=== PATIENT | male | born 1955 | race Caucasian/White ===

== ENCOUNTER → 2019-07-12 13:35 | Outpatient (CLI) | payer MEDICARE, SELFPAY ==
--- NOTE | 2019-07-12 13:42 | CDU_ITS ---
Reason For Study: Amaurosis fugax Rt. Velocities/BP Lt. Velocities/BP Prox CCA 73.4/12.1 cm/sec. Prox CCA 75.9/15.4 cm/sec. Mid CCA 70.8/13.4 cm/sec. Mid CCA 67.4/17.3 cm/sec. Dist CCA 57.8/12.1 cm/sec. Dist CCA 63.6/16.3 cm/sec. Prox ICA 59.7/11.3 cm/sec. Prox ICA 48.5/15.4 cm/sec. Mid ICA 70.6/19 cm/sec. Mid ICA 78.7/23.9 cm/sec. Dist ICA 78.4/23.4 cm/sec. Dist ICA 70.2/28.6 cm/sec. Rt. ICA/CCA = 1.1. Lt. ICA/CCA = 1.2. Prox ECA 106/16 cm/sec. Prox ECA 103.6/17.9 cm/sec. Rt. Vert. 49.1/12.5 cm/sec. Lt. Vert. 37.4/11.2 cm/sec. Right Extracranial There is intimal thickening but no significant atherosclerotic plaque noted in the right common carotid artery. There is intimal thickening but no significant atherosclerotic plaque noted in the right internal carotid artery. There is intimal thickening but no significant atherosclerotic plaque noted in the right external carotid artery. Antegrade flow is noted in the right vertebral artery. Left Extracranial There is intimal thickening but no significant atherosclerotic plaque noted in the left common carotid artery. There is intimal thickening but no significant atherosclerotic plaque noted in the left internal carotid artery. There is intimal thickening but no significant atherosclerotic plaque noted in the left external carotid artery. Antegrade flow is noted in the left vertebral artery. Procedure Carotid Duplex 38515. Exam performed in department. Interpretation Summary No significant atherosclerotic plaque or stenosis noted in the internal carotid arteries bilaterally. Flow within the vertebral arteries is antegrade bilaterally. Ordering Physician: Marv Mccarthy Referring Physician: Marlon Sarmiento Performed By: Blessing Sarmiento RVT
== END ==
PROVIDERS: PCP Family Medicine; Referring Provider Ophthalmology; Visit Provider Ophthalmology
DX: G45.3 Amaurosis fugax (principal)
CPT/HCPCS: 93880

== ENCOUNTER 2019-07-20 10:29 | Inpatient (IN) | payer MEDICARE, SELFPAY ==
[2019-07-20] VITALS (35 sets, daily range): BP systolic 131–193; BP diastolic 66–112; PULSE 68–88; RESP 1–24; TEMP 36.4–37.2; O2SAT 94–100; BMI 35.7; BMI 35.8; BMI 34.3
--- NOTE | 2019-07-20 10:32 | CT_ITS ---
STUDY: CT BRAIN WITHOUT CONTRAST REASON FOR EXAM: Male, 63 years old. ALTERED MENTAL STATUS. Difficulty with speech. RADIATION DOSAGE (If Supplied By Facility): CTDIvol = ( 44.99 ) mGy, DLP = ( 829.85 ) mGycm TECHNIQUE: Transaxial CT imaging of the brain was performed without administration of intravenous contrast material. Individualized dose optimization techniques were used for this CT. COMPARISON: Comparison is made with prior study dated February 21, 2016. FINDINGS: Normal soft tissue structures. Normal calvarium. There is mild cerebral atrophy with widening of the extra-axial spaces and ventricular dilatation. Normal white matter tracts of the cerebral hemispheres. Normal basal ganglia and thalami. Normal brainstem. Normal cerebellum. There is no intracranial hemorrhage. There are no findings of an acute ischemic infarction. Atherosclerotic calcification of the cavernous portions of the internal carotid arteries bilaterally. Minimal mucosal thickening of the ethmoid sinuses bilaterally. CT/Brain/Head without Contrast IMPRESSION: Chronic involutional changes of the brain. Electronically Signed: Ferdinand Henderson, at 11:00 EDT , Service support ,
--- NOTE | 2019-07-20 10:32 | EKG12_ITS ---
Test Reason : Blood Pressure : / mmHG Vent. Rate : 072 BPM Atrial Rate : 072 BPM P-R Int : 156 ms QRS Dur : 090 ms QT Int : 386 ms P-R-T Axes : 029 039 086 degrees QTc Int : 422 ms Normal sinus rhythm Nonspecific T wave abnormality Abnormal ECG Confirmed by VITA HARTMAN, PATTI ([id number]), advertising editor KRISTAN MICHAELS ([id number]) on 07/23/2019 1:44:58 PM Referred By: JUDY Confirmed By:SANJANA GORMAN MD
--- NOTE | 2019-07-20 10:35 | RAD_ITS ---
STUDY: X-RAY CHEST REASON FOR EXAM: Male, 63 years old. Chest pain. TECHNIQUE: Single AP portable view of the chest. COMPARISON: Comparison is made with prior examination dated February 21, 2016. FINDINGS: EKG electrodes are seen. Limited inspiration as compared to prior study with evidence of impaired aeration at the lung bases. No definite infiltrate is seen. There is no demonstrated pleural abnormality. Normal size heart. Normal mediastinum and brent. Normal visualized pulmonary arteries. There is atherosclerotic tortuosity of the aortic arch and descending thoracic aorta. There are diffuse degenerative changes of the visualized thoracic spine. Normal visualized ribs, clavicles, and shoulders. There is no demonstrated abnormality of the visualized soft tissue structures of the upper abdomen. RAD/Chest 1 View IMPRESSION: Impaired aeration at the lung bases due to limited inspiratory effort. No acute abnormality is seen. Electronically Signed: Ferdinand Henderson, at 10:51 EDT , Service support ,
[2019-07-20] MEDS: 0.9% Normal Saline 1,000 ML 100 ML IV ×2 (10:41→22:08)
[2019-07-20 10:43] LABS: Absolute Lymphocyte Count 2.74 X10^3/uL (0.83-4.51); Absolute Neutrophil Count 3.1 X10^3/uL (2.0-7.7); Basophil# 0.03 X10^3/uL; Basophil% 0.4 % (0-1); Eosinophil# 0.29 X10^3/uL; Eosinophils% 4.2 % (0-5); Hematocrit 47.1 % (40-54); Hemoglobin 15.6 g/dL (13.0-16.5); Lymphocyte # 2.74 X10^3/ul (4.0); Lymphocyte % 39.4 % (19-41); Mean Corp Hgb Conc 33.1 g/dL (32-36); Mean Corpuscular Hgb 28.3 pg (27.0-32.0); Mean Corpuscular Volume 85.3 fL (80-94); Mean Platelet Vol. 10.1 fl (6.2-12.0); Monocyte# 0.74 X10^3/uL; Monocyte% 10.6 % (0-10); NRBC Flagged by Analyzer 0 % (0-5); Neutrophil # 3.13 X10^3/uL (2.7-7.7); Neutrophil % 45.1 % (47-70); Platelet Count 220 K/mm3 (150-450); RBC Distribution Width CV 13.7 % (11.6-14.6); RBC Distribution Width SD 42.5 fl (35.1-43.9); Red Blood Count 5.52 M/mm3 (4.6-6.2)
[2019-07-20 10:45] LABS: Bedside Glucose 131 mg/dL (70-110)
--- NOTE | 2019-07-20 10:45 | ED.RN ---
Left voice message with Gely to come to ED or call.
[2019-07-20 10:57] LABS: Carboxyhemoglobin Frac (CO) 3.3 % (0.0-1.5)
[2019-07-20 11:23] LABS: Partial Thromboplast Time 25.9 Seconds (24.1-36.2); Prothrombin Time (Protime)PT. 12.9 SECONDS (11.7-14.9)
[2019-07-20 11:24] LABS: Alcohol, Blood (Medical)-Serum < 3.0 mg/dL
--- NOTE | 2019-07-20 11:26 | ED.DCSUM_ITS ---
History of Present Illness Chief Complaint: Mental Status Change Onset: Today Narrative: Patient presents for evaluation of confusion. Patient brought to the emergency department by EMS. 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 EMS was told that this was around 9:00. When EMS arrived he was outside of the building and still very confused. He could not tell them his name his 's name really anything that was going on. [facility] stroke for them was negative. They noted him to be hypertensive. He did have an ID on them so they could not get his name. He has not been here at the hospital very much. But I do see that approximately 8 days ago he had a ultrasound of his carotids that was normal and the diagnosis code for that was amaurosis fugax and was ordered by 1 of the local director of customer service. I see in the computer he has a history of hypertension and takes lisinopril. Patient notes a headache. EMS was not aware of any carbon monoxide producing machines on the job site. Computer reports that he is a non-smoker Past Medical History - Allergies and Home Meds Allergies/Adverse Reactions: Allergies No Known Allergies Allergy (Verified 07/20/19 14:06) Surgical History: - - inguinal hernia right. Smoking Status: Never smoker - Family History Maternal Family History: Reports: Heart Disease, Stroke Paternal Family History: Reports: - - father has been failry healthy Review of Systems ROS: Unable to Obtain Neurological: Reports: Headache, - - Confusion Physical Exam Vital Signs/Narrative: Vital Signs Temp Pulse Resp BP Pulse Ox 07/20/19 11:02 88 16 183/112 H 99 07/20/19 10:32 80 18 185/97 H 99 07/20/19 10:30 97.8 F 73 22 H 185/97 H 99 Inital Vital Signs reviewed: Yes General: Well nourished, Well developed, No Acute Distress Head: Normocephalic, Atraumatic Eyes: Perrl, EOMI ENT: Moist mucous membranes, No rhinorrhea Neck: Supple, Nontender Cardiovascular: Regular rate, Regular rhythm, No murmurs Respiratory: No distress, CTA bilaterally, Chest nontender Abdomen: Soft, Nontender, Nondistended, Normal bowel sounds Back: Nontender, Normal Inspection Extremities: Nontender, No edema Skin: Normal color, No rash Neurological: Alert, Cranial nerves II-XII grossly intact, Normal Strength, Normal Sensation, - - Patient can follow commands and speak. However he is grossly confused. Psychological: Normal affect - For his NIH score him 2 points level of consciousness questions 1 point for level of consciousness commands and 2 points for best language for a total of 5 Diagnostic/Tx/Re-eval - Medical Decision Making Patient presents unable to really tell us any medical information even his name or his 's name. He cannot unlock his cell phone. 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 Differential is quite broad. The decision was made not to call a stroke team on him because of the broad differential that this could be. I would not want to give TPA to carbon monoxide poisoning.. Instead we did obtain emergent CT which was negative carbon monoxide slightly elevated 3.3 and again he had been outside for period of time after acting confused but while getting the results back he did not have any improvement and continued to complain of headache. Therefore I doubt that this would be carbon monoxide. His alcohol level was negative. After numerous tries we still cannot get a hold of his and nobody has come to tell us what his baseline is and he certainly cannot tell us. He remained hypertensive with headache. I had neurology beem into the room and their recommendation was to give TPA and obtain a CTA. This was done so door to needle time of approximately 88 minutes. But again multiple repeat examinations by this physician does not show any improvement. After coming back from CTA, which was negative for acute dissection or cutoffs, his headache was continuing and he was more hypertensive we gave additional labetalol and morphine. If he remains hypertensive we will place him on Cardene drip. Our plan is admission to the hospital. - Critical Care Time Critical care time (excluding procedures): 30-74 minutes - 35 min ED Disposition - Plan for ED Patient: Disposition: Acute Care Hospital [facility] Diagnosis: Aphasia, Headache
[2019-07-20 11:27] LABS: AST(SGOT) 25 U/L (15-37); Alanine Aminotransfer ALT/SGPT 49 U/L (16-61); Albumin, Serum 3.9 g/dL (3.2-5.0); Alkaline Phosphatase 78 U/L (45-117); Anion Gap 7 (5-15); BUN 17 mg/dL (7-18); BUN/Creat Ratio 15.3 RATIO (10-20); Bilirubin, Direct 0.18 mg/dL (0.00-0.30); Calcium,Total 9.2 mg/dL (8.5-10.1); Chloride 109 mmol/L (98-107); Creatinine, Serum 1.11 mg/dL (0.70-1.30); EST Glomerular Filtration Rate 71 mL/min (>60); Est Glom Filt Rate - Afr Amer 85 mL/min (>60); Estimated Creatinine Clearance 68.51 ml/min; Globulin 3.3 g/dL (2.2-4.2); Glucose 146 mg/dL (74-106); Potassium 4.4 mmol/L (3.5-5.1); Protein, Total 7.2 g/dL (6.4-8.2); Sodium Level 140 mmol/L (136-145)
[2019-07-20 11:50] LABS: Amphetamine Urine VISTA NEGATIVE (<1000 ng/mL); Barbiturate Urine VISTA NEGATIVE (< 200 ng/mL); Benzodiazepine Urine VISTA NEGATIVE (< 200 ng/mL); Cocaine Urine VISTA NEGATIVE (< 300 ng/mL); Ecstacy Urine VISTA NEGATIVE (< 500 ng/mL); Methadone Urine VISTA NEGATIVE (< 300 ng/mL); PCP Urine VISTA NEGATIVE (< 25 ng/mL); THC Urine VISTA NEGATIVE (< 50 ng/mL); Vista UDS pH Range 7
--- NOTE | 2019-07-20 12:17 | CT_ITS ---
STUDY: CTA HEAD AND NECK WITH CONTRAST REASON FOR EXAM: Male, 63 years old. APHASIA, SUDDEN ONSET AT WORK WITH CONFUSION. Tpa GIVEN RADIATION DOSAGE (If Supplied By Facility): CTDIvol = ( 24.23 ) mGy, DLP = ( 786.20 ) mGycm TECHNIQUE: CT angiography was performed with a multi-detector CT scanner. Data acquisition was obtained from the skull base through the vertex following intravenous administration of 100ML ISOVUE 370. MIP images were reconstructed from the axial data set. Post-processing of the angiographic images was performed, with multiplanar reformation and 3D reconstruction. Individualized dose optimization techniques were used for this CT. COMPARISON: No relevant priors. FINDINGS: Normal bilateral petrous carotid arteries. There is calcified plaque formation of the right cavernous carotid artery, without a cross-sectional luminal stenosis. There is calcified plaque formation of the left cavernous carotid artery, without a cross-sectional luminal stenosis. Normal right A1 segments of the anterior cerebral artery. Normal left A1 segments of the anterior cerebral artery. Normal intact anterior communicating artery (ACOM). Normal bilateral A2 segments of the anterior cerebral arteries. Normal right M1 and M2 segments of the middle cerebral arteries, with a normal M1 bifurcation. Normal left M1 and M2 segments of the middle cerebral arteries, with a normal M1 bifurcation. Normal right posterior communicating artery (PCOM). Normal left posterior communicating artery (PCOM). Normal bilateral vertebral arteries. Normal basilar artery with a normal basilar bifurcation. The visualized bilateral superior cerebellar (SCA) arteries are normal. Normal bilateral P1, P2 and visualized P3 segments of the posterior cerebral arteries. There is no demonstrated aneurysm of the [place]. There is no demonstrated abnormality of the visualized brain. AORTIC ARCH: There is atherosclerotic calcific plaque formation of the aortic arch and great vessels arising from the aortic arch, without a hemodynamically significant stenosis. There is a normal origin of the brachiocephalic, left common carotid, and left subclavian arteries. RIGHT CAROTID ARTERIES: Normal right common carotid artery (CCA). Normal right common carotid bulb. Normal origin of the right internal carotid (ICA) artery without a hemodynamically significant stenosis. Normal visualized cervical portion of the right internal carotid artery. Normal origin of the right external carotid artery (ECA). LEFT CAROTID ARTERIES: Normal left common carotid artery (CCA). Normal left common carotid bulb. Normal origin of the left internal carotid (ICA) artery without a hemodynamically significant stenosis. Normal visualized cervical portion of the left internal carotid artery. Normal origin of the left external carotid artery (ECA). VERTEBRAL ARTERIES: Normal bilateral vertebral arteries. CT/CTA Head AND Neck W/ Contrast IMPRESSION: Normal CTA Head and neck with contrast. Electronically Signed: Ferdinand Henderson, at 13:02 EDT , Service support ,
--- NOTE | 2019-07-20 12:59 | ED.RN ---
AFTER RETURNING TO WITH PT TO ED AFTER CTA PT CONTINUOUSLY C/O HEADACHE. BP INCREASED WHILE IT CT TO SBP 188. DR KIM NOTIFIED. DOES NOT WANT CARDENE STARTED. STATES HE WILL ORDER MORPHINE FOR PAIN MEDICATIONS.
[2019-07-20] MEDS: Ondansetron 4 MG/2 ML Vial IV (13:15)
[2019-07-20] MEDS: Morphine 4 MG/ML Syringe IV ×2 (13:15→14:24)
--- NOTE | 2019-07-20 13:58 | ED.RN ---
CALLED AND SPOKE WITH RENATA, I UPDATED HER ON PATIENTS STATUS. DR ROUSE AT BEDSIDE THEN SPOKE WITH PATIENT ON THE PHONE. STATES SHE IS IN [place] FOR . SHE STATES SHE WILL CALL PATIENTS SONS TO COME TO THE HOSPITAL.
[2019-07-20 14:23] LABS: Erythrocyte Sedimentation Rate 4 mm/hr (0-20)
--- NOTE | 2019-07-20 14:45 | NURSING ---
Pt received from ER to ICU 6 w/MAURILIO Flor. Bedside NIHSS performed by both RN's. Pt performing same tasks as previous but was able to say the names of the pictures on the picture card which was an improvement. Pt continues to complain of a headache, per ER report this is not changed from previous.
--- NOTE | 2019-07-20 14:49 | HP.PCM_ITS ---
Problem List (1) CVA (cerebral vascular accident) Status: Acute (2) HTN (hypertension) Status: Acute Comment: susp[ect chronic and untreated (3) Hyperglycemia Status: Acute (4) Received intravenous tissue plasminogen activator (tPA) in emergency department Status: Acute (5) Aphasia Status: Acute (6) Headache Status: Acute History of Present Illness Date of Admission: 07/20/19 Chief Complaint: sent ot the ED from work for confusion and unusual behavior The patient is a 63 year old M with no significant past medical history, on no prescribed medications, who was brought to the emergency room at [facility] when he was found behaving oddly at work. He was very confused and this was at approximately 0900. He had no weakness but he was unable to tell the EMT's his name, his 's name or any information about himself. He was noted to be hypertensive. Stat CBC was unremarkable. PT and PTT were within normal limits. CMP showed an elevated blood sugar at 146 and no other significant findings. Troponin was less than 0.015. Toxicology screen was negative. Ethyl alcohol was less than 3. A noncontrasted CT brain was negative. for acute findings. CTA of the head and neck was negative for any significant areas of stenosis. Consult was obtained with [facility] tele[facility]neurology. TPA was recommended and started at 11:50. Stroke was not immediately recognized due to no weakness or numbness - only confusion and aphasia. I spoke with his on the phone when they were able to reach her from the ED. She is currently in [place] for a . She gave me hx. Ramin is a LL non-smoker and non-drinker. No drugs. He has not seen a doctor in quite a while and his BP has been increased recently. He takes no prescription medications, only vitamins. NKDA. His mother has hx of CVA's and CAD. He is active and has been healthy other than having an increased BP recently. Past Medical History Past Medical History (Chronic Problems): Chronic Problems Migraine (Chronic) Allergies No Known Allergies Allergy (Verified 07/20/19 14:06) Home Medications: Ambulatory Orders Medication Instructions Recorded Only Vitamins 07/20/19 Surgical History: - - inguinal hernia right. Psychiatric History: No pertinent psych hx Lives: Spouse/ Significant Other Smoking Status: Never smoker Tobacco Use: Non-smoker Alcohol: None Drugs: None - *Family History Maternal History Items: Heart Disease, Stroke Paternal History Items: - - father has been failry healthy Review of Systems HEENT: Reports: Head Aches Unable to obtain accurate/complete ROS d/t: pt is aphasic and not able to get ROS VTE Information - Inpt Only VTE Present on Admission: No VTE Mechan Device Prophylaxis: SCD's, Knee High JAMI Hose VTE Pharm Prophylaxis ordered?: No Reason prophylaxis not ordered:: Treatment Not Indicated - he got TPA for CVA and will not start anticoagulation until at least 24 hours Patient Problems: Active and Suspected Problems Aphasia (Acute) Headache (Acute) - Physical Exam Vitals/I&O's: Vital Signs Temp Pulse Resp BP Pulse Ox 97.7 F L 76 19 H 168/87 H 100 07/20/19 14:14 07/20/19 14:35 07/20/19 14:35 07/20/19 14:35 07/20/19 14:35 Oxygen Flow Rate (L/min) 2 Oxygen Delivery Method Nasal Cannula Weight: 249 lb 5.485 oz Body Mass Index (BMI) 35.7 Finger Stick Blood Glucose 131 Intake and Output for Last 24 Hours 07/18/19 07/19/19 07/20/19 23:59 23:59 23:59 Intake Total 181 / 181 Balance 181 / 181 General: Alert, Well developed, Well nourished, Confused, Disoriented, - - he knows his name now and otherwise is disoriented. HEENT: Atraumatic, PERRLA, EOMI, Normocephalic Oral: Moist Mucosa Neck: Supple, No JVD, Negative Carotid Bruits, No Nodes, Trachea Midline Lungs: Clear to auscultation, Normal air movement Cardiovascular: Regular rate, Regular Rhythm, Normal S1, Normal S2, No murmurs, No rub noted, No Gallop Abdomen: Bowel Sounds Present, Soft, Non Tender, Non-Distended Extremities: No clubbing, No cyanosis, No edema, Peripheral Pulses Normal Skin: No rashes, No breakdown Musculoskeletal: No Muscle Wasting Neurological: Cranial nerves II-XII grossly intact, Motor Exam 5/5 strength throughout, Muscle tone normal, Coordination normal, - - he is able to follow a few simple commands. Psych/Mental Status: Anxious, - - aphasic, holding his head Laboratory Results 07/20/19 10:25: Ethyl Alcohol < 3.0 07/20/19 10:35: WBC 7.0, RBC 5.52, Hgb 15.6, Hct 47.1, MCV 85.3, MCH 28.3, MCHC 33.1, RDW Std Deviation 42.5, RDW Coeff of Blake 13.7, Plt Count 220, MPV 10.1, Immature Gran % (Auto) 0.300, Neut % (Auto) 45.1 L, Lymph % (Auto) 39.4, [place] % (Auto) 10.6 H, Eos % (Auto) 4.2, Baso % (Auto) 0.4, Absolute Neuts (auto) 3.1, Absolute Lymphs (auto) 2.74, Nucleated RBC % 0 07/20/19 10:35: PT Cancelled, INR Cancelled, APTT Cancelled 07/20/19 10:35: Sodium Cancelled, Potassium Cancelled, Chloride Cancelled, Carbon Dioxide Cancelled, Anion Gap Cancelled, BUN Cancelled, Creatinine Cancelled, Estim Creat Clear Calc Cancelled, Est GFR (MDRD) Af Amer Cancelled, Est GFR (MDRD) Non-Af Cancelled, BUN/Creatinine Ratio Cancelled, Glucose Cancelled, Calcium Cancelled, Total Bilirubin Cancelled, Direct Bilirubin Cancelled, AST Cancelled, ALT Cancelled, Alkaline Phosphatase Cancelled, Troponin I Cancelled, Total Protein Cancelled, Albumin Cancelled, Globulin Cancelled 07/20/19 10:35: VBG Carboxyhemoglobin 3.3 H 07/20/19 10:35: ESR 4 07/20/19 10:40: POC Glucose 131 H 07/20/19 10:50: PT 12.9, INR 1.0, APTT 25.9 07/20/19 10:50: Sodium 140, Potassium 4.4, Chloride 109 H, Carbon Dioxide 24.0, Anion Gap 7, BUN 17, Creatinine 1.11, Estim Creat Clear Calc 68.51, Est GFR (MDRD) Af Amer 85, Est GFR (MDRD) Non-Af 71, BUN/Creatinine Ratio 15.3, Glucose 146 H, Calcium 9.2, Total Bilirubin 0.70, Direct Bilirubin 0.18, AST 25, ALT 49, Alkaline Phosphatase 78, Troponin I < 0.015, Total Protein 7.2, Albumin 3.9, Globulin 3.3 07/20/19 11:20: Urine Opiates Screen NEGATIVE, Urine Methadone Screen NEGATIVE, Ur Barbiturates Screen NEGATIVE, Ur Phencyclidine Scrn NEGATIVE, Ur Amphetamines Screen NEGATIVE, U Methamphetamin-MDMA NEGATIVE, U Benzodiazepines Scrn NEGATIVE, Urine Cocaine Screen NEGATIVE, U Cannabinoids Screen NEGATIVE, Ur Drug Screen Comment Current Medications Acetaminophen (Tylenol) 650 mg PO .X1 PRN PRN Reason: Temp > 99.6 F Diphenhydramine HCl (Benadryl) 50 mg IV .X1 PRN PRN Reason: Allergic Reaction Stop: 07/22/19 11:44 Epinephrine HCl () 0.3 mg IM .X1 PRN PRN Reason: Allergic Reaction Stop: 07/22/19 11:44 Sodium Chloride () 1,000 mls @ 100 mls/hr IV .Q10H ONE Stop: 07/20/19 20:31 Last Admin: 07/20/19 10:41 Dose: 100 mls/hr Documented by: Sodium Chloride () 1,000 mls @ 100 mls/hr IV .Q10H DEXTER Last Admin: 07/20/19 13:25 Dose: Not Given Documented by: Famotidine 20 mg/ Sodium (Chloride) 10 mls @ 300 mls/hr IV .X1 PRN PRN Reason: Allergic Reaction Stop: 07/22/19 11:44 Nicardipine/Dextrose (Cardene-Dex 20 Mg/200 Ml Soln) 20 mg in 200 mls @ 50 mls/hr IV .Q4H PRN; Protocol PRN Reason: See Instructions Labetalol HCl (Trandate) 20 mg IV X1 PRN PRN Reason: BLOOD PRESSURE Last Admin: 07/20/19 11:45 Dose: 20 mg Documented by: Methylprednisolone (Solu-Medrol) 125 mg IV .X1 PRN PRN Reason: Allergic Reaction Stop: 07/22/19 11:44 Assessment/Plan All Active Problems Aphasia (Acute) Headache (Acute) CVA (cerebral vascular accident) (Acute) HTN (hypertension) (Acute) Hyperglycemia (Acute) Received intravenous tissue plasminogen activator (tPA) in emergency department (Acute) Impressions 1. CVA with aphasia, elevated BP and cephalgia. Received TPA in the ED. Starting to improve at the time of my exam. Able to follow simple commands at t imes now. Still having trouble word finding but But, was able to ask me in a sentence if he was going to get better. 2. cephalgia - due to acute CVA 3. HTN - never treated for this but has not seen a doctor in several years. 4. + FH of strokes and heart disease 5. obesity 6. elevated carboxyHGB - Significance? Admit to ICU follow the TPA protocol MRI of the brain repeat the CT brain in 24H recheck lab in the AM If he passes the swallowing eval start a cardiac diet Lipid panel in the AM ECHO with bubble study ST/PT/OT consults Consult Dr. Quintero, director of flight operations Inpatient E&M: 82482 Init Hosp L3
--- NOTE | 2019-07-20 15:21 | ECHOCS_ITS ---
Version 2 Reason For Study: TIA/CVA Procedure This was a 2D Doppler, Color Flow transthoracic echocardiogram. The study was technically difficult. Exam performed supine. Pt had severe headache at time of exam. Contrast injection was performed. Exam performed portable in ICU/CCU. Left Ventricle Normal LV size. Concentric left ventricular hypertrophy. The estimated ejection fraction is 65 %. No evidence for diastolic dysfunction. No regional wall motion abnormalities noted. Right Ventricle Normal RV size. Normal systolic function. Atria Normal left atrium. Normal right atrium. No doppler evidence for ASD. Mitral Valve There is no mitral valve stenosis. No mitral valve insufficiency. Tricuspid Valve There is no tricuspid stenosis. No tricuspid valve insufficiency. Unable to estimate RV systolic pressure due to inadequate jet, pulmonary artery pressure probably normal. Aortic Valve Trisinus/trileaflet aortic valve. There is no aortic stenosis. No aortic valve insufficiency. Pulmonic Valve There is no pulmonic valvular stenosis. No pulmonic valve insufficiency. Great Vessels Normal aortic root. Pericardium/Pleural No pericardial effusion. Medication Diluted definity 5.0ml given slow IV push to enhance endocardial definition. Performed a rapid injection of agitated mix of 9 cc saline and 1cc air to assess for atrial septal defect. MMode/2D Measurements & Calculations LVIDd: 4.5 cm IVSd: 1.2 cm Ao root diam: 3.9 cm LVIDs: 2.6 cm LVPWd: 1.5 cm FS: 42.6 % LAV(MOD-bp): 81.0 ml LA A4 area: 23.5 cm2 LA dimension(2D): 3.9 cm LAV(MOD-bp) Indexed: 35.3 ml/m2 LAV(MOD-sp2): 82.1 ml LAV(MOD-sp4): 76.1 ml Time Measurements MV dec time: 0.25 sec Doppler Measurements & Calculations MV E max chun: 58.8 cm/sec Lat Peak E' Chun: 8.3 cm/sec Med Peak E' Chun: 5.8 cm/sec MV A max chun: 92.0 cm/sec E/E' lat: 7.0 E/E' med: 10.2 MV E/A: 0.64 Ao V2 max: 147.1 cm/sec LV V1 max: 91.1 cm/sec PA V2 max: 103.3 cm/sec Ao max P.7 mmHg LV V1 max P.3 mmHg Interpretation Summary The estimated ejection fraction is 65 %. No evidence for diastolic dysfunction. The study was technically difficult. Contrast injection was performed. Ordering Physician: Alla Arnett Referring Physician: Marlon Sarmiento Performed By: Yaritza Obando, DA, RVT
[2019-07-20 16:18] LABS: Magnesium 1.9 mg/dL (1.6-2.6); Thyroid Stim Hormone (TSH) 1.42 uIU/mL (0.358-3.74)
[2019-07-20 20:03] LABS: Hemoglobin A1c 6.7 % (4.2-6.3)
[2019-07-20 21:13] LABS: M R Staph aureus DNA By PCR Negative (Negative); Probe Check PASS; Specimen Processing Control PASS
[2019-07-20 21:33] LABS: Bacteria 0 SEEN /hpf (None Seen); Mucous, Urine 0 SEEN /hpf (<or=2+); Squamous Epithelial Cells - UA 0 SEEN /hpf (0-5)
[2019-07-20 21:39] LABS: Color, Urine Yellow (Yellow); Glucose, Dipstick Normal (Normal); Ketone-Dipstick 5 mg/dl (Negative); Leukocyte Esterase-Dipstick Negative /ul (Negative); Nitrite-Dipstick Negative (Negative); Occult Blood-Urine 25 /ul (Negative); Protein-Dipstick Negative (Negative); Urine Bilirubin Dipstick Negative (Negative); Urine Clarity Clear (Clear); Urine Urobilinogen Normal (Normal)
[2019-07-20 21:45] LABS: Red Blood Cells-Urine 0-5 SEEN /hpf (0-5); White Blood Cells 0-5 SEEN /hpf (0-5)
[2019-07-20] MEDS: Famotidine 200 MG/20 ML MDV 20 MG in 0.9% Normal Saline (Pres. free 8 ML 300 MG IV (22:07)
[2019-07-21] VITALS (22 sets, daily range): BP systolic 105–177; BP diastolic 60–98; PULSE 60–82; RESP 13–78; TEMP 36.6–36.7; O2SAT 92–99
[2019-07-21 04:27] LABS: Absolute Lymphocyte Count 2.88 X10^3/uL (0.83-4.51); Absolute Neutrophil Count 4.9 X10^3/uL (2.0-7.7); Basophil# 0.03 X10^3/uL; Basophil% 0.3 % (0-1); Eosinophil# 0.23 X10^3/uL; Eosinophils% 2.6 % (0-5); Hematocrit 41.3 % (40-54); Hemoglobin 13.3 g/dL (13.0-16.5); Lymphocyte # 2.88 X10^3/ul (4.0); Mean Corp Hgb Conc 32.2 g/dL (32-36); Mean Corpuscular Hgb 28.3 pg (27.0-32.0); Mean Corpuscular Volume 87.9 fL (80-94); NRBC Flagged by Analyzer 0 % (0-5); Neutrophil # 4.92 X10^3/uL (2.7-7.7); Neutrophil % 54.8 % (47-70); Platelet Count 191 K/mm3 (150-450); RBC Distribution Width SD 45.1 fl (35.1-43.9)
[2019-07-21 04:58] LABS: Anion Gap 2 (5-15); BUN 11 mg/dL (7-18); BUN/Creat Ratio 11.7 RATIO (10-20); Chloride 111 mmol/L (98-107); Cholesterol 150 mg/dL (200); Creatinine, Serum 0.94 mg/dL (0.70-1.30); EST Glomerular Filtration Rate 85 mL/min (>60); Est Glom Filt Rate - Afr Amer 103 mL/min (>60); Glucose 103 mg/dL (74-106); High Density Lipoprotein 43 mg/dL; Magnesium 2.3 mg/dL (1.6-2.6); Potassium 3.7 mmol/L (3.5-5.1); Sodium Level 141 mmol/L (136-145); Triglycerides 124 mg/dL; Very Low Density Lipoprotein 25 mg/dL (5-40)
--- NOTE | 2019-07-21 05:55 | EKG12_ITS ---
Test Reason : AM EKG Blood Pressure : / mmHG Vent. Rate : 061 BPM Atrial Rate : 061 BPM P-R Int : 174 ms QRS Dur : 098 ms QT Int : 416 ms P-R-T Axes : 027 038 123 degrees QTc Int : 418 ms Normal sinus rhythm T wave abnormality, consider lateral ischemia Abnormal ECG When compared with ECG of 20-JUL-2019 10:59, No significant change was found Confirmed by FADIA LUTZ ([id number]), makeup editor KRISTAN MICHAELS ([id number]) on 07/30/2019 11:43:05 AM Referred By: PADMA Confirmed By:FADIA LUTZ
--- NOTE | 2019-07-21 06:41 | CON.PCM_ITS ---
Reason for Consult Date of Consultation: 07/21/19 Reason for Consultation: CVA status post TPA History of Present Illness: The patient is a 63-year-old male, with a history as outlined below, who presented to the emergency department on July 19 with altered mentation. The patient reports to me this morning that he began to feel strange while at work yesterday. He reports that he had problems thinking and was noted to be confused. The patient denies having had a prior history of stroke. His only complaint this morning is for that of a headache. He is a lifelong non-smoker. On presentation to the emergency department, the patient was noted to be afebrile, but was hypertensive and tachypneic. Laboratory evaluation revealed a normal CBC. Coagulation profile was within normal limits. Chemistry profile was largely unrevealing. Glucose was elevated and hemoglobin A1c was noted to be 6.7. Troponin was negative. Urinalysis and toxicology screen were unremarkable. CT head only revealed chronic involutional changes of the brain. Teleneurology consultation was obtained. The patient had an initial NIH score of 6. TPA was indicated and subsequently administered. The patient was then admitted to the medical intensive care unit for further management. Past Medical History Past Medical History (Chronic Problems): Chronic Problems Migraine (Chronic) Allergies No Known Allergies Allergy (Verified 07/20/19 14:06) Home Medications: Ambulatory Orders Medication Instructions Recorded Only Vitamins 07/20/19 Surgical History: - - inguinal hernia right. Psychiatric History: No pertinent psych hx Lives: Spouse/ Significant Other Smoking Status: Never smoker Tobacco Use: Non-smoker Alcohol: None Drugs: None - *Family History Maternal History Items: Heart Disease, Stroke Paternal History Items: - - father has been failry healthy Review of Systems Constitutional: Denies: Chills, Fever Eyes: Denies: Blurred vision, Double vision HEENT: Reports: Head Aches. Denies: Sinus Congestion, Sinus Drainage Cardiovascular: Denies: Chest Pain, Palpitations Respiratory: Denies: Cough, Shortness of breath at rest, Sputum production Gastrointestinal: Denies: Abdominal Pain, Nausea, Vomiting Genitourinary: Denies: Dysuria Musculoskeletal: Denies: Joint Pain, Joint Tenderness Skin: Denies: Rash, Wounds Neurological: Reports: Confusion Psychiatric: Denies: Anxiety, Depression, Homicidal Ideations, Suicidal Ideations Hematologic/ Lymphatic: Denies: Easy Bruising, Easy Bleeding Patient Problems: Active and Suspected Problems Aphasia (Acute) Headache (Acute) Objective: The patient's most recent lab work, culture data and imaging studies have all been personally reviewed. - Physical Exam Vitals/I&O's: Vital Signs Temp Pulse Resp BP Pulse Ox 97.9 F 66 15 162/78 H 94 07/21/19 00:00 07/21/19 06:00 07/21/19 06:00 07/21/19 06:00 07/21/19 06:00 Oxygen Flow Rate (L/min) 2 Oxygen Delivery Method Room Air Weight: 239 lb 3.225 oz Body Mass Index (BMI) 34.3 Finger Stick Blood Glucose 131 Intake and Output for Last 24 Hours 07/19/19 07/20/19 07/21/19 23:59 23:59 23:59 Intake Total 1191 / 1191 753.33 / 753.33 Output Total 500 / 1150 1425 / 1425 Balance 691 / 41 -671.67 / -671.67 General: Alert, Cooperative, No apparent distress HEENT: Atraumatic, PERRLA, Normocephalic Oral: Moist Mucosa, No Gingival or Mucosal Lesions/ Ulcerations Neck: Supple, No Nodes, Trachea Midline Lungs: Normal air movement, No rhonchi, No wheeze, No rales Cardiovascular: Regular rate, Regular Rhythm, Normal S1, Normal S2, No murmurs Abdomen: Bowel Sounds Present, Soft, Non Tender Extremities: No clubbing, No cyanosis, No edema Skin: No breakdown Musculoskeletal: No Tenderness to Palpation of Joints or Extremities Lymphatic: No Cervical, Supraclavicular, or Inguinal Adenopathy Neurological: - - No focal neurological deficits. Psych/Mental Status: Normal Affect, Appropriate Labs (Last 48 Hours) 07/20/19 07/20/19 07/20/19 10:25 10:35 10:35 WBC 7.0 RBC 5.52 Hgb 15.6 Hct 47.1 MCV 85.3 MCH 28.3 MCHC 33.1 RDW Std Deviation 42.5 RDW Coeff of Blake 13.7 Plt Count 220 MPV 10.1 Immature Gran % (Auto) 0.300 Neut % (Auto) 45.1 L Lymph % (Auto) 39.4 [place] % (Auto) 10.6 H Eos % (Auto) 4.2 Baso % (Auto) 0.4 Absolute Neuts (auto) 3.1 Absolute Lymphs (auto) 2.74 Nucleated RBC % 0 ESR PT Cancelled INR Cancelled APTT Cancelled VBG Carboxyhemoglobin Sodium Potassium Chloride Carbon Dioxide Anion Gap BUN Creatinine Estim Creat Clear Calc Est GFR (MDRD) Af Amer Est GFR (MDRD) Non-Af BUN/Creatinine Ratio Glucose Hemoglobin A1c Calcium Magnesium Total Bilirubin Direct Bilirubin AST ALT Alkaline Phosphatase Troponin I Total Protein Albumin Globulin Triglycerides Cholesterol LDL Cholesterol VLDL Cholesterol HDL Cholesterol TSH Urine Color Urine Clarity Urine pH Ur Specific [place] Urine Protein Urine Glucose (UA) Urine Ketones Urine Occult Blood Urine Nitrite Urine Bilirubin Urine Urobilinogen Ur Leukocyte Esterase Urine RBC Urine WBC Ur Squamous Epith Cells Urine Bacteria Urine Mucus Urine Opiates Screen Urine Methadone Screen Ur Barbiturates Screen Ur Phencyclidine Scrn Ur Amphetamines Screen U Methamphetamin-MDMA U Benzodiazepines Scrn Urine Cocaine Screen U Cannabinoids Screen Ur Drug Screen Comment Ethyl Alcohol < 3.0 MRSA (PCR) POC Glucose 07/20/19 07/20/19 07/20/19 10:35 10:35 10:35 WBC RBC Hgb Hct MCV MCH MCHC RDW Std Deviation RDW Coeff of [place] Plt Count MPV Immature Gran % (Auto) Neut % (Auto) Lymph % (Auto) [place] % (Auto) Eos % (Auto) Baso % (Auto) Absolute Neuts (auto) Absolute Lymphs (auto) Nucleated RBC % ESR 4 PT INR APTT VBG Carboxyhemoglobin 3.3 H Sodium Cancelled Potassium Cancelled Chloride Cancelled Carbon Dioxide Cancelled Anion Gap Cancelled BUN Cancelled Creatinine Cancelled Estim Creat Clear Calc Cancelled Est GFR (MDRD) Af Amer Cancelled Est GFR (MDRD) Non-Af Cancelled BUN/Creatinine Ratio Cancelled Glucose Cancelled Hemoglobin A1c Calcium Cancelled Magnesium Total Bilirubin Cancelled Direct Bilirubin Cancelled AST Cancelled ALT Cancelled Alkaline Phosphatase Cancelled Troponin I Cancelled Total Protein Cancelled Albumin Cancelled Globulin Cancelled Triglycerides Cholesterol LDL Cholesterol VLDL Cholesterol HDL Cholesterol TSH Urine Color Urine Clarity Urine pH Ur Specific [place] Urine Protein Urine Glucose (UA) Urine Ketones Urine Occult Blood Urine Nitrite Urine Bilirubin Urine Urobilinogen Ur Leukocyte Esterase Urine RBC Urine WBC Ur Squamous Epith Cells Urine Bacteria Urine Mucus Urine Opiates Screen Urine Methadone Screen Ur Barbiturates Screen Ur Phencyclidine Scrn Ur Amphetamines Screen U Methamphetamin-MDMA U Benzodiazepines Scrn Urine Cocaine Screen U Cannabinoids Screen Ur Drug Screen Comment Ethyl Alcohol MRSA (PCR) POC Glucose 07/20/19 07/20/19 07/20/19 10:35 10:40 10:50 WBC RBC Hgb Hct MCV MCH MCHC RDW Std Deviation RDW Coeff of [place] Plt Count MPV Immature Gran % (Auto) Neut % (Auto) Lymph % (Auto) [place] % (Auto) Eos % (Auto) Baso % (Auto) Absolute Neuts (auto) Absolute Lymphs (auto) Nucleated RBC % ESR PT 12.9 INR 1.0 APTT 25.9 VBG Carboxyhemoglobin Sodium Potassium Chloride Carbon Dioxide Anion Gap BUN Creatinine Estim Creat Clear Calc Est GFR (MDRD) Af Amer Est GFR (MDRD) Non-Af BUN/Creatinine Ratio Glucose Hemoglobin A1c 6.7 H Calcium Magnesium Total Bilirubin Direct Bilirubin AST ALT Alkaline Phosphatase Troponin I Total Protein Albumin Globulin Triglycerides Cholesterol LDL Cholesterol VLDL Cholesterol HDL Cholesterol TSH Urine Color Urine Clarity Urine pH Ur Specific [place] Urine Protein Urine Glucose (UA) Urine Ketones Urine Occult Blood Urine Nitrite Urine Bilirubin Urine Urobilinogen Ur Leukocyte Esterase Urine RBC Urine WBC Ur Squamous Epith Cells Urine Bacteria Urine Mucus Urine Opiates Screen Urine Methadone Screen Ur Barbiturates Screen Ur Phencyclidine Scrn Ur Amphetamines Screen U Methamphetamin-MDMA U Benzodiazepines Scrn Urine Cocaine Screen U Cannabinoids Screen Ur Drug Screen Comment Ethyl Alcohol MRSA (PCR) POC Glucose 131 H 07/20/19 07/20/19 07/20/19 10:50 11:20 15:40 WBC RBC Hgb Hct MCV MCH MCHC RDW Std Deviation RDW Coeff of [place] Plt Count MPV Immature Gran % (Auto) Neut % (Auto) Lymph % (Auto) [place] % (Auto) Eos % (Auto) Baso % (Auto) Absolute Neuts (auto) Absolute Lymphs (auto) Nucleated RBC % ESR PT INR APTT VBG Carboxyhemoglobin Sodium 140 Potassium 4.4 Chloride 109 H Carbon Dioxide 24.0 Anion Gap 7 BUN 17 Creatinine 1.11 Estim Creat Clear Calc 68.51 Est GFR (MDRD) Af Amer 85 Est GFR (MDRD) Non-Af 71 BUN/Creatinine Ratio 15.3 Glucose 146 H Hemoglobin A1c Calcium 9.2 Magnesium 1.9 Total Bilirubin 0.70 Direct Bilirubin 0.18 AST 25 ALT 49 Alkaline Phosphatase 78 Troponin I < 0.015 < 0.015 Total Protein 7.2 Albumin 3.9 Globulin 3.3 Triglycerides Cholesterol LDL Cholesterol VLDL Cholesterol HDL Cholesterol TSH 1.42 Urine Color Urine Clarity Urine pH Ur Specific [place] Urine Protein Urine Glucose (UA) Urine Ketones Urine Occult Blood Urine Nitrite Urine Bilirubin Urine Urobilinogen Ur Leukocyte Esterase Urine RBC Urine WBC Ur Squamous Epith Cells Urine Bacteria Urine Mucus Urine Opiates Screen NEGATIVE Urine Methadone Screen NEGATIVE Ur Barbiturates Screen NEGATIVE Ur Phencyclidine Scrn NEGATIVE Ur Amphetamines Screen NEGATIVE U Methamphetamin-MDMA NEGATIVE U Benzodiazepines Scrn NEGATIVE Urine Cocaine Screen NEGATIVE U Cannabinoids Screen NEGATIVE Ur Drug Screen Comment Ethyl Alcohol MRSA (PCR) POC Glucose 07/20/19 07/20/19 07/20/19 18:50 18:50 20:45 WBC RBC Hgb Hct MCV MCH MCHC RDW Std Deviation RDW Coeff of [place] Plt Count MPV Immature Gran % (Auto) Neut % (Auto) Lymph % (Auto) [place] % (Auto) Eos % (Auto) Baso % (Auto) Absolute Neuts (auto) Absolute Lymphs (auto) Nucleated RBC % ESR PT INR APTT VBG Carboxyhemoglobin Sodium Potassium Chloride Carbon Dioxide Anion Gap BUN Creatinine Estim Creat Clear Calc Est GFR (MDRD) Af Amer Est GFR (MDRD) Non-Af BUN/Creatinine Ratio Glucose Hemoglobin A1c Calcium Magnesium Total Bilirubin Direct Bilirubin AST ALT Alkaline Phosphatase Troponin I < 0.015 Total Protein Albumin Globulin Triglycerides Cholesterol LDL Cholesterol VLDL Cholesterol HDL Cholesterol TSH Urine Color Yellow Urine Clarity Clear Urine pH 7.0 Ur Specific [place] 1.010 Urine Protein Negative Urine Glucose (UA) Normal Urine Ketones 5 H Urine Occult Blood 25 H Urine Nitrite Negative Urine Bilirubin Negative Urine Urobilinogen Normal Ur Leukocyte Esterase Negative Urine RBC 0-5 SEEN Urine WBC 0-5 SEEN Ur Squamous Epith Cells 0 SEEN Urine Bacteria 0 SEEN Urine Mucus 0 SEEN Urine Opiates Screen Urine Methadone Screen Ur Barbiturates Screen Ur Phencyclidine Scrn Ur Amphetamines Screen U Methamphetamin-MDMA U Benzodiazepines Scrn Urine Cocaine Screen U Cannabinoids Screen Ur Drug Screen Comment Ethyl Alcohol MRSA (PCR) Negative POC Glucose 07/20/19 07/21/19 07/21/19 22:10 04:17 04:17 WBC 9.0 RBC 4.70 Hgb 13.3 Hct 41.3 MCV 87.9 MCH 28.3 MCHC 32.2 RDW Std Deviation 45.1 H RDW Coeff of Blake 14.0 Plt Count 191 MPV 10.0 Immature Gran % (Auto) 0.300 Neut % (Auto) 54.8 Lymph % (Auto) 32.0 [place] % (Auto) 10.0 Eos % (Auto) 2.6 Baso % (Auto) 0.3 Absolute Neuts (auto) 4.9 Absolute Lymphs (auto) 2.88 Nucleated RBC % 0 ESR PT INR APTT VBG Carboxyhemoglobin Sodium 141 Potassium 3.7 Chloride 111 H Carbon Dioxide 28.0 Anion Gap 2 L BUN 11 Creatinine 0.94 Estim Creat Clear Calc 80.90 Est GFR (MDRD) Af Amer 103 Est GFR (MDRD) Non-Af 85 BUN/Creatinine Ratio 11.7 Glucose 103 Hemoglobin A1c Calcium 8.0 L Magnesium 2.3 Total Bilirubin Direct Bilirubin AST ALT Alkaline Phosphatase Troponin I 0.020 Total Protein Albumin Globulin Triglycerides 124 Cholesterol 150 LDL Cholesterol 82 VLDL Cholesterol 25 HDL Cholesterol 43 TSH Urine Color Urine Clarity Urine pH Ur Specific [place] Urine Protein Urine Glucose (UA) Urine Ketones Urine Occult Blood Urine Nitrite Urine Bilirubin Urine Urobilinogen Ur Leukocyte Esterase Urine RBC Urine WBC Ur Squamous Epith Cells Urine Bacteria Urine Mucus Urine Opiates Screen Urine Methadone Screen Ur Barbiturates Screen Ur Phencyclidine Scrn Ur Amphetamines Screen U Methamphetamin-MDMA U Benzodiazepines Scrn Urine Cocaine Screen U Cannabinoids Screen Ur Drug Screen Comment Ethyl Alcohol MRSA (PCR) POC Glucose Clinical Impression(s) from Imaging Studies Brain CT 07/20/19 10:32 IMPRESSION: Chronic involutional changes of the brain. Electronically Signed: Ferdinand Henderson, at 11:00 EDT , Service support , Chest X-Ray 07/20/19 10:35 IMPRESSION: Impaired aeration at the lung bases due to limited inspiratory effort. No acute abnormality is seen. Electronically Signed: Ferdinand Henderson, at 10:51 EDT , Service support , Head/Neck CTA 07/20/19 12:17 IMPRESSION: Normal CTA Head and neck with contrast. Electronically Signed: Ferdinand Henderson, at 13:02 EDT , Service support , Current Medications Acetaminophen (Tylenol) 650 mg RECTAL Q4H PRN PRN PRN Reason: Pain Score 1-10/Temp > 100.7 F Albuterol Sulfate (Ventolin Aerosols) 2.5 mg INHALATION Q2H PRN PRN PRN Reason: SOB/Wheezing Atorvastatin Calcium (Lipitor) 80 mg PO QHS [facility] Last Admin: 07/20/19 23:37 Dose: Not Given Documented by: Bisacodyl (Dulcolax) 5 mg PO DAILY PRN PRN PRN Reason: Constipation Diphenhydramine HCl (Benadryl) 50 mg IV X1 PRN PRN Reason: Allergic Reaction Stop: 07/22/19 17:25 Epinephrine HCl () 0.3 mg IM X1 PRN PRN Reason: Allergic Reaction Stop: 07/22/19 17:25 Hydralazine HCl (Apresoline Iv) 5 mg IV Q30M PRN PRN Reason: to maintain BP goals Sodium Chloride () 1,000 mls @ 100 mls/hr IV .Q10H [facility] Last Infusion: 07/21/19 05:40 Dose: 100 mls/hr Documented by: Nicardipine/Dextrose (Cardene-Dex 20 Mg/200 Ml Soln) 20 mg in 200 mls @ 50 mls/hr IV .Q4H PRN; Protocol PRN Reason: See Instructions Famotidine 20 mg/ Sodium (Chloride) 10 mls @ 300 mls/hr IV Q12 [facility] Last Infusion: 07/20/19 22:09 Dose: Infused Documented by: Labetalol HCl (Trandate) 10 - 20 mg IV Q10M PRN PRN PRN Reason: to maintain BP goals Methylprednisolone (Solu-Medrol) 125 mg IV X1 PRN PRN Reason: Allergic Reaction Stop: 07/22/19 17:25 Morphine Sulfate () 4 mg IV Q3H PRN PRN PRN Reason: Pain Score 6-10/10 Ondansetron HCl (Zofran) 4 mg IV Q6H PRN PRN PRN Reason: NAUSEA/VOMITING Prochlorperazine Edisylate (Compazine Iv) 5 mg IV Q4H PRN PRN PRN Reason: Breakthrough Nausea/Vomiting Sodium Chloride () 10 - 40 ml IV UD PRN PRN Reason: SALINE FLUSH Assessment/Plan Active and Suspected Problems Aphasia (Acute) Headache (Acute) RECOMMENDATIONS: 1. Continue routine post TPA stroke protocol. 2. Allow for permissive hypertension. Treat systolic blood pressures greater than 180 and diastolic pressures greater than 105. 3. Echocardiogram is pending. 4. Maintain n.p.o. status until swallow evaluation complete. 5. MRI brain pending later this morning. 6. Bed rest until follow-up head imaging is completed. IMPRESSIONS: 1. Acute ischemic CVA status post TPA Continue routine post TPA protocol. Continue to monitor in ICU setting. MRI is currently scheduled for 11 AM. Allow for permissive hypertension for now. Treat systolic blood pressures greater than 180 mmHg. Patient to remain on bed rest until follow-up head imaging is complete. PT/OT/speech therapy evaluations later today. 2. Hypertension/obesity Complicates care, management, recovery and prognosis. The patient will need to be discharged home on an antihypertensive regimen. This note was generated with [employer] dictation software. It may contain incorrect words, spelling, and punctuation that were not noted in checking the note before signing. Inpatient E&M: 12715 Init Hosp L3
[2019-07-21] MEDS: 0.9% Normal Saline 1,000 ML 100 ML IV (07:08)
--- NOTE | 2019-07-21 11:00 | MRI_ITS ---
STUDY: MRI BRAIN WITHOUT CONTRAST REASON FOR EXAM: Male, 63 years old. Posterior TPA. Patient has dental implants. TECHNIQUE: Standardized multiplanar fat and water weighted pulse sequences were obtained. COMPARISON: MRI brain without contrast 02/22/2016. CT head without contrast 07/21/2019. FINDINGS: No restricted diffusion to suspect acute or subacute ischemic infarct. Extensive dental amalgam artifacts obscuring the frontal lobes and right temporal pole in the DWI sequence limiting evaluation. Normal size of the ventricles and extra-axial spaces for the patient''s age. Small subcortical white matter and periventricular white matter T2 FLAIR hyperintensity foci in both cerebral hemispheres are chronic white matter ischemic changes. No midline shift and no mass effects. Normal bilateral basal ganglia. Normal thalami. There is no extra-axial fluid accumulation. Normal flow voids within the major intracranial circulation suggesting patency by spin echo criteria. Normal sella turcica, pituitary gland, infundibular stalk, optic chiasm and hypothalamus. Normal tectal plate and pineal gland. Normal midbrain, alfie and medulla. Normal cerebellum. Normal basal cisterns. Normal bilateral temporal bones. Normal bilateral internal auditory canals. No demonstrated orbital abnormality, within the constraints of a routine brain study. Normal visualized paranasal sinuses. Normal calvarium and skull base. Normal visualized soft tissue structures. Normal visualized upper cervical spine. MRI/Brain without Contrast IMPRESSION: 1. Limited DWI sequence due to extensive dental amalgam artifacts obscuring the frontal lobes and the right temporal pole. 2. The visualized brain parenchyma show no suspicious acute or subacute ischemic infarct. 3. Chronic white matter ischemic changes in both cerebral hemispheres. Electronically Signed: Rocky Chan MD at 13:29 EDT , Service support ,
--- NOTE | 2019-07-21 12:00 | CT_ITS ---
STUDY: CT BRAIN WITHOUT CONTRAST REASON FOR EXAM: Male, 63 years old. F/U STROKE YESTERDAY, WAS GIVEN TPA IN ER, HTN RADIATION DOSAGE (If Supplied By Facility): CTDIvol = ( 44.99 ) mGy, DLP = ( 812.98 ) mGycm TECHNIQUE: Transaxial CT imaging of the brain was performed without administration of intravenous contrast material. Individualized dose optimization techniques were used for this CT. COMPARISON: 07/20/2019 FINDINGS: Normal soft tissue structures. Normal calvarium. Normal size ventricles and extra-axial spaces for the patient''s age. There are areas of decreased attenuation within the white matter tracts of the supratentorial brain, consistent with microvascular disease changes. Normal basal ganglia and thalami. Normal brainstem. Normal cerebellum. There is no intracranial hemorrhage. There are no findings of an acute ischemic infarction. Normal visualized paranasal sinuses. CT/Brain/Head without Contrast IMPRESSION: 1. No acute/evolving infarction or intracranial hemorrhage. Stable exam. Electronically Signed: Tim Forman MD ([place]) at 12:26 EDT , Service support ,
--- NOTE | 2019-07-21 14:04 | PN_ITS ---
Patient Problems: Active and Suspected Problems Aphasia (Acute) Headache (Acute) Subjective: Doing well, no issues overnight. States that he is back to his baseline. His headache has improved with coffee. Vitals/I&O's: Vital Signs Temp Pulse Resp BP Pulse Ox 97.9 F 74 19 H 171/86 H 98 07/21/19 12:00 07/21/19 12:00 07/21/19 12:00 07/21/19 12:00 07/21/19 12:00 Oxygen Flow Rate (L/min) 7 Oxygen Delivery Method Room Air Weight: 239 lb 3.225 oz Body Mass Index (BMI) 34.3 Finger Stick Blood Glucose 131 Intake and Output for Last 24 Hours 07/19/19 07/20/19 07/21/19 23:59 23:59 23:59 Intake Total 1191 / 1191 1536.67 / 1536.67 Output Total 500 / 1150 2175 / 2175 Balance 691 / 41 -638.33 / -638.33 General: Alert, Oriented x3, Cooperative, No apparent distress HEENT: Atraumatic, PERRLA, EOMI, Normocephalic Oral: Moist Mucosa Neck: Supple, No JVD Lungs: Clear to auscultation, Normal air movement, No rhonchi, No wheeze, No rales Cardiovascular: Regular rate, Regular Rhythm, Normal S1, Normal S2, No murmurs Abdomen: Soft, Non Tender, Non-Distended, No Hepato-splenomegaly Extremities: No edema, Capillary Refill Less than 3 Seconds Skin: No rashes, No breakdown Neurological: Neuro grossly intact, Sensory exam intact to light touch and pain Laboratory Results 07/20/19 10:35: ESR 4 07/20/19 10:35: Hemoglobin A1c 6.7 H 07/20/19 15:40: Magnesium 1.9, Troponin I < 0.015, TSH 1.42 07/20/19 18:50: Troponin I < 0.015 07/20/19 18:50: MRSA (PCR) Negative 07/20/19 20:45: Urine Color Yellow, Urine Clarity Clear, Urine pH 7.0, Ur Specific [place] 1.010, Urine Protein Negative, Urine Glucose (UA) Normal, Urine Ketones 5 H, Urine Occult Blood 25 H, Urine Nitrite Negative, Urine Bilirubin Negative, Urine Urobilinogen Normal, Ur Leukocyte Esterase Negative, Urine RBC 0-5 SEEN, Urine WBC 0-5 SEEN, Ur Squamous Epith Cells 0 SEEN, Urine Bacteria 0 SEEN, Urine Mucus 0 SEEN 07/20/19 22:10: Troponin I 0.020 07/21/19 04:17: Sodium 141, Potassium 3.7, Chloride 111 H, Carbon Dioxide 28.0, Anion Gap 2 L, BUN 11, Creatinine 0.94, Estim Creat Clear Calc 80.90, Est GFR (MDRD) Af Amer 103, Est GFR (MDRD) Non-Af 85, BUN/Creatinine Ratio 11.7, Glucose 103, Calcium 8.0 L, Magnesium 2.3, Triglycerides 124, Cholesterol 150, LDL Cholesterol 82, VLDL Cholesterol 25, HDL Cholesterol 43 07/21/19 04:17: WBC 9.0, RBC 4.70, Hgb 13.3, Hct 41.3, MCV 87.9, MCH 28.3, MCHC 32.2, RDW Std Deviation 45.1 H, RDW Coeff of Blake 14.0, Plt Count 191, MPV 10.0, Immature Gran % (Auto) 0.300, Neut % (Auto) 54.8, Lymph % (Auto) 32.0, [place] % (Auto) 10.0, Eos % (Auto) 2.6, Baso % (Auto) 0.3, Absolute Neuts (auto) 4.9, Absolute Lymphs (auto) 2.88, Nucleated RBC % 0 Current Medications Acetaminophen (Tylenol) 650 mg RECTAL Q4H PRN PRN PRN Reason: Pain Score 1-10/Temp > 100.7 F Albuterol Sulfate (Ventolin Aerosols) 2.5 mg INHALATION Q2H PRN PRN PRN Reason: SOB/Wheezing Atorvastatin Calcium (Lipitor) 80 mg PO QHS [facility] Last Admin: 07/20/19 23:37 Dose: Not Given Documented by: Bisacodyl (Dulcolax) 5 mg PO DAILY PRN PRN PRN Reason: Constipation Diphenhydramine HCl (Benadryl) 50 mg IV X1 PRN PRN Reason: Allergic Reaction Stop: 07/22/19 17:25 Epinephrine HCl () 0.3 mg IM X1 PRN PRN Reason: Allergic Reaction Stop: 07/22/19 17:25 Hydralazine HCl (Apresoline Iv) 5 mg IV Q30M PRN PRN Reason: to maintain BP goals Nicardipine/Dextrose (Cardene-Dex 20 Mg/200 Ml Soln) 20 mg in 200 mls @ 50 mls/hr IV .Q4H PRN; Protocol PRN Reason: See Instructions Famotidine 20 mg/ Sodium (Chloride) 10 mls @ 300 mls/hr IV Q12 [facility] Last Admin: 07/21/19 12:27 Dose: Not Given Documented by: Labetalol HCl (Trandate) 10 - 20 mg IV Q10M PRN PRN PRN Reason: to maintain BP goals Methylprednisolone (Solu-Medrol) 125 mg IV X1 PRN PRN Reason: Allergic Reaction Stop: 07/22/19 17:25 Morphine Sulfate () 4 mg IV Q3H PRN PRN PRN Reason: Pain Score 6-10/10 Ondansetron HCl (Zofran) 4 mg IV Q6H PRN PRN PRN Reason: NAUSEA/VOMITING Prochlorperazine Edisylate (Compazine Iv) 5 mg IV Q4H PRN PRN PRN Reason: Breakthrough Nausea/Vomiting Sodium Chloride () 10 - 40 ml IV UD PRN PRN Reason: SALINE FLUSH STROKE Vital Signs/Narrative: Vital Signs Temp Pulse Resp BP Pulse Ox 07/21/19 12:00 97.9 F 74 19 H 171/86 H 98 07/21/19 11:00 70 19 H 164/81 H 98 Medical Necessity - Tobacco Use Smoking Status: Never smoker Tobacco Use: Non-smoker Assessment/Plan All Active Problems Aphasia (Acute) Headache (Acute) CVA (cerebral vascular accident) (Acute) HTN (hypertension) (Acute) Hyperglycemia (Acute) Received intravenous tissue plasminogen activator (tPA) in emergency department (Acute) 1. Acute ischemic CVA status post TPA/HTN/obesity -NIH is now 0 -CT of his head is negative and MRI was also negative however there was a lot of artifact from amalgam in his jaw -CTA of his head and neck was negative for any large vessel occlusion -His echo was also unremarkable -We will start him on aspirin tomorrow, continue with statins -We will start him on p.o. blood pressure medications tomorrow as well, he does have PRN's available for blood pressures greater than 170 -BMI is 34.3, did discuss with him lifestyle modifications to help control risk factors for strokes DVT: SCDs Inpatient E&M: 94930 Subs Hosp L2
--- NOTE | 2019-07-21 14:32 | CM.UR ---
RN CM Assessment Introduced role of RN CM to patient. Patient is alert and able to participate in RN CM Assessment. Care providers, pharmacy, and demographics verified. No family at bedside. Presentation: Confusion, aphasia, headache Admit Dx: aphasia headache Re-Admit: no Barriers/Issues: none PCP: Dr. Subramanian Insurance: [facility] LNOK: , [place] LW/HPOA: None. Would like to complete Living Arrangements: Lives with . ADL?s: independent Transportation: independent DME: None DME co: no preference HHC: None SNF: None Goal: home DC PLAN: Home, no needs anticipated. Alerting SW to interest in LW and HPOA completion. Kishore Ventura RN, CCM.
[2019-07-21] MEDS: 0.9% Saline Lock 10 ML Syringe IV (15:35)
[2019-07-21] MEDS: hydrALAZINE 20 MG/ML Vial 5 MG IV (15:35)
--- NOTE | 2019-07-21 16:12 | CASEMGMT ---
Social Work Consult: Advanced Directives Informant: RN KAYDEN Met with patient and patient spouse in room. Introduced self as well as social work program coordinator role. Patient confirming to want to complete Health Care Power of criminal attorney and Living Will, both documents explained and completed with patient. Patient A&Ox3. Patient provided with original documents and copies placed on patient medical chart. Santino WAN, DIONICIO
--- NOTE | 2019-07-21 18:38 | NURSING ---
Patient given watch.
[2019-07-21] MEDS: Atorvastatin Calcium 80 MG Tablet PO (21:12)
[2019-07-22] VITALS (8 sets, daily range): BP systolic 163–187; BP diastolic 77–97; PULSE 55–132; RESP 16; TEMP 36.7–36.9; O2SAT 95–100
--- NOTE | 2019-07-22 08:28 | DCINST_ITS ---
- Discharge Diagnoses Current Active Problems: Current Active and Chronic Problems Aphasia (Acute) Headache (Acute) You will use the following diet at home:: Regular Your food should be the consistency of: Regular Your liquids should be the consistency of: Regular/Thin Discharge Activity: Return to Normal Activity Call your doctor if you observe: Fever of 101 or Higher, Shortness of breath, Dizziness, Fainting spells, Swelling in the ankles, Chest pain, Increased palpitations (irregular heartbeat) Allergies/Adverse Reactions: Allergies No Known Allergies Allergy (Verified 07/20/19 14:06) Medications to take at Discharge Only Vitamins 07/20/19 Aspirin [Aspirin, Baby] 81 mg PO DAILY@0800 #30 tab.chew 07/22/19 Atorvastatin Calcium [Lipitor] 80 mg PO QHS #30 tab 07/22/19 Lisinopril [Zestril] 5 mg PO DAILY #30 tab 07/22/19 The following prescriptions were given: Aspirin [Aspirin, Baby] 81 mg PO DAILY@0800 #30 tab.chew Transmission Status: Pending to [facility]/pharmacy #[id number] Atorvastatin Calcium [Lipitor] 80 mg PO QHS #30 tab Transmission Status: Pending to [facility]acy #[id number] Lisinopril [Zestril] 5 mg PO DAILY #30 tab Transmission Status: Pending to [facility]/pharmacy #[id number] Primary Care Physician: Marlon Sarmiento MD [Primary Care Provider] - Please follow up with your Primary Care Physician in: 3-5 days Test Results: Test results from this visit will be discussed in further detail at your follow- up appointment, if applicable. Please Follow Up With: Darian Ramos MD When: 2-4 weeks
--- NOTE | 2019-07-22 08:31 | PCM.DC.SUM ---
Discharge Date and Diagnosis - Problem List Patient Problems: Active and Suspected Problems Aphasia (Acute) Headache (Acute) Date of Admission: 07/20/19 Date of Discharge: 07/22/19 - Primary Discharge Diagnosis Active and Suspected Problems Aphasia (Acute) Headache (Acute) - Secondary Discharge Diagnosis Chronic Problems Migraine (Chronic) Hospital Course and Treatment Imaging Results: CT Brain: IMPRESSION: Chronic involutional changes of the brain. CXR: IMPRESSION: Impaired aeration at the lung bases due to limited inspiratory effort. No acute abnormality is seen. CTA Head/Neck: IMPRESSION: Normal CTA Head and neck with contrast. MRI Brain: MPRESSION: 1. Limited DWI sequence due to extensive dental amalgam artifacts obscuring the frontal lobes and the right temporal pole. 2. The visualized brain parenchyma show no suspicious acute or subacute ischemic infarct. 3. Chronic white matter ischemic changes in both cerebral hemispheres. Echo: Interpretation Summary The estimated ejection fraction is 65 %. No evidence for diastolic dysfunction. The study was technically difficult. Contrast injection was performed. Consults: [facility] ICU Operations: None Procedures: 2-D Echocardiogram Summary of Care Provided: Per HPI: The patient is a 63 year old M with no significant past medical history, on no prescribed medications, who was brought to the emergency room at [facility] when he was found behaving oddly at work. He was very confused and this was at approximately 0900. He had no weakness but he was unable to tell the EMT's his name, his 's name or any information about himself. He was noted to be hypertensive. Stat CBC was unremarkable. PT and PTT were within normal limits. CMP showed an elevated blood sugar at 146 and no other significant findings. Troponin was less than 0.015. Toxicology screen was negative. Ethyl alcohol was less than 3. A noncontrasted CT brain was negative. for acute findings. CTA of the head and neck was negative for any significant areas of stenosis. Consult was obtained with [facility] tele-neurology. TPA was recommended and started at 11:50. Stroke was not immediately recognized due to no weakness or numbness - only confusion and aphasia. I spoke with his on the phone when they were able to reach her from the ED. She is currently in [place] for a . She gave me hx. Ramin is a LL non-smoker and non-drinker. No drugs. He has not seen a doctor in quite a while and his BP has been increased recently. He takes no prescription medications, only vitamins. NKDA. His mother has hx of CVA's and CAD. He is active and has been healthy other than having an increased BP recently. Hospital Course: 1. Acute CVA/EMR-23-cgkg-old male with no significant past medical history presented with confusion and aphasia. He was evaluated for stroke and in consultation with [facility] neurology he was given TPA. He had complete resolution of his stroke symptoms within 24 hours. He also was having a headache which was found to be secondary to caffeine withdrawal as his headache improved with coffee. 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 His echo was also unremarkable. Lipid panel was essentially normal however he will be started on aspirin, statin and because of his blood pressure sitting in the 160s he was started on lisinopril 5 mg daily. I did explain to him the need to follow-up with his PCP to have a BMP performed to monitor his renal function in about a week or 2. Also he will follow-up with neurology in 2 to 4 weeks as an outpatient. I discussed the discharge plan with him and the need for these medications and he expressed understanding. I also discussed with him that his A1c was elevated to 6.7, however because he did not have any home medications prior to coming in I felt that 40 medications might be a little bit overwhelming and therefore I discussed with him the need to lose weight secondary to his obesity and he states that he did buy an elliptical and has weights in his basement that he has been trying to start using again before the stroke occurred. Patient Problems: Active and Suspected Problems Aphasia (Acute) Headache (Acute) - Physical Exam Vitals/I&O's: Vital Signs Temp Pulse Resp BP Pulse Ox 98.4 F 64 16 187/78 H 100 07/22/19 08:25 07/22/19 08:25 07/22/19 08:25 07/22/19 08:25 07/22/19 08:25 Oxygen Flow Rate (L/min) 7 Oxygen Delivery Method Room Air Weight: 234 lb 12.677 oz Body Mass Index (BMI) 34.3 Finger Stick Blood Glucose 131 Intake and Output for Last 24 Hours 07/20/19 07/21/19 07/22/19 23:59 23:59 23:59 Intake Total 1191 / 1191 2376.67 / 2376.67 240 / 240 Output Total 500 / 1150 2175 / 2175 Balance 691 / 41 201.67 / 201.67 240 / 240 General: Alert, Oriented x3, Cooperative, No apparent distress HEENT: Atraumatic, PERRLA, EOMI, Normocephalic Oral: Moist Mucosa Neck: Supple, No JVD Lungs: Clear to auscultation, Normal air movement, No rhonchi, No wheeze, No rales Cardiovascular: Regular rate, Regular Rhythm, Normal S1, Normal S2, No murmurs Abdomen: Soft, Non Tender, Non-Distended, No Hepato-splenomegaly Extremities: No edema, Capillary Refill Less than 3 Seconds Skin: No rashes, No breakdown Neurological: Neuro grossly intact, Sensory exam intact to light touch and pain Current Medications Acetaminophen (Tylenol) 650 mg RECTAL Q4H PRN PRN PRN Reason: Pain Score 1-10/Temp > 100.7 F Albuterol Sulfate (Ventolin Aerosols) 2.5 mg INHALATION Q2H PRN PRN PRN Reason: SOB/Wheezing Aspirin (Aspirin, Baby) 81 mg PO DAILY@0800 DEXTER Atorvastatin Calcium (Lipitor) 80 mg PO QHS DEXTER Last Admin: 07/21/19 21:12 Dose: 80 mg Documented by: Bisacodyl (Dulcolax) 5 mg PO DAILY PRN PRN PRN Reason: Constipation Hydralazine HCl (Apresoline Iv) 5 mg IV Q30M PRN PRN Reason: to maintain BP goals Last Admin: 07/21/19 15:35 Dose: 5 mg Documented by: Labetalol HCl (Trandate) 10 - 20 mg IV Q10M PRN PRN PRN Reason: to maintain BP goals Lisinopril (Zestril) 5 mg PO DAILY [facility] Ondansetron HCl (Zofran) 4 mg IV Q6H PRN PRN PRN Reason: NAUSEA/VOMITING Prochlorperazine Edisylate (Compazine Iv) 5 mg IV Q4H PRN PRN PRN Reason: Breakthrough Nausea/Vomiting Sodium Chloride () 10 - 40 ml IV UD PRN PRN Reason: SALINE FLUSH Last Admin: 07/21/19 15:35 Dose: 10 ml Documented by: Discharge Activity: Return to Normal Activity Call your doctor if you observe: Fever of 101 or Higher, Shortness of breath, Dizziness, Fainting spells, Swelling in the ankles, Chest pain, Increased palpitations (irregular heartbeat) Home Medications: Medications to take at Discharge Only Vitamins 07/20/19 Aspirin [Aspirin, Baby] 81 mg PO DAILY@0800 #30 tab.chew 07/22/19 Atorvastatin Calcium [Lipitor] 80 mg PO QHS #30 tab 07/22/19 Lisinopril [Zestril] 5 mg PO DAILY #30 tab 07/22/19 Following Prescrptions Were Given to Patient: Aspirin [Aspirin, Baby] 81 mg PO DAILY@0800 #30 tab.chew Transmission Status: [id number] Atorvastatin Calcium [Lipitor] 80 mg PO QHS #30 tab Transmission Status: [id number] Lisinopril [Zestril] 5 mg PO DAILY #30 tab Transmission Status: [id number] Primary Care Physician: Marlon Sarmiento MD [Primary Care Provider] - Please follow up with your Primary Care Physician in: 3-5 days Please Follow Up With: Darian Ramos MD When: 2-4 weeks Disposition: Home Minutes spent on discharge:: 35 Patient Condition:: Stable Medical Necessity - Tobacco Use Smoking Status: Never smoker Tobacco Use: Non-smoker Meaningful Use Info Meaningful Use Diagnoses (Choose all that apply): Ischemic CVA - CVA Therapy Assessed for PT,OT and/or ST?: Yes - Ischemic Stroke Antithrombotic order at d/c?: Yes Dx of Atrial fib/flutter?: No Statins at discharge?: Yes Primary Dx Acute Ischemic CVA?: Yes IV tPA ordered during stay?: Yes Inpatient E&M: [id number] Disch Hosp
[2019-07-22] MEDS: Lisinopril 5 MG Tablet PO (08:39)
[2019-07-22] MEDS: Aspirin 81 MG TAB.CHEW PO (08:39)
== END 2019-07-22 11:58 | disposition home or self-care (01) | DRG 63 ==
LOC: ED 13:43 → ICU 15:20 → PCU 07-21 14:58
PROVIDERS: Internal Medicine Critical Care Medicine; Admitting Provider Internal Medicine; Emergency Provider Emergency Medicine; PCP Family Medicine; Visit Provider Family Medicine
DX: I63.9 Cerebral infarction, unspecified (principal); R47.01 Aphasia; E66.9 Obesity, unspecified; Z68.34 Body mass index [BMI] 34.0-34.9, adult; R51 Headache; I10 Essential (primary) hypertension
CPT/HCPCS: 70450; 70496; 70498; 70551; 71045; 80048; 80061; 80076; 80307; 80320; 81001; 82375; 82962; 83036; 83735; 84443; 84484; 85025; 85610; 85652; 85730; 87641; 92523; 92610; 93005; 93306; 97162; 97165; 97802; 99251; 99285; J2997; J7030; Q9957; Q9967; A4216; C8929; G0463; G0480; J2405; J3490

== ENCOUNTER 2019-07-29 02:57 | Observation (INO) | payer MEDICARE, OTHER, SELFPAY ==
[2019-07-20 18:16] VITALS: BMI 34.3
[2019-07-29] VITALS (10 sets, daily range): BP systolic 136–189; BP diastolic 72–106; PULSE 56–77; RESP 12–22; TEMP 36.6–37.4; O2SAT 96–100; BMI 34.2; BMI 33.6
--- NOTE | 2019-07-29 03:05 | RAD_ITS ---
STUDY: X-RAY CHEST REASON FOR EXAM: Male, 63 years old. ELEVATED BP, CHEST PRESSURE SINCE 11PM TECHNIQUE: Single AP portable view of the chest. COMPARISON: 07/20/2019. FINDINGS: The lungs are clear and expanded. There is no demonstrated pleural abnormality. Normal size heart. Normal mediastinum and brent. Normal visualized pulmonary arteries. Normal visualized aortic arch and descending thoracic aorta. There are diffuse degenerative changes of the visualized thoracic spine. There is degenerative osteoarthritis of the bilateral shoulders. There is no demonstrated abnormality of the visualized soft tissue structures of the upper abdomen. RAD/Chest 1 View (Portable) IMPRESSION: No acute cardiopulmonary disease. Electronically Signed: Fay Fam MD at 3:22 EDT , Service support ,
--- NOTE | 2019-07-29 03:05 | EKG12_ITS ---
Test Reason : CP Blood Pressure : / mmHG Vent. Rate : 070 BPM Atrial Rate : 070 BPM P-R Int : 168 ms QRS Dur : 098 ms QT Int : 386 ms P-R-T Axes : 022 062 089 degrees QTc Int : 416 ms Normal sinus rhythm Incomplete right bundle branch block Nonspecific T wave abnormality Abnormal ECG Confirmed by NERI HARTMAN, CLYDE ([id number]), index editor KIARA MARROQUIN ([id number]) on 07/31/2019 8:35:21 AM Referred By: MARIANNA Confirmed By:CLYDE HE MD
[2019-07-29] MEDS: Aspirin 81 MG TAB.CHEW 324 MG PO (03:16)
[2019-07-29 03:28] LABS: Absolute Lymphocyte Count 2.04 X10^3/uL (0.83-4.51); Absolute Neutrophil Count 3.6 X10^3/uL (2.0-7.7); Basophil# 0.03 X10^3/uL; Basophil% 0.5 % (0-1); Eosinophil# 0.16 X10^3/uL; Eosinophils% 2.5 % (0-5); Hematocrit 44.2 % (40-54); Hemoglobin 14.7 g/dL (13.0-16.5); Lymphocyte # 2.04 X10^3/ul (4.0); Lymphocyte % 31.8 % (19-41); Mean Corp Hgb Conc 33.3 g/dL (32-36); Mean Corpuscular Hgb 28.2 pg (27.0-32.0); Mean Corpuscular Volume 84.8 fL (80-94); Mean Platelet Vol. 10.4 fl (6.2-12.0); Monocyte# 0.57 X10^3/uL; Monocyte% 8.9 % (0-10); NRBC Flagged by Analyzer 0 % (0-5); Neutrophil % 56.1 % (47-70); Platelet Count 230 K/mm3 (150-450); RBC Distribution Width CV 13.5 % (11.6-14.6); RBC Distribution Width SD 41.8 fl (35.1-43.9); Red Blood Count 5.21 M/mm3 (4.6-6.2); White Blood Count 6.4 K/mm3 (4.4-11.0)
[2019-07-29] MEDS: 0.9% Normal Saline 1,000 ML 150 ML IV (03:35)
[2019-07-29 03:47] LABS: Anion Gap 7 (5-15); BUN 10 mg/dL (7-18); BUN/Creat Ratio 9.6 RATIO (10-20); Calcium,Total 9.1 mg/dL (8.5-10.1); Chloride 106 mmol/L (98-107); Creatinine, Serum 1.04 mg/dL (0.70-1.30); EST Glomerular Filtration Rate 76 mL/min (>60); Est Glom Filt Rate - Afr Amer 92 mL/min (>60); Estimated Creatinine Clearance 73.12 ml/min; Glucose 117 mg/dL (74-106); Potassium 3.9 mmol/L (3.5-5.1); Sodium Level 140 mmol/L (136-145)
--- NOTE | 2019-07-29 04:13 | HP.PCM_ITS ---
Problem List (1) Chest pain Status: Acute (2) Migraine Status: Chronic Qualifiers: Migraine type: with aura Status migrainosus presence: without status migrainosus Intractability: not intractable Qualified Code(s): G43.109 - Migraine with aura, not intractable, without status migrainosus (3) Aphasia Status: Inactive (4) Headache Status: Inactive (5) CVA (cerebral vascular accident) Status: Inactive (6) HTN (hypertension) Status: Chronic Comment: susp[ect chronic and untreated (7) Hyperglycemia Status: Inactive (8) Received intravenous tissue plasminogen activator (tPA) in emergency department Status: Inactive History of Present Illness Date of Admission: 07/29/19 Chief Complaint: chest pain The patient is a 63 year old M with a significant history of hypertension; hyperlipidemia; and diabetes mellitus with chest pain. Patient reports left- sided chest pain. He describe his chest pain as a pressure/heaviness and also it feels someone has placed his hand on his left chest. The severity of his chest pain is 1 out of 10. His chest pain is nonradiating. He denies any nausea; vomiting or diaphoresis. His chest pain is intermittent. He denies any aggravating or ameliorating factors of her pain. Also his blood pressure at home was elevated at 209/109. Repeat blood pressure did not go down much (196/99?). Also his heart rate was about 99. Patient reported that his symptoms actually started with feeling strange; palpitations and also coldness of feet. Because of these symptoms he checked his blood pressure and his blood pressure was elevated. With blood pressure being elevated he took a second dose of his lisinopril. Typically he takes lisinopril only once daily. In the past 6 months he has had chest pain and typically his chest pain improves with rest. Past Medical History Past Medical History (Chronic Problems): Chronic Problems (Last Reviewed 07/29/19 @ 07:[address] Marco A Jesus MD) Migraine (Chronic) HTN (hypertension) (Chronic) susp[ect chronic and untreated Medical History: Medical History (Last Reviewed 07/29/19 @ 07:[address] Marco A Jesus MD) Hypertension I10 Allergies No Known Allergies Allergy (Verified 07/29/19 03:06) Home Medications: Ambulatory Orders Medication Instructions Recorded Only Vitamins 07/20/19 Aspirin [Aspirin, Baby] 81 mg PO DAILY@0800 #30 tab.chew 07/22/19 Atorvastatin Calcium [Lipitor] 80 mg PO QHS #30 tab 07/22/19 Lisinopril [Zestril] 5 mg PO DAILY #30 tab 07/22/19 Surgical History: herniorrhaphy, - - inguinal hernia right. Psychiatric History: No pertinent psych hx Lives: Spouse/ Significant Other Smoking Status: Never smoker Alcohol: None - *Family History Maternal History Items: Heart Disease - His mother had heart attack when she was age 79., Stroke Paternal History Items: Heart Disease - His father had heart disease (heart failure ) when he was about age 85., - Review of Systems Constitutional: Denies: Chills, Fever, Weight Change HEENT: Denies: Head Aches, Sinus Congestion, Sinus Drainage Cardiovascular: Reports: Chest Pain, Chest Pressure, Heaviness. Denies: Palpitations Respiratory: Denies: Cough, Shortness of breath at rest, Sputum production Gastrointestinal: Denies: Abdominal Pain, Nausea, Vomiting Genitourinary: Denies: Dysuria Musculoskeletal: Denies: Joint Pain, Joint Tenderness Skin: Denies: Rash, Wounds Neurological: Denies: Numbness, Tingling, Focal weakness Psychiatric: Denies: Anxiety, Depression, Homicidal Ideations, Suicidal Ideations Hematologic/ Lymphatic: Denies: Easy Bruising, Easy Bleeding VTE Information - Inpt Only VTE Present on Admission: No VTE Mechan Device Prophylaxis: None VTE Pharm Prophylaxis ordered?: Yes Patient Problems: Active and Suspected Problems (Last Reviewed 07/29/19 @ 07:[address] Marco A Jesus MD) Chest pain (Acute) - Physical Exam Vitals/I&O's: Vital Signs Temp Pulse Resp BP Pulse Ox 99.1 F 77 22 H 189/106 H 100 07/29/19 02:58 07/29/19 02:58 07/29/19 02:58 07/29/19 02:58 07/29/19 02:58 Oxygen Delivery Method Room Air Weight: 108.3 kg Body Mass Index (BMI) 34.2 Finger Stick Blood Glucose 131 General: Alert, Oriented x3, Cooperative HEENT: Atraumatic, PERRLA, EOMI, Normocephalic Neck: Supple, No JVD, Negative Carotid Bruits Lungs: Clear to auscultation, Normal air movement Cardiovascular: Regular rate, Normal S1, Normal S2, No murmurs Abdomen: Bowel Sounds Present, Soft, Non Tender Extremities: No edema, Capillary Refill Less than 3 Seconds Skin: No rashes, No breakdown Musculoskeletal: No Tenderness to Palpation of Joints or Extremities Neurological: Cranial nerves II-XII grossly intact Psych/Mental Status: Normal Affect, Appropriate Laboratory Results 07/29/19 03:20: WBC 6.4, RBC 5.21, Hgb 14.7, Hct 44.2, MCV 84.8, MCH 28.2, MCHC 33.3, RDW Std Deviation 41.8, RDW Coeff of Blake 13.5, Plt Count 230, MPV 10.4, Immature Gran % (Auto) 0.200, Neut % (Auto) 56.1, Lymph % (Auto) 31.8, [place] % (Auto) 8.9, Eos % (Auto) 2.5, Baso % (Auto) 0.5, Absolute Neuts (auto) 3.6, Absolute Lymphs (auto) 2.04, Nucleated RBC % 0 07/29/19 03:20: Sodium 140, Potassium 3.9, Chloride 106, Carbon Dioxide 27.0, Anion Gap 7, BUN 10, Creatinine 1.04, Estim Creat Clear Calc 73.12, Est GFR (MDRD) Af Amer 92, Est GFR (MDRD) Non-Af 76, BUN/Creatinine Ratio 9.6 L, Glucose 117 H, Calcium 9.1, Troponin I < 0.015 Current Medications Sodium Chloride () 1,000 mls @ 150 mls/hr IV .Q6H40M [facility] Last Admin: 07/29/19 03:35 Dose: 150 mls/hr Documented by: Nitroglycerin (Nitrostat) 0.4 mg SUBLINGUAL Q5M PRN PRN Reason: Chest pain Assessment/Plan All Active Problems (Last Reviewed 07/29/19 @ 07:[address] Marco A Jesus MD) Chest pain (Acute) The patient is a 63 year old M with a significant history of hypertension; hyperlipidemia; and diabetes mellitus with chest pain; and severely elevated blood pressure consistent with probable hypertensive emergency. Hypertensive emergency And EKG showed T wave abnormalities in leads I, aVL and V6 which is actually improved from EKG on 21 July 2019. At home patient is on lisinopril 5mg daily and he took a second dose of lisinopril as in HPI. Will start patient on lisinopril 20 mg daily. Will trend patient troponin at this time. If work-up is negative consider additional blood pressure medications. Recommend beta-jaida or Imdur in addition to his lisinopril. Because patient has diabetes lisinopril is necessary. Patient is supposed to see a new PCP on August 30 2019. If chest pain abates; and troponin is negative consider inpatient stress test versus outpatient stress test with probably cardiology follow-up outpatient as patient is yet to see new PCP . Daily aspirin continued. High intensity statin continued. PRN nitroglycerin sublingual ordered. Stat chest x-ray EKG for chest pain. History of TIAs/CVA Aspirin and high intensity statin continue. Blood pressure control. Diabetes mellitus On presentation blood glucose was elevated. A1c on 07/20/2019 was 6.7. Calorie controlled diet ordered. Accu-Chek before meals at bedtime. DVT prophylaxis Subcutaneous Lovenox. OBSV E&M: [id number] Initial observation care L2
--- NOTE | 2019-07-29 05:00 | EKG12_ITS ---
Test Reason : CP ADMISSION Blood Pressure : / mmHG Vent. Rate : 061 BPM Atrial Rate : 061 BPM P-R Int : 170 ms QRS Dur : 096 ms QT Int : 408 ms P-R-T Axes : 033 053 074 degrees QTc Int : 410 ms Normal sinus rhythm Nonspecific T wave abnormality Abnormal ECG When compared with ECG of 21-JUL-2019 04:38, MANUAL COMPARISON REQUIRED, DATA IS UNCONFIRMED Confirmed by NERI HARTMAN, CLYDE ([id number]), managing editor KIARA MARROQUIN ([id number]) on 07/31/2019 8:38:10 AM Referred By: CORDELIA Confirmed By:CLYDE HE MD
[2019-07-29] MEDS: Lisinopril 20 MG Tablet PO (05:29)
[2019-07-29 06:55] LABS: Bedside Glucose 107 mg/dL (70-110)
--- NOTE | 2019-07-29 07:07 | ED.DCSUM_ITS ---
- ER Visit Summary Date of Service: 07/29/19 Chief Complaint: [Chest pain and high blood pressure] History of Present Illness: The patient is a 63 M [presents to the emergency department complaint of chest discomfort that started last evening prior to going to bed. Patient states that he just had an odd sensation and heaviness or tightness across his chest. Patient had a hard time sleeping so he decided check his blood pressure and it was elevated to 209/109. Patient also had some palpitations and felt like his heart was racing when he checked that it was 99 bpm. Patient tells me that he had a stroke about 9 days ago at which time he received TPA. Patient has history of hypertension as well as diabetes and prior stroke. He has no cardiac history otherwise. Patient denied any radiation of the pain. He denied any diaphoresis or shortness of breath. Patient has had prior hernia repair. He denies recent travel or surgery.] Physical Examination: [HEENT-PERRLA, EOMI. Cranial nerves II through XII grossly intact. TMs clear. Mucous membranes moist. No adenopathy. Cardiovascular-regular rate and rhythm without murmur or ectopy Lungs-clear to auscultation, chest wall stable without crepitus or subcu emphysema Abdomen-normoactive bowel sounds, soft, nontender, no rebound or rigidity, no peritoneal signs. Extremities-intact ?4, normal range of motion, normal pulses, atraumatic] Test Results: [CBC with differential count 6.4, hemoglobin 14.7, hematocrit 44, placed 230. Chemistries unremarkable. Troponin was less than 0.015. EKG showed sinus rhythm with a ventricular rate 70 bpm. Chest x-ray showed nothing acute.] Emergency Department Course and Treatment: [On arrival patient received aspirin. He was pain-free on arrival.] Treatment Plan: [Admit for further work-up and evaluation of his chest pain] Disposition: [Admit] Impression: [Chest pain-rule out acute coronary syndrome] This note was generated with [employer]oh[employer] dictation software. It may contain incorrect words, spelling, and punctuation that were not noted in review of the chart prior to signing ED Disposition - Plan for ED Patient: Disposition: Acute Care [facility]
[2019-07-29] MEDS: Enoxaparin 40 MG/0.4 ML Syringe SC (08:02)
[2019-07-29 11:21] LABS: Bedside Glucose 104 mg/dL (70-110)
--- NOTE | 2019-07-29 11:31 | PN_ITS ---
Patient Problems: Active and Suspected Problems (Last Reviewed 07/29/19 @ 07:[address] Marco A Jesus MD) Chest pain (Acute) Subjective: Patient seen and examined. He was admitted with a complaint of chest pressure which was aggravated by exertion and relieved by rest. Patient states he was not feeling well and his blood pressure when he checked it was 209/109. Repeat blood pressure still remained elevated. He denied any radiation of the chest pain he denied any lightheadedness, dizziness, nausea or vomiting. He recently had a stroke and was worried about his elevated BP, so he decided to come to the ED. has been managed for chest pain rule out ACS. Patient seen this morning. He is not complaining of any chest pain and denied any headache, blurred vision, palpitation, nausea vomiting or diarrhea. Review of systems otherwise negative. Vitals/I&O's: Vital Signs Temp Pulse Resp BP Pulse Ox 97.9 F 65 12 157/74 H 100 07/29/19 07:59 07/29/19 07:59 07/29/19 07:59 07/29/19 07:59 07/29/19 07:59 Oxygen Delivery Method Room Air Weight: 234 lb 8 oz Body Mass Index (BMI) 33.6 Finger Stick Blood Glucose 131 Intake and Output for Last 24 Hours 07/27/19 07/28/19 07/29/19 23:59 23:59 23:59 Intake Total 522.5 / 522.5 Balance 522.5 / 522.5 General: Alert, Oriented x3, Cooperative, No apparent distress HEENT: Atraumatic, PERRLA, EOMI, Normocephalic Oral: Moist Mucosa Neck: Supple, No JVD, Negative Carotid Bruits Lungs: Clear to auscultation, Normal air movement, No rhonchi, No wheeze, No rales Cardiovascular: Regular rate, Regular Rhythm, Normal S1, Normal S2, No murmurs Abdomen: Bowel Sounds Present, Soft, Non Tender, Non-Distended, No Hepato-splenomegaly Extremities: No clubbing, No cyanosis, No edema, Capillary Refill Less than 3 Seconds Skin: No rashes, No breakdown Musculoskeletal: No Tenderness to Palpation of Joints or Extremities Lymphatic: No Cervical, Supraclavicular, or Inguinal Adenopathy Neurological: Cranial nerves II-XII grossly intact, Neuro grossly intact, Motor Exam 5/5 strength throughout Psych/Mental Status: Normal Affect, Appropriate, Alert and oriented to time, place, person, mood and affect Laboratory Results 07/29/19 03:20: WBC 6.4, RBC 5.21, Hgb 14.7, Hct 44.2, MCV 84.8, MCH 28.2, MCHC 33.3, RDW Std Deviation 41.8, RDW Coeff of Blake 13.5, Plt Count 230, MPV 10.4, Immature Gran % (Auto) 0.200, Neut % (Auto) 56.1, Lymph % (Auto) 31.8, [place] % (Auto) 8.9, Eos % (Auto) 2.5, Baso % (Auto) 0.5, Absolute Neuts (auto) 3.6, Absolute Lymphs (auto) 2.04, Nucleated RBC % 0 07/29/19 03:20: Sodium 140, Potassium 3.9, Chloride 106, Carbon Dioxide 27.0, Anion Gap 7, BUN 10, Creatinine 1.04, Estim Creat Clear Calc 73.12, Est GFR (MDRD) Af Amer 92, Est GFR (MDRD) Non-Af 76, BUN/Creatinine Ratio 9.6 L, Glucose 117 H, Calcium 9.1, Troponin I < 0.015 07/29/19 06:47: POC Glucose 107 07/29/19 07:06: Troponin I < 0.015 07/29/19 09:16: Troponin I < 0.015 07/29/19 11:12: POC Glucose 104 Diagnostic Data Chest X-Ray 07/29/19 03:05 IMPRESSION: No acute cardiopulmonary disease. Electronically Signed: Fay Fam MD at 3:22 EDT , Service support , Current Medications Acetaminophen (Tylenol) 650 mg PO Q6H PRN PRN PRN Reason: Pain Score 1-10/Temp > 100.7 F Aspirin (Aspirin, Baby) 81 mg PO DAILY@0800 [facility] Last Admin: 07/29/19 08:03 Dose: Not Given Documented by: Atorvastatin Calcium (Lipitor) 80 mg PO QHS [facility] Enoxaparin Sodium (Lovenox) 40 mg SC DAILY [facility] Last Admin: 07/29/19 08:02 Dose: 40 mg Documented by: Glucagon () 1 mg IM .X1 PRN PRN Reason: Hypoglycemia Dextrose (Dextrose 10%-Water) 250 mls @ 999 mls/hr IV .Q16M PRN; Protocol PRN Reason: HYPOGLYCEMIA Lisinopril (Zestril) 20 mg PO DAILY [facility] Last Admin: 07/29/19 05:29 Dose: 20 mg Documented by: Nitroglycerin (Nitrostat) 0.4 mg SUBLINGUAL Q5M PRN PRN Reason: CHEST PAIN Ondansetron HCl (Zofran) 4 mg IV Q8H PRN PRN PRN Reason: NAUSEA/VOMITING Sodium Chloride () 10 - 40 ml IV UD PRN PRN Reason: SALINE FLUSH STROKE Vital Signs/Narrative: Vital Signs Temp Pulse Resp BP Pulse Ox 07/29/19 07:59 97.9 F 65 12 157/74 H 100 07/29/19 07:49 62 Medical Necessity - Tobacco Use Smoking Status: Never smoker Assessment/Plan All Active Problems (Last Reviewed 07/29/19 @ 07:[address] Marco A Jesus MD) Chest pain (Acute) 1. Hypertensive emergency * BP now down to 157/74 this morning. * was on lisinopril 5mg at home. Now on lisinopril 20mg daily. * will add on metoprolol 25mg daily after he has stress test tomorrow. * IV hydralazine prn. Goal BP is <140/90 * 2. Chest pain to r/o ACS * troponins x 3 are negative. * on aspirin and SL nitroglycerin. * ISS. Accuchecks ACHS. * 2D echo(07/20/2019): normal LV size, concentric LV hypertrophy with EF of 65%, and no regional wall motion abnormalities noted; no evidence of diastolic dysfunction * 3. history of recent TIA: on aspirin and statin. 4. type 2 diabetes mellitus * diet controlled. A1C on 07/20/2019 was 6.7 * accuchecks ACHS. ISS * will start patient on metformin after he has stress test tomorrow. * DVT prophylaxis; lovenox Inpatient E&M: [id number] [facility] L[facility]
[2019-07-29 16:41] LABS: Bedside Glucose 88 mg/dL (70-110)
[2019-07-29] MEDS: Atorvastatin Calcium 80 MG Tablet PO (21:10)
[2019-07-29 21:15] LABS: Bedside Glucose 83 mg/dL (70-110)
[2019-07-30 02:20] VITALS: BP 150/67; PULSE 59; RESP 16; TEMP 36.8; O2SAT 98
[2019-07-30 03:19] VITALS: PULSE 56
[2019-07-30 06:28] VITALS: BP 146/70; PULSE 64; RESP 17; TEMP 36.7; O2SAT 98
[2019-07-30] MEDS: Lisinopril 20 MG Tablet PO (06:30)
[2019-07-30] MEDS: Aspirin 81 MG TAB.CHEW PO (06:30)
[2019-07-30 06:50] LABS: Bedside Glucose 115 mg/dL (70-110)
[2019-07-30 07:00] VITALS: PULSE 62
--- NOTE | 2019-07-30 10:19 | CASEMGMT ---
This RN CM to room with [place] form at this time and pt is out of the dept for testing at this time. Will attempt again later. SStmervat THORPE CM
[2019-07-30 11:00] VITALS: BP 139/80; PULSE 67; RESP 16; TEMP 36.8; O2SAT 98
--- NOTE | 2019-07-30 11:42 | CASEMGMT ---
Patient has a Healthcare Power of Charge Poster and a Healthcare Living Will on file at [facility]. Deb GREENBERG MSW
[2019-07-30 11:50] LABS: Bedside Glucose 135 mg/dL (70-110)
--- NOTE | 2019-07-30 11:54 | CASEMGMT ---
This RN CM to room with [place] form at this time, explanation done-pt voices understanding, and pt signed [place] form at this time. Pt states did not recieve IP vs OBS booklet at admission so this RN CM provided pt with one at this time. Original [place] to chart and copy to pt at this time. Pt voices no further questions/concerns/needs at this time. SStaten RN CM
--- NOTE | 2019-07-30 11:56 | STRESSREP_ITS ---
Stress Test Report Pharmacologic myocardial perfusion stress test. 63-year-old male with a history of chest pain. Stress protocol: Resting KG demonstrates normal sinus rhythm with a rate of 65 bpm incomplete right bundle branch block. 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 The maximum heart rate attained was 106 bpm which was 68% of maximum predicted heart rate the maximum workload was 1 metabolic equivalent. At rest there were no ST or T wave changes noted to suggest abnormal flow reserve at peak infusion nonspecific ST-T wave changes were noted but did not denote any evidence of ischemia. No clinical angina was noted. The resting blood pressur es 148/80 with a peak blood pressure 164/72. Myocardial perfusion protocol. 15.0 mCi of technetium 99m sestamibi was injected at rest. 0.4 mg of regadenoson was infused per usual protocol. At peak infusion 44.6 mCi of technetium 99m sestamibi was injected stress images were obtained stress and rest images were reconstructed and compared in the short axis vertical long horizontal long axis. Gated images were also obtained. Perfusion SPECT analysis: Review of the stress images demonstrate normal uptake of tracer noted in all areas of the myocardium the resting images similarly demonstrate normal uptake of tracer noted in all areas of the myocardium. No areas of reversibility are noted suggest ischemia no previous infarct is noted. Gated SPECT analysis: The gated ejection fraction is noted to be 57%. Conclusion: Normal pharmacologic myocardial perfusion stress test. Preserved ejection fraction.
--- NOTE | 2019-07-30 11:56 | PCM.DC ---
- Discharge Diagnoses Current Active Problems: Current Active and Chronic Problems (Last Reviewed 07/29/19 @ 07:[address] Marco A Jesus MD) Chest pain (Acute) You will use the following diet at home:: Cardiac Your food should be the consistency of: Regular Discharge Activity: Return to Normal Activity Weight Bearing Status: Weight bearing as tolerated Call your doctor if you observe: Fever of 101 or Higher, Shortness of breath, Dizziness, Fainting spells, Chest pain Instructions: Angina Allergies/Adverse Reactions: Allergies No Known Allergies Allergy (Verified 07/29/19 03:06) Medications to take at Discharge Only Vitamins 07/20/19 Aspirin [Aspirin, Baby] 81 mg PO DAILY@0800 #30 tab.chew 07/22/19 Atorvastatin Calcium [Lipitor] 80 mg PO QHS #30 tab 07/22/19 Lisinopril [Zestril] 5 mg PO DAILY #30 tab 07/22/19 Primary Care Physician: Marlon Sarmiento MD [Primary Care Provider] - Please follow up with your Primary Care Physician in: one week Test Results: Test results from this visit will be discussed in further detail at your follow-up appointment, if applicable. Proposed Discharge Date: 07/30/19
--- NOTE | 2019-07-30 12:02 | DS.PCM_ITS ---
Discharge Date and Diagnosis - Problem List Patient Problems: Active and Suspected Problems (Last Reviewed 07/29/19 @ 07:[address] Marco A Jesus MD) Chest pain (Acute) Date of Admission: 07/29/19 Date of Discharge: 07/30/19 - Primary Discharge Diagnosis Active and Suspected Problems (Last Reviewed 07/29/19 @ 07:[address] Marco A Jesus MD) Chest pain (Acute) - Secondary Discharge Diagnosis Chronic Problems (Last Reviewed 07/29/19 @ 07:[address] Marco A Jesus MD) Migraine (Chronic) HTN (hypertension) (Chronic) susp[ect chronic and untreated Hospital Course and Treatment Imaging Results: 07/30/19 05:55 Nuclear Stress Test - Chemical [NM] Routine Operations: None Procedures: Stress test Summary of Care Provided: The patient is a 63 year old M admitted with a complaint of chest pain. He described pain as pressure like, with someone placing a hand on his left chest. Pain was nonradiating. BP on admission was 209/109, and HR was 99. He usually took 5mg of lisinopril, and says he took 2 tablets that day because of his elevated blood pressure. He was admitted at about age for hypertensive emergency and chest pain to rule out ACS. Lisinopril was increased to 20 mg daily. Troponins x3 were negative. EKG showed no acute ST changes. Blood pressure control improved on lisinopril 20 mg. Patient had stress test on 07/30/2019 which was negative for any ischemia. He was discharged on 07/30/2019. Blood pressure was 139/80 prior to discharge. He is to keep a blood pressure log and presented to his PCP for review. I had initially thought to add on metoprolol but patient had mild asymptomatic bradycardia with heart rate been in the low 50s. Blood pressure control has also improved, I think it is more appropriate for blood pressures be monitored on outpatient basis. Additionally, patient was also noted to have A1C of 6.7 at last visit. He will be started on PO metformin 500mg bid. Patient seen and examined prior to discharge. He had no complaints. Review of systems is otherwise negative. Labs and vitals reviewed. Home medications reviewed and reconciled. o/e: Vital Signs Height 5 ft 10 in Weight: 234 lb 8 oz Weight in Pounds 234.5 lbs Pulse Ox 98 Temperature 98.2 F Pulse Rate 67 Respiratory Rate 16 Blood Pressure 139/80 Blood Pressure Position Sitting [] General: Alert, Oriented x3, Cooperative, No apparent distress HEENT: Atraumatic, PERRLA, EOMI, Normocephalic Oral: Moist Mucosa Neck: Supple, No JVD, Negative Carotid Bruits Lungs: Clear to auscultation, Normal air movement, No rhonchi, No wheeze, No rales Cardiovascular: Regular rate, Regular Rhythm, Normal S1, Normal S2, No murmurs Abdomen: Bowel Sounds Present, Soft, Non Tender, Non-Distended, No Hepato- splenomegaly Extremities: No clubbing, No cyanosis, No edema, Capillary Refill Less than 3 Seconds Skin: No rashes, No breakdown Musculoskeletal: No Tenderness to Palpation of Joints or Extremities Lymphatic: No Cervical, Supraclavicular, or Inguinal Adenopathy Neurological: Cranial nerves II-XII grossly intact, Neuro grossly intact, Motor Exam 5/5 strength throughout Psych/Mental Status: Normal Affect, Appropriate, Alert and oriented to time, place, person, mood and affect Plan is for dc home today. Patient Problems: Active and Suspected Problems (Last Reviewed 07/29/19 @ 07:[address] Marco A Jesus MD) Chest pain (Acute) - Physical Exam Vitals/I&O's: Vital Signs Temp Pulse Resp BP Pulse Ox 98.2 F 67 16 139/80 H 98 07/30/19 11:00 07/30/19 11:00 07/30/19 11:00 07/30/19 11:00 07/30/19 11:00 Oxygen Delivery Method Room Air Weight: 234 lb 8 oz Body Mass Index (BMI) 33.6 Finger Stick Blood Glucose 131 Intake and Output for Last 24 Hours 07/28/19 07/29/19 07/30/19 23:59 23:59 23:59 Intake Total 2051.5 / 2051.5 Balance 2051. / Laboratory Results 07/29/19 16:32: POC Glucose 88 07/29/19 21:04: POC Glucose 83 07/30/19 06:35: POC Glucose 115 H 07/30/19 11:46: POC Glucose 135 H Current Medications Acetaminophen (Tylenol) 650 mg PO Q6H PRN PRN PRN Reason: Pain Score 1-10/Temp > 100.7 F Aspirin (Aspirin, Baby) 81 mg PO DAILY@0800 [facility] Last Admin: 07/30/19 06:30 Dose: 81 mg Documented by: Atorvastatin Calcium (Lipitor) [address] [facility] Last Admin: 07/29/19 21:10 Dose: 80 mg Documented by: Enoxaparin Sodium (Lovenox) [address] [facility] Last Admin: 07/29/19 08:02 Dose: 40 mg Documented by: Glucagon () 1 mg IM .X1 PRN PRN Reason: Hypoglycemia Dextrose (Dextrose 10%-Water) 250 mls @ 999 mls/hr IV .Q16M PRN; Protocol PRN Reason: HYPOGLYCEMIA Lisinopril (Zestril) [address] [facility] Last Admin: 07/30/19 06:30 Dose: 20 mg Documented by: Nitroglycerin (Nitrostat) 0.4 mg SUBLINGUAL Q5M PRN PRN Reason: CHEST PAIN Ondansetron HCl (Zofran) 4 mg IV Q8H PRN PRN PRN Reason: NAUSEA/VOMITING Sodium Chloride () 10 - 40 ml IV UD PRN PRN Reason: SALINE FLUSH Discharge Diet: Low fat/ Low Cholesterol Discharge Activity: Return to Normal Activity Weight Bearing Status: Weight bearing as tolerated Call your doctor if you observe: Fever of 101 or Higher, Shortness of breath, Dizziness, Fainting spells, Chest pain Home Medications: Medications to take at Discharge Only Vitamins 07/20/19 Aspirin [Aspirin, Baby] 81 mg PO DAILY@0800 #30 tab.chew 07/22/19 Atorvastatin Calcium [Lipitor] 80 mg PO QHS #30 tab 07/22/19 Lisinopril [Zestril] 20 mg PO DAILY #30 tab 07/30/19 Following Prescrptions Were Given to Patient: Lisinopril [Zestril] 20 mg PO DAILY #30 tab Transmission Status: Sent to [facility]/pharmacy #[id number] Primary Care Physician: Marlon Sarmiento MD [Primary Care Provider] - Please follow up with your Primary Care Physician in: one week Patient Instructions: Angina Disposition: Home Minutes spent on discharge:: 35 Patient Condition:: Stable Medical Necessity - Tobacco Use Smoking Status: Never smoker Meaningful Use Info Meaningful Use Diagnoses (Choose all that apply): None applicable OBSV E&M: 87407 Observation care discharge
--- NOTE | 2019-07-30 12:04 | PHA.DC.MR ---
Pharmacy Service has performed discharge medication reconciliation for this patient. The patient's discharge medication list was reviewed for discrepancies and discrepancies were resolved. Home Medications Only Vitamins 07/20/19 Aspirin [Aspirin, Baby] 81 mg PO DAILY@0800 #30 tab.chew 07/22/19 Atorvastatin Calcium [Lipitor] 80 mg PO QHS #30 tab 07/22/19 Lisinopril [Zestril] 5 mg PO DAILY #30 tab 07/22/19
[2019-07-30 15:00] VITALS: PULSE 68
== END 2019-07-30 11:57 | disposition home or self-care (01) ==
LOC: ED 03:28 → PCU 04:40
PROVIDERS: Admitting Provider Hospitalist; Emergency Provider Emergency Medicine; PCP Family Medicine; Visit Provider Student in an Organized Health Care Education/Training Program
DX: R07.89 Other chest pain (principal); G43.109 Migraine with aura, not intractable, without status migrainosus; I10 Essential (primary) hypertension; E11.65 Type 2 diabetes mellitus with hyperglycemia; E78.5 Hyperlipidemia, unspecified; I16.1 Hypertensive emergency; Z86.73 Personal history of transient ischemic attack (TIA), and cerebral infarction without residual deficits; Z79.82 Long term (current) use of aspirin; Z79.899 Other long term (current) drug therapy; R94.31 Abnormal electrocardiogram [ECG] [EKG]
CPT/HCPCS: 36415; 71045; 78452; 80048; 82962; 84484; 85025; 93005; 93017; 96360; 96361; 96372; 99218; 99285; A9500; J7030; A4216; G0378; J2785

== ENCOUNTER 2020-04-22 09:43 | Observation (INO) | payer MEDICARE, SELFPAY ==
[2020-04-22] VITALS (31 sets, daily range): BP systolic 78–151; BP diastolic 38–116; PULSE 58–161; RESP 9–22; TEMP 36.4–36.9; O2SAT 95–100; BMI 31.5; BMI 32.1
--- NOTE | 2020-04-22 09:57 | EKG12_ITS ---
Test Reason : AFIB Blood Pressure : / mmHG Vent. Rate : 134 BPM Atrial Rate : 268 BPM P-R Int : 000 ms QRS Dur : 094 ms QT Int : 274 ms P-R-T Axes : 184 072 -31 degrees QTc Int : 409 ms Atrial flutter Nonspecific ST abnormality Abnormal ECG Confirmed by VITA HARTMAN, PATTI ([id number]), purchase request editor KRISTAN MICHAELS ([id number]) on 04/28/2020 8:50:26 AM Referred By: LUCIO Confirmed By:SANJANA GORMAN MD
--- NOTE | 2020-04-22 09:57 | CT_ITS ---
STUDY: CTA CHEST REASON FOR EXAM: Male, 64 years old. CHEST PAIN AND A-FIB RADIATION DOSAGE (If Supplied By Facility): CTDIvol = ( 13.47 ) mGy, DLP = ( 550.77 ) mGycm TECHNIQUE: The examination was performed with the intravenous administration of IV 75mL Isovue-370. Post-processing of the angiographic images was performed, with multiplanar reformation and 3D reconstruction. Individualized dose optimization techniques were used for this CT. COMPARISON: Comparison is made with prior examination dated 02/22/2016. FINDINGS: Normal enhancement of the main pulmonary artery and right and left pulmonary arteries. Normal enhancement of the bilateral peripheral pulmonary arteries. There is no demonstrated pulmonary embolism. Normal thoracic aorta and visualized great vessels. There is no demonstrated aortic dissection. There are calcifications of the coronary arteries. Normal mediastinum. Normal hilar regions. Normal visualized trachea and bronchi. The lungs are well expanded. Normal pulmonary parenchyma. Normal pleura. Normal chest wall structures. Normal osseous structures. Normal visualized upper abdomen. CT/CTA Chest W/WO Contrast IMPRESSION: Normal CTA chest examination, without a demonstrated pulmonary embolism or arterial dissection. Coronary artery calcification. Electronically Signed: Ferdinand Henderson, at 11:21 EST , Service support ,
--- NOTE | 2020-04-22 09:58 | ED.VIS.GEN ---
History of Present Illness Chief Complaint: Palpitations Informant: Patient Narrative: 64-year-old male with past medical history of hypertension and CVA presents with lightheadedness and dizziness as well as palpitations. States that it began approximately 1-1/2 hours ago. States that he was experiencing chest pain yesterday. States that it was aching in the center of his chest throughout the day. States it was resolved after taking an aspirin. States that 2 days ago he was having some pain in his left leg for which he used a TENS unit. States that 2 years ago he did have an episode of atrial fibrillation but this could not be consistently captured on EKG. Patient did not use a Holter monitor. States that intermittently over the past 2 years he has felt heart palpitations. Patient is not currently anticoagulated. Past Medical History - Allergies and Home Meds Allergies/Adverse Reactions: Allergies No Known Allergies Allergy (Verified 04/22/20 09:46) Prior records reviewed: Yes Past Medical History: - - HTN and CVA Surgical History: herniorrhaphy, - - inguinal hernia right. Lives: Spouse/ Significant Other Smoking Status: Never smoker Alcohol: None Drugs: None - Family History Maternal Family History: Family History (Last Reviewed 03/13/20 @ 08:02 by Lily Richard) Mother CVA (cerebral vascular accident) Heart disease Father Heart disease Family History: Reports: Heart Disease - His mother had heart attack when she was age 79., Stroke Paternal Family History: Family History (Last Reviewed 03/13/20 @ 08:02 by Lily Richard) Mother CVA (cerebral vascular accident) Heart disease Father Heart disease Family History: Reports: Heart Disease - His father had heart disease (heart failure ) when he was about age 85., - Review of Systems General: Denies: Chills, Fever, Sweats Eyes: Denies: Visual changes - bilaterally, Diplopia ENT: Denies: Rhinorrhea, Sore throat Cardiovascular: Reports: Palpitations, Heart racing. Denies: Chest pain Respiratory: Reports: Dyspnea. Denies: Cough, Dyspnea on exertion Gastrointestinal: Denies: Abdominal pain, Nausea, Vomiting, Diarrhea, Melena, Hematochezia Genitourinary: Denies: Dysuria, Hematuria, Frequency Musculoskeletal: Denies: Back pain, Extremity Pain Skin: Denies: Rash, Wounds Neurological: Denies: Headache, Weakness, Numbness Physical Exam Vital Signs/Narrative: Vital Signs Temp Pulse Resp BP Pulse Ox 04/22/20 09:44 97.8 F 95 20 H 151/116 H 100 Inital Vital Signs reviewed: Yes General: Well nourished, Well developed, No Acute Distress Head: Normocephalic, Atraumatic Eyes: Perrl, EOMI ENT: Moist mucous membranes, No rhinorrhea Neck: Supple, Nontender Cardiovascular: No murmurs, Irregular, Tachycardia Respiratory: No distress, CTA bilaterally, Chest nontender Abdomen: Soft, Nontender, Nondistended, Normal bowel sounds Back: Nontender, Normal Inspection Extremities: Nontender, No edema Skin: Normal color, No rash Neurological: Alert, Oriented x3, Cranial nerves II-XII grossly intact, Normal Strength, Normal Sensation Psychological: Normal affect, Normal Mood Diagnostic/Tx/Re-eval Clinical Impression(s) from Imaging Studies Chest CTA 04/22/20 09:57 IMPRESSION: Normal CTA chest examination, without a demonstrated pulmonary embolism or arterial dissection. Coronary artery calcification. Electronically Signed: Ferdinand Henderson, at 11:21 EST , Service support , Laboratory Data 04/22/20 04/22/20 09:50 09:50 WBC 9.2 RBC 5.68 Hgb 15.7 Hct 49.5 MCV 87.1 MCH 27.6 MCHC 31.7 L RDW Std Deviation 44.7 H RDW Coeff of Blake 13.8 Plt Count 282 MPV 10.7 Immature Gran % (Auto) 0.300 Neut % (Auto) 54.1 Lymph % (Auto) 34.0 [place] % (Auto) 9.3 Eos % (Auto) 1.9 Baso % (Auto) 0.4 Absolute Neuts (auto) 5.0 Absolute Lymphs (auto) 3.12 Nucleated RBC % 0 Sodium 139 Potassium 4.3 Chloride 105 Carbon Dioxide 24.0 Anion Gap 10 BUN 17 Creatinine 1.08 Estim Creat Clear Calc 69.47 Est GFR (MDRD) Af Amer 88 Est GFR (MDRD) Non-Af 73 BUN/Creatinine Ratio 15.7 Glucose 128 H Calcium 9.7 Troponin I < 0.015 - Rhythm Strip Rhythm Strip: A-fib Rate: 148 - EKG Initial EKG Interpretation: Atrial Fibrillation - Atrial fibrillation with rapid ventricular rate at 148 bpm. QTC of [address] changes. - Medical Decision Making Patient appears well and nontoxic. Significantly tachycardic with atrial fibrillation and rapid ventricular rate upon arrival. Patient was given fluid bolus, 20 mg of IV Cardizem. CTA was done which was negative. Patient has no elevation in his troponin. Patient was given another 20 mg of Cardizem at which point his heart rate normalized to approximately 85 bpm but in chronic atrial fibrillation. Spoke with payroll associate on-call Dr. Keane advised on either admission or outpatient follow-up. Patient was given 60 mg of p.o. Cardizem but eventually increased his heart rate back to approximately 120. Was started on continuous Cardizem infusion. Patient was given subcutaneous Lovenox. Woke with hospitalist to admit the patient. Patient agreeable and admitted in stable condition. Impression: 1. Atrial fibrillation with rapid ventricular rate 2. Chest pain 3. Dizziness - Critical Care Time Critical care time (excluding procedures): 75-104 minutes, Discussing w/Patient &/or Family/[place] Measurer, Discussing w/Consultants, Arranging Admission or Transfer, Performing Direct Patient Care at Bedside ED Disposition - Plan for ED Patient: Disposition: Acute Care Hospital [facility]
[2020-04-22] MEDS: dilTIAZem 25 MG/5 ML Vial 20 MG IV BOLUS ×2 (10:06→11:16)
[2020-04-22 10:32] LABS: Absolute Lymphocyte Count 3.12 X10^3/uL (0.83-4.51); Basophil# 0.04 X10^3/uL; Basophil% 0.4 % (0-1); Eosinophil# 0.17 X10^3/uL; Eosinophils% 1.9 % (0-5); Hematocrit 49.5 % (40-54); Hemoglobin 15.7 g/dL (13.0-16.5); Lymphocyte # 3.12 X10^3/ul (4.0); Mean Corp Hgb Conc 31.7 g/dL (32-36); Mean Corpuscular Hgb 27.6 pg (27.0-32.0); Mean Corpuscular Volume 87.1 fL (80-94); Mean Platelet Vol. 10.7 fl (6.2-12.0); Monocyte# 0.85 X10^3/uL; Monocyte% 9.3 % (0-10); NRBC Flagged by Analyzer 0 % (0-5); Neutrophil # 4.96 X10^3/uL (2.7-7.7); Neutrophil % 54.1 % (47-70); Platelet Count 282 K/mm3 (150-450); RBC Distribution Width CV 13.8 % (11.6-14.6); RBC Distribution Width SD 44.7 fl (35.1-43.9); Red Blood Count 5.68 M/mm3 (4.6-6.2); White Blood Count 9.2 K/mm3 (4.4-11.0)
[2020-04-22 10:52] LABS: Anion Gap 10 (5-15); BUN 17 mg/dL (7-18); BUN/Creat Ratio 15.7 RATIO (10-20); Calcium,Total 9.7 mg/dL (8.5-10.1); Chloride 105 mmol/L (98-107); Creatinine, Serum 1.08 mg/dL (0.70-1.30); EST Glomerular Filtration Rate 73 mL/min (>60); Est Glom Filt Rate - Afr Amer 88 mL/min (>60); Estimated Creatinine Clearance 69.47 ml/min; Glucose 128 mg/dL (74-106); Potassium 4.3 mmol/L (3.5-5.1); Sodium Level 139 mmol/L (136-145)
--- NOTE | 2020-04-22 11:30 | EKG12_ITS ---
Test Reason : RHY CHANGE Blood Pressure : / mmHG Vent. Rate : 084 BPM Atrial Rate : 220 BPM P-R Int : 000 ms QRS Dur : 094 ms QT Int : 372 ms P-R-T Axes : 000 073 033 degrees QTc Int : 439 ms Atrial fibrillation Abnormal ECG When compared with ECG of 22-APR-2020 11:33, MANUAL COMPARISON REQUIRED, DATA IS UNCONFIRMED Confirmed by VITA HARTMAN, PATTI ([id number]), magazine editor KRISTAN MICHAELS ([id number]) on 04/28/2020 9:25:06 AM Referred By: CARIE Confirmed By:SANJANA GORMAN MD
[2020-04-22] MEDS: dilTIAZem 60 MG Tablet PO (12:45)
--- NOTE | 2020-04-22 13:43 | HP.PCM_ITS ---
Problem List (1) Atrial fibrillation with RVR Status: Acute (2) HLD (hyperlipidemia) Status: Chronic Qualifiers: Hyperlipidemia type: unspecified Qualified Code(s): E78.5 - Hyperlipidemia, unspecified (3) Diabetes mellitus, type II Status: Chronic Qualifiers: Diabetes mellitus nursing home insulin use: without nursing home use Diabetes mellitus complication status: with other specified complication Qualified Code(s): E11.69 - Type 2 diabetes mellitus with other specified complication (4) CVA (cerebral vascular accident) Status: Chronic Qualifiers: CVA mechanism: unspecified Qualified Code(s): I63.9 - Cerebral infarction, unspecified (5) HTN (hypertension) Status: Chronic Qualifiers: Hypertension type: essential hypertension Qualified Code(s): I10 - Essential (primary) hypertension Comment: susp[ect chronic and untreated History of Present Illness Date of Admission: 04/22/20 Chief Complaint: Palpitations, racing heart The patient is a 64 y/o M w/ PMHx: PAF, Obesity, Diabetes mellitus type II diet controlled, HTN, HLD, Hx CVA 07/2019, Chronic back pain who presents to the [facility] ED on 04/22/20 with history of onset palpitations this AM ~ 1.5 hours prior to presentation as well as noted chest pain, constant throughout the day the day prior, described as a tightness, worse with increased deep inspiratory effort rated 6/10 which completely resolved in the evening after ASA. He noted he had LLE pain the day prior and used a TENS units with resolution. He noted associated dyspnea, lightheadedness but this improved during ED evaluation. He also noted that in the past when he is gone into A. fib he has felt pulsations in his carotids and states that he did have this as well making him believe he had gone into A. fib. Work-up in the ED included T 97.8, heart rate 133, BP 119/79, respiratory rate 22, 96% on room air, CBC with WC 9.2, hemoglobin 15.7, platelet 282 without marked shift, BMP with glucose 128 otherwise unremarkable, troponin less than 0.015, CTA of the chest with no evidence of pulmonary emboli or arterial dissection, coronary artery calcification present, EKG with atrial fibrillation with RVR. In the ED patient initially administered 20 mg IV Cardizem bolus x2 followed by oral Cardizem 60 mg p.o. x1 and eventually placed on Cardizem drip. Additionally aspirin 324 mg p.o. x1 given. Past Medical History Past Medical History (Chronic Problems): Chronic Problems (Last Reviewed 03/13/20 @ 08:02 by Lily Richard) HLD (hyperlipidemia) (Chronic) Diabetes mellitus, type II (Chronic) Migraine (Chronic) CVA (cerebral vascular accident) (Chronic) HTN (hypertension) (Chronic) susp[ect chronic and untreated Medical History: Medical History (Last Reviewed 03/13/20 @ 08:02 by Lily Richard) Arthritis M19.90 Cataracts, bilateral H26.9 Diabetes E11.9 Frequent headaches R51 High cholesterol E78.00 History of back problems History of blood clots Z86.718 History of stroke Z86.73 Visual disturbance H53.9 Hypertension I10 Allergies No Known Allergies Allergy (Verified 04/22/20 09:46) Home Medications: Ambulatory Orders Medication Instructions Recorded hydrochlorothiazide 25 mg tablet 6.25 mg PO DAILY tab 03/13/20 lisinopril 20 mg tablet 20 mg PO DAILY tab 03/13/20 Aspirin [Aspirin, Baby] 81 mg PO DAILY@0800 04/22/20 Cholecalciferol (Vitamin D3) 1,000 mcg PO DAILY 04/22/20 [Vitamin D3] Garlic 500 mg PO DAILY 04/22/20 Minto-3/Dha/Epa/Fish Oil [Fish Oil 1 cap PO DAILY 04/22/20 1,000 mg Softgel] Saw [place] Fruit [Saw [place]] 450 mg PO QHS 04/22/20 Turmeric/Turmeric Root Extract 1 cap PO BID 04/22/20 [Turmeric 500 mg Capsule] Surgical History: Surgical History (Last Reviewed 03/13/20 @ 08:02 by Lily Richard) History of left ankle surgery history of lower hernia surgery Surgical History: herniorrhaphy, - - Right inguinal hernia repair in his youth, left ankle surgery. Psychiatric History: No pertinent psych hx Lives: Spouse/ Significant Other Smoking Status: Never smoker Tobacco Use: Non-smoker Alcohol: None Drugs: None - *Family History Maternal Family History: Family History (Last Reviewed 03/13/20 @ 08:02 by Lily Richard) Mother CVA (cerebral vascular accident) Heart disease Father Heart disease History Items: Heart Disease - His mother had heart attack when she was age 79., Stroke Paternal Family History: Family History (Last Reviewed 03/13/20 @ 08:02 by Lily Richard) Mother CVA (cerebral vascular accident) Heart disease Father Heart disease History Items: Heart Disease - His father had heart disease (heart failure ) when he was about age 85. Review of Systems Constitutional: Reports: Malaise, Weakness, Fatigue. Denies: Anorexia, Chills, Fever, Weight Change HEENT: Denies: Head Aches, Sinus Congestion, Sinus Drainage Cardiovascular: Reports: Chest Pain, Chest Tightness, Light Headedness, Palpitations. Denies: Chest Pressure, Orthopnea, Syncope Respiratory: Reports: Shortness of Breath. Denies: Cough, Shortness of breath at rest, Shortness of breath upon exertion, Sputum production, Wheezing Gastrointestinal: Denies: Abdominal Pain, Nausea, Vomiting Genitourinary: Denies: Dysuria Musculoskeletal: Reports: Back Pain. Denies: Joint Pain, Joint Tenderness Skin: Denies: Rash, Wounds Neurological: Denies: Numbness, Tingling, Focal weakness Psychiatric: Denies: Anxiety, Depression, Homicidal Ideations, Suicidal Ideations Hematologic/ Lymphatic: Denies: Easy Bruising, Easy Bleeding VTE Information - Inpt Only VTE Present on Admission: No VTE Mechan Device Prophylaxis: SCD's VTE Pharm Prophylaxis ordered?: Yes Subjective: Patient seated upright in ED bed, rate still variable, denies any current chest pain but does still have palpitations. Objective: Physical Examination: General: awake, alert, oriented x 3 and cooperative, seated upright in the ED bed in no apparent distress despite ongoing variable rate, no chest pain. Skin: normal color, turgor, no icterus, cyanosis. HEENT: AT/NC, EOMI, PERRLA, MMM, no carotid bruits or JVD noted. Lungs: CTA bilaterally, moderate effort, mild decrease BL bases, no rales, ronchi or wheezing. Heart: Irregular irregular; no gallop, rub audible. Abdomen: soft, obese, NTTP, ND, normal BS, no HSM. Extremities: no cyanosis, clubbing, or edema. Neurological: patient awake, alert, oriented as noted; cognitive function appears baseline intact; pupils equally reactive to light and accomodation; cranial nerves II-XII grossly normal, moving all 4 extremities, no focal deficits, strength moderately globally decreased secondary to acute presentation. Psychiatric: affect appears normal, no acute evidence of depressive or anxiety feelings. - Physical Exam Vitals/I&O's: Vital Signs Temp Pulse Resp BP Pulse Ox 97.8 F 133 H 22 H 119/79 96 04/22/20 09:44 04/22/20 13:17 04/22/20 13:17 04/22/20 13:17 04/22/20 13:17 Oxygen Flow Rate (L/min) 2 Oxygen Delivery Method Room Air Weight: 220 lb Body Mass Index (BMI) 31.5 Finger Stick Blood Glucose 131 Laboratory Results 04/22/20 09:50: WBC 9.2, RBC 5.68, Hgb 15.7, Hct 49.5, MCV 87.1, MCH 27.6, MCHC 31.7 L, RDW Std Deviation 44.7 H, RDW Coeff of Blake 13.8, Plt Count 282, MPV 10.7, Immature Gran % (Auto) 0.300, Neut % (Auto) 54.1, Lymph % (Auto) 34.0, [place] % (Auto) 9.3, Eos % (Auto) 1.9, Baso % (Auto) 0.4, Absolute Neuts (auto) 5.0, Absolute Lymphs (auto) 3.12, Nucleated RBC % 0 04/22/20 09:50: Sodium 139, Potassium 4.3, Chloride 105, Carbon Dioxide 24.0, Anion Gap 10, BUN 17, Creatinine 1.08, Estim Creat Clear Calc 69.47, Est GFR (MDRD) Af Amer 88, Est GFR (MDRD) Non-Af 73, BUN/Creatinine Ratio 15.7, Glucose 128 H, Calcium 9.7, Troponin I < 0.015 Current Medications Diltiazem HCl 125 mg/ Dextrose 125 mls @ 5 mls/hr IV .Q25H [facility]; Protocol Assessment/Plan All Active Problems (Last Reviewed 03/13/20 @ 08:02 by Lily Richard) Atrial fibrillation with RVR (Acute) Chest pain (Acute) The patient is a 64 y/o M w/ PMHx: PAF, Obesity, Diabetes mellitus type II diet controlled, HTN, HLD, Hx CVA 07/2019, Chronic back pain who presents to the [facility] ED on 04/22/20 with history of onset palpitations this AM ~ 1.5 hours prior to presentation with associated lightheadedness, dizziness and dyspnea as well as noted chest pain, constant throughout the day the day prior, described as a tightness, worse with increased deep inspiratory effort rated 6/10 which completely resolved in the evening after ASA. 1. Paroxsymal atrial fibrillation with RVR: EKG in ED w/ atrial fibrillation w/ RVR. Patient administered IV Cardizem bolus x2 as well as oral Cardizem and eventually placed on Cardizem drip in ED. Will admit to PCU, maintain on telemetry, obtain cardiac enzyme serial set, obtain magnesium level, obtain ECHO as > 6 months since prior (07/2019 with EF 65%, no evidence of diastolic dysfunction), obtain TSH level. CHADs scoring appropriate for anticoagulation start, will initiate therapeutic lovenox pending CM assist with cost considerations for oral regimen. Will continue on cardizem drip with plan for oral transition after 24 hours if appropriate. Cardiology aware of patient and will continue consultation with Dr. Keane. 2. Diabetes mellitus type II, reportedly diet controlled: Not on regimen, will obtain hemoglobin A1c, ADA diet, accu checks w/ ISS. 3. Hypertension: Continue home regimen including lisinopril, cautiously continue hydrochlorothiazide but hold given usage of Cardizem drip as noted, PRN hydralazine. 4. Hyperlipidemia: Not on regimen, FLP in a.m. and given his stroke history will add moderate dose. 5. Obesity: Weight loss and lifestyle changes encouraged. 6. History CVA: Noted CVA 07/2019, continue aspirin, therapeutic Lovenox currently as noted, add moderate dose statin, add back oral hypertensive regimen once appropriate, obtaining hemoglobin A1c. 7. DVT prophylaxis: SCDs, therapeutic Lovenox. 8. CODE status: Patient ZION is his and living will is currently in place. Discussed CODE status at length including difference between FULL code, DNR-CCA and DNR-CC status. Following discussions about the differences in these status, requested Full Code status. Advanced Care Planning Face to Face Time: 16 minutes. Inpatient E&M: 44785 Init Hosp L3 Procedures: 65304 Advncd Care Plan 30 Min
--- NOTE | 2020-04-22 14:06 | NURSING ---
89 PAF WITH RVR WHITE
[2020-04-22] MEDS: Enoxaparin 100 MG/ML Syringe SC ×2 (14:12→23:08)
--- NOTE | 2020-04-22 14:50 | ECHOCS_ITS ---
Reason For Study: Arrhythmia Procedure This was a 2D Doppler, Color Flow transthoracic echocardiogram. The study was technically difficult. Contrast injection was performed. Exam performed portable in patient room. Left Ventricle Normal LV size. Severe concentric left ventricular hypertrophy. Left ventricular systolic function is normal. The estimated ejection fraction is 65 %. Unable to assess diastolic dysfunction. No regional wall motion abnormalities noted. Right Ventricle Normal RV size. Normal systolic function. Atria The left atrium is mildly enlarged. Normal right atrium. No doppler evidence for ASD. Mitral Valve There is no mitral annular calcification. Normal mitral valve. Trivial mitral valve insufficiency. Tricuspid Valve Normal tricuspid valve. Trivial tricuspid valve insufficiency. Right ventricular systolic pressure estimated to be 19 mmHg. Aortic Valve Trisinus/trileaflet aortic valve. Normal aortic valve. Pulmonic Valve The pulmonic valve is not well visualized. Trivial pulmonic valve insufficiency. Great Vessels Borderline enlarged aortic root. Pericardium/Pleural Trivial pericardial effusion. There are no echocardiographic indications of cardiac tamponade. Medication Diluted definity 2ml given slow IV push to enhance endocardial definition. MMode/2D Measurements & Calculations LVIDd: 3.2 cm IVSd: 2.0 cm Ao root diam: 3.9 cm LVIDs: 2.1 cm LVPWd: 2.3 cm RVDd: 4.1 cm FS: 34.8 % LAV(MOD-bp): 49.9 ml LA A4 area: 18.8 cm2 LA dimension(2D): 4.1 cm LAV(MOD-bp) Indexed: 22.8 ml/m2 LAV(MOD-sp2): 48.8 ml LAV(MOD-sp4): 52.1 ml RA A4 area: 17.0 cm2 Time Measurements MV dec time: 0.11 sec Doppler Measurements & Calculations MV E max uriel: 81.6 cm/sec Ao V2 max: 104.4 cm/sec LV V1 max: 108.7 cm/sec Ao max P.4 mmHg LV V1 max P.8 mmHg TR max uriel: 201.6 cm/sec TR max P.3 mmHg Interpretation Summary The study was technically difficult. Contrast injection was performed. Left ventricular systolic function is normal. The estimated ejection fraction is 65 %. Severe concentric left ventricular hypertrophy. The left atrium is mildly enlarged. Trivial mitral valve insufficiency. Trivial tricuspid valve insufficiency. Trivial pulmonic valve insufficiency. Borderline enlarged aortic root Trivial pericardial effusion. There are no echocardiographic indications of cardiac tamponade. Right ventricular systolic pressure estimated to be 19 mmHg. Unable to assess diastolic dysfunction. Ordering Physician: Elena Benjamin Referring Physician: Marlon Sarmiento Performed By: Diana Hartley, DA, RVT
[2020-04-22 15:19] LABS: Magnesium 2.3 mg/dL (1.6-2.6)
[2020-04-22] MEDS: 0.9% Normal Saline 1,000 ML 100 ML IV (15:55)
[2020-04-22 17:30] LABS: Bedside Glucose 88 mg/dL (70-110)
--- NOTE | 2020-04-22 19:02 | PCM.CONS.C ---
Problem List (1) Atrial fibrillation with RVR Status: Acute (2) HLD (hyperlipidemia) Status: Chronic Qualifiers: Hyperlipidemia type: unspecified Qualified Code(s): E78.5 - Hyperlipidemia, unspecified (3) HTN (hypertension) Status: Chronic Qualifiers: Hypertension type: essential hypertension Qualified Code(s): I10 - Essential (primary) hypertension Comment: susp[ect chronic and untreated (4) Diabetes mellitus, type II Status: Chronic Qualifiers: Diabetes mellitus correction insulin use: without watermelon inspector use Diabetes mellitus complication status: with other specified complication Qualified Code(s): E11.69 - Type 2 diabetes mellitus with other specified complication Reason for Consult Date of Consultation: 04/22/20 History of Present Illness: The patient is a 64 year old white male with a past history of hyperlipidemia, hypertension, paroxysmal atrial fibrillation, diabetes mellitus, and CVA who is referred for evaluation of atrial fibrillation with rapid ventricular response. He states that he has been told he has had paroxysmal atrial fibrillation in the past. He has undergone evaluation in the past for concerns of chest discomfort. In July of this year he had a pharmacologic stress nuclear imaging study which was negative. He did not require cardiac catheterization. He states he was at home and was having issues with his lower extremity. He was using a TENS unit on his lower extremity. He then noted earlier today that his heartbeat was irregular. He was concerned that he may have formed a blood clot in his legs that went to his lungs. He took aspirin at home. He subsequently presented to the emergency department for evaluation. He was found to be in atrial fibrillation. The patient is also noted episodes of chest discomfort at home. During his emergency department evaluation he had cardiac enzymes performed which were negative. His ECG demonstrated atrial fibrillation with no acute ECG changes. A chest CT scan was performed which demonstrated no great vessel disease. He was treated with IV diltiazem and subsequent oral diltiazem. He had continued rapid rates. He was then placed on IV diltiazem and placed in the PCU for further evaluation. He states overall he is feeling better now that his heart rate is better controlled. He is not complaining of classic angina pectoris at this time. He is not had episodes of overt CHF or pulmonary edema. There has been no near syncope or syncope. [] Past Medical History Allergies/Adverse Reactions: Allergies No Known Allergies Allergy (Verified 04/22/20 09:46) Home Medications: Ambulatory Orders Medication Instructions Recorded hydrochlorothiazide 25 mg tablet 6.25 mg PO DAILY tab 03/13/20 lisinopril 20 mg tablet 20 mg PO DAILY tab 03/13/20 Aspirin [Aspirin, Baby] 81 mg PO DAILY@0800 04/22/20 Cholecalciferol (Vitamin D3) 5,000 mcg PO DAILY 04/22/20 [Vitamin D3] Garlic 500 mg PO DAILY 04/22/20 Multivitamins,Therapeutic 1 tab PO DAILY 04/22/20 [Multivitamin] [place]-3/Dha/Epa/Fish Oil [Fish Oil 1 cap PO DAILY 04/22/20 1,000 mg Softgel] Saw [place] Fruit [Saw [place]] 450 mg PO QHS 04/22/20 Turmeric/Turmeric Root Extract 1 cap PO BID 04/22/20 [Turmeric 500 mg Capsule] Past Medical History (Chronic Problems): Chronic Problems (Last Reviewed 03/13/20 @ 08:02 by Lily Richard) HLD (hyperlipidemia) (Chronic) Diabetes mellitus, type II (Chronic) Migraine (Chronic) CVA (cerebral vascular accident) (Chronic) HTN (hypertension) (Chronic) susp[ect chronic and untreated Surgical History: herniorrhaphy, - - Right inguinal hernia repair in his youth, left ankle surgery. Psychiatric History: No pertinent psych hx - *Family History Maternal Family History: Family History (Last Reviewed 03/13/20 @ 08:02 by Lily Richard) Mother CVA (cerebral vascular accident) Heart disease Father Heart disease History Items: Heart Disease - His mother had heart attack when she was age 79., Stroke Paternal Family History: Family History (Last Reviewed 03/13/20 @ 08:02 by Lily Richard) Mother CVA (cerebral vascular accident) Heart disease Father Heart disease History Items: Heart Disease - His father had heart disease (heart failure ) when he was about age 85. Lives: Spouse/ Significant Other Smoking Status: Never smoker Tobacco Use: Non-smoker Alcohol: None Drugs: None Review of Systems - Review of Systems General: Denies: Fever, Night Sweats, Fatigue Cardiovascular: Reports: Chest Discomfort, Palpitations. Denies: Shortness of Breath, Orthopnea, PND, Peripheral Edema, Lightheadedness, Dizziness, Near Syncope, Syncope Respiratory: Denies: Cough, Sputum Production, Hemoptysis Gastrointestinal: Denies: Hematemesis, Hematochezia, Melena Genitourinary: Denies: Dysuria, Hematuria Skin: Denies: Rash Subjectve: This is a pleasant 64-year-old white male who appears to be resting comfortably at the moment in no acute distress. Objective: Vital Signs Temp Pulse Resp BP Pulse Ox 97.8 F 99 19 H 114/70 95 04/22/20 18:00 04/22/20 18:00 04/22/20 18:00 04/22/20 18:00 04/22/20 18:00 Oxygen Flow Rate (L/min) 2 Oxygen Delivery Method Room Air Weight: 223 lb 8.78 oz Body Mass Index (BMI) 32.1 Finger Stick Blood Glucose 131 Intake and Output for Last 24 Hours 04/20/20 04/21/20 04/22/20 23:59 23:59 23:59 Intake Total 504.25 / 504.25 Balance 504.25 / 504.25 General: Awake, Alert, Oriented x 3, Cooperative, No Acute Distress HEENT: Atraumatic, Normocephalic, PERRL, EOMI, Sclera Non Icteric Neck: Supple, Good ROM, No JVD Lungs: Clear to auscultation Cardiovascular: Irregular Rhythm, Normal S1, Normal S2 Abdomen: Bowel Sounds Present, Soft Extremities: No edema Psych/Mental Status: Appropriate 04/22/20 09:50: WBC 9.2, RBC 5.68, Hgb 15.7, Hct 49.5, MCV 87.1, MCH 27.6, MCHC 31.7 L, Plt Count 282, MPV 10.7, Immature Gran % (Auto) 0.300, Neut % (Auto) 54.1, Lymph % (Auto) 34.0, [place] % (Auto) 9.3, Eos % (Auto) 1.9, Baso % (Auto) 0.4, Absolute Neuts (auto) 5.0, Nucleated RBC % 0 04/22/20 09:50: Sodium 139, Potassium 4.3, Chloride 105, Carbon Dioxide 24.0, Anion Gap 10, BUN 17, Creatinine 1.08, Est GFR (MDRD) Af Amer 88, Est GFR (MDRD) Non-Af 73, BUN/Creatinine Ratio 15.7, Glucose 128 H, Calcium 9.7, Troponin I < 0.015 04/22/20 09:50: Magnesium 2.3 04/22/20 15:30: Troponin I < 0.015 04/22/20 18:06: Troponin I < 0.015 Rhythm: Atrial fibrillation EKG: Atrial fibrillation ECHO: 04-22-2020 Interpretation Summary The study was technically difficult. Contrast injection was performed. Left ventricular systolic function is normal. The estimated ejection fraction is 65 %. Severe concentric left ventricular hypertrophy. The left atrium is mildly enlarged. Trivial mitral valve insufficiency. Trivial tricuspid valve insufficiency. Trivial pulmonic valve insufficiency. Borderline enlarged aortic root Trivial pericardial effusion. There are no echocardiographic indications of cardiac tamponade. Right ventricular systolic pressure estimated to be 19 mmHg. Unable to assess diastolic dysfunction. Stress Test: 07/30/2019 Stress Test Report Pharmacologic myocardial perfusion stress test. 63-year-old male with a history of chest pain. Stress protocol: Resting KG demonstrates normal sinus rhythm with a rate of 65 bpm incomplete right bundle branch block. 0.4 mg of regadenoson was infused per usual protocol followed by Intravenous saline flush injection continuous systems operator was performed. The maximum heart rate attained was 106 bpm which was 68% of maximum predicted heart rate the maximum workload was 1 metabolic equivalent. At rest there were no ST or T wave changes noted to suggest abnormal flow reserve at peak infusion nonspecific ST-T wave changes were noted but did not denote any evidence of ischemia. No clinical angina was noted. The resting blood pressures 148/80 with a peak blood pressure 164/72. Myocardial perfusion protocol. 15.0 mCi of technetium 99m sestamibi was injected at rest. 0.4 mg of regadenoson was infused per usual protocol. At peak infusion 44.6 mCi of technetium 99m sestamibi was injected stress images were obtained stress and rest images were reconstructed and compared in the short axis vertical long horizontal long axis. Gated images were also obtained. Perfusion SPECT analysis: Review of the stress images demonstrate normal uptake of tracer noted in all areas of the myocardium the resting images similarly demonstrate normal uptake of tracer noted in all areas of the myocardium. No areas of reversibility are noted suggest ischemia no previous infarct is noted. Gated SPECT analysis: The gated ejection fraction is noted to be 57%. Conclusion: Normal pharmacologic myocardial perfusion stress test. Preserved ejection fraction. Chest CT Scan: FINDINGS: Normal enhancement of the main pulmonary artery and right and left pulmonary arteries. Normal enhancement of the bilateral peripheral pulmonary arteries. There is no demonstrated pulmonary embolism. Normal thoracic aorta and visualized great vessels. There is no demonstrated aortic dissection. There are calcifications of the coronary arteries. Normal mediastinum. Normal hilar regions. Normal visualized trachea and bronchi. The lungs are well expanded. Normal pulmonary parenchyma. Normal pleura. Normal chest wall structures. Normal osseous structures. Normal visualized upper abdomen. CT/CTA Chest W/WO Contrast IMPRESSION: Normal CTA chest examination, without a demonstrated pulmonary embolism or arterial dissection. Coronary artery calcification. Electronically Signed: Ferdinand Henderson, at 11:21 EST Assessment/Plan 1. Atrial fibrillation The patient reportedly has a history of paroxysmal atrial fibrillation. He states he has not had to be treated in the past. Today he presents with atrial fibrillation with RVR. This may be related to a combination of age and hypertension. Thus far he has not been found to have any definitive acute coronary syndrome, great vessel disease, or other etiologies to explain his recurrence of his atrial fibrillation. He is being monitored. He will have additional laboratory studies as deemed appropriate. In the meantime he has been placed on IV diltiazem for rate control. It may be reasonable to attempt IV amiodarone, as his atrial fibrillation may have been short in duration, and attempt to regain sinus rhythm. He has also been placed on anticoagulant therapy with Lovenox. Depending upon his findings and his course he may or may not need additional cardiovascular studies as well as attempts at future synchronized biphasic DC cardioversion to regain sinus rhythm. 2. Hyperlipidemia He should continue risk factor evaluation and care as deemed appropriate. 3. Hypertension The patient has a history of hypertension. Again this may be a contributing factor to his atrial dysrhythmia. He has undergone evaluation with a transthoracic echocardiogram. Based upon his echocardiogram he appears to have severe concentric left ventricular hypertrophy. This may be secondary to his history of hypertension. He will need continued antihypertensive therapy with adjustment as needed. 4. Diabetes mellitus He will continue evaluation care per internal medicine. 5. CVA He states he has a history of CVA in the past. It is unclear whether this was related to any atrial dysrhythmia versus other etiologies. Overall, at the present time, he will continue to be observed. He will continue medical therapy and attempts to maintain rate control, hopefully regain sinus rhythm, and continue anticoagulation therapy. This note was generated using a voice recognition system and there may be incorrect words, spelling or punctuation that were not noted when reviewing the office note prior to saving.
[2020-04-22] MEDS: Amiodarone 360 MG in Dextrose 5% Viaflo Bag 192.8 ML 33.3 MG CONT INF (20:44)
--- NOTE | 2020-04-22 22:47 | EKG12_ITS ---
Test Reason : SOB Blood Pressure : / mmHG Vent. Rate : 148 BPM Atrial Rate : 136 BPM P-R Int : 000 ms QRS Dur : 084 ms QT Int : 292 ms P-R-T Axes : 000 086 -09 degrees QTc Int : 458 ms Atrial fibrillation Abnormal ECG Confirmed by VITA HARTMAN, PATTI ([id number]), school photograph editor KIARA MARROQUIN ([id number]) on 04/30/2020 9:58:28 A M Referred By: ALEXI Confirmed By:SANJANA GORMAN MD
--- NOTE | 2020-04-22 22:54 | PCS.PANDOC ---
PANDEMIC DOCUMENTATION INITIATED: Date: 04/22/20 Time:14:50
[2020-04-22] MEDS: Lisinopril 20 MG Tablet PO (23:08)
[2020-04-22] MEDS: Atorvastatin Calcium 40 MG Tablet PO (23:08)
[2020-04-22 23:16] LABS: Bedside Glucose 87 mg/dL (70-110)
[2020-04-23] VITALS (15 sets, daily range): BP systolic 97–116; BP diastolic 64–77; PULSE 56–93; RESP 11–20; TEMP 36–36.5; O2SAT 95–100
[2020-04-23] MEDS: 0.9% Normal Saline 1,000 ML 100 ML IV (01:28)
[2020-04-23] MEDS: Amiodarone 360 MG in Dextrose 5% Viaflo Bag 192.8 ML 16.7 MG CONT INF (02:45)
[2020-04-23 05:40] LABS: Absolute Neutrophil Count 3.2 X10^3/uL (2.0-7.7); Basophil# 0.04 X10^3/uL; Basophil% 0.6 % (0-1); Eosinophil# 0.14 X10^3/uL; Eosinophils% 2.1 % (0-5); Hematocrit 43.6 % (40-54); Lymphocyte % 39.2 % (19-41); Mean Corp Hgb Conc 32.1 g/dL (32-36); Mean Corpuscular Hgb 28.1 pg (27.0-32.0); Mean Corpuscular Volume 87.4 fL (80-94); Mean Platelet Vol. 10.5 fl (6.2-12.0); Monocyte# 0.62 X10^3/uL; Monocyte% 9.3 % (0-10); NRBC Flagged by Analyzer 0 % (0-5); Neutrophil # 3.21 X10^3/uL (2.7-7.7); Neutrophil % 48.3 % (47-70); Platelet Count 229 K/mm3 (150-450); RBC Distribution Width CV 13.8 % (11.6-14.6); Red Blood Count 4.99 M/mm3 (4.6-6.2); White Blood Count 6.6 K/mm3 (4.4-11.0)
[2020-04-23 06:14] LABS: AST(SGOT) 17 U/L (15-37); Alanine Aminotransfer ALT/SGPT 25 U/L (16-61); Albumin, Serum 3.2 g/dL (3.2-5.0); Alkaline Phosphatase 58 U/L (45-117); Anion Gap 7 (5-15); BUN 18 mg/dL (7-18); BUN/Creat Ratio 19.2 RATIO (10-20); Calcium,Total 8.2 mg/dL (8.5-10.1); Chloride 108 mmol/L (98-107); Cholesterol 147 mg/dL (200); Creatinine, Serum 0.94 mg/dL (0.70-1.30); EST Glomerular Filtration Rate 86 mL/min (>60); Est Glom Filt Rate - Afr Amer 104 mL/min (>60); Estimated Creatinine Clearance 79.82 ml/min; Globulin 3.1 g/dL (2.2-4.2); Glucose 96 mg/dL (74-106); High Density Lipoprotein 46 mg/dL; Potassium 3.9 mmol/L (3.5-5.1); Protein, Total 6.3 g/dL (6.4-8.2); Sodium Level 138 mmol/L (136-145); T4 Free Direct 1.08 ng/dL (0.76-1.46); Thyroid Stim Hormone (TSH) 2.75 uIU/mL (0.358-3.74); Triglycerides 88 mg/dL; Very Low Density Lipoprotein 18 mg/dL (5-40)
[2020-04-23 06:56] LABS: Bedside Glucose 115 mg/dL (70-110)
[2020-04-23 07:46] LABS: Hemoglobin A1c 6.1 % (3.8-5.6)
[2020-04-23] MEDS: Enoxaparin 100 MG/ML Syringe SC (08:59)
[2020-04-23] MEDS: hydroCHLOROthiazide 6.25mg TAB 6.25 MG PO (08:59)
[2020-04-23] MEDS: Acetaminophen 325 MG Tablet 650 MG PO (09:00)
[2020-04-23] MEDS: Senna/Docusate Sodium 1 Tablet 2 TABLET PO (09:00)
[2020-04-23] MEDS: Aspirin 81 MG TAB.CHEW PO (09:00)
[2020-04-23] MEDS: Metoprolol Tartrate 25 MG Tablet PO (11:07)
--- NOTE | 2020-04-23 11:08 | CASEMGMT ---
MAURILIO MONIQUE assessment: Face to Face with patient for initial transition planning/care coordination assessment. MAURILIO MONIQUE introduced self and role at [facility], pt voices understanding and consents to assessment at this time. Pt is sitting up in chair in no distress at this time. Pt is A/Ox4 at this time and answers all questions appropriately at this time. Care providers, pharmacy, and demographics verified at this time. Presentation: Pt states having palpitations and feels like 'heart flipping' Pt states HR was 150 at home Admitting dx: PAF w/ RVR PCP: Guillermina Specialists: Pt states no current specialists. Preferred Pharmacy: [id number] Prescription Benefit: Anth[employer] Living Will/HPOA: Pt states has LW/HPOA and is aware that they are on file at [facility] at this time. Pt states his , Gely Alfonso, is HPOA. LNOK: Gely Alfonos, /HPOA; Vasiliy Alfonso, son Living Arrangements: Pt states lives with in 1 story home and states no Transportation: Pt states drives self and states no transportation concerns at this time. DME/HHC: Pt states no current DME or need for any at this time. Pt states no hx of HHC or SNF in the past. Pt states no concerns with going home at time of discharge. 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 Pt states does not smoke cigarettes or drink ETOH. Pt states no further concerns/needs at this time. CM to follow for anti-coagulant and any further discharge planning/needs. Advised pt to ask for CM if any further questions/concerns/needs arise, voices understanding. Pt Goal: Home Plan[place] MAURILIO MONIQUE
--- NOTE | 2020-04-23 11:21 | DCINST_ITS ---
- Discharge Diagnoses Current Active Problems: Current Active and Chronic Problems (Last Reviewed 03/13/20 @ 08:02 by Lily Richard) Atrial fibrillation with RVR (Acute) HLD (hyperlipidemia) (Chronic) Diabetes mellitus, type II (Chronic) CVA (cerebral vascular accident) (Chronic) HTN (hypertension) (Chronic) susp[ect chronic and untreated You will use the following diet at home:: Cardiac Your food should be the consistency of: Regular Your liquids should be the consistency of: Regular/Thin Discharge Activity: Return to Normal Activity Allergies/Adverse Reactions: Allergies No Known Allergies Allergy (Verified 04/22/20 09:46) Medications to take at Discharge hydrochlorothiazide 25 mg tablet 6.25 mg PO DAILY tab 03/13/20 Aspirin [Aspirin, Baby] 81 mg PO DAILY@0800 04/22/20 Cholecalciferol (Vitamin D3) [Vitamin D3] 5,000 mcg PO DAILY 04/22/20 Multivitamins,Therapeutic [Multivitamin] 1 tab PO DAILY 04/22/20 [place]-3/Dha/Epa/Fish Oil [Fish Oil 1,000 mg Softgel] 1 cap PO DAILY 04/22/20 Turmeric/Turmeric Root Extract [Turmeric 500 mg Capsule] 1 cap PO BID 04/22/20 Apixaban [Eliquis] 5 mg PO BID #60 tab 04/23/20 Atorvastatin Calcium [Lipitor] 40 mg PO QHS #30 tab 04/23/20 Lisinopril [Zestril] 20 mg PO BID #60 tab 04/23/20 Metoprolol Tartrate [Lopressor (beta jaida)] 25 mg PO BID #60 tab 04/23/20 The following prescriptions were given: Apixaban [Eliquis] 5 mg PO BID #60 tab Transmission Status: Pending to [id number] Atorvastatin Calcium [Lipitor] 40 mg PO QHS #30 tab Transmission Status: Pending to [id number] Metoprolol Tartrate [Lopressor (beta jaida)] 25 mg PO BID #60 tab Transmission Status: Pending to [id number] Lisinopril [Zestril] 20 mg PO BID #60 tab Transmission Status: Pending to [id number] Primary Care Physician: Marlon Sarmiento MD [Primary Care Provider] - Test Results: Test results from this visit will be discussed in further detail at your follow- up appointment, if applicable.
[2020-04-23 11:30] LABS: Bedside Glucose 143 mg/dL (70-110)
--- NOTE | 2020-04-23 12:01 | CASEMGMT ---
Call to [facility] pharmacy and per Mac, pharmacist, pt's co-pay is $42 at this time. Pt to be provided with 30 day free trial card at this time. Sabas THORPE CM
--- NOTE | 2020-04-23 12:26 | PHA.DC.MC ---
Pharmacy Service has performed discharge medication reconciliation and counseling for this patient. 1. APIXABAN 5MG PO BID 2. ATORVASTATIN 40MG PO QHS 3. METOPROLOL TARTRATE 25MG PO BID The patient's discharge medication list was reviewed for discrepancies and discrepancies were resolved. Home Medications hydrochlorothiazide 25 mg tablet 6.25 mg PO DAILY tab 03/13/20 Aspirin [Aspirin, Baby] 81 mg PO DAILY@0800 04/22/20 Cholecalciferol (Vitamin D3) [Vitamin D3] 5,000 mcg PO DAILY 04/22/20 Multivitamins,Therapeutic [Multivitamin] 1 tab PO DAILY 04/22/20 [place]-3/Dha/Epa/Fish Oil [Fish Oil 1,000 mg Softgel] 1 cap PO DAILY 04/22/20 Turmeric/Turmeric Root Extract [Turmeric 500 mg Capsule] 1 cap PO BID 04/22/20 Apixaban [Eliquis] 5 mg PO BID #60 tab 04/23/20 Atorvastatin Calcium [Lipitor] 40 mg PO QHS #30 tab 04/23/20 Lisinopril [Zestril] 20 mg PO DAILY tab 04/23/20 Metoprolol Tartrate [Lopressor (beta jaida)] 25 mg PO BID #60 tab 04/23/20 The patient was counseled on the following discharge medications and changes in medications for homegoing were reviewed. The Reason for Use, instructions for use, and potential side effects were reviewed for all new medications. The patient's questions regarding all of their medications were answered. The patient was able to verbally demonstrate an understanding of their discharge medications.
--- NOTE | 2020-04-23 12:52 | PN.CARD_ITS ---
Subjectve: The patient is awake and alert. He states overall he feels better. Objective: Vital Signs Temp Pulse Resp BP Pulse Ox 97.7 F L 62 15 107/65 99 04/23/20 11:00 04/23/20 11:07 04/23/20 11:00 04/23/20 11:00 04/23/20 11:00 Oxygen Flow Rate (L/min) 2 Oxygen Delivery Method Room Air Weight: 223 lb 8.78 oz Body Mass Index (BMI) 32.1 Finger Stick Blood Glucose 131 Intake and Output for Last 24 Hours 04/21/20 04/22/20 04/23/20 23:59 23:59 23:59 Intake Total 697.65 / 728.73 2495.91 / 2495.91 Output Total 300 / 300 Balance 697.65 / 728.73 2195.91 / 2195.91 General: Awake, Alert, Oriented x 3, Cooperative, No Acute Distress HEENT: Atraumatic, Normocephalic, PERRL, EOMI, Sclera Non Icteric Neck: Supple, Good ROM, No JVD Lungs: Clear to auscultation Cardiovascular: Regular Rhythm, Normal S1, Normal S2 Abdomen: Bowel Sounds Present, Soft Extremities: No edema Psych/Mental Status: Appropriate 04/22/20 09:50: Magnesium 2.3 04/22/20 15:30: Troponin I < 0.015 04/22/20 18:06: Troponin I < 0.015 04/22/20 20:55: Troponin I < 0.015 04/23/20 05:14: WBC 6.6, RBC 4.99, Hgb 14.0, Hct 43.6, MCV 87.4, MCH 28.1, MCHC 32.1, Plt Count 229, MPV 10.5, Immature Gran % (Auto) 0.500, Neut % (Auto) 48.3, Lymph % (Auto) 39.2, [place] % (Auto) 9.3, Eos % (Auto) 2.1, Baso % (Auto) 0.6, Absolute Neuts (auto) 3.2, Nucleated RBC % 0 04/23/20 05:14: Sodium 138, Potassium 3.9, Chloride 108 H, Carbon Dioxide 23.0, Anion Gap 7, BUN 18, Creatinine 0.94, Est GFR (MDRD) Af Amer 104, Est GFR (MDRD) Non-Af 86, BUN/Creatinine Ratio 19.2, Glucose 96, Calcium 8.2 L, Total Bilirubin 0.70, Triglycerides 88, Cholesterol 147, LDL Cholesterol 83, VLDL Cholesterol 18, HDL Cholesterol 46 04/23/20 05:14: Hemoglobin A1c 6.1 H Rhythm: Sinus rhythm Medical Necessity - Tobacco Use Smoking Status: Never smoker Tobacco Use: Non-smoker Assessment/Plan 1. Atrial fibrillation The patient reportedly has a history of paroxysmal atrial fibrillation. He states he has not had to be treated in the past. The patient has had conversion to sinus rhythm. He will continue rate control therapy such as beta-blockers. He will continue anticoagulant therapy. If he has recurrent atrial dysrhythmias then he may need to be considered for additional antiarrhythmic therapy and/or consideration for EPS/RFA. 2. Hyperlipidemia He should continue risk factor evaluation and care as deemed appropriate. 3. Hypertension The patient has a history of hypertension. Again this may be a contributing fac tor to his atrial dysrhythmia. He has undergone evaluation with a transthoracic echocardiogram. Based upon his echocardiogram he appears to have severe concentric left ventricular hypertrophy. This may be secondary to his history of hypertension. He will need continued antihypertensive therapy with adjustment as needed. 4. Diabetes mellitus He will continue evaluation care per internal medicine. 5. CVA He states he has a history of CVA in the past. It is unclear whether this was related to any atrial dysrhythmia versus other etiologies. Comment: The patient's case has been discussed and reviewed with the patient and Dr. Gómez. This note was generated using a voice recognition system and there may be incorrect words, spelling or punctuation that were not noted when reviewing the office note prior to saving.
--- NOTE | 2020-04-23 13:12 | PCM.DC.SUM ---
<Randall Ralph - Last Filed: 04/23/20 13:12> Discharge Date and Diagnosis - Problem List Patient Problems: Active and Suspected Problems (Last Reviewed 03/13/20 @ 08:02 by Lily Richard) Atrial fibrillation with RVR (Acute) Date of Admission: 04/22/20 Date of Discharge: 04/23/20 - Primary Discharge Diagnosis Acute Problems: Active Problems (Last Reviewed 03/13/20 @ 08:02 by Lily Richard) Atrial fibrillation with RVR (Acute) - Secondary Discharge Diagnosis Chronic Problems: Chronic Problems (Last Reviewed 03/13/20 @ 08:02 by Lily Richard) HLD (hyperlipidemia) (Chronic) Diabetes mellitus, type II (Chronic) Migraine (Chronic) CVA (cerebral vascular accident) (Chronic) HTN (hypertension) (Chronic) susp[ect chronic and untreated Hospital Course and Treatment Imaging Results: CT/CTA Chest W/WO Contrast IMPRESSION: Normal CTA chest examination, without a demonstrated pulmonary embolism or arterial dissection. Coronary artery calcification. 2D TTE: Interpretation Summary The study was technically difficult. Contrast injection was performed. Left ventricular systolic function is normal. The estimated ejection fraction is 65 %. Severe concentric left ventricular hypertrophy. The left atrium is mildly enlarged. Trivial mitral valve insufficiency. Trivial tricuspid valve insufficiency. Trivial pulmonic valve insufficiency. Borderline enlarged aortic root Trivial pericardial effusion. There are no echocardiographic indications of cardiac tamponade. Right ventricular systolic pressure estimated to be 19 mmHg. Unable to assess diastolic dysfunction. Consults: Cardiology - [facility] Operations: None Procedures: 2-D Echocardiogram Summary of Care Provided: Hospital Course: The patient is a 64 year old M with pmhx of pAfib, CVA, Dmt2, HTN, HLD who presented to the ER with c/o palpitations and racing. The patient stated he had a hx of afib however was not anticoagulated or on rate limiting meds. He was also not on statin despite his hx of CVA. The patient was found to have Afib RVR. He had been having intermittent palpitations for months. He was found to have Afib RVR and given cardizem bolus and started on a drip. He was admitted to the PCU. He was seen by cardiology. The patient converted to sinus rhythm the following day. He was placed on metoprolol by cardiology. An echo was obtained with results as above. The patients palpitations resolved. He was placed on eliquis. He was also started on a statin in addition to aspirin with his hx of CVA. He was discharged home in stable condition. He should follow up with his PCP in 1-2 weeks. This patient was seen by Randall Ralph PA-C under the supervision of Dr. Gómez. [] Patient Problems: Active and Suspected Problems (Last Reviewed 03/13/20 @ 08:02 by Lily Richard) Atrial fibrillation with RVR (Acute) - Physical Exam Vitals/I&O's: Vital Signs Temp Pulse Resp BP Pulse Ox 97.7 F L 62 15 107/65 99 04/23/20 11:00 04/23/20 11:07 04/23/20 11:00 04/23/20 11:00 04/23/20 11:00 Oxygen Flow Rate (L/min) 2 Oxygen Delivery Method Room Air Weight: 223 lb 8.78 oz Body Mass Index (BMI) 32.1 Finger Stick Blood Glucose 131 Intake and Output for Last 24 Hours 04/21/20 04/22/20 04/23/20 23:59 23:59 23:59 Intake Total 697.65 / 728.73 2495.91 / 2495.91 Output Total 300 / 300 Balance 697.65 / 728.73 2195.91 / 2195.91 General: Alert, Oriented x3, Cooperative HEENT: Atraumatic, PERRLA, EOMI, Normocephalic Neck: Supple, No JVD, Negative Carotid Bruits Lungs: Clear to auscultation, Normal air movement Cardiovascular: Regular rate, No murmurs Abdomen: Bowel Sounds Present, Soft, Non Tender Extremities: No edema, Capillary Refill Less than 3 Seconds Skin: No rashes, No breakdown Musculoskeletal: No Tenderness to Palpation of Joints or Extremities Neurological: Cranial nerves II-XII grossly intact Psych/Mental Status: Normal Affect, Appropriate, Alert and oriented to time, place, person, mood and affect Laboratory Results 04/22/20 09:50: Magnesium 2.3 04/22/20 15:30: Troponin I < 0.015 04/22/20 17:18: POC Glucose 88 04/22/20 18:06: Troponin I < 0.015 04/22/20 20:55: Troponin I < 0.015 04/22/20 23:07: POC Glucose 87 04/23/20 05:14: WBC 6.6, RBC 4.99, Hgb 14.0, Hct 43.6, MCV 87.4, MCH 28.1, MCHC 32.1, RDW Std Deviation 44.0 H, RDW Coeff of Blake 13.8, Plt Count 229, MPV 10.5, Immature Gran % (Auto) 0.500, Neut % (Auto) 48.3, Lymph % (Auto) 39.2, [place] % (Auto) 9.3, Eos % (Auto) 2.1, Baso % (Auto) 0.6, Absolute Neuts (auto) 3.2, Absolute Lymphs (auto) 2.60, Nucleated RBC % 0 04/23/20 05:14: Sodium 138, Potassium 3.9, Chloride 108 H, Carbon Dioxide 23.0, Anion Gap 7, BUN 18, Creatinine 0.94, Estim Creat Clear Calc 79.82, Est GFR (MDRD) Af Amer 104, Est GFR (MDRD) Non-Af 86, BUN/Creatinine Ratio 19.2, Glucose 96, Calcium 8.2 L, Total Bilirubin 0.70, AST 17, ALT 25, Alkaline Phosphatase 58, Total Protein 6.3 L, Albumin 3.2, Globulin 3.1, Albumin/Globulin Ratio 1.0, Triglycerides 88, Cholesterol 147, LDL Cholesterol 83, VLDL Cholesterol 18, HDL Cholesterol 46, TSH 2.75, Free T4 1.08 04/23/20 05:14: Hemoglobin A1c 6.1 H 04/23/20 06:50: POC Glucose 115 H 04/23/20 11:06: POC Glucose 143 H Discharge Diet: Low fat/ Low Cholesterol, 2000 mg Sodium Diet Discharge Activity: Return to Normal Activity Home Medications: Medications to take at Discharge hydrochlorothiazide 25 mg tablet 6.25 mg PO DAILY tab 03/13/20 Aspirin [Aspirin, Baby] 81 mg PO DAILY@0800 04/22/20 Cholecalciferol (Vitamin D3) [Vitamin D3] 5,000 mcg PO DAILY 04/22/20 Multivitamins,Therapeutic [Multivitamin] 1 tab PO DAILY 04/22/20 [place]-3/Dha/Epa/Fish Oil [Fish Oil 1,000 mg Softgel] 1 cap PO DAILY 04/22/20 Turmeric/Turmeric Root Extract [Turmeric 500 mg Capsule] 1 cap PO BID 04/22/20 Apixaban [Eliquis] 5 mg PO BID #60 tab 04/23/20 Atorvastatin Calcium [Lipitor] 40 mg PO QHS #30 tab 04/23/20 Lisinopril [Zestril] 20 mg PO DAILY tab 04/23/20 Metoprolol Tartrate [Lopressor (beta jaida)] 25 mg PO BID #60 tab 04/23/20 Following Prescriptions Were Given to Patient: Apixaban [Eliquis] 5 mg PO BID #60 tab Transmission Status: Received by [id number] Atorvastatin Calcium [Lipitor] 40 mg PO QHS #30 tab Transmission Status: Received by [id number] Metoprolol Tartrate [Lopressor (beta jaida)] 25 mg PO BID #60 tab Transmission Status: Received by [id number] Primary Care Physician: Marlon Sarmiento MD [Primary Care Provider] - Please follow up with your Primary Care Physician in: 1-2 [email or web address] Please Follow Up With: Marlon Sarmiento MD Disposition: Home Minutes spent on discharge:: 35 Patient Condition:: Stable Medical Necessity - Tobacco Use Smoking Status: Never smoker Tobacco Use: Non-smoker Meaningful Use Info Meaningful Use Diagnoses (Choose all that apply): None applicable <Frankie Gómez - Last Filed: 04/23/20 14:58> Discharge Date and Diagnosis - Primary Discharge Diagnosis Acute Problems: Active Problems (Last Reviewed 03/13/20 @ 08:02 by Lily Richard) Atrial fibrillation with RVR (Acute) - Secondary Discharge Diagnosis Chronic Problems: Chronic Problems (Last Reviewed 03/13/20 @ 08:02 by Lily Richard) HLD (hyperlipidemia) (Chronic) Diabetes mellitus, type II (Chronic) Migraine (Chronic) CVA (cerebral vascular accident) (Chronic) HTN (hypertension) (Chronic) susp[ect chronic and untreated Hospital Course and Treatment Summary of Care Provided: This patient was seen in conjunction with Randall Ralph PA-C . I have independently interviewed and examined the patient and reviewed pertinent historical, laboratory, and other data. Please refer to Randall Ralph PA-C note for details of this patient's presentation, findings, and recommendations. I have reviewed Randall Ralph PA-C note and concur with documented findings. In brief, patient 64-year-old gentleman with multiple comorbidities including hypertension dyslipidemia diabetes mellitus type 2 paroxysmal A. fib who presented with palpitations. Found to be in A. fib with RVR admitted to the regular nursing floor started on Cardizem drip converted back to sinus rhythm discharged home after patient has been seen and evaluated by Dr. Keane with cardiology Hospital course: As documented above - Physical Exam Vitals/I&O's: Vital Signs Temp Pulse Resp BP Pulse Ox 97.7 F L 62 15 107/65 99 04/23/20 11:00 04/23/20 11:07 04/23/20 11:00 04/23/20 11:00 04/23/20 11:00 Oxygen Flow Rate (L/min) 2 Oxygen Delivery Method Room Air Weight: 101.4 kg Body Mass Index (BMI) 32.1 Finger Stick Blood Glucose 131 Intake and Output for Last 24 Hours 04/21/20 04/22/20 04/23/20 23:59 23:59 23:59 Intake Total 697.65 / 728.73 2495.91 / 2495.91 Output Total 300 / 300 Balance 697.65 / 728.73 2195.91 / 2195.91 Laboratory Results 04/22/20 09:50: Magnesium 2.3 04/22/20 15:30: Troponin I < 0.015 04/22/20 17:18: POC Glucose 88 04/22/20 18:06: Troponin I < 0.015 04/22/20 20:55: Troponin I < 0.015 04/22/20 23:07: POC Glucose 87 04/23/20 05:14: WBC 6.6, RBC 4.99, Hgb 14.0, Hct 43.6, MCV 87.4, MCH 28.1, MCHC 32.1, RDW Std Deviation 44.0 H, RDW Coeff of Blake 13.8, Plt Count 229, MPV 10.5, Immature Gran % (Auto) 0.500, Neut % (Auto) 48.3, Lymph % (Auto) 39.2, [place] % (Auto) 9.3, Eos % (Auto) 2.1, Baso % (Auto) 0.6, Absolute Neuts (auto) 3.2, Absolute Lymphs (auto) 2.60, Nucleated RBC % 0 04/23/20 05:14: Sodium 138, Potassium 3.9, Chloride 108 H, Carbon Dioxide 23.0, Anion Gap 7, BUN 18, Creatinine 0.94, Estim Creat Clear Calc 79.82, Est GFR (MDRD) Af Amer 104, Est GFR (MDRD) Non-Af 86, BUN/Creatinine Ratio 19.2, Glucose 96, Calcium 8.2 L, Total Bilirubin 0.70, AST 17, ALT 25, Alkaline Phosphatase 58, Total Protein 6.3 L, Albumin 3.2, Globulin 3.1, Albumin/Globulin Ratio 1.0, Triglycerides 88, Cholesterol 147, LDL Cholesterol 83, VLDL Cholesterol 18, HDL Cholesterol 46, TSH 2.75, Free T4 1.08 04/23/20 05:14: Hemoglobin A1c 6.1 H 04/23/20 06:50: POC Glucose 115 H 04/23/20 11:06: POC Glucose 143 H OBSV E&M: [id number] Observation care discharge
== END 2020-04-23 12:50 | disposition home or self-care (01) | DRG 310 ==
LOC: ED 10:37 → PCU 14:34
PROVIDERS: Admitting Provider Family Medicine; Emergency Provider Emergency Medicine; PCP Family Medicine; Visit Provider Internal Medicine
DX: I48.0 Paroxysmal atrial fibrillation (principal); E78.5 Hyperlipidemia, unspecified; I10 Essential (primary) hypertension; E11.9 Type 2 diabetes mellitus without complications; Z86.73 Personal history of transient ischemic attack (TIA), and cerebral infarction without residual deficits; E66.9 Obesity, unspecified; Z86.718 Personal history of other venous thrombosis and embolism; Z68.32 Body mass index [BMI] 32.0-32.9, adult; Z79.899 Other long term (current) drug therapy; Z79.82 Long term (current) use of aspirin
CPT/HCPCS: 36415; 71275; 80048; 80053; 80061; 82962; 83036; 83735; 84439; 84443; 84484; 85025; 93005; 93306; 96361; 96365; 96366; 96367; 96372; 96375; 96376; 99218; 99285; J7030; Q9957; Q9967; A4216; C8929; G0378

== ENCOUNTER 2020-04-25 16:32 | Emergency (ER) | payer MEDICARE, SELFPAY ==
[2020-04-22 14:55] VITALS: BMI 32.1
[2020-04-25 16:34] VITALS: BP 124/99; PULSE 126; RESP 19; TEMP 36.1; O2SAT 100; BMI 32.0
[2020-04-25 16:58] VITALS: O2SAT 100
[2020-04-25 17:02] VITALS: BP 116/68; PULSE 62; RESP 18; O2SAT 100
--- NOTE | 2020-04-25 17:05 | ED.DCSUM_ITS ---
- ER Visit Summary Date of Service: 04/25/20 Chief Complaint: Elevated heart rate with recent diagnosis of atrial fib atrial flutter History of Present Illness: The patient is a 64 M and diagnosed with A. fib/a flutter. Was in the hospital and discharged 2 days ago. He is already on the blood thinner Eliquis. He is also had a prior history of a stroke which she received TPA he is diabetic and hypertensive. States he was at home within the last several hours he had onset of accelerated heart rate. Denies any other symptoms or shortness of breath that is since resolved. While was talking to the patient in the room he spontaneously converted to a sinus rhythm at 60. Physical Examination: Vital signs stable. Heart rate 126 consistent with A. fib flutter on the monitor. Pulse ox 100% on room air. No hypoxia. HEENT exam unremarkable. Neck nontender no lymphadenopathy. Lungs clear to auscultation bilaterally. Heart tachycardic no murmur. During my exam and talking the patient he spontaneously converted his heart rate was in 60. Abdomen soft nontender normal bowel sounds no peritoneal signs. Moving all 4 extremities. Calves are nontender without edema. Neurologically is awake alert with no focal motor deficits. Test Results: Initial EKG done on arrival showed atrial flutter rate of 134. No signs of [place] or ischemia. BC, BMP and troponin were all normal. Emergency Department Course and Treatment: Patient with history of A. fib flutter presents with a flutter with rapid ventricular rate. While speaking him in the room and on my exam he spontaneously converted and currently is a heart rate of 60. I have reviewed his most recent hospitalization he had normal labs 2 days ago. Plan to watch him for the next half an hour if he is doing well be discharged to home. Patient went back into A. fib flutter rate about 1 20-1 30. Labs were obtained they were unremarkable. We went to give him a dose of Lopressor and again he spontaneously converted on his own. Repeat exam at 1825 his heart rate is 58-60 and a normal sinus rhythm. He feels well to be discharged home. He has an outpatient appointment to see Dr. Tito Keane with cardiology. Treatment Plan: Continue his current medications. Follow-up with his primary care physician as needed. Return if worse. Disposition: Discharge Impression: Recurrent atrial flutter with rapid rate that spontaneously resolved History of diabetes Anticoagulated on Eliquis This note was generated with [employer] dictation software. It may contain incorrect words, spelling, and punctuation that were not noted in review of the chart prior to signing ED Disposition - Plan for ED Patient: Disposition: Home or Assisted Living Instructions: ED AFIB, ED Atrial Flutter Referrals: Marlon Sarmiento MD [Primary Care Provider] - As Needed Additional Instructions: Continue your current medications as prescribed. Follow-up with your doctor as needed. Return emergency department if feeling worse.
--- NOTE | 2020-04-25 17:07 | ED.DEP ---
ED Disposition - Plan for ED Patient: Disposition: Home or Assisted Living Instructions: ED AFIB, ED Atrial Flutter Referrals: Marlon Sarmiento MD [Primary Care Provider] - As Needed Additional Instructions: Continue your current medications as prescribed. Follow-up with your doctor as needed. Return emergency department if feeling worse.
--- NOTE | 2020-04-25 17:20 | EKG12_ITS ---
Test Reason : STROKE Blood Pressure : / mmHG Vent. Rate : 053 BPM Atrial Rate : 053 BPM P-R Int : 160 ms QRS Dur : 100 ms QT Int : 442 ms P-R-T Axes : 052 053 075 degrees QTc Int : 414 ms Sinus bradycardia Otherwise normal ECG Confirmed by SRINATH HARTMAN, TITO ([id number]), editor managing newspaper KIARA MARROQUIN ([id number]) on 04/30/2020 11:00:27 AM Referred By: Tito Yo Confirmed By:TITO YO MD
[2020-04-25 17:47] LABS: Absolute Lymphocyte Count 2.28 X10^3/uL (0.83-4.51); Absolute Neutrophil Count 4.2 X10^3/uL (2.0-7.7); Basophil# 0.04 X10^3/uL; Basophil% 0.6 % (0-1); Eosinophil# 0.15 X10^3/uL; Eosinophils% 2.1 % (0-5); Hemoglobin 15.6 g/dL (13.0-16.5); Lymphocyte # 2.28 X10^3/ul (4.0); Lymphocyte % 31.7 % (19-41); Mean Corp Hgb Conc 35.5 g/dL (32-36); Mean Corpuscular Volume 87.3 fL (80-94); Mean Platelet Vol. 10.9 fl (6.2-12.0); Monocyte# 0.52 X10^3/uL; Monocyte% 7.2 % (0-10); NRBC Flagged by Analyzer 0 % (0-5); Neutrophil # 4.17 X10^3/uL (2.7-7.7); Neutrophil % 57.8 % (47-70); Platelet Count 317 K/mm3 (150-450); RBC Distribution Width CV 13.8 % (11.6-14.6); RBC Distribution Width SD 43.6 fl (35.1-43.9); Red Blood Count 5.04 M/mm3 (4.6-6.2); White Blood Count 7.2 K/mm3 (4.4-11.0)
[2020-04-25 18:07] LABS: Anion Gap 6 (5-15); BUN 16 mg/dL (7-18); BUN/Creat Ratio 14.7 RATIO (10-20); Calcium,Total 9.3 mg/dL (8.5-10.1); Chloride 109 mmol/L (98-107); Creatinine, Serum 1.09 mg/dL (0.70-1.30); EST Glomerular Filtration Rate 72 mL/min (>60); Est Glom Filt Rate - Afr Amer 87 mL/min (>60); Estimated Creatinine Clearance 68.83 ml/min; Glucose 135 mg/dL (74-106); Potassium 3.7 mmol/L (3.5-5.1); Sodium Level 141 mmol/L (136-145)
[2020-04-25 18:47] VITALS: BP 117/72; PULSE 55; RESP 17; O2SAT 97
== END 2020-04-25 18:49 | disposition home or self-care (01) ==
LOC: ED 17:36
PROVIDERS: Emergency Provider Emergency Medicine; PCP Family Medicine
DX: I48.92 Unspecified atrial flutter (principal); I10 Essential (primary) hypertension; Z79.02 Long term (current) use of antithrombotics/antiplatelets; Z86.73 Personal history of transient ischemic attack (TIA), and cerebral infarction without residual deficits; Z79.82 Long term (current) use of aspirin
CPT/HCPCS: 80048; 84484; 85025; 93005; 96374; 99284; A4216

== ENCOUNTER 2020-04-29 13:50 | Observation (INO) | payer MEDICARE, SELFPAY ==
[2020-04-29] VITALS (15 sets, daily range): BP systolic 125–153; BP diastolic 65–87; PULSE 54–63; RESP 15–19; TEMP 36.1–37; O2SAT 96–100; BMI 31.5; BMI 32.1; BMI 32.2
--- NOTE | 2020-04-29 13:58 | EKG12_ITS ---
Test Reason : REPEAT Blood Pressure : / mmHG Vent. Rate : 084 BPM Atrial Rate : 340 BPM P-R Int : 000 ms QRS Dur : 084 ms QT Int : 334 ms P-R-T Axes : 000 074 028 degrees QTc Int : 394 ms Atrial fibrillation Abnormal ECG Confirmed by VITA HARTMAN, PATTI ([id number]), avid editor KIARA MARROQUIN ([id number]) on 04/30/2020 9:57:58 A M Referred By: BIBI Confirmed By:SANJANA GORMAN MD
--- NOTE | 2020-04-29 13:58 | CT_ITS ---
STUDY: CT HEAD STROKE PROTOCOL W/O CONTRAST INJECTION REASON FOR EXAM: Male, 64 years old. CVA, neuro deficit, acute, Hx CVA in July RADIATION DOSAGE (If Supplied By Facility): CTDIvol = ( 44.99 ) mGy, DLP = ( 829.85 ) mGycm TECHNIQUE: Transaxial CT imaging of the brain was performed without administration of intravenous contrast material. Individualized dose optimization techniques were used for this CT. COMPARISON: Comparison is made with prior study dated 07/21/2019. FINDINGS: Normal soft tissue structures. Normal calvarium. There is mild cerebral atrophy with widening of the extra-axial spaces and ventricular dilatation. Normal white matter tracts of the cerebral hemispheres. Normal basal ganglia and thalami. Normal brainstem. Normal cerebellum. There is no intracranial hemorrhage. There are no findings of an acute ischemic infarction. Minimal mucosal thickening of the ethmoid sinuses bilaterally. Right nasal septal deviation with a bony spur. CT/STROKE Brain/Head without Cont IMPRESSION: Chronic involutional changes of the brain. N.B. : The above information has been verbally conveyed by Ferdinand Henderson to Britney Mendieta on 04/29/2020 14:15:18 (ET). Electronically Signed: Ferdinand Henderson, at 14:16 EST , Service support ,
--- NOTE | 2020-04-29 14:02 | CM.ED ---
SOCIAL WORK Stroke Alert Responded to Stroke Alert. Patient out of room for testing at this time. No family present. This worker to remain available for needs. Meghana Shaffer, PHP LAMP DEVELOPER, TEAM AUTOMOBILE ASSEMBLER
[2020-04-29 14:11] LABS: Absolute Lymphocyte Count 3.51 X10^3/uL (0.83-4.51); Absolute Neutrophil Count 4.1 X10^3/uL (2.0-7.7); Basophil# 0.04 X10^3/uL; Basophil% 0.5 % (0-1); Eosinophil# 0.13 X10^3/uL; Eosinophils% 1.5 % (0-5); Hematocrit 43.8 % (40-54); Hemoglobin 14.7 g/dL (13.0-16.5); Lymphocyte # 3.51 X10^3/ul (4.0); Lymphocyte % 40.5 % (19-41); Mean Corp Hgb Conc 33.6 g/dL (32-36); Mean Corpuscular Volume 86.4 fL (80-94); Mean Platelet Vol. 10.1 fl (6.2-12.0); Monocyte# 0.79 X10^3/uL; Monocyte% 9.1 % (0-10); NRBC Flagged by Analyzer 0 % (0-5); Neutrophil # 4.14 X10^3/uL (2.7-7.7); Neutrophil % 47.8 % (47-70); Platelet Count 299 K/mm3 (150-450); RBC Distribution Width CV 13.8 % (11.6-14.6); Red Blood Count 5.07 M/mm3 (4.6-6.2); White Blood Count 8.7 K/mm3 (4.4-11.0)
[2020-04-29 14:16] LABS: Bedside Glucose 90 mg/dL (70-110)
[2020-04-29] MEDS: 0.9% Normal Saline 1,000 ML 100 ML IV (14:19)
[2020-04-29 14:21] LABS: Prothrombin Time (Protime)PT. 13.1 SECONDS (11.7-14.9)
[2020-04-29 14:22] LABS: Partial Thromboplast Time 29.3 Seconds (24.1-36.2)
[2020-04-29 14:25] LABS: Anion Gap 9 (5-15); BUN 20 mg/dL (7-18); BUN/Creat Ratio 16.8 RATIO (10-20); Calcium,Total 9.5 mg/dL (8.5-10.1); Chloride 106 mmol/L (98-107); Creatinine, Serum 1.19 mg/dL (0.70-1.30); EST Glomerular Filtration Rate 65 mL/min (>60); Est Glom Filt Rate - Afr Amer 79 mL/min (>60); Estimated Creatinine Clearance 63.05 ml/min; Glucose 109 mg/dL (74-106); Sodium Level 138 mmol/L (136-145)
--- NOTE | 2020-04-29 14:27 | RAD_ITS ---
STUDY: X-RAY CHEST REASON FOR EXAM: Male, 64 years old. Stroke symptoms TECHNIQUE: Single AP portable view of the chest. COMPARISON: Comparison is made with prior study dated 07/29/2019. FINDINGS: EKG electrodes are seen. The lungs are clear and expanded. There is no demonstrated pleural abnormality. Normal size heart. Normal mediastinum and brent. Normal visualized pulmonary arteries. There is atherosclerotic calcification of the aortic arch with tortuosity. There are diffuse degenerative changes of the visualized thoracic spine. Normal visualized ribs, clavicles, and shoulders. There is no demonstrated abnormality of the visualized soft tissue structures of the upper abdomen. RAD/Chest 1 View IMPRESSION: No acute abnormality is seen. Electronically Signed: Ferdinand Henderson, at 14:41 EST , Service support ,
--- NOTE | 2020-04-29 14:48 | ED.VISSUMM ---
- ER Visit Summary Date of Service: 04/29/20 Chief Complaint: [Concern for stroke ] History of Present Illness: The patient is a 64 M [presents to the emergency department concerned that he might be having a stroke. Patient states that approximately half an hour ago while at rest he developed vision changes that look like halos around objects and then developed a headache. Patient states that the halos are now resolved but continues to have just a mild headache. On arrival to the emergency department he is shaking and appears anxious. He complained of paresthesias to the right hand. Patient tells me he had similar symptoms in July of this year when he was diagnosed with a stroke and received TPA. Patient currently on Eliquis for recent diagnosis of A. fib. Patient denies any weakness. Patient also has not had recent illness and denies fever, cough, or COVID-19 exposures.] Physical Examination: [HEENT-PERRLA, EOMI. Cranial nerves II through XII grossly intact. TMs clear. Mucous membranes moist. No adenopathy. Cardiovascular-regular rate and rhythm without murmur or ectopy Lungs-clear to auscultation, chest wall stable without crepitus or subcu emphysema Abdomen-normoactive bowel sounds, soft, nontender, no rebound or rigidity, no peritoneal signs. Neuro qwff-ialfsm-awuc and heel guidry testing within normal limits, negative Romberg, negative pronator drift. Fundi benign. Patient had an NIH stroke scale of 1 given for paresthesias to the right hand. There was no facial droop and no obvious weakness. Extremities-intact ?4, normal range of motion, normal pulses, atraumatic] Test Results: [EKG obtained arrival shows sinus rhythm with a ventricular rate of 53 bpm with no acute ST segment changes. CBC with differential was normal. Chemistries unremarkable. Troponin less than 0.015. CT scan of the brain without contrast showed nothing acute. Chest x-ray showed nothing acute as interpreted by myself and radiology in agreement.] Emergency Department Course and Treatment: [IV line established on arrival patient placed on environmental monitoring technician. A stroke team was called initially. Patient was evaluated by neurologist at [facility] via teleconference/robot. Patient is not a TPA candidate given his anticoagulation with Eliquis and minimal symptoms. I was able to review his last visit in July and his MRI was negative as well as a CTA of head and neck were negative. Neurologist recommended admission for MRI and did not feel there was strong indication for repeat CTAs head and neck given that patient has had several episodes like this in the past becomes less likely that these symptoms that has been experiencing are stroke related and may need to look for other causes.] Treatment Plan: [Admit for MRI and further evaluation of TIA versus CVA. On repeat examination at 1452 symptoms essentially are resolved.] Disposition: [Admit Impression: [TIA] This note was generated with [employer] dictation software. It may contain incorrect words, spelling, and punctuation that were not noted in review of the chart prior to signing ED Disposition - Plan for ED Patient: Referrals: Marlon Sarmiento MD [Primary Care Provider] -
--- NOTE | 2020-04-29 15:28 | HP.PCM_ITS ---
Problem List (1) Atrial fibrillation with RVR Status: Resolved (2) HLD (hyperlipidemia) Status: Chronic Qualifiers: (3) Diabetes mellitus, type II Status: Chronic Qualifiers: (4) Migraine Status: Acute Qualifiers: Migraine type: with aura Status migrainosus presence: without status migrainosus Intractability: not intractable Qualified Code(s): G43.109 - Migraine with aura, not intractable, without status migrainosus (5) Aphasia Status: Inactive (6) Headache Status: Inactive (7) CVA (cerebral vascular accident) Status: Chronic Qualifiers: (8) HTN (hypertension) Status: Chronic Qualifiers: Comment: susp[ect chronic and untreated (9) Hyperglycemia Status: Inactive (10) Received intravenous tissue plasminogen activator (tPA) in emergency department Status: Inactive (11) Chest pain Status: Resolved History of Present Illness Date of Admission: 04/29/20 Chief Complaint: headache, visual changes The patient is a 64 year old M who was in his normal state of health. He awoke this morning noting some visual changes but was not having headache at this time. In the afternoon, patient is elliptical and developed a headache is bitemporal. He went and sat down and his recliner and then again noted visual changes where he was seeing halos fowler in his visual field. He stated he felt his A. fib acting up and then noted that his hands were numb and then eventually just his right hand. Symptoms clearly resolved but the patient was c oncerned because he had similar symptoms back in July where he actually received TPA at that time and was diagnosed with a stroke. Patient was seen by the [facility] teleneurology service who felt this may be a atypical migraine but recommend patient be brought in to have an MRI of his brain. [] Past Medical History Past Medical History (Chronic Problems): Chronic Problems (Last Updated 04/29/20 @ 15:[address] Bull Mills DO) CVA (cerebral vascular accident) (Chronic) HTN (hypertension) (Chronic) susp[ect chronic and untreated HLD (hyperlipidemia) (Chronic) Diabetes mellitus, type II (Chronic) Medical History: Medical History (Last Updated 04/29/20 @ 15:[address] Bull Mills DO) Arthritis M19.90 Cataracts, bilateral H26.9 Diabetes E11.9 Frequent headaches R51 High cholesterol E78.00 History of back problems History of blood clots Z86.718 History of stroke Z86.73 Paroxysmal A-fib I48.0 Visual disturbance H53.9 Hypertension I10 Allergies No Known Allergies Allergy (Verified 04/29/20 14:03) Home Medications: Ambulatory Orders Medication Instructions Recorded Aspirin [Aspirin, Baby] 81 mg PO DAILY@0800 04/22/20 Cholecalciferol (Vitamin D3) 5,000 mcg PO DAILY 04/22/20 [Vitamin D3] Multivitamins,Therapeutic 1 tab PO DAILY 04/22/20 [Multivitamin] [place]-3/Dha/Epa/Fish Oil [Fish Oil 1 cap PO DAILY 04/22/20 1,000 mg Softgel] Turmeric/Turmeric Root Extract 1 cap PO BID 04/22/20 [Turmeric 500 mg Capsule] Lisinopril [Zestril] 20 mg PO DAILY tab 04/23/20 Metoprolol Tartrate [Lopressor 25 mg PO BID #60 tab 04/23/20 (beta jaida)] Arginine HCl [l-Arginine] 6 gm PO DAILY 04/25/20 Apixaban [Eliquis] 5 mg PO BID 04/29/20 Magnesium Oxide 400 mg PO DAILY 04/29/20 Surgical History: Surgical History (Last Reviewed 04/29/20 @ 15:[address] Bull Mills DO) History of left ankle surgery history of lower hernia surgery Surgical History: herniorrhaphy, - - Right inguinal hernia repair in his youth, left ankle surgery. Psychiatric History: No pertinent psych hx Smoking Status: Never smoker - *Family History Paternal Family History: Family History (Last Reviewed 04/29/20 @ 15:[address] Bull Mills DO) Mother CVA (cerebral vascular accident) Heart disease Father Heart disease History Items: Heart Disease - His father had heart disease (heart failure ) when he was about age 85. Maternal Family History: Family History (Last Reviewed 04/29/20 @ 15:[address] Bull Mills DO) Mother CVA (cerebral vascular accident) Heart disease Father Heart disease History Items: Heart Disease - His mother had heart attack when she was age 79., Stroke Review of Systems Constitutional: Denies: Anorexia, Chills, Fever, Night Sweats Eyes: Reports: Blurred vision. Denies: Double vision HEENT: Denies: Head Aches, Sinus Congestion, Sinus Drainage Cardiovascular: Denies: Chest Pain, Palpitations Respiratory: Denies: Cough, Shortness of breath at rest, Sputum production Gastrointestinal: Denies: Abdominal Pain, Nausea, Vomiting Genitourinary: Denies: Dysuria Musculoskeletal: Denies: Joint Pain, Joint Tenderness Skin: Denies: Rash, Wounds Neurological: Reports: Blurred vision, Focal weakness, Numbness Psychiatric: Denies: Anxiety, Depression Hematologic/ Lymphatic: Denies: Easy Bruising, Easy Bleeding, Hx of blood clot Comment: All review of systems were negative except as mentioned above in the history of present illness and the other review of systems. VTE Information - Inpt Only VTE Present on Admission: No VTE Mechan Device Prophylaxis: None VTE Pharm Prophylaxis ordered?: No Reason prophylaxis not ordered:: Treatment Not Indicated Patient Problems: Active and Suspected Problems (Last Updated 04/29/20 @ 15:[address] Bull Mills, DO) Migraine (Acute) - Physical Exam Vitals/I&O's: Vital Signs Temp Pulse Resp BP Pulse Ox 36.1 C L 59 L 15 144/84 H 99 04/29/20 15:22 04/29/20 15:22 04/29/20 15:22 04/29/20 15:22 04/29/20 15:22 Oxygen Delivery Method Room Air Weight: 99.79 kg Body Mass Index (BMI) 31.5 Finger Stick Blood Glucose 90 General: Alert, Cooperative, No apparent distress, Well developed, Well nourished HEENT: Atraumatic, PERRLA, EOMI, Normocephalic Oral: Moist Mucosa, No Gingival or Mucosal Lesions/ Ulcerations Neck: No Nodes, Thyroid Normal Size and Texture Lungs: Clear to auscultation, Normal air movement, No rhonchi, No wheeze, No rales Cardiovascular: Regular rate, Regular Rhythm, Normal S1, Normal S2, No murmurs Abdomen: Bowel Sounds Present, Soft, Non Tender, Non-Distended, No Hepato- splenomegaly Extremities: No edema, No Calf Tenderness Skin: No rashes, No breakdown Musculoskeletal: No Tenderness to Palpation of Joints or Extremities, No Muscle Wasting Neurological: Cranial nerves II-XII grossly intact, Deep Tendon Reflexes 2+/4 and Symmetrical, Motor Exam 5/5 strength throughout, Sensory exam intact to light touch and pain, Coordination normal Psych/Mental Status: Normal Affect, Appropriate Laboratory Results 04/29/20 14:00: WBC 8.7, RBC 5.07, Hgb 14.7, Hct 43.8, MCV 86.4, MCH 29.0, MCHC 33.6 D, RDW Std Deviation 43.0, RDW Coeff of Blake 13.8, Plt Count 299, MPV 10.1, Immature Gran % (Auto) 0.600, Neut % (Auto) 47.8, Lymph % (Auto) 40.5, [place] % (Auto) 9.1, Eos % (Auto) 1.5, Baso % (Auto) 0.5, Absolute Neuts (auto) 4.1, Absolute Lymphs (auto) 3.51, Nucleated RBC % 0 04/29/20 14:00: PT 13.1, INR 1.0, APTT 29.3 04/29/20 14:00: Sodium 138, Potassium 4.0, Chloride 106, Carbon Dioxide 23.0, Anion Gap 9, BUN 20 H, Creatinine 1.19, Estim Creat Clear Calc 63.05, Est GFR (MDRD) Af Amer 79, Est GFR (MDRD) Non-Af 65, BUN/Creatinine Ratio 16.8, Glucose 109 H, Calcium 9.5, Troponin I < 0.015 04/29/20 14:10: POC Glucose 90 EKG reviewed and showed normal sinus rhythm with an incomplete right bundle branch block. Clinical Impression(s) from Imaging Studies Brain CT 04/29/20 13:58 IMPRESSION: Chronic involutional changes of the brain. N.B. : The above information has been verbally conveyed by Ferdinand Henderson to Britney Mendieta on 04/29/2020 14:15:18 (ET). Electronically Signed: Ferdinand Henderson, at 14:16 EST , Service support , ADDENDUM: 04/29/20 1423 IMPRESSION: Chronic involutional changes of the brain. N.B. : The above information has been verbally conveyed by Ferdinand Henderson to Britney Avilamike on 04/29/2020 14:15:18 (ET). Electronically Signed: Ferdinand Henderson, at 14:16 EST , Service support , Chest X-Ray 04/29/20 14:27 IMPRESSION: No acute abnormality is seen. Electronically Signed: Ferdinand Henderson, at 14:41 EST , Service support , Current Medications Sodium Chloride () 1,000 mls @ 100 mls/hr IV .Q10H ONE Stop: 04/29/20 23:57 Last Admin: 04/29/20 14:19 Dose: 100 mls/hr Documented by: Labetalol HCl (Labetalol (Prefilled) 20 Mg/4 Ml) 20 mg IV X1 PRN PRN Reason: BLOOD PRESSURE Assessment/Plan All Active Problems (Last Updated 04/29/20 @ 15:[address] Bull Mills, DO) Migraine (Acute) Chest pain (Resolved) Atrial fibrillation with RVR (Resolved) 1. Suspected atypical migraine * Patient had visual scotoma and the fact that he was having halos fowler but also some blurred vision on the periphery. Headache was bitemporal. And this is all very transient, too. * Patient states that he gets headaches very infrequently maybe twice per month. This all turns out being an atypical migraine feel that he would necessarily warrant treatment for this. Part of my concern is patient felt some palpitations and that his symptoms seem to get worse or he was having paresthesias in his hands. Feels he may have felt anxious when this was occurring may have had a panic attack that exacerbated some of the symptoms. This was relayed to the patient as well that there could be some panic component to some of the symptoms. * Will follow neurology recommendations regards to performing another MRI. Patient already underwent an extensive neurologic work-up back in July where his head neck CTA were unremarkable, echocardiogram showed EF of 65%, severe concentric LVH * Patient does state that he does occasionally get caffeine withdrawal headaches. I did advise patient to cut back on his caffeine consumption from 4 cups of coffee today to 1 or 2. I did also review risk factors for sleep apnea, patient's stop bang score is 2, which is low risk for obstructive sleep apnea 2. Paroxysmal atrial fibrillation * Currently patient is in normal sinus rhythm * Continue with apixaban and metoprolol tartrate * Patient was to have a Holter monitor placed the , which she was to wear through the . Told patient we'll try to see how that could be coordinated if he is not to be discharged tomorrow. 3. Hypertension * Currently controlled * Given the possibility of a stroke, will hold off on his lisinopril. 4. VTE prophylaxis: Low risk as patient is observation status. OBSV E&M: 59790 Initial observation care L3
--- NOTE | 2020-04-29 15:42 | PCS.PANDOC ---
PANDEMIC DOCUMENTATION INITIATED: Date: 04/29/2020 Time: 5942
--- NOTE | 2020-04-29 16:08 | MRI_ITS ---
STUDY: MRI BRAIN WITHOUT CONTRAST REASON FOR EXAM: Male, 64 years old. Vision changes,aura, H/A, prior TIA in July -- Pt has permanent dental implant causing significant artifact TECHNIQUE: Standardized multiplanar fat and water weighted pulse sequences were obtained. COMPARISON: CT brain 04/29/2020 and MR brain 07/21/2019 FINDINGS: There is mild cerebral atrophy with widening of the extra-axial spaces and ventricular dilatation. There are a limited number of small white matter hyperintensities, distributed throughout the deep white matter tracts of the cerebral hemispheres, consistent with mild chronic white matter ischemic changes. Normal bilateral basal ganglia. Normal thalami. There is no extra-axial fluid accumulation. Normal flow voids within the major intracranial circulation suggesting patency by spin echo criteria. Normal sella turcica, pituitary gland, infundibular stalk, optic chiasm and hypothalamus. Normal tectal plate and pineal gland. Normal midbrain, alfie and medulla. Normal cerebellum. Normal basal cisterns. Normal bilateral temporal bones. Normal bilateral internal auditory canals. No demonstrated orbital abnormality, within the constraints of a routine brain study. Normal visualized paranasal sinuses. Normal calvarium and skull base. Normal visualized soft tissue structures. Normal visualized upper cervical spine. MRI/Brain without Contrast IMPRESSION: No acute disease Electronically Signed: Clifford Mcnally MD at 20:57 EST , Service support ,
[2020-04-29] MEDS: Acetaminophen 325 MG Tablet 650 MG PO (19:35)
[2020-04-29] MEDS: Metoprolol Tartrate 25 MG Tablet PO (21:35)
[2020-04-29] MEDS: APIXABAN 5 MG TABLET PO (21:35)
[2020-04-30] VITALS (8 sets, daily range): BP systolic 121–139; BP diastolic 71–74; PULSE 43–58; RESP 16–18; TEMP 36.6–36.9; O2SAT 96–99
[2020-04-30] MEDS: Aspirin 81 MG TAB.CHEW PO (08:12)
[2020-04-30] MEDS: APIXABAN 5 MG TABLET PO (08:12)
--- NOTE | 2020-04-30 08:13 | PCM.DC ---
- Discharge Diagnoses Current Active Problems: Current Active and Chronic Problems (Last Updated 04/29/20 @ 15:[address] Bull Mills, DO) Migraine (Acute) CVA (cerebral vascular accident) (Chronic) HTN (hypertension) (Chronic) susp[ect chronic and untreated HLD (hyperlipidemia) (Chronic) Diabetes mellitus, type II (Chronic) You will use the following diet at home:: Cardiac Your food should be the consistency of: Regular Your liquids should be the consistency of: Regular/Thin Discharge Activity: Return to Normal Activity Call your doctor if you observe: - - Weakness, visual field loss, difficulty speaking, difficulty understanding people, refractory headache/migraine. Allergies/Adverse Reactions: Allergies No Known Allergies Allergy (Verified 04/29/20 14:03) Medications to take at Discharge Aspirin [Aspirin, Baby] 81 mg PO DAILY@1900 04/22/20 Cholecalciferol (Vitamin D3) [Vitamin D3] 5,000 mcg PO DAILY 04/22/20 Multivitamins,Therapeutic [Multivitamin] 1 tab PO DAILY 04/22/20 [place]-3/Dha/Epa/Fish Oil [Fish Oil 1,000 mg Softgel] 1 cap PO DAILY 04/22/20 Turmeric/Turmeric Root Extract [Turmeric 500 mg Capsule] 1 cap PO BID 04/22/20 Lisinopril [Zestril] 20 mg PO DAILY tab 04/23/20 Metoprolol Tartrate [Lopressor (beta jaida)] 25 mg PO BID #60 tab 04/23/20 Arginine HCl [l-Arginine] 6 gm PO DAILY 04/25/20 Apixaban [Eliquis] 5 mg PO BID 04/29/20 Magnesium Oxide 400 mg PO DAILY 04/29/20 Acetaminophen 500 mg PO Q8H #1 tab 04/30/20 Atorvastatin Calcium [Lipitor] 40 mg PO QHS tab 04/30/20 Ibuprofen 600 mg PO Q12.TCU #1 tab 04/30/20 The following prescriptions were given: Acetaminophen 500 mg PO Q8H #1 tab Ibuprofen 600 mg PO Q12.TCU #1 tab Primary Care Physician: Marlon Sarmiento MD [Primary Care Provider] - Within 2 Weeks Test Results: Test results from this visit will be discussed in further detail at your follow-up appointment, if applicable. Please Follow Up With: Freddy Rossi ADMINISTRATIVE MEDICAL DIRECTOR, ADMINISTRATIVE MEDICAL DIRECTOR-C When: 05/23/2020, already scheduled Please Follow Up With: Head[facility] - [facility] [phone] When: if refractory headaches/migraines in 1-2 months. Proposed Discharge Date: 04/30/20
[2020-04-30] MEDS: Metoprolol Tartrate 25 MG Tablet PO (08:15)
--- NOTE | 2020-04-30 08:15 | PCM.DC.SUM ---
Discharge Date and Diagnosis - Problem List Patient Problems: Active and Suspected Problems (Last Updated 04/29/20 @ 15:[address] Bull Mills DO) Migraine (Acute) Date of Admission: 04/29/20 Date of Discharge: 04/30/20 - Primary Discharge Diagnosis Acute Problems: Active Problems (Last Updated 04/29/20 @ 15:[address] Bull Mills DO) Migraine (Acute) - Secondary Discharge Diagnosis Chronic Problems: Chronic Problems (Last Updated 04/29/20 @ 15:[address] Bull Mills DO) CVA (cerebral vascular accident) (Chronic) HTN (hypertension) (Chronic) susp[ect chronic and untreated HLD (hyperlipidemia) (Chronic) Diabetes mellitus, type II (Chronic) Hospital Course and Treatment Imaging Results: Clinical Impression(s) from Imaging Studies Brain CT 04/29/20 13:58 IMPRESSION: Chronic involutional changes of the brain. N.B. : The above information has been verbally conveyed by Ferdinand Henderson to Britney Mendieta on 04/29/2020 14:15:18 (ET). Electronically Signed: Ferdinand Henderson, at 14:16 EST , Service support , ADDENDUM: 04/29/20 1423 IMPRESSION: Chronic involutional changes of the brain. N.B. : The above information has been verbally conveyed by Ferdinand Henderson to Britney Mendieta on 04/29/2020 14:15:18 (ET). Electronically Signed: Ferdinand Henderson, at 14:16 EST , Service support , Chest X-Ray 04/29/20 14:27 IMPRESSION: No acute abnormality is seen. Electronically Signed: Ferdinand Henderson, at 14:41 EST , Service support , Brain MRI 04/29/20 16:08 IMPRESSION: No acute disease Electronically Signed: Clifofrd Mcnally MD at 20:57 EST , Service support , Operations: None Procedures: None Summary of Care Provided: The patient is a 64 year old M presented to with a headache, visual field changes with halos and fowler of light and hand paresthesias. This began on the . Patient was concerned because he had similar though more severe symptoms back in July of this year where he received TPA and was diagnosed with a stroke. Patient was evaluated by the [facility] teleneurology and felt that this may been more of a atypical migraine variant and recommended an MRI. MRI was performed and showed no evidence of any stroke. Discussed with the patient that this is likely an atypical migraine variant and the fact that he gets headaches very infrequently, roughly 2 times per month, did not feel that he would require any chronic treatment for this. I did recommend, however, if he still having symptoms that he could follow-up at the headache center and gave information of the [facility] headache center for further follow-up if needed. I did discuss with the patient that migraines can present with atypical symptoms but is concerned that the visual field issues he was experiencing may been related with migraine though his hand paresthesias may not have been and explained to him that he may have felt anxious at the time that led to these paresthesias. He stated that he did not feel anxious at that time. I did discuss with the patient worries signs of stroke, including unilateral weakness, visual field loss etc. as potential signs of a stroke. But I did explain that he is having refractory headaches to let someone know. Patient has a history of A. fib and was noticing some palpitations prior to arrival. Since arriving here, he has had no evidence of any A. fib and has been in sinus rhythm or sinus bradycardia. Patient is to follow-up at the heart group today to tile picker a Holter monitor. Patient will be discharged to pick that up at the cardiac center today. [] Patient Problems: Active and Suspected Problems (Last Updated 04/29/20 @ 15:[address] Bull Mills, DO) Migraine (Acute) - Physical Exam Vitals/I&O's: Vital Signs Temp Pulse Resp BP Pulse Ox 36.6 C 51 L 18 139/74 H 99 04/30/20 08:07 04/30/20 08:07 04/30/20 08:07 04/30/20 08:07 04/30/20 08:07 Oxygen Delivery Method Room Air Weight: 101.7 kg Body Mass Index (BMI) 32.1 Finger Stick Blood Glucose 90 Intake and Output for Last 24 Hours 04/28/20 04/29/20 04/30/20 23:59 23:59 23:59 Intake Total 1245.00 / 1245.00 345 / 345 Balance 1245.00 / 1245.00 345 / 345 General: Alert, No apparent distress HEENT: Atraumatic, Normocephalic Oral: Moist Mucosa, No Gingival or Mucosal Lesions/ Ulcerations Psych/Mental Status: Normal Affect, Appropriate Laboratory Results 04/29/20 14:00: WBC 8.7, RBC 5.07, Hgb 14.7, Hct 43.8, MCV 86.4, MCH 29.0, MCHC 33.6 D, RDW Std Deviation 43.0, RDW Coeff of [place] 13.8, Plt Count 299, MPV 10.1, Immature Gran % (Auto) 0.600, Neut % (Auto) 47.8, Lymph % (Auto) 40.5, [place] % (Auto) 9.1, Eos % (Auto) 1.5, Baso % (Auto) 0.5, Absolute Neuts (auto) 4.1, Absolute Lymphs (auto) 3.51, Nucleated RBC % 0 04/29/20 14:00: PT 13.1, INR 1.0, APTT 29.3 04/29/20 14:00: Sodium 138, Potassium 4.0, Chloride 106, Carbon Dioxide 23.0, Anion Gap 9, BUN 20 H, Creatinine 1.19, Estim Creat Clear Calc 63.05, Est GFR (MDRD) Af Amer 79, Est GFR (MDRD) Non-Af 65, BUN/Creatinine Ratio 16.8, Glucose 109 H, Calcium 9.5, Troponin I < 0.015 04/29/20 14:10: POC Glucose 90 Current Medications Acetaminophen (Acetaminophen 325 Mg Tablet) 650 mg PO Q6H PRN PRN PRN Reason: Pain Score 1-10/Temp > 100.7 F Last Admin: 04/29/20 19:35 Dose: 650 mg Documented by: Apixaban (Apixaban 5 Mg Tablet) 5 mg PO BID [facility] Last Admin: 04/30/20 08:12 Dose: 5 mg Documented by: Aspirin (Aspirin 81 Mg Tab.Chew) 81 mg PO DAILY@0800 [facility] Last Admin: 04/30/20 08:12 Dose: 81 mg Documented by: Atorvastatin Calcium (Atorvastatin Calcium 40 Mg Tablet) 40 mg PO QHS [facility] Last Admin: 04/29/20 21:35 Dose: Not Given Documented by: Hydralazine HCl (Hydralazine 20 Mg/Ml Vial) 5 mg IV Q30M PRN PRN Reason: to maintain BP goals Labetalol HCl (Labetalol (Prefilled) 20 Mg/4 Ml) 10 - 20 mg IV Q10M PRN PRN PRN Reason: to Maintain BP Goals Metoprolol Tartrate (Metoprolol Tartrate 25 Mg Tablet) 25 mg PO BID [facility] Last Admin: 04/29/20 21:35 Dose: 25 mg Documented by: Sodium Chloride (0.9% Saline Lock 10 Ml Syringe) 10 - 40 ml IV UD PRN PRN Reason: SALINE FLUSH Discharge Diet: No Restrictions Discharge Activity: Return to Normal Activity Call your doctor if you observe: - - Weakness, visual field loss, difficulty speaking, difficulty understanding people, refractory headache/migraine. Home Medications: Medications to take at Discharge Aspirin [Aspirin, Baby] 81 mg PO DAILY@1900 04/22/20 Cholecalciferol (Vitamin D3) [Vitamin D3] 5,000 mcg PO DAILY 04/22/20 Multivitamins,Therapeutic [Multivitamin] 1 tab PO DAILY 04/22/20 [place]-3/Dha/Epa/Fish Oil [Fish Oil 1,000 mg Softgel] 1 cap PO DAILY 04/22/20 Turmeric/Turmeric Root Extract [Turmeric 500 mg Capsule] 1 cap PO BID 04/22/20 Lisinopril [Zestril] 20 mg PO DAILY tab 04/23/20 Metoprolol Tartrate [Lopressor (beta jaida)] 25 mg PO BID #60 tab 04/23/20 Arginine HCl [l-Arginine] 6 gm PO DAILY 04/25/20 Apixaban [Eliquis] 5 mg PO BID 04/29/20 Magnesium Oxide 400 mg PO DAILY 04/29/20 Acetaminophen 500 mg PO Q8H #1 tab 04/30/20 Atorvastatin Calcium [Lipitor] 40 mg PO QHS tab 04/30/20 Ibuprofen 600 mg PO Q12.TCU #1 tab 04/30/20 Following Prescriptions Were Given to Patient: Acetaminophen 500 mg PO Q8H #1 tab Ibuprofen 600 mg PO Q12.TCU #1 tab Primary Care Physician: Marlon Sarmiento MD [Primary Care Provider] - Within 2 Weeks Please Follow Up With: Freddy Rossi NP, LIFE SCIENCES DIRECTOR-C When: 05/23/2020, already scheduled Please Follow Up With: Head[facility] [phone] When: if refractory headaches/migraines in 1-2 months. Disposition: Home Minutes spent on discharge:: 32 Patient Condition:: Good Medical Necessity - Tobacco Use Smoking Status: Never smoker Meaningful Use Info Meaningful Use Diagnoses (Choose all that apply): None applicable OBSV E&M: 91746 Observation care discharge
--- NOTE | 2020-04-30 09:31 | CASEMGMT ---
SW did not complete a PHQ 9 with patient as per physician he did not have a TIA or Stroke. Deb GREENBERG MSW
== END 2020-04-30 08:15 | disposition home or self-care (01) ==
LOC: ED 14:00 → PCU 16:07
PROVIDERS: Emergency Provider Emergency Medicine; PCP Family Medicine
DX: G43.009 Migraine without aura, not intractable, without status migrainosus (principal); Z86.73 Personal history of transient ischemic attack (TIA), and cerebral infarction without residual deficits; I48.0 Paroxysmal atrial fibrillation; I10 Essential (primary) hypertension; E11.9 Type 2 diabetes mellitus without complications; M19.90 Unspecified osteoarthritis, unspecified site; E78.5 Hyperlipidemia, unspecified; Z79.01 Long term (current) use of anticoagulants; Z79.899 Other long term (current) drug therapy; Z79.82 Long term (current) use of aspirin
CPT/HCPCS: 70450; 70551; 71045; 80048; 82962; 84484; 85025; 85610; 85730; 93005; 94762; 96360; 96361; 97802; 99218; 99284; J7030; A4216; G0378

== ENCOUNTER → 2020-04-30 10:00 | Outpatient (CLI) | payer MEDICARE, SELFPAY ==
[2020-04-25 16:34] VITALS: BMI 32.0
[2020-04-29 23:56] VITALS: BMI 32.1
== END ==
PROVIDERS: PCP Family Medicine; Referring Provider Internal Medicine Cardiovascular Disease; Visit Provider Internal Medicine Cardiovascular Disease
DX: I48.91 Unspecified atrial fibrillation (principal)
CPT/HCPCS: 93225; 93226

== ENCOUNTER 2020-12-17 22:51 | Observation (INO) | payer MEDICARE, SELFPAY ==
[2020-08-27 13:08] VITALS: BMI 34.7
[2020-12-17 22:52] VITALS: BP 183/85; PULSE 71; RESP 18; TEMP 36.9; O2SAT 98; BMI 35.4
--- NOTE | 2020-12-17 22:53 | ED.RN ---
CALLED FOR EKG PER RN REQUEST, PULLED OLD EKGS FOR
--- NOTE | 2020-12-17 23:17 | EKG12_ITS ---
Test Reason : CP Blood Pressure : / mmHG Vent. Rate : 065 BPM Atrial Rate : 065 BPM P-R Int : 174 ms QRS Dur : 132 ms QT Int : 436 ms P-R-T Axes : 028 045 -02 degrees QTc Int : 453 ms Normal sinus rhythm Right bundle branch block Abnormal ECG Confirmed by VITA HARTMAN, PATTI ([id number]), metropolitan editor KIARA MARROQUIN ([id number]) on 12/19/2020 10:12:02 A M Referred By: KATHLEEN Confirmed By:SANJANA GORMAN MD
--- NOTE | 2020-12-17 23:18 | EDS_ITS ---
HPI History of Present Illness Chief Complaint: Chest Pain Informant: patient and spouse/S.O. Narrative Narrative: Patient presents after an episode of chest pressure. He describes it is midsternal. It radiated to the back portion of his neck. He had no nausea v omiting or diaphoresis. He states he is not sure if he was short of breath or had a little bit of panic anxiety with this. Symptoms lasted for about 30 to 45 minutes. He does feel better now. He does not recall feeling any increased heart rate with this although he has a history of atrial fibrillation. He thought it felt as though food was stuck in his throat but he had not been eating anything that would cause this. He has had prior stress test he thinks back in April but he has never had a heart catheterization or stents. He does have high blood pressure, mild obesity, borderline diabetes but has never been treated. His cholesterol is good. He has never been a smoker. He has family history of heart disease but not until 7 days or later. No history of DVT or PE. He is on warfarin for atrial fibrillation. Nothing specifically made his symptoms better or worse. [facility] Medical History Arthritis Cataracts, bilateral Diabetes Frequent headaches High cholesterol History of back problems History of blood clots History of stroke Hypertension Paroxysmal A-fib Visual disturbance Home Medications Cholecalciferol (Vitamin D3) [Vitamin D3] 5,000 mcg PO DAILY 04/22/20 [History Last Taken 04/29/20] aspirin 81 mg PO DAILY@1900 04/22/20 [History Last Taken 04/28/20] multivitamin 1 tab PO DAILY 04/22/20 [History Last Taken 04/29/20] omega 0-yek-ypn-fish oil 1 cap PO DAILY 04/22/20 [History Last Taken 04/29/20] turmeric-turmeric root extract 1 cap PO BID 04/22/20 [History Last Taken 04/29/20] lisinopril 20 mg PO DAILY tab 04/23/20 [Rx Last Taken 04/28/20] ashwagandha root extract 300 mg capsule 300 mg PO DAILY 05/23/20 [History Last Taken Unknown] hydrochlorothiazide 12.5 mg capsule 6.25 mg PO DAILY cap 08/27/20 [History Last Taken Unknown] warfarin [Coumadin] 2.5 mg PO MOFR 12/17/20 [History Last Taken Unknown] warfarin [Coumadin] 5 mg PO SUTUWETHSA 12/17/20 [History Last Taken Unknown] Allergy/AdvReac Type Severity Reaction Status Date / Time No Known Allergies Allergy Verified 12/17/20 22:54 Family History Mother CVA (cerebral vascular accident) Heart disease Father Heart disease Surgical History History of left ankle surgery history of lower hernia surgery Social History Smoking Status: Never smoker alcohol intake: never substance use type: does not use what type of physical activity do you participate in: other details: Eliptical frequency: 3-4 times per week ROS ROS ED Constitutional Constitutional ED: Denies chills or fever(s) Eyes Eyes: Denies change in vision ENT ENT ED: Denies rhinorrhea or sore throat Cardiovascular Cardiovascular: Reports as per HPI and chest pain; Denies palpitations or racing heartbeat Respiratory/Chest Respiratory/Chest: Reports dyspnea and other Details: Possible mild dyspnea. Gastrointestinal Gastrointestinal: Denies abdominal pain, nausea or vomiting Genitourinary Genitourinary ED: Denies dysuria Musculoskeletal Musculoskeletal: Reports neck pain; Denies back pain Integumentary Denies rash Neurologic Neurologic: Denies headache(s), paresthesias or weakness Endocrine Endocrinology: Denies polydipsia or polyuria Hematologic/Lymphatic Hematologic/Lymphatic: Reports easy bleeding and easy bruising Allergic/Immunologic Allergic/Immunologic ED: Denies urticaria EXAM Physical Exam Const Vital Signs: 12/17/20 22:52 12/17/20 22:54 12/17/20 23:18 Temperature 98.5 F Temperature Source Oral Pulse Rate 71 Respiratory Rate 18 Respiratory Effort Normal Non-Labored Blood Pressure 183/85 H Blood Pressure Mean 117 Pulse Ox 98 Oxygen Delivery Method Room Air Room Air 12/17/20 23:46 Temperature Temperature Source Pulse Rate 67 Respiratory Rate 20 H Respiratory Effort Blood Pressure 156/77 H Blood Pressure Mean 103 Pulse Ox 96 Oxygen Delivery Method Room Air Positive well nourished and well developed General Appearance ED: well developed and NAD HEENT normocephalic and atraumatic Eyes General Eye ED: Negative for pale conjunctiva or scleral icterus Neck no lymphadenopathy Chest Wall inspection of chest normal Resp normal respiratory effort and clear to auscultation bilaterally Effort and Inspection: respiratory distress Cardio regular rate and regular rhythm Rate: other Other Details: Patient has a 1 out of 6 to 2 out of 6 systolic murmur heard best toward the left sternal border. GI normal to inspection, nondistended, normoactive bowel sounds, soft to palpation and non-tender Back/Spine no CVA tenderness Extremity normal to inspection General Extremety ED: Yes tenderness Neuro Sensorium / Orientation: awake and alert Psych mental status grossly normal Skin no rashes or lesions noted and no wounds Heart Score History: Moderately Suspicious ECG: Nonspecific Repolarization Age: >/= 65 years Risk Factors: 1 or 2 Risk Factors Troponin: </= Normal Limit Score: 5 MDM MDM MDM Narrative Medical decision making narrative: Patient CBC is normal. His INR is therapeutic. Electrolytes show minimal decrease in potassium. His glucose is up a bit to 19. Troponin is negative. X-ray shows no acute process. My concern is that his EKG does show some T wave flattening and inversion in the chest leads as well as inferiorly that was not present in April 2020. This might be due to progression of his right bundle branch block but in light of the fact he is having no symptoms of chest pain earlier today I think this needs further evaluation. His symptoms are still resolved at this time. He had a stress test back in July 2019 that showed no acute process. I discussed the case with Dr. Liz and the patient will be brought into PCU. Lab Data Labs: Laboratory Results - last 24 hr 12/17/20 12/17/20 12/17/20 22:54 22:54 22:54 WBC 7.2 RBC 4.64 Hgb 13.3 Hct 41.6 MCV 89.7 MCH 28.7 MCHC 32.0 RDW Std Deviation 43.2 RDW Coeff of Blake 13.2 Plt Count 226 MPV 10.8 Immature Gran % (Auto) 0.600 Neut % (Auto) 49.5 Lymph % (Auto) 35.1 [place] % (Auto) 7.8 Eos % (Auto) 6.4 H Baso % (Auto) 0.6 Absolute Neuts (auto) 3.5 Absolute Lymphs (auto) 2.51 Nucleated RBC % 0 PT 26.4 H INR 2.5 Sodium 143 Potassium 3.3 L Chloride 106 Carbon Dioxide 31.0 Anion Gap 6 BUN 21 H Creatinine 1.04 Estim Creat Clear Calc 71.17 Est GFR (MDRD) Af Amer 92 Est GFR (MDRD) Non-Af 76 BUN/Creatinine Ratio 20.2 H Glucose 219 H Calcium 9.1 Troponin I High Sens 15.3 Radiography Diagnostic Testing: Radiology Impression Chest X-Ray 12/17/20 23:30 IMPRESSION: No acute cardiopulmonary disease or major interval change. Electronically Signed: Jaron Turcios DO at 23:41 EDT Tel [phone], Service support , EKG Initial EKG: Comments: EKG done for chest pain read by me shows a normal sinus rhythm with a rate of 65. There is right bundle branch block. There is some anterior T wave inversion as well as T wave inversion in lead III. Some further lateral T wave flattening. No acute ST elevation or depression. ND interval is normal. QRS duration is long and 132 ms. QTc is normal. This EKG does represent a bit of a change from 29 April 2020. Discharge Plan Dx/Rx/DC Orders Clinical Impression: Chest pain, Acute electrocardiogram changes Disposition Disposition: Acute Care [facility]
[2020-12-17] MEDS: Aspirin 81 MG TAB.CHEW 324 MG PO (23:22)
[2020-12-17 23:28] LABS: Absolute Lymphocyte Count 2.51 X10^3/uL (0.83-4.51); Absolute Neutrophil Count 3.5 X10^3/uL (2.0-7.7); Basophil# 0.04 X10^3/uL; Basophil% 0.6 % (0-1); Eosinophil# 0.46 X10^3/uL; Eosinophils% 6.4 % (0-5); Hematocrit 41.6 % (40-54); Hemoglobin 13.3 g/dL (13.0-16.5); Lymphocyte # 2.51 X10^3/ul (0.83-4.51); Lymphocyte % 35.1 % (19-41); Mean Corpuscular Hgb 28.7 pg (27.0-32.0); Mean Corpuscular Volume 89.7 fL (80-94); Mean Platelet Vol. 10.8 fl (6.2-12.0); Monocyte# 0.56 X10^3/uL; Monocyte% 7.8 % (0-10); NRBC Flagged by Analyzer 0 % (0-5); Neutrophil # 3.54 X10^3/uL (2.7-7.7); Neutrophil % 49.5 % (47-70); Platelet Count 226 K/mm3 (150-450); RBC Distribution Width CV 13.2 % (11.6-14.6); RBC Distribution Width SD 43.2 fl (35.1-43.9); Red Blood Count 4.64 M/mm3 (4.6-6.2); White Blood Count 7.2 K/mm3 (4.4-11.0)
--- NOTE | 2020-12-17 23:30 | RAD_ITS ---
STUDY: X-RAY CHEST REASON FOR EXAM: Male, 65 years old. Chest pain. TECHNIQUE: Single AP portable view of the chest. COMPARISON: 04/29/2020. FINDINGS: Mildly decreased inspiratory effort with bibasilar atelectasis. There is no new infiltrate or mass. There is no demonstrated pleural abnormality. Normal size heart. Normal mediastinum and brent. Normal visualized pulmonary arteries. There is atherosclerotic calcification of the aortic arch with tortuosity. There are diffuse degenerative changes of the visualized thoracic spine. There is degenerative osteoarthritis of the bilateral shoulders. There is no demonstrated abnormality of the visualized soft tissue structures of the upper abdomen. RAD/Chest 1 View (Portable) IMPRESSION: No acute cardiopulmonary disease or major interval change. Electronically Signed: Jaron Turcios DO at 23:41 EDT Tel [phone], Service support ,
[2020-12-17 23:33] LABS: International Normalized Ratio 2.5; Prothrombin Time (Protime)PT. 26.4 SECONDS (11.7-14.9)
[2020-12-17 23:40] LABS: Anion Gap 6 (5-15); BUN 21 mg/dL (7-18); BUN/Creat Ratio 20.2 RATIO (10-20); Calcium,Total 9.1 mg/dL (8.5-10.1); Chloride 106 mmol/L (98-107); Creatinine, Serum 1.04 mg/dL (0.70-1.30); EST Glomerular Filtration Rate 76 mL/min (>60); Est Glom Filt Rate - Afr Amer 92 mL/min (>60); Estimated Creatinine Clearance 71.17 ml/min; Glucose 219 mg/dL (74-106); Potassium 3.3 mmol/L (3.5-5.1); Sodium Level 143 mmol/L (136-145); Troponin-I HS 15.3 pg/mL (3.0-78.5)
[2020-12-17 23:46] VITALS: BP 156/77; PULSE 67; RESP 20; O2SAT 96
--- NOTE | 2020-12-18 00:28 | HP.PCM_ITS ---
Documented by User: LESTER Horta 12/18/20 00:49 HPI - General General Date of Admission: 12/18/20 Date of Service: 12/18/20 Chief Complaint: Chest pain HPI Narrative ANNIA FONSECA, is a 65 M who presents with complaints of 6 out of 10 shooting/stabbing chest pain to the midsternal area that radiated to his upper back. Patient reports pain lasted approximately 45 minutes. Patient reports concurrent dyspnea with onset of chest pain patient states the pain has now resolved however patient states he feels a continued sensation of food being stuck in his esophagus. Patient denies fever, chills, cough, nausea, vomiting. [facility] Medical History Arthritis Cataracts, bilateral Diabetes Frequent headaches High cholesterol History of back problems History of blood clots History of stroke Hypertension Paroxysmal A-fib Visual disturbance Home Medications Cholecalciferol (Vitamin D3) [Vitamin D3] 5,000 mcg PO DAILY 04/22/20 [History Last Taken 04/29/20] aspirin 81 mg PO DAILY@1900 04/22/20 [History Last Taken 04/28/20] multivitamin 1 tab PO DAILY 04/22/20 [History Last Taken 04/29/20] omega 7-dgl-ohd-fish oil 1 cap PO DAILY 04/22/20 [History Last Taken 04/29/20] turmeric-turmeric root extract 1 cap PO BID 04/22/20 [History Last Taken 04/29/20] lisinopril 20 mg PO DAILY tab 04/23/20 [Rx Last Taken 04/28/20] ashwagandha root extract 300 mg capsule 300 mg PO DAILY 05/23/20 [History Last Taken Unknown] hydrochlorothiazide 12.5 mg capsule 6.25 mg PO DAILY cap 08/27/20 [History Last Taken Unknown] warfarin [Coumadin] 2.5 mg PO MOFR 12/17/20 [History Last Taken Unknown] warfarin [Coumadin] 5 mg PO SUTUWETHSA 12/17/20 [History Last Taken Unknown] Allergy/AdvReac Type Severity Reaction Status Date / Time No Known Allergies Allergy Verified 12/17/20 22:54 Family History Mother CVA (cerebral vascular accident) Heart disease Father Heart disease Surgical History History of left ankle surgery history of lower hernia surgery Social History Smoking Status: Never smoker alcohol intake: never substance use type: does not use what type of physical activity do you participate in: other details: Eliptical frequency: 3-4 times per week ROS Constitutional Constitutional: Denies anorexia, chills, fatigue, fever(s) or weakness Cardiovascular Cardiovascular: Reports chest pain and dyspnea; Denies edema or palpitations Respiratory/Chest Respiratory/Chest: Denies cough, shortness of breath at rest, shortness of breath with exertion or wheezing Gastrointestinal Gastrointestinal: Denies abdominal pain, constipation, diarrhea, nausea or vomiting Genitourinary Genitourinary: Denies dysuria Musculoskeletal Musculoskeletal: Denies back pain, extremity pain, joint pain or joint stiffness Integumentary Integumentary: Denies dry skin Neurologic Neurologic: Denies abnormal gait, abnormal speech, confusion, dizziness or focal weakness Psychiatric Psychiatric: Denies anxiety or depression Endocrine Endocrinology: Denies change in body appearance Hematologic/Lymphatic Hematologic/Lymphatic: Denies easy bleeding or easy bruising Vital Signs Vital Signs Vital Signs: 12/17/20 22:52 12/17/20 22:54 12/17/20 23:18 Temperature 98.5 F Temperature Source Oral Pulse Rate 71 Respiratory Rate 18 Respiratory Effort Normal Non-Labored Blood Pressure 183/85 H Blood Pressure Mean 117 Pulse Ox 98 Oxygen Delivery Method Room Air Room Air 12/17/20 23:46 Temperature Temperature Source Pulse Rate 67 Respiratory Rate 20 H Respiratory Effort Blood Pressure 156/77 H Blood Pressure Mean 103 Pulse Ox 96 Oxygen Delivery Method Room Air Weight Weight: 246 lb 14.684 oz Body Mass Index (BMI) 35.4 Physical Exam Const alert, oriented x3 and no apparent distress General Appearance: cooperative HEENT normocephalic and head/scalp atraumatic Eyes conjunctivae normal and no scleral icterus Resp normal respiratory effort, normal air movement and clear to auscultation bilaterally Cardio regular rate, regular rhythm, S1 normal heart sound and S2 normal heart sound Heart Sounds: murmur systolic I/ left sternal border GI normal to inspection, nondistended, normoactive bowel sounds, soft to palpation and non-tender Extremity normal capillary refill and no clubbing, cyanosis or edema General Extremity: no tenderness to palpation of joints or extremities Skin General Skin Exam: no breakdown and turgor normal Lesions: no lesions Rashes: no rashes Neuro no focal motor deficits and no sensory deficits noted Speech: speech normal Motor Exam: Negative for general weakness Psych thought process normal, cooperative and affect normal Appearance: appropriate Results Lab / Micro Data Result Diagrams: 12/17/20 22:54 12/17/20 22:54 Labs: Laboratory Results - last 24 hr 12/17/20 22:54: WBC 7.2, RBC 4.64, Hgb 13.3, Hct 41.6, MCV 89.7, MCH 28.7, MCHC 32.0, RDW Std Deviation 43.2, RDW Coeff of Blake 13.2, Plt Count 226, MPV 10.8, Immature Gran % (Auto) 0.600, Neut % (Auto) 49.5, Lymph % (Auto) 35.1, [place] % (Auto) 7.8, Eos % (Auto) 6.4 H, Baso % (Auto) 0.6, Absolute Neuts (auto) 3.5, Absolute Lymphs (auto) 2.51, Nucleated RBC % 0 12/17/20 22:54: PT 26.4 H, INR 2.5 12/17/20 22:54: Sodium 143, Potassium 3.3 L, Chloride 106, Carbon Dioxide 31.0, Anion Gap 6, BUN 21 H, Creatinine 1.04, Estim Creat Clear Calc 71.17, Est GFR (MDRD) Af Amer 92, Est GFR (MDRD) Non-Af 76, BUN/Creatinine Ratio 20.2 H, Glucose 219 H, Calcium 9.1, Troponin I High Sens 15.3 Radiology Impression Chest X-Ray 12/17/20 23:30 IMPRESSION: No acute cardiopulmonary disease or major interval change. Electronically Signed: Jaron Turcios DO at 23:41 EDT Tel [phone], Service support , Assessment & Plan Assessment/Plan (1) Chest pain: QUALIFIERS: Chest pain type: unspecified Qualified Code(s): R07.9 - Chest pain, unspecified (2) Acute electrocardiogram changes: PLAN: 1. Chest pain with acute electrocardiogram changes -Admit to PCU for cardiac monitoring -Trend cardiac enzymes per protocol, initial lab value 15.3 -BMP, lipid profile, PT/INR, TSH ordered for a.m. -EKG ordered for a.m. -Vital signs per protocol, trend BP and heart rate -O2 therapy per protocol -Obtain chemical stress test in a.m. 2. Atrial fibrillation -EKG currently shows normal sinus rhythm with right bundle branch block and T wave flattening/T wave inversion. -Continue Coumadin -Will obtain PT/INR daily 3. Hypertension -Continue current home medication regimen including lisinopril, hydrochlorothiazide. -Vital signs per protocol, trend BP and heart rate 4. Hyperlipidemia -Patient not currently on medication regimen -Will obtain lipid panel in a.m. 5. Diabetes mellitus type 2 -Not currently on medication regimen, patient reports he is borderline -Patient reports controlled with diet and exercise DVT prophylaxis-no pharmacological prophylaxis due to chronic anticoagulation This patient was seen by LESTER Horta under the supervision of Dr. Liz. Documented by User: Dr. Pacheco Liz MD 12/18/20 01:05 HPI - General General Date of Admission: 12/18/20 Date of Service: 12/18/20 Chief Complaint: Chest pain HPI Narrative This 65-year-old woman with history of paroxysmal A. fib on warfarin, diabetes mellitus type 2 and hypertension came to ER for chest pain. He felt midsternal chest pain about 15 minutes after ice cream, moved to mid interscapular in the back and then left lower chest and then resolved. It is not associated with shortness of breath, palpitation, dizziness, near-syncope or syncope. The patient has bilateral hip arthritis still is very active on elliptical. He denies chest pain or shortness of breath, anginal-like symptoms while doing ellipticals or exertional work. He felt dysphagia-like symptoms in about every 3 months intermittently with solid food the past but has never been evaluated with barium esophagogram, EGD or motility study Twelve-lead EKG in ER show normal sinus rhythm, RBBB, QRS 132 ms, QTC 453 ms. Previous EKG in May 2020 showed sinus bradycardia at 51, frequent PAC, QRS 100 ms, incomplete RBBB. I do not see obvious ST-T changes but QRS duration has increased complete RBBB now. In ED, vitals are in acceptable range. INR 2.5, on warfarin. [facility] Medical History Arthritis Cataracts, bilateral Diabetes Frequent headaches High cholesterol History of back problems History of blood clots History of stroke Hypertension Paroxysmal A-fib Visual disturbance Home Medications Cholecalciferol (Vitamin D3) [Vitamin D3] 5,000 mcg PO DAILY 04/22/20 [History Last Taken 04/29/20] aspirin 81 mg PO DAILY@1900 04/22/20 [History Last Taken 04/28/20] multivitamin 1 tab PO DAILY 04/22/20 [History Last Taken 04/29/20] omega 3-iay-kcg-fish oil 1 cap PO DAILY 04/22/20 [History Last Taken 04/29/20] turmeric-turmeric root extract 1 cap PO BID 04/22/20 [History Last Taken 04/29/20] lisinopril 20 mg PO DAILY tab 04/23/20 [Rx Last Taken 04/28/20] ashwagandha root extract 300 mg capsule 300 mg PO DAILY 05/23/20 [History Last Taken Unknown] hydrochlorothiazide 12.5 mg capsule 6.25 mg PO DAILY cap 08/27/20 [History Last Taken Unknown] warfarin [Coumadin] 2.5 mg PO MOFR 12/17/20 [History Last Taken Unknown] warfarin [Coumadin] 5 mg PO SUTUWETHSA 12/17/20 [History Last Taken Unknown] Allergy/AdvReac Type Severity Reaction Status Date / Time No Known Allergies Allergy Verified 12/17/20 22:54 Family History Mother CVA (cerebral vascular accident) Heart disease Father Heart disease Surgical History History of left ankle surgery history of lower hernia surgery Social History Smoking Status: Never smoker alcohol intake: never substance use type: does not use what type of physical activity do you participate in: other details: Eliptical frequency: 3-4 times per week Physical Exam Narrative General: Alert, Oriented x3, Cooperative HEENT: Atraumatic, PERRLA, EOMI, Normocephalic Oral: No Gingival or Mucosal Lesions/ Ulcerations Neck: Supple, No JVD, Negative Carotid Bruits Lungs: Air entry diminished in bilateral lung bases. No crepitation/rhonchi Cardiovascular: Regular rate, Regular Rhythm, Normal S1, Normal S2, systolic murmur LLSB. Abdomen: Bowel Sounds Present, Soft, Non Tender, Non-Distended : No renal angle tenderness. No suprapubic tenderness. Extremities: No edema, Capillary Refill Less than 3 Seconds Skin: No rashes, No breakdown Musculoskeletal: No Tenderness to Palpation of Joints or Extremities Neurological: Cranial nerves II-XII grossly intact, DTR 2+/4 and Symmetrical, Neuro grossly intact Psych/Mental Status: Normal Affect, Appropriate. Results Lab / Micro Data Result Diagrams: 12/17/20 22:54 12/17/20 22:54 Assessment & Plan Assessment/Plan (1) Atypical chest pain: PLAN: This patient was seen in conjunction with CHRIS Bone. I have independently interviewed and examined the patient and reviewed pertinent history, examination findings, laboratory and plan of management. I have reviewed the note and agree with the documented findings with the few additional points. In brief, patient is admitted in PCU on telemetry for evaluation of atypical chest pain. History chronologically correlates with odynophagia/dysphagia but will do serial troponin and EKG rule out ACS. Patient has multiple cardiac risk risk factors including hypertension, dyslipidemia diabetes mellitus type 2, stroke/TIA, proximal A. fib on warfarin. LINH risk score is 2. Last pharmacological nuclear stress test was negative in July 2019. 2D echo in April 2020 reported EF 65%, severe concentric LVH, trivial MR, TR, LA mildly enlarged. I suggested patient to have outpatient evaluation for dysphagia/odynophagia, starting with barium esophagram and PCP referral to GI for EGD. Patient has a history of acid reflux possible GERD. Other comorbidities as mentioned above. Patient was admitted with in July 2019 with symptoms of aphasia and had tPA. Mild hypokalemia, potassium replaced. Serum magnesium level normal. Home medication reconciliation I have discussed my assessment with CHRIS Bone and orders have been reviewed. Living will/advanced directive/end of life care: Patient does not have living will or advanced directive or designated power of estate planning attorney for health. His next to kin is patient's , sitting near the bedside and discussed with her. After discussion of benefits/risks procedures involved with full code, DNR CC arrest and DNR CC, the patient opted for full code. Patient does want artificial life support including intubation, tube feed, ventilator and/chest compression, central venous catheter, vasopressor and DC shock if needed Total time spent in [id number] encounter in discussion of advanced directive 16 minutes. Charges/Coding Visit Charges OBSV E&M: 48553 Initial observation care L3 Procedures Hospitalists Procedures: 33975 Advncd Care Plan 30 Min
[2020-12-18 00:30] VITALS: BP 146/73; PULSE 61; RESP 16; TEMP 36.6; O2SAT 96
[2020-12-18 00:52] LABS: Magnesium 2.1 mg/dL (1.6-2.6)
[2020-12-18 01:07] VITALS: BMI 34.4
[2020-12-18 01:08] VITALS: BP 150/70; PULSE 61; RESP 18; TEMP 37.2; O2SAT 97
--- NOTE | 2020-12-18 01:08 | EKG12_ITS ---
Test Reason : CP ADMIT Blood Pressure : / mmHG Vent. Rate : 055 BPM Atrial Rate : 055 BPM P-R Int : 180 ms QRS Dur : 110 ms QT Int : 440 ms P-R-T Axes : 029 041 022 degrees QTc Int : 420 ms Sinus bradycardia Otherwise normal ECG When compared with ECG of 29-APR-2020 14:42, Nonspecific T wave abnormality no longer evident in Lateral leads Confirmed by VITA HARTMAN, PATTI ([id number]), society editor KIARA MARROQUIN ([id number]) on 12/19/2020 10:19:18 A M Referred By: DR ANDERSON Confirmed By:SANJANA GORMAN MD
[2020-12-18 01:46] LABS: Troponin-I HS 14.5 pg/mL (3.0-78.5)
[2020-12-18] MEDS: Potassium Chloride Oral Tablet 20 MEQ 40 MEQ PO (01:51)
[2020-12-18 02:14] VITALS: O2SAT 97
[2020-12-18 03:00] VITALS: PULSE 52
[2020-12-18 05:51] LABS: International Normalized Ratio 2.7; Prothrombin Time (Protime)PT. 27.5 SECONDS (11.7-14.9)
[2020-12-18 06:20] LABS: Anion Gap 4 (5-15); BUN 18 mg/dL (7-18); BUN/Creat Ratio 20.6 RATIO (10-20); Calcium,Total 8.7 mg/dL (8.5-10.1); Chloride 108 mmol/L (98-107); Cholesterol 169 mg/dL (200); Creatinine, Serum 0.88 mg/dL (0.70-1.30); EST Glomerular Filtration Rate 92 mL/min (>60); Est Glom Filt Rate - Afr Amer 112 mL/min (>60); Estimated Creatinine Clearance 84.11 ml/min; Glucose 118 mg/dL (74-106); High Density Lipoprotein 46 mg/dL; Potassium 4.6 mmol/L (3.5-5.1); Sodium Level 143 mmol/L (136-145); Thyroid Stim Hormone (TSH) 1.94 uIU/mL (0.358-3.74); Triglycerides 79 mg/dL; Troponin-I HS 15.6 pg/mL (3.0-78.5); Very Low Density Lipoprotein 16 mg/dL (5-40)
[2020-12-18] MEDS: Lisinopril 20 MG Tablet PO (06:44)
[2020-12-18 07:00] VITALS: PULSE 67
[2020-12-18 07:16] LABS: Bedside Glucose 118 mg/dL (70-110)
[2020-12-18 07:36] LABS: Hemoglobin A1c 6.6 % (3.8-5.6)
[2020-12-18 09:59] VITALS: BP 144/68; PULSE 51; RESP 16; TEMP 36.3; O2SAT 100
[2020-12-18] MEDS: Cholecalciferol (VIT D3) 25 MCG TABLET (1,000 UNITS) 125 MCG PO (10:06)
[2020-12-18] MEDS: hydroCHLOROthiazide 6.25mg TAB 6.25 MG PO (10:06)
--- NOTE | 2020-12-18 11:28 | DCINST_ITS ---
Discharge Instructions Diet Discharge Diet: Low fat / Low cholesterol and Carb Control Diet Activity Discharge Activity: Return to Normal Activity Dressing / Incision Call your doctor if you observe: Shortness of breath, Dizziness and Chest pain Follow Up Care Test Results: Test results from this visit will be discussed in further detail at your follow-up appointment, if applicable. Discharge Plan Admission Admit Date/Time: 12/18/20 00:19 Primary Reason for Your Visit: Chest pain Attending Provider: Frankie Gómez Primary Care Provider: Marlon Sarmiento Instructions Additional Instructions / Restrictions: Monitor blood pressure twice daily at home, report findings to follow-up with PCP and cardiology. Discharge Orders/Prescriptions Prescriptions: Continued ashwagandha root extract 300 mg capsule 300 mg PO DAILY RF: 0 hydrochlorothiazide 12.5 mg capsule 6.25 mg PO DAILY RF: 0 omega 4-lho-irx-fish oil 1 EACH capsule 1 cap PO DAILY RF: 0 turmeric-turmeric root extract 1 EACH capsule 1 cap PO BID RF: 0 Cholecalciferol (Vitamin D3) [Vitamin D3] 25 MCG tablet 5,000 mcg PO DAILY RF: 0 aspirin 81 MG tablet,chewable 81 mg PO DAILY@1900 RF: 0 multivitamin 1 TABLET tablet 1 tab PO DAILY RF: 0 lisinopril 20 MG tablet 20 mg PO DAILY RF: 0 warfarin 5 mg Tablet 5 mg PO SUTUWETHSA RF: 0 warfarin 2.5 mg Tablet 2.5 mg PO MOFR RF: 0 Referrals / Follow Up: Marlon Sarmiento MD [Primary Care Provider] - In 1 Week Freddy Rossi NP, PRIMARY CARE PROVIDER-C [Nurse Practitioner] - In 1 Week Disposition Disposition (needs filled in before D/C Order can be placed): Home, Self Care
--- NOTE | 2020-12-18 11:37 | PHA.DC.MR ---
Pharmacy Service has performed discharge medication reconciliation for this patient. No new medications at time of discharge medication review. Medications reviewed are from previously reported home medications. Home Medications Cholecalciferol (Vitamin D3) [Vitamin D3] 5,000 mcg PO DAILY 04/22/20 aspirin 81 mg PO DAILY@1900 04/22/20 multivitamin 1 tab PO DAILY 04/22/20 omega 9-tox-php-fish oil 1 cap PO DAILY 04/22/20 turmeric-turmeric root extract 1 cap PO BID 04/22/20 lisinopril 20 mg PO DAILY tab 04/23/20 ashwagandha root extract 300 mg capsule 300 mg PO DAILY 05/23/20 hydrochlorothiazide 12.5 mg capsule 6.25 mg PO DAILY cap 08/27/20 warfarin [Coumadin] 2.5 mg PO MOFR 12/17/20 warfarin [Coumadin] 5 mg PO SUTUWETHSA 12/17/20 The patient's discharge medication list was reviewed for discrepancies and discrepancies were resolved.
[2020-12-18 12:40] LABS: Bedside Glucose 104 mg/dL (70-110)
--- NOTE | 2020-12-18 12:59 | STRESSREP ---
Stress Test Report Date: [] Procedure: Pharmacologic stress nuclear imaging study Indications: [12/18/2020] Consent: Per the patient Procedure: The patient underwent pharmacologic (Regadenoson) evaluation with a peak heart rate of 75 beats per minute (49%predicted maximal heart rate) and a peak blood pressure of 142/80 mmHg. The baseline ECG demonstrated normal sinus rhythm, right bundle branch block. EKG during lexiscan infusion revealed no significant ischemic changes. EKG post infusion revealed no significant ischemic changes [There were no cardiac dysrhythmias pretest, during pharmacologic infusion, or recovery]. [There was no complaint of chest discomfort during pharmacologic infusion or recovery]. The examination was discontinued secondary to completion of protocol. Impression: 1. Lexiscan stress test test is negative for Lexiscan infusion induced EKG changes of ischemia. 2. Lexiscan stress test test is negative for Lexiscan infusion induced chest pain. 3. Results of the nuclear portion of the test is as below Myocardial perfusion imaging study: Technique: The patient was injected with [] millicuries of technetium 99m Cardiolite and subsequently rest SPECT Cardiolite nuclear imaging was obtained in the horizontal long, vertical long, and short axis views. The patient underwent pharmacologic [Regadenoson 0.4mg] evaluation. Please see above for details. The patient was injected with [] millicuries of technetium 99m Cardiolite and subsequently stress SPECT Cardiolite nuclear imaging was obtained in the horizontal long, vertical long, and short axis views. A gated Cardiolite study at peak stress was obtained. Interpretation: Rest and stress SPECT Cardiolite nuclear imaging status post realignment, normalization, and attenuation correction demonstrate no evidence of significant ischemia or infarction. Gated images reveal no significant regional wall motion abnormalities. The reported LVEF is 58%. Impression: 1. There is no evidence of significant ischemia or infarction. 2. Estimated ejection fraction is 58%. This note was generated with [employer] software. It may contain incorrect words, spelling, and punctuation that were not noted in checking the note before signing.
--- NOTE | 2020-12-18 13:26 | DS.PCM_ITS ---
Documented by User: Deisy Tyson NP, [employer] LEADER-[employer] 12/18/20 13:34 Providers Date of Admission: 12/18/20 Date of Discharge: 12/18/20 Primary Care Physician: Dr. Marlon Sarmiento MD Reason For Visit: ATYPICAL CHEST PAIN Diagnosis Discharge Diagnosis (1) Atypical chest pain: Status: Acute Code(s): R07.89 - Other chest pain Medications at Discharge Home Medications Cholecalciferol (Vitamin D3) [Vitamin D3] 5,000 mcg PO DAILY 04/22/20 aspirin 81 mg PO DAILY@1900 04/22/20 multivitamin 1 tab PO DAILY 04/22/20 omega 7-nvz-yxy-fish oil 1 cap PO DAILY 04/22/20 turmeric-turmeric root extract 1 cap PO BID 04/22/20 lisinopril 20 mg PO DAILY tab 04/23/20 ashwagandha root extract 300 mg capsule 300 mg PO DAILY 05/23/20 hydrochlorothiazide 12.5 mg capsule 6.25 mg PO DAILY cap 08/27/20 warfarin 2.5 mg PO MOFR 12/17/20 warfarin 5 mg PO SUTUWETHSA 12/17/20 Hospital Course Operations None Procedures Nuclear stress test Summary of Care Provided Minutes Spent on Discharge: 35 Hospital Course: Patient is a 65-year-old male admitted 12/18/2020 due to chest pain. 1. Chest pain, ACS ruled out-troponin negative. Patient underwent nuclear stress test which was negative for ischemia. Estimated ejection fraction 58%. Follow-up with cardiology in 1 week. Patient's blood pressure initially elevated on admission, 183/85 however subsequent blood pressure is improved. Instructed patient on further home blood pressure monitoring and follow-up with PCP/cardiology for medication adjustment if blood pressure above goal. 2. Paroxysmal atrial fibrillation-not on rate control. Continue Coumadin. 3. Hypertension-blood pressure fluctuant. Initially elevated on admission, now improved. Continue home lisinopril, HCTZ regimen. Patient states blood pressure is typically well controlled at home. Recommended continued blood pressure monitoring at home with further follow-up with PCP/cardiology for adjustments as necessary. 4. Hyperlipidemia-not on statin. Lipid profile well-controlled. 5. Type 2 diabetes mellitus-not on regimen. Diet controlled. Hemoglobin A1c 6.6% 6. History of CVA-on aspirin, Coumadin. INR therapeutic. Patient seen and examined prior to discharge. Physical assessment as noted below. Patient is stable for discharge with follow up recommendations as noted above. This patient was seen by LESTER Jerez under the supervision of Dr. Gómez. Physical Exam Const alert, oriented x3 and no apparent distress Orientation / Consciousness: awake, oriented to person, oriented to place and oriented to time HEENT normocephalic and moist oral mucous membranes Eyes PERRL, EOMs intact bilaterally and conjunctivae normal Neck no lymphadenopathy Resp normal respiratory effort and clear to auscultation bilaterally Cardio regular rate, regular rhythm and no murmurs Peripheral Pulses: pulses 2+ throughout GI normal to inspection, nondistended, normoactive bowel sounds, non-tender and non-distended Extremity normal to inspection Skin no rashes or lesions noted Lesions: no lesions Rashes: no rashes Trauma: no lacerations or abrasions Neuro CN's II-XII intact bilaterally, no focal motor deficits, no sensory deficits noted and deep tendon reflexes 2+ bilaterally Psych mental status grossly normal and affect normal Weight / BMI Weight Weight: 240 lb 4.862 oz Body Mass Index (BMI) 34.4 ABG / Lab / Microbiology Data Result Diagrams: 12/17/20 22:54 12/18/20 04:50 Laboratory: Laboratory Results - last 24 hr 12/17/20 22:54: WBC 7.2, RBC 4.64, Hgb 13.3, Hct 41.6, MCV 89.7, MCH 28.7, MCHC 32.0, RDW Std Deviation 43.2, RDW Coeff of Blake 13.2, Plt Count 226, MPV 10.8, Immature Gran % (Auto) 0.600, Neut % (Auto) 49.5, Lymph % (Auto) 35.1, [place] % (Auto) 7.8, Eos % (Auto) 6.4 H, Baso % (Auto) 0.6, Absolute Neuts (auto) 3.5, Absolute Lymphs (auto) 2.51, Nucleated RBC % 0 12/17/20 22:54: PT 26.4 H, INR 2.5 12/17/20 22:54: Sodium 143, Potassium 3.3 L, Chloride 106, Carbon Dioxide 31.0, Anion Gap 6, BUN 21 H, Creatinine 1.04, Estim Creat Clear Calc 71.17, Est GFR (MDRD) Af Amer 92, Est GFR (MDRD) Non-Af 76, BUN/Creatinine Ratio 20.2 H, Glucose 219 H, Calcium 9.1, Troponin I High Sens 15.3 12/17/20 22:54: Magnesium 2.1 12/18/20 01:20: Troponin I High Sens 14.5 12/18/20 04:50: Hemoglobin A1c 6.6 H 12/18/20 04:50: PT 27.5 H, INR 2.7 12/18/20 04:50: Sodium 143, Potassium 4.6, Chloride 108 H, Carbon Dioxide 31.0, Anion Gap 4 L, BUN 18, Creatinine 0.88, Estim Creat Clear Calc 84.11, Est GFR (MDRD) Af Amer 112, Est GFR (MDRD) Non-Af 92, BUN/Creatinine Ratio 20.6 H, Glucose 118 H, Calcium 8.7, Troponin I High Sens 15.6, Triglycerides 79, Cholesterol 169, LDL Cholesterol 107, VLDL Cholesterol 16, HDL Cholesterol 46, TSH 1.94 12/18/20 06:43: POC Glucose 118 H 12/18/20 12:35: POC Glucose 104 Radiography Diagnostic Testing: Radiology Impression Chest X-Ray 12/17/20 23:30 IMPRESSION: No acute cardiopulmonary disease or major interval change. Electronically Signed: Jaron Turcios DO at 23:41 EDT Tel [phone], Service support , D/C Instructions Discharge Diet: Low fat / Low cholesterol and Carb Control Diet Call your doctor if you observe: Shortness of breath, Dizziness and Chest pain Meaningful Use Info Meaningful Use Diagnoses (Choose all that apply): None applicable Discharge Plan Admission Admit Date/Time: 12/18/20 00:19 Primary Reason for Your Visit: Chest pain Attending Provider: Frankie Gómez Primary Care Provider: Marlon Sarmiento Instructions Additional Instructions / Restrictions: Monitor blood pressure twice daily at home, report findings to follow-up with PCP and cardiology. Discharge Orders/Prescriptions Prescriptions: Continued ashwagandha root extract 300 mg capsule 300 mg PO DAILY RF: 0 hydrochlorothiazide 12.5 mg capsule 6.25 mg PO DAILY RF: 0 omega 9-exk-wxt-fish oil 1 EACH capsule 1 cap PO DAILY RF: 0 turmeric-turmeric root extract 1 EACH capsule 1 cap PO BID RF: 0 Cholecalciferol (Vitamin D3) [Vitamin D3] 25 MCG tablet 5,000 mcg PO DAILY RF: 0 aspirin 81 MG tablet,chewable 81 mg PO DAILY@1900 RF: 0 multivitamin 1 TABLET tablet 1 tab PO DAILY RF: 0 lisinopril 20 MG tablet 20 mg PO DAILY RF: 0 warfarin 5 mg Tablet 5 mg PO SUTUWETHSA RF: 0 warfarin 2.5 mg Tablet 2.5 mg PO MOFR RF: 0 Referrals / Follow Up: Marlon Sarmiento MD [Primary Care Provider] - In 1 Week Freddy Rossi NP, [employer] LEADER-C [Nurse Practitioner] - In 1 Week Disposition Disposition (needs filled in before D/C Order can be placed): Home, Self Care Documented by User: Dr. Frankie Gómez MD 12/18/20 13:47 Providers Date of Admission: 12/18/20 Reason For Visit: ATYPICAL CHEST PAIN Medications at Discharge Home Medications Cholecalciferol (Vitamin D3) [Vitamin D3] 5,000 mcg PO DAILY 04/22/20 aspirin 81 mg PO DAILY@1900 04/22/20 multivitamin 1 tab PO DAILY 04/22/20 omega 5-ixv-xrk-fish oil 1 cap PO DAILY 04/22/20 turmeric-turmeric root extract 1 cap PO BID 04/22/20 lisinopril 20 mg PO DAILY tab 04/23/20 ashwagandha root extract 300 mg capsule 300 mg PO DAILY 05/23/20 hydrochlorothiazide 12.5 mg capsule 6.25 mg PO DAILY cap 08/27/20 warfarin 2.5 mg PO MOFR 12/17/20 warfarin 5 mg PO SUTUWETHSA 12/17/20 Hospital Course Operations None Summary of Care Provided Hospital Course: This patient was seen in conjunction with Deisy Tyson NP- C . I have independently interviewed and examined the patient and reviewed pertinent historical, laboratory, and other data. Please refer to LESTER Jerez note for details of this patient's presentation, findings, and recommendations. I have reviewed LESTER Jerez note and concur with documented findings. In brief, patient is a 65-year-old with multiple comorbidities admitted with chest pain. Patient was placed on a monitored bed LA was ruled out with serial cardiac enzymes subsequently underwent a nuclear stress test which was negative for stress-induced ischemia subsequently discharged with follow-up with PCP for subsequent care Hospital course; as documented above ABG / Lab / Microbiology Data Result Diagrams: 12/17/20 22:54 12/18/20 04:50 Discharge Plan Admission Admit Date/Time: 12/18/20 00:19 Primary Reason for Your Visit: Chest pain Attending Provider: Frankie Gómez Primary Care Provider: Marlon Sarmiento Instructions Additional Instructions / Restrictions: Monitor blood pressure twice daily at home, report findings to follow-up with PCP and cardiology. Discharge Orders/Prescriptions Prescriptions: Continued ashwagandha root extract 300 mg capsule 300 mg PO DAILY RF: 0 hydrochlorothiazide 12.5 mg capsule 6.25 mg PO DAILY RF: 0 omega 0-axw-jtq-fish oil 1 EACH capsule 1 cap PO DAILY RF: 0 turmeric-turmeric root extract 1 EACH capsule 1 cap PO BID RF: 0 Cholecalciferol (Vitamin D3) [Vitamin D3] 25 MCG tablet 5,000 mcg PO DAILY RF: 0 aspirin 81 MG tablet,chewable 81 mg PO DAILY@1900 RF: 0 multivitamin 1 TABLET tablet 1 tab PO DAILY RF: 0 lisinopril 20 MG tablet 20 mg PO DAILY RF: 0 warfarin 5 mg Tablet 5 mg PO SUTUWETHSA RF: 0 warfarin 2.5 mg Tablet 2.5 mg PO MOFR RF: 0 Referrals / Follow Up: Marlon Sarmiento MD [Primary Care Provider] - In 1 Week Freddy Rossi NP, [employer] LEADER-C [Nurse Practitioner] - In 1 Week Disposition Disposition (needs filled in before D/C Order can be placed): Home, Self Care Charges/Coding Visit Charges OBSV E&M: 06162 Observation care discharge Hospital Course Imaging Results Imaging Results: 12/18/20 05:55 Nuclear Stress Test - Chemical [NM] AM (NON MEDS) Operations None
== END 2020-12-18 11:29 | disposition home or self-care (01) ==
LOC: ED 12-18 00:19 → PCU 12-18 00:32
PROVIDERS: Admitting Provider Internal Medicine; Emergency Provider Emergency Medicine; PCP Family Medicine; Visit Provider Internal Medicine
DX: R07.89 Other chest pain (principal); I48.0 Paroxysmal atrial fibrillation; I10 Essential (primary) hypertension; E66.9 Obesity, unspecified; M19.90 Unspecified osteoarthritis, unspecified site; E11.9 Type 2 diabetes mellitus without complications; R06.00 Dyspnea, unspecified; E78.5 Hyperlipidemia, unspecified; K21.9 Gastro-esophageal reflux disease without esophagitis; E87.6 Hypokalemia; Z68.35 Body mass index [BMI] 35.0-35.9, adult; Z79.899 Other long term (current) drug therapy; Z79.01 Long term (current) use of anticoagulants; Z79.82 Long term (current) use of aspirin; Z86.718 Personal history of other venous thrombosis and embolism
CPT/HCPCS: 36415; 71045; 78452; 80048; 80061; 82962; 83036; 83735; 84443; 84484; 85025; 85610; 93005; 93017; 99218; 99285; A9500; A4216; G0378; J2785

== ENCOUNTER → 2021-04-14 08:07 | Outpatient (CLI) | payer MEDICARE, SELFPAY ==
--- NOTE | 2021-04-14 08:12 | RAD_ITS ---
STUDY: X-RAY - ESOPHAGUS (BARIUM SWALLOW) WITH FLUOROSCOPY REASON FOR EXAM: Male, 65 years old. DYSPHAGIA TECHNIQUE: 17 view(s) of the esophagus were obtained following swallowing of barium. FLUOROSCOPY TIME (if supplied): (54 seconds) minutes/seconds COMPARISON: None. FINDINGS: There is no demonstrated esophageal foreign body. There is no demonstrated stricture or mucosal abnormality. Normal gastroesophageal junction, without a demonstrated hiatal hernia. The patient ingested a 12 mm tablet of barium without any difficulty. There is atherosclerotic calcification of the aortic arch with tortuosity of the descending aorta. Normal visualized pulmonary parenchyma. Normal visualized osseous structures of the thorax. RAD/Esophagus Dual Contrast IMPRESSION: Normal plain film x-ray examination (barium swallow) of the esophagus. Electronically Signed: Ferdinand Henderson MD at 9:12 EST , Service support ,
== END ==
PROVIDERS: PCP Family Medicine; Referring Provider Internal Medicine Gastroenterology; Visit Provider Internal Medicine Gastroenterology
DX: R13.10 Dysphagia, unspecified (principal)
CPT/HCPCS: 74221

== ENCOUNTER → 2024-10-30 | Outpatient (CLI) | payer MEDICARE, SELFPAY ==
--- OUTSIDE RECORDS SUMMARY | 2024-10-30 06:51 | XMS RPT_ITS | CCD ---
Author Organization [facility] Care Team Providers Care 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 Name Role Phone GILLIANERFELIX Attending Unavailable CURTIS PRO Primary Care Unavailable JACK SAMANO Attending Unavailable IMCA Referring Unavailable CURTIS PRO Primary Care Unavailable JACK SAMANO Attending Unavailabl e Ludy Sarmiento MD Primary Care Provider [phone] LUDY SARMIENTO Referring Unavailable LUDY SARMIENTO Attending Unavailable LUDY SARMIENTO Primary Care Unavailable LUDY SARMIENTO Referring Unavailable LUDY SARMIENTO Referring Unavailable Ludy Sarmiento MD Primary Care Provider Ludy Sarmiento MD Primary Care Provider [phone] LUDY SARMIENTO Primary Care Unavailable DORINA WINKLER Admitting Unavailable Ludy Sarmiento MD Primary Care Provider [phone] Ludy Sarmiento Referring Unavailable Ludy Sarmiento Primary Care Unavailable Adolfo PEREZ, Arlene Attending Unavailable Ori Fernandes Attending Unavailable Ludy Sarmiento Primary Care Unavailable Arlene Mata NP Referring Unavailable uLdy Sarmiento Primary Care Unavailable Arlene Mata NP Referring Unavailable Arlene Mata NP Attending Unavailable Allergies Allergy Classification Reported Allergen(s) Allergy Type Date of Onset Reaction(s) Facility (2 sources) atorvastatin Drug Allergy 07-31-2021 Other (See Comments) [facility] Medications Current Medications Medication Drug Class(es) Dates Sig (Normalized) Sig (Original) ASHWAGANDHA PO (2 sources) ASHWAGANDHA PO T janelle by mouth daily 0 Active aspirin 81 mg delayed release oral tablet (2 sources) Platelet Aggregation Inhibitor, Nonsteroidal Anti-inflammator y Drug take 1 tablet by mouth once daily aspirin 81 MG EC tablet Take 81 mg by mouth daily 0 Active atenolol 25 mg oral tablet (2 sources) beta-Adrenergic Niru take 1 tablet by mouth once daily atenolol (TENORMIN) 25 MG tablet Take 25 mg by mouth daily 0 Active b complex vitamins capsule (2 sources) take 1 capsule by mouth once daily b complex vitamins capsule Take 1 capsule by mouth daily 0 Active Celery Seed OIL (2 sources) Celery Seed OIL by Does not apply route daily Capsule form 0 Active cholecalciferol 0.125 mg oral tablet (2 sources) Vitamin D take 2 tablets by mouth once daily Cholecalciferol (VITAMIN D3) 125 MCG (5000 UT) TABS Take by mouth daily Two in the winter 0 Active cider vinegar 300 mg oral tablet (2 sources) take 1 tablet by mouth once daily Apple Cider Vinegar 300 MG TABS Take by mouth daily 0 Active Cinnamon Preparation (2 sources) Non-Standardized Food Allergenic Extract take 2000 mg by mouth once daily CINNAMON PO Take 2,000 mg by mouth daily 0 Active docosahexaenoic acid 120 mg / eicosapentaenoic acid 180 mg oral capsule (2 sources) Tensed-3 1000 MG CAPS Take by mouth in the morning and at bedtime 0 Active Amelia 565 MG CAPS (2 sources) take 1 capsule by mouth once daily Amelia 565 MG CAPS Take by mouth daily 0 Active hydroCHLOROthiazide (3 sources) Thiazide Diuretic HYDROCHLOROTHIAZIDE PO Take by mouth. Active take 1 tablet by mouth once noel y hydroCHLOROthiazide (HYDRODIURIL) 25 MG tablet Take 25 mg by mouth daily 0 Active Lisinopril (3 sources) Angiotensin Converting Enzyme Inhibitor LISINOPRIL PO Take b y mouth. Active take 1 tablet by mouth twice david ly lisinopril (PRINIVIL;ZESTRIL) 20 MG tablet Take 20 mg by mouth 2 times daily 0 Active melatonin 3 mg oral tablet (2 sources) take 5 mg by mouth once daily as needed melatonin 3 MG TABS tablet Take 5 mg by mouth nightly as needed 0 Active metoprolol tartrate 25 mg oral tablet (2 sources) beta-Adrenergic Niru take 1 tablet by mouth once daily metoprolol tartrate (LOPRESSOR) 25 MG tablet Take 25 mg by mouth daily 0 Active Multiple Vitamins-Minerals (THERAPEUTIC MULTIVITAMIN-MINERALS ) tablet (2 sources) take 1 tablet by mouth once daily Multiple Vitamins-Minerals (THERAPEUTIC MULTIVITAMIN-MINERAL S) tablet Take 1 tablet by mouth daily 0 Active pantoprazole 40 mg delayed release oral tablet (2 sources) Proton Pump Inhibitor take 1 tablet by mouth once daily pantoprazole (PROTONIX) 40 MG tablet Take 40 mg by mouth daily 0 Active perflutren lipid microspheres (DEFINITY) injection 1.65 mg (1 source) Start: 2 End: 2 perflutren lipid microspheres (DEFINITY) injection 1.65 mg turmeric extract 500 mg oral capsule (2 sources) take 1 capsule by mouth twice daily turmeric 500 MG CAPS Take by mouth 2 times daily 0 Active warfarin sodium 5 mg oral tablet (3 sources) Vitamin K Antagonist take 1 tablet by mouth once daily warfarin (COUMADIN,JANTOVEN) 5 MG tablet Take 1 tablet by mouth daily. Active Completed/Discontinued Medications Medication Drug Class(es) Dates Sig (Normalized) Sig (Original) 10 ml lidocaine hydrochloride 10 mg/ml injection (1 source) Antiarrhythmic, Amide Local Anesthetic Start: 03-13-2024 End: 03-13-2024 10 mL, Intradermal, NOW, 1 dose, On Tue03/13/24 at 1415 Problems Active Problems Problem Classification Problem Date Documented Da te Episodic/Chronic Cardiac dysrhythmias (11 sources) Atrial fibrillation; Translations: [Unspecified atrial fibrillation] Onset: 08-03-2021 Chronic Disorders of lipid metabolism (1 source) Hyperlipidemia, unspecified; Translations: [Hyperlipidemia, unspecified] Onset: 10-08-2024 Chronic Essential hypertension (2 sources) Essential (primary) hypertension; Translations: [Essential (primary) hypertension] Onset: 03-13-2024 Chronic Immunizations and screening for infectious disease (1 source) Encounter for immunization; Translations: [Encounter for immunization] Onset: 03-13-2024 Episodic Nonspecific chest pain (1 source) Chest pain, unspecified; Translations: [Chest pain, unspecified] Onset: 10-08-2024 Episodic Open wounds of extremities (2 sources) Laceration of left middle finger; Translations: [Laceration without foreign body of left middle finger without damage to nail, initial encounter] Onset: 03-13-2024 03-13-2024 Episodic Other aftercare (1 source) 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; Translations: [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] Onset: 03-13-2024 Episodic Screening and history of mental health and substance abuse codes (5 sources) Personal history of nicotine dependence; Translations: [Personal history of tobacco use] Onset: 12-20-2022 Episodic Sprains and strains (1 source) Sprain of other ligament of left ankle, initial encounter; Translations: [Sprain of other ligament of left ankle, initial encounter] Onset: 06-30-2018 Episodic Unclassified (2 sources) Sprain of other ligament of left ankle, initial encounter Onset: 06-30-2018 Past or Other Problems Problem Classification Problem Date Documented Da te Episodic/Chronic Other non-traumatic joint disorders (2 sources) Pain in right hip; Translations: [Pain in right hip] Onset: 03-29-2022 Episodic Other non-traumatic joint disorders (2 sources) Pain in left hip; Translations: [Pain in left hip] Onset: 03-29-2022 Episodic Other non-traumatic joint disorders (1 source) Pain in right hip joint; Translations: [Pain in right hip] Episodic Other non-traumatic joint disorders (1 source) Hip pain; Translations: [Pain in left hip] Episodic Results Test Name Value Interpretation Reference Range Facility ALBUMIN, RANDOM URINE W/CREA KORINon 10-12-2024 ALBUMIN, URINE Normal [facility] Comment on above: Performed By: #### 1 759, 7600, 34802, 496, 6517 #### [facility] [address], [address] [place], [place] [id number] Carpentry Professional: Jung Flores MD ALBUMIN/CREATININE RATIO, RANDOM URINE Normal [facility] Comment on above: Performed By: #### 1 759, 7600, 25219, 496, 6517 #### [facility] [address], [address] [place], [place] [id number] Carpentry Professional: Jung Flores MD CREATININE, RANDOM URINE Normal [facility] Comment on above: Performed By: #### 1 759, 7600, 38559, 496, 6517 #### [facility] [address], [address] [place] [phone] Carpentry Professional: Jung Flores MD CBC (H/H, RBC, INDICES, WBC, PLT)on 10-12-2024 Erythrocyte distribution width (RBC) [Ratio] 14.2 % Normal 11.0-15.0 [facility] Comment on above: Performed By: #### 1 759, 7600, 29005, 496, 6517 #### [facility] [place] [address] Carpentry Professional: Jung Flores MD Hematocrit (Bld) [Volume fraction] 45.4 % Normal 38.5-50.0 [facility] Comment on above: Performed By: #### 1 759, 7600, 60907, 496, 6517 #### [facility] [place] [address] Carpentry Professional: Jung Flores MD Hemoglobin (Bld) [Mass/Vol] 14.5 g/dL Normal 13.2-17.1 [facility] Comment on above: Performed By: #### 1 759, 7600, 84279, 496, 6517 #### [facility] [place] [address] Carpentry Professional: Jung Flores MD MCH (RBC) [Entitic mass] 28.6 pg Normal 27.0-33.0 [facility] Comment on above: Performed By: #### 1 759, 7600, 03664, 496, 6517 #### [facility] [place] [address] Carpentry Professional: Jung Flores MD MCHC (RBC) [Mass/Vol] 31.9 g/dL Low 32.0-36.[address] [facility] Comment on above: Result Comment: For adults, a slight decrease in the calculated MCHC value (in the range of 30 to 32 g/dL) is most likely not clinically significant; however, it should be interpreted with caution in correlation with other red cell parameters and the patient's clinical condition. Performed By: #### 1 759, 7600, 13770, 496, 6517 #### [facility] [place] [address] Carpentry Professional: Jung Flores MD MCV (RBC) [Entitic vol] 89.5 fL Normal 80.0-100.0 [facility] Comment on above: Performed By: #### 1 759, 7600, 57316, 496, 6517 #### [facility] [place] [address] Carpentry Professional: Jung Flores MD Platelet mean volume (Bld) [Entitic vol] 10.8 fL Normal 7.5-12.5 [facility] Comment on above: Performed By: #### 1 759, 7600, 29007, 496, 6517 #### [facility] [place] [address] Carpentry Professional: Jung Flores MD Platelets (Bld) [#/Vol] 240 10*3/uL Normal 140-400 [facility] Comment on above: Performed By: #### 1 759, 7600, 47894, 496, 6517 #### [facility] [place] [address] Carpentry Professional: Jung Flores MD RBC (Bld) [#/Vol] 5.07 10*6/uL Normal 4.20-5.80 [facility] Comment on above: Performed By: #### 1 759, 7600, 71779, 496, 6517 #### [facility] [place] [address] Carpentry Professional: Jung Flores MD WBC (Bld) [#/Vol] 7.5 10*3/uL Normal 3.8-10.8 [facility] Comment on above: Performed By: #### 1 759, 7600, 36003, 496, 6517 #### [facility] [place] [address] Carpentry Professional: Jung Flores MD COMPREHENSIVE METABOLIC PANE [facility] 10-12-2024 Albumin [Mass/Vol] 4.6 g/dL Normal 3.6-5.1 [facility] Comment on above: Performed By: #### 1 759, 7600, 26564, 496, 6517 #### [facility] [place] [address] Carpentry Professional: Jung Flores MD Albumin/Globulin [Mass ratio] 2.0 {ratio} Normal 1.0-2.5 [facility] Comment on above: Performed By: #### 1 759, 7600, 02793, 496, 6517 #### [facility] [place] [address] Carpentry Professional: Jung Flores MD ALP [Catalytic activity/Vol] 55 U/L Normal 35-144 [facility] Comment on above: Performed By: #### 1 759, 7600, 37305, 496, 6517 #### [facility] [place] [address] Carpentry Professional: Jung Flores MD ALT [Catalytic activity/Vol] 31 U/L Normal 9-46 [facility] Comment on above: Performed By: #### 1 759, 7600, 86948, 496, 6517 #### [facility] [place] [address] Carpentry Professional: Jung Flores MD AST [Catalytic activity/Vol] 30 U/L Normal 10-35 [facility] Comment on above: Performed By: #### 1 759, 7600, 84365, 496, 6517 #### [facility] [place] [address] Carpentry Professional: Jung Flores MD Bilirubin [Mass/Vol] 0.9 mg/dL Normal 0.2-1.2 [facility] Comment on above: Performed By: #### 1 759, 7600, 80682, 496, 6517 #### [facility] [place] [address] Carpentry Professional: Jung Flores MD BUN/CREATININE RATIO SEE NOTE: Normal 6-22 [facility] Comment on above: Result Comment: Not Reported: BUN and Creatinine are within reference range. Performed By: #### 1 759, 7600, 25472, 496, 6517 #### [facility] [place] [address] Carpentry Professional: Jung Flores MD Calcium [Mass/Vol] 9.6 mg/dL Normal 8.6-10.3 [facility] Comment on above: Performed By: #### 1 759, 7600, 27212, 496, 6517 #### [facility] [place] [address] Carpentry Professional: Jung Flores MD Chloride [Moles/Vol] 101 mmol/L Normal 98-110 [facility] Comment on above: Performed By: #### 1 759, 7600, 73357, 496, 6517 #### [facility] [place] [address] Carpentry Professional: Jung Flores MD CO2 [Moles/Vol] 26 mmol/L Normal 20-32 [facility] Comment on above: Performed By: #### 1 759, 7600, 85369, 496, 6517 #### [facility] [place] [address] Carpentry Professional: Jung Flores MD Creatinine [Mass/Vol] 1.10 mg/dL Normal 0.70-1.[address] [facility] Comment on above: Performed By: #### 1 759, 7600, 22459, 496, 6517 #### [facility] [place] [address] Carpentry Professional: Jung Flores MD GFR/1.73 sq M.predicted among non-blacks MDRD (S/P/Bld) [Vol rate/Area] 72 mL/min/{1.73_m2} Normal > OR = 60 [facility] Comment on above: Performed By: #### 1 759, 7600, 43337, 496, 6517 #### [facility] [place] [address] Carpentry Professional: Jung Flores MD Globulin (S) [Mass/Vol] 2.3 g/dL Normal 1.9-3.7 [facility] Comment on above: Performed By: #### 1 759, 7600, 03266, 496, 6517 #### [facility] [place] [address] Carpentry Professional: Jung Flores MD Glucose [Mass/Vol] 141 mg/dL High 65-99 [facility] Comment on above: Result Comment: Fasting reference interval For someone without known diabetes, a glucose value >125 mg/dL indicates that they may have diabetes and this should be confirmed with a follow-up test. Performed By: #### 1 759, 7600, 39970, 496, 6517 #### [facility] [place] [address] Carpentry Professional: Jung Flores MD Potassium [Moles/Vol] 4.7 mmol/L Normal 3.5-5.[address] [facility] Comment on above: Performed By: #### 1 759, 7600, 72375, 496, 6517 #### [facility] [place] [address] Carpentry Professional: Jung Flores MD Protein [Mass/Vol] 6.9 g/dL Normal 6.1-8.1 [facility] Comment on above: Performed By: #### 1 759, 7600, 76180, 496, 6517 #### [facility] [place] [address] Carpentry Professional: Jung Flores MD Sodium [Moles/Vol] 137 mmol/L Normal 135-146 [facility] Comment on above: Performed By: #### 1 759, 7600, 20268, 496, 6517 #### [facility] [place] [address] Carpentry Professional: Jung Flores MD Urea nitrogen [Mass/Vol] 18 mg/dL Normal 7-25 [facility] Comment on above: Performed By: #### 1 759, 7600, 25160, 496, 6517 #### [facility] [place] [address] Carpentry Professional: Jung Flores MD HEMOGLOBIN A1con 10-12-2024 HbA1c (Bld) [Mass fraction] 7.5 % High <5.7 [facility] Comment on above: Result Comment: For someone without known diabetes, a hemoglobin A1c value of 6.5% or greater indicates that they may have diabetes and this should be confirmed with a follow-up test. For someone with known diabetes, a value <7% indicates that their diabetes is well controlled and a value greater than or equal to 7% indicates suboptimal control. A1c targets should be individualized based on duration of diabetes, age, comorbid conditions, and other considerations. Currently, no consensus exists regarding use of hemoglobin A1c for diagnosis of diabetes for children. Performed By: #### 1 759, 7600, 94898, 496, 6517 #### [facility] [place] [address] Carpentry Professional: Jung Flores MD LIPID PANEL, STANDARDon Cholesterol [Mass/Vol] 206 mg/dL High <200 [facility] Comment on above: Order Comment: 0; FA STING; 0; FASTING; 0 FASTING:YES FASTING: YES Performed By: #### 1 759, 7600, 12368, 496, 6517 #### [facility] [place] [address] Carpentry Professional: Jung Flores MD Cholesterol in HDL [Mass/Vol] 49 mg/dL Normal > OR = 40 [facility] Comment on above: Order Comment: 0; FA STING; 0; FASTING; 0 FASTING:YES FASTING: YES Performed By: #### 1 759, 7600, 42413, 496, 6517 #### [facility] [place] [address] Carpentry Professional: Jung Flores MD Cholesterol in LDL [Mass/Vol] 128 mg/dL High [facility] Comment on above: Order Comment: 0; FA STING; 0; FASTING; 0 FASTING:YES FASTING: YES Result Comment: Refe rence range: <100 Desirable range <100 mg/dL for primary prevention; <70 mg/dL for patients with CHD or diabetic patients with > or = 2 CHD risk factors. LDL-C is now calculated using the Kermit calculation, which is a validated novel method providing better accuracy than the Friedewald equation in the estimation of LDL-C. Ash SS et al. LEESA. 2013;310(19): 4874-4146 (http://education.Myla.Scanntech/faq/KNR530) Performed By: #### 1 759, 7600, 55337, 496, 6517 #### [facility] [address], [address] [place] [address] Carpentry Professional: Jung Flores MD Cholesterol.total/Claire sterol in HDL [Mass ratio] 4.2 {ratio} Normal <5.0 [facility] Comment on above: Order Comment: 0; FA STING; 0; FASTING; 0 FASTING:YES FASTING: YES Performed By: #### 1 759, 7600, 05682, 496, 6517 #### [facility] [address], [address] [place] [address] Carpentry Professional: Jung Flores MD NON HDL CHOLESTEROL 157 mg/dL (calc) High <130 [facility] Comment on above: Order Comment: 0; FA STING; 0; FASTING; 0 FASTING:YES FASTING: YES Result Comment: For patients with diabetes plus 1 major ASCVD risk factor, treating to a non-HDL-C goal of <100 mg/dL (LDL-C of <70 mg/dL) is considered a therapeutic option. Performed By: #### 1 759, 7600, 78511, 496, 6517 #### [facility] [address], [address] [place] [address] Carpentry Professional: Jung Flores MD Triglyceride [Mass/Vol] 172 mg/dL High <150 [facility] Comment on above: Order Comment: 0; FA STING; 0; FASTING; 0 FASTING:YES FASTING: YES Performed By: #### 1 759, 7600, 55813, 496, 6517 #### [facility] [address], [address] [place] [address] Carpentry Professional: Jung Flores MD 12 Lead EKG performed by [facility] on 09-04-2024 12 Lead EKG performed by [facility] [address] [place] [address] 12 Lead EKG performed by [facility] 09/04/2413 MR#: [id number] Acct: [id number] Name: ANNIA ALFONSO Rep #: [id number] : 1955 68 From: Arlene Mata NP CUSTODIAN-C Attending Dr: Arlene Mata CUSTODIAN-C Status: DEP A MB Ordering Dr: Arlene Mata NP CUSTODIAN-C Date: 09/04/24 Location: [facility] Sex: M C Admitted: BMS/12 Lead EKG performed by [facility] ECG Report Interpretation -------Sinus Rhythm -Right bundle branch block. ABNORMAL Electronically signed on 09/04/2024 at 09:59 by Ori Fernandeswood Software Version [id number] 09/04/241001 Date Arlene Mata NP CUSTODIAN-C CC: Dr. Ludy Sarmiento MD Date Dictated: 09/04/24912 Date Transcribed: 09/04/24912 Mathematical Engineer: MARY Signed Normal [facility] Cardiology Visit Reporton Cardiology Visit Report [facility] [address] [place] [address] OFFICE VISIT Date of Service: 09/04/24 MR#: [id number] Acct: [id number] Name: ANNIA ALFONSO Rep #: [id number] : 1955 Provider: LESTER del real Age/Sex: 68/M Location: [facility] Status: Signed HPI HPI History of Present Illness Details: This is a 68-year-old white male who presents today for outpatient cardiovascular follow-up visit. Patient was last seen in April 2022. He has a history of paroxysmal atrial fibrillation superimposed on hyperlipidemia and hypertension. From a cardiac standpoint, the patient is doing well. He does acknowledge having AFib more frequently. He does acknowledge left sided chest pain. He states this has been ongoing over the last six months. He describes this as a dull ache. He states that this is worse with exertion. He denies pressure or heaviness. He does acknowledge SOB with climbing stairs. He denies Orthopnea, and PND. He does not have bleeding issues; no blood in urine, stool, or nosebleeds. He denies any decrease in energy level, myalgias, or claudication. He does not have edema, or sudden weight gain. He does have occasional lightheadedness with quick positional changes. He denies dizziness, syncopal or near syncopal episodes, and headaches. He states that he does monitor his blood pressures at home, and average 130/60's. His PCP monitors his warfarin. He states that he is currently doing [facility], trying to lose weight. 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 Is patient in pain?: No Allergies No Known Allergies Allergy (Verified 09/04/24 09:15) Medications ???Medication ???Instructions ???Recorded ???Confirmed ???Type aspirin 81 mg chewable tablet 81 mg PO DAILY@1900 heart health 1 06/23/19 09/04/24 History multivitamin 1 tab PO DAILY SUPPLIMENT 04/22/20 09/04/24 History ashwagandha root extract 300 mg 300 mg PO DAILY 05/23/20 09/04/24 History capsule warfarin 2.5 mg tablet 2.5 mg PO MOFR 12/17/20 09/04/24 H istory warfarin 5 mg tablet 5 mg PO SUTUWETHSA 12/17/20 History ascorbic acid (vitamin C) 1,000 mg 1 g PO DAILY 01/02/21 09/04/24 H istory tablet cholecalciferol (vitamin D3) 125 125 mcg PO DAILY 04/06/21 09/04/24 History mcg (5,000 unit) tablet cinnamon bark 500 mg capsule 500 mg PO QDAY 09/04/24 09/04/24 H istory (Cinnamon) lisinopril 20 mg tablet 20 mg PO ONCE 09/04/24 09/04/24 Hi story metoprolol succinate 25 mg 25 mg PO DAILY 09/04/24 09/04/24 H istory tablet,extended release 24 hr potassium 99 mg tablet mg PO DAILY 09/04/24 09/04/24 Hist ory Ejection fraction %: 65 Have you fallen in the past year?: No PFSH Medical History Essential hypertension Paroxysmal A-fib Visual disturbance History of stroke High cholesterol Frequent headaches Diabetes Cataracts, bilateral History of blood clots History of back problems Arthritis Hypertension Surgical History History of left ankle surgery history of lower hernia surgery Family History Mother CVA (cerebral vascular accident) Heart disease Father Heart disease Social History household members: spouse housing: house Smoking Status: Never smoker alcohol intake: never substance use type: does not use what type of physical activity do you participate in: other details: Eliptical frequency: 3-4 times per week ROS Const Const: Negative for fatigue, weakness, headache(s) or frequent falls Eyes Eyes: Negative for blurry vision ENT ENT: Negative for headache(s), dizziness or Nosebleed/epistaxis Cardio Chest Pain: Yes (afib is acting up ) Frequency: weekly Character: dull Onset: exercise Location: left chest Palpitations: Yes Edema: None Muscle aches with walking: None Resp Respiratory: Positive for SOB with activity; Negative for SOB at rest or SOB orthopnea SOB lying down GI GI: Negative nausea, vomiting, heartburn, bright, red blood in stools or black,tarry stools : Negative for hematuria Neuro Neuro: Positive for lightheadedness; Negative for dizziness, near syncope, syncope, frequent falls, headache(s), weakness or blurry vision Endo Endo: Negative for fatigue Cardiology Exam Const Appearance: cooperative (more content not included)... Normal [facility] CBC (H/H, RBC, INDICES, WBC, PLT)on 04-20-2024 Erythrocyte distribution width (RBC) [Ratio] 13.5 % Normal 11.0-15.0 [facility] Comment on above: Performed By: #### 1 759, 04440, 94313 #### [facility] [place] [address] Carpentry Professional: Jung Flores MD Hematocrit (Bld) [Volume fraction] 42.0 % Normal 38.5-50.0 [facility] Comment on above: Performed By: #### 1 939, 79635, 79861 #### [facility] [place] [address] Carpentry Professional: Jung Flores MD Hemoglobin (Bld) [Mass/Vol] 13.8 g/dL Normal 13.2-17.1 [facility] Comment on above: Performed By: #### 1 479, 19132, 52621 #### [facility] [place] [address] Carpentry Professional: Jung Flores MD MCH (RBC) [Entitic mass] 28.2 pg Normal 27.0-33.0 [facility] Comment on above: Performed By: #### 1 739, 26587, 83273 #### [facility] [place] [address] Carpentry Professional: Jung Flores MD MCHC (RBC) [Mass/Vol] 32.9 g/dL Normal 32.0-36.[address] [facility] Comment on above: Result Comment: For adults, a slight decrease in the calculated MCHC value (in the range of 30 to 32 g/dL) is most likely not clinically significant; however, it should be interpreted with caution in correlation with other red cell parameters and the patient's clinical condition. Performed By: #### 1 759, 37137, 82240 #### [facility] [place] [address] Carpentry Professional: Jung Flores MD MCV (RBC) [Entitic vol] 85.9 fL Normal 80.0-100.0 [facility] Comment on above: Performed By: #### 1 759, 68299, 60365 #### [facility] [place] [address] Carpentry Professional: Jung Flores MD Platelet mean volume (Bld) [Entitic vol] 11.0 fL Normal 7.5-12.5 [facility] Comment on above: Performed By: #### 1 759, 45770, 24573 #### [facility] [place] [address] Carpentry Professional: Jung Flores MD Platelets (Bld) [#/Vol] 247 10*3/uL Normal 140-400 [facility] Comment on above: Performed By: #### 1 759, 23200, 40074 #### [facility] [place] [address] Carpentry Professional: Jung Flores MD RBC (Bld) [#/Vol] 4.89 10*6/uL Normal 4.20-5.80 [facility] Comment on above: Performed By: #### 1 759, 81494, 95626 #### [facility] [place] [address] Carpentry Professional: Jung Flores MD WBC (Bld) [#/Vol] 5.9 10*3/uL Normal 3.8-10.8 [facility] Comment on above: Performed By: #### 1 759, 39917, 11976 #### [facility] [place] [address] Carpentry Professional: Jung Flores MD COMPREHENSIVE METABOLIC PANE [facility] 04-20-2024 Albumin [Mass/Vol] 4.4 g/dL Normal 3.6-5.1 [facility] Comment on above: Order Comment: 0; 0; 0 Performed By: #### 1 679, 85384, 60125 #### [facility] [place] [address] Carpentry Professional: Jung Flores MD Albumin/Globulin [Mass ratio] 2.0 {ratio} Normal 1.0-2.5 [facility] Comment on above: Order Comment: 0; 0; 0 Performed By: #### 1 759, 13823, 77312 #### [facility] [place] [address] Carpentry Professional: Jung Flores MD ALP [Catalytic activity/Vol] 60 U/L Normal 35-144 [facility] Comment on above: Order Comment: 0; 0; 0 Performed By: #### 1 969, 57745, 70845 #### [facility] [place] [address] Carpentry Professional: Jung Flores MD ALT [Catalytic activity/Vol] 24 U/L Normal 9-46 [facility] Comment on above: Order Comment: 0; 0; 0 Performed By: #### 1 589, 88780, 94533 #### [facility] [place] [address] Carpentry Professional: Jung Flores MD AST [Catalytic activity/Vol] 20 U/L Normal 10-35 [facility] Comment on above: Order Comment: 0; 0; 0 Performed By: #### 1 169, 48038, 66063 #### [facility] [place] [address] Carpentry Professional: Jung Flores MD Bilirubin [Mass/Vol] 0.6 mg/dL Normal 0.2-1.2 [facility] Comment on above: Order Comment: 0; 0; 0 Performed By: #### 1 439, 04284, 03636 #### [facility] [place] [address] Carpentry Professional: Jung Flores MD BUN/CREATININE RATIO SEE NOTE: Normal 6-22 [facility] Comment on above: Order Comment: 0; 0; 0 Result Comment: Not Reported: BUN and Creatinine are within reference range. Performed By: #### 1 759, 19631, 94729 #### [facility] [place] [address] Carpentry Professional: Jung Flores MD Calcium [Mass/Vol] 9.1 mg/dL Normal 8.6-10.3 [facility] Comment on above: Order Comment: 0; 0; 0 Performed By: #### 1 759, 87005, 31885 #### [facility] [place] [address] Carpentry Professional: Jung Flores MD Chloride [Moles/Vol] 104 mmol/L Normal 98-110 [facility] Comment on above: Order Comment: 0; 0; 0 Performed By: #### 1 569, 57366, 06709 #### [facility] [place] [address] Carpentry Professional: Jung Flores MD CO2 [Moles/Vol] 28 mmol/L Normal 20-32 [facility] Comment on above: Order Comment: 0; 0; 0 Performed By: #### 1 759, 61125, 47743 #### [facility] [place] [address] Carpentry Professional: Jung Flores MD Creatinine [Mass/Vol] 0.96 mg/dL Normal 0.70-1.[address] [facility] [address] [facility] Comment on above: Order Comment: 0; 0; 0 Performed By: #### 1 149, 84455, 68738 #### [facility] [place] [address] Carpentry Professional: Jung Flores MD GFR/1.73 sq M.predicted among non-blacks MDRD (S/P/Bld) [Vol rate/Area] 85 mL/min/{1.73_m2} Normal > OR = 60 [facility] Comment on above: Order Comment: 0; 0; 0 Performed By: #### 1 759, 16711, 97812 #### [facility] [place] [address] Carpentry Professional: Jung Flores MD Globulin (S) [Mass/Vol] 2.2 g/dL Normal 1.9-3.7 [facility] Comment on above: Order Comment: 0; 0; 0 Performed By: #### 1 759, 77666, 26166 #### [facility] [address], [address] [place] [address] Carpentry Professional: Jung Flores MD Glucose [Mass/Vol] 141 mg/dL High 65-99 [facility] Comment on above: Order Comment: 0; 0; 0 Result Comment: Fasting reference interval For someone without known diabetes, a glucose value >125 mg/dL indicates that they may have diabetes and this should be confirmed with a follow-up test. Performed By: #### 1 759, 51350, 40091 #### [facility] [place] [address] Carpentry Professional: Jung Flores MD Potassium [Moles/Vol] 4.5 mmol/L Normal 3.5-5.[address] [facility] Comment on above: Order Comment: 0; 0; 0 Performed By: #### 1 559, 36116, 88854 #### [facility] [place] [address] Carpentry Professional: Jung Flores MD Protein [Mass/Vol] 6.6 g/dL Normal 6.1-8.1 [facility] Comment on above: Order Comment: 0; 0; 0 Performed By: #### 1 139, 84348, 51596 #### [facility] [place] [address] Carpentry Professional: Jung Flores MD Sodium [Moles/Vol] 141 mmol/L Normal 135-146 [facility] Comment on above: Order Comment: 0; 0; 0 Performed By: #### 1 479, 79990, 26873 #### [facility] [address], [address] [place] [address] Carpentry Professional: Jung Flores MD Urea nitrogen [Mass/Vol] 19 mg/dL Normal 7-25 [facility] Comment on above: Order Comment: 0; 0; 0 Performed By: #### 1 759, 26071, 04359 #### [facility] [address], [address] [place] [address] Carpentry Professional: Jung Flores MD PSA, TOTAL, MONITORINGon PSA, TOTAL, MONITORING 3.68 ng/mL Normal < OR = 4.00 [facility] Comment on above: Result Comment: The total PSA value from this assay system is standardized against the WHO standard. The test result will be approximately 20% lower when compared to the equimolar-standardized total PSA (Kyleigh Tomasa). Comparison of serial PSA results should be interpreted with this fact in mind. This test was performed using the Siemens chemiluminescent method. Values obtained from different assay methods cannot be used interchangeably. PSA levels, regardless of value, should not be interpreted as absolute evidence of the presence or absence of disease. Performed By: #### 1 759, 64525, 60840 #### [facility] [address], [address] [place] [address] Carpentry Professional: Jung Flores MD [facility] 03-13-2024 Dorina Winkler APRN NP 03/13/2024 2:05 PM [facility] Date/Time: 03/13/2024 2:04 PM Performed by: Dorina Winkler APRN CUSTODIAN Authorized by: Dorina Winkler APRN CUSTODIAN Consent: Consent obtained: Verbal Consent given by: Patient Risks, benefits, and alternatives were discussed: yes Risks discussed: Infection, need for additional repair, nerve damage, poor wound healing, poor cosmetic result, pain, tendon damage and vascular damage [place] protocol: Procedure explained and questions answered to patient or proxy's satisfaction: yes Patient identity confirmed: Arm band and verbally with patient Anesthesia: Anesthesia method: Local infiltration Local anesthetic: Lidocaine 1% w/o epi Laceration details: Location: Finger Finger location: L long finger Length (cm): 1 Treatment: Area cleansed with: Povidone-iodine, chlorhexidine and saline Amount of cleaning: Extensive Irrigation solution: Sterile water Irrigation method: Pressure wash Skin repair: Repair method: Sutures Suture size: 5-0 Wound skin closure material used: ethilon. Suture technique: Simple interrupted Number of sutures: 4 Approximation: Approximation: Close Repair type: Repair type: Simple Post-procedure details: Dressing: Non-adherent dressing Procedure completion: Tolerated well, no immediate complications [facility] No Panel InformationOrdered By: Marco A Subramanian on 12-20-2022 Ao dist AP 1.68 cm [facility] Work Phone: Ao dist PSV 92.0 cm/s [facility] Work Phone: Ao dist TR 1.66 cm [facility] Work Phone: Ao mid AP 1.98 cm [facility] Work Phone: Ao mid PSV 83.0 cm/s [facility] Work Phone: Ao mid TR 2.09 cm [facility] Work Phone: Ao prox AP 2.66 cm [facility] Work Phone: Ao prox PSV 93.9 cm/s [facility] Work Phone: Ao prox TR 2.66 cm [facility] Work Phone: Left ROSCOE AP 1.85 cm [facility] Work Phone: Left ROSCOE dist PSV 115.0 cm/s [facility] Work Phone: Left ROSCOE TR 1.93 cm [facility] Work Phone: Left EIA mid PSV 133.7 cm/s [facility] Work Phone: Left IIA PSV 131.0 cm/s [facility] Work Phone: Right ROSCOE AP 1.20 cm [facility] Work Phone: Right ROSCOE dist PSV 83.3 cm/s [facility] Work Phone: Right ROSCOE TR 1.22 cm [facility] Work Phone: Right EIA mid PSV 106.7 cm/s [facility] Work Phone: No Panel Informationon 12-20 No abdominal aortic aneurysm (AAA) is present. 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 Abdominal Aorta No abdominal aortic aneurysm (AAA) is present. Proximal Aorta: Patent. Middle Aorta: Patent. Distal Aorta: Patent. Right Common Iliac Artery: Patent. Left Common Iliac Artery: Patent. Mid aneurysm with dimensions 1.85 cm AP x 1.93 cm TR present. 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 During the study longitudinal and transverse views were obtained. Pulsed wave doppler was performed. The exam was performed with the patient in the supine position. Overall the study quality was adequate. Study was technically difficult due to: bowel gas. CV CPACS CR Spine Cervical Comp w/ Ob liques/Flexon 11-06-2021 CR Spine Cervical Comp w/ Obliques/Flex Patient Name: ANNIA ALFONSO Diagnostic Radiology ACCESSION EXAM DATE/TIME PROCEDURE ORDERING PROVIDER [id number] 11/06/2021 12:18 EDT CR Spine Cervical Comp MD CHERISE, LUDY Wilson w/ Obliques CPT code 36155 Reason For Exam (CR Spine Cervical Comp w/ Obliques) neck pain onthe left Report CLINICAL INFORMATION: Chronic neck pain with range of motion. Cervical spine: AP, odontoid, both oblique and lateral views in neutral position, flexion and extension demonstrate no evidence of acute fracture. 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 There is intervertebral disc narrowing at C5-C6 and C6-C7. There are degenerative changes of the uncovertebral joints on both sides at multiple levels. There is mild posterior subluxation of C5 on C6 in neutral position which is stable on extension and reduces on flexion. There is no other vertebral body subluxation. There is no fanning of the spinous processes on flexion. The odontoid is intact. The atlantodental interval is within normal limits and does not change with flexion or extension. The pedicles and posterior elements are intact. There is mild left C3-C4 and bilateral C5-C6 and C6-C7 bony neural foraminal narrowing. The other bony neural foramina appear to be patent. There is no abnormality the precervical soft tissues. IMPRESSION: 1. Multilevel degenerative disc and joint disease greatest at C5-C6 and C6-C7. 2. Mild posterior subluxation of C5 on C6 in neutral position stable on extension and reducing on flexion. 3. Mild narrowing of the left C3-C4 and bilateral C5-C6 and C6-C7 neural foramina. 4. 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 No other significant radiographic abnormality. Report Dictated on Final Dictating Physician: MD ROSARIO HARLAN Signed Date and Time: 11/10/2021 11:09 am Signed by: MD ROSARIO HARLAN Transcribed Date and Time: 11/10/2021 11:10 Normal [facility] CR Spine Thoracic 3 Viewson 11-06-2021 CR Spine Thoracic 3 Views Patient Name: ANNIA ALFONSO Diagnostic Radiology ACCESSION EXAM DATE/TIME PROCEDURE ORDERING PROVIDER [id number] 11/06/2021 12:18 EDT CR Spine Thoracic 3 MD CHERISE, LUDY A Views CPT code 15333 Reason For Exam (CR Spine Thoracic 3 Views) upper back pain Report THORACIC SPINE SERIES CLINICAL INDICATION: Back pain AP, lateral, and swimmer's views of the thoracic spine were obtained. COMPARISON: None. FINDINGS: Mild levoscoliosis at the thoracolumbar junction. There is a normal thoracic kyphosis. Vertebral body heights are maintained. No significant subluxation is seen. Multilevel degenerative endplate changes are present throughout the thoracic spine, most significantly within the mid to lower thoracic spine from T8-T9 to T12-L1. Cervicothoracic junction alignment is anatomic. IMPRESSION: Multilevel degenerative changes of the thoracic spine. Report Dictated on Final Dictating Physician: MD LILLY NEIL Signed Date and Time: 11/10/2021 10:50 am Signed by: MD MAXX, AGATHA Transcribed Date and Time: 11/10/2021 10:51 Normal [facility] ECHO Complete 2D W Doppler W [place] 09-17-2021 TRANSTHORACIC ECHOCARDIOGRAM PATIENT: Annia Alfonso STUDY DATE: 09/17/2021 : 1955 AGE: 65 HT/WT: 177.8 cm (70 108.4 kg in) (238.5 lb) GENDER: M BP: 163 / 76 LOCATION: [facility] PATIENT [facility] STATUS: *ORDERING PHYSICIAN: * Esme Tan *READING PHYSICIAN: * *METAL SPRAYER: * Magdalena Barajas MD RDCS,AE, PE, RVT INDICATIONS: ASSESS LV FUNCTION, LA SIZE. CONCLUSIONS SUMMARY: 1. Left ventricle: Systolic function is by the biplane method of disks. The estimated ejection fraction is 61%. 2. Left atrium: The atrium is mildly dilated. 3. No significant valve disease. 4. Technically difficult study. STUDY DATA: Complete transthoracic echocardiogram. Procedure: Image quality was suboptimal. [employer] lot #: [id number]. M-mode, complete 2D, complete spectral Doppler, and color flow Doppler images were acquired and archived for permanent storage and are available for subsequent review. Study status: Routine. Patient status: Outpatient. ECG RHYTHM: NSR FINDINGS LEFT VENTRICLE: The cavity size is normal. There is moderate asymmetric hypertrophy of the septum. Systolic function is by the biplane method of disks. The estimated ejection fraction is 61%. There are no regional wall motion abnormalities. Unable to assess LV diastolic function due to suboptimal technical data RIGHT VENTRICLE: Not well visualized. Systolic function is normal. Right ventricular systolic pressure is within the normal range. VENTRICULAR SEPTUM: There is no evidence of a ventricular septal defect. LEFT ATRIUM: The atrium is mildly dilated. RIGHT ATRIUM: The atrium is moderately dilated. ATRIAL SEPTUM: Not well visualized. Color Doppler shows no shunt. MITRAL VALVE: Structurally normal valve. Doppler: There is no regurgitation. AORTIC VALVE: Not well visualized. Trileaflet; mildly thickened leaflets. Doppler: There is no regurgitation. TRICUSPID VALVE: Structurally normal valve. Doppler: There is trivial, less than 1+ regurgitation. PULMONIC VALVE: Structurally normal valve. Doppler: There is trivial, less than 1+ regurgitation. AORTA: The aorta is normal. PULMONARY ARTERY: Main pulmonary artery: Normal. PERICARDIUM: There is no pericardial effusion. SYSTEMIC VEINS: Not visualized. Measurements Value Reference Ascending aorta ID, A-P, S 3.5 cm Ascending aorta ID/bsa, A-P, S 1.6 cm/m^2 Left ventricle Value Reference LV ID, ED (L) 3.5 cm 4.2 - 5.8 LV ID, ES (L) 2.4 cm 2.5 - 4.0 LV ID/bsa, ED (L) 1.6 cm/m^2 2.2 - 3.0 LV ID/bsa, ES (L) 1.1 cm/m^2 1.3 - 2.1 LV PW thickness, ED (H) 1.4 cm 0.6 - 1.0 LV PW/LV ID ratio, ED 0.39 LV wall mass (H) 220 g 96 - 200 LV wall mass/bsa 98 g/m^2 50 - 102 Stroke volume/bsa, 1-p A2C 45.7 ml/m^2 LV end-diastolic volume, 1-p A4C 180 ml 69 - 185 LV end-systolic volume, 1-p A4C 72 ml 22 - 78 LV end-diastolic volume, 2-p (H) 174 ml 62 - 150 LV end-systolic volume, 2-p (H) 68 ml 21 - 61 LV ejection fraction, 2-p 61 % 52 - 72 LV E/e', lateral 7.7 LV E/e', medial 8.3 LV E/e', average 8 Ventricular septum Value Reference IVS thickness, ED (H) 1.9 cm 0.6 - 1.0 LVOT Value Reference LVOT ID, A-P 2.3 cm LVOT mean velocity, S 0.6 m/sec LVOT peak gradient, S 3 mm Hg Stroke volume (SV), LVOT DP 84 ml Stroke index (SV/bsa), LVOT DP 37 ml/m^2 Left atrium Value Reference LA volume/bsa, ES, 2-p 34 (more content not included)... [facility] CARDIOLOGY Magdalena Gonzalez MD - 09/17/2021 TRANSTHORACIC ECHOCARDIOGRAM PATIENT: Annia Alfonso STUDY DATE: 09/17/2021 : 1955 AGE: 65 HT/WT: 177.8 cm (70 108.4 kg in) (238.5 lb) GENDER: M BP: 163 / 76 LOCATION: [facility] PATIENT [facility] STATUS: *ORDERING PHYSICIAN: * Esme Tan *READING PHYSICIAN: * *METAL SPRAYER: * Magdalena Barajas MD RDCS,AE, PE, RVT INDICATIONS: ASSESS LV FUNCTION, LA SIZE. CONCLUSIONS SUMMARY: 1. Left ventricle: Systolic function is by the biplane method of disks. The estimated ejection fraction is 61%. 2. Left atrium: The atrium is mildly dilated. 3. No significant valve disease. 4. Technically difficult study. STUDY DATA: Complete transthoracic echocardiogram. Procedure: Image quality was suboptimal. [employer] lot #: [id number]. M-mode, complete 2D, complete spectral Doppler, and color flow Doppler images were acquired and archived for permanent storage and are available for subsequent review. Study status: Routine. Patient status: Outpatient. ECG RHYTHM: NSR FINDINGS LEFT VENTRICLE: The cavity size is normal. There is moderate asymmetric hypertrophy of the septum. Systolic function is by the biplane method of disks. The estimated ejection fraction is 61%. There are no regional wall motion abnormalities. Unable to assess LV diastolic function due to suboptimal technical data RIGHT VENTRICLE: Not well visualized. Systolic function is normal. Right ventricular systolic pressure is within the normal range. VENTRICULAR SEPTUM: There is no evidence of a ventricular septal defect. LEFT ATRIUM: The atrium is mildly dilated. RIGHT ATRIUM: The atrium is moderately dilated. ATRIAL SEPTUM: Not well visualized. Color Doppler shows no shunt. MITRAL VALVE: Structurally normal valve. Doppler: There is no regurgitation. AORTIC VALVE: Not well visualized. Trileaflet; mildly thickened leaflets. Doppler: There is no regurgitation. TRICUSPID VALVE: Structurally normal valve. Doppler: There is trivial, less than 1+ regurgitation. PULMONIC VALVE: Structurally normal valve. Doppler: There is trivial, less than 1+ regurgitation. AORTA: The aorta is normal. PULMONARY ARTERY: Main pulmonary artery: Normal. PERICARDIUM: There is no pericardial effusion. SYSTEMIC VEINS: Not visualized. Measurements Value Reference Ascending aorta ID, A-P, S 3.5 cm Ascending aorta ID/bsa, A-P, S 1.6 cm/m^2 Left ventricle Value Reference LV ID, ED (L) 3.5 cm 4.2 - 5.8 LV ID, ES (L) 2.4 cm 2.5 - 4.0 LV ID/bsa, ED (L) 1.6 cm/m^2 2.2 - 3.0 LV ID/bsa, ES (L) 1.1 cm/m^2 1.3 - 2.1 LV PW thickness, ED (H) 1.4 cm 0.6 - 1.0 LV PW/LV ID ratio, ED 0.39 LV wall mass (H) 220 g 96 - 200 LV wall mass/bsa 98 g/m^2 50 - 102 Stroke volume/bsa, 1-p A2C 45.7 ml/m^2 LV end-diastolic volume, 1-p A4C 180 ml 69 - 185 LV end-systolic volume, 1-p A4C 72 ml 22 - 78 LV end-diastolic volume, 2-p (H) 174 ml 62 - 150 LV end-systolic volume, 2-p (H) 68 ml 21 - 61 LV ejection fraction, 2-p 61 % 52 - 72 LV E/e', lateral 7.7 LV E/e', medial 8.3 LV E/e', average 8 Ventricular septum Value Reference IVS thickness, ED (H) 1.9 cm 0.6 - 1.0 LVOT Value Reference LVOT ID, A-P 2.3 cm LVOT mean velocity, S 0.6 m/sec LVOT peak gradient, S 3 mm Hg Stroke volume (SV), LVOT DP 84 ml Stroke index (SV/bsa), LVOT DP 37 ml/m^2 Left atrium Value Reference LA volume/bsa, ES, 2-p 34 ml/m^2 16 - 34 Mitral valve Value Reference Mitral E-wave peak velocity 0.6 m/sec Mitral A-wave peak velocity 0.7 m/sec Mitral deceleration time 227 ms Mitral E/A ratio, peak 0.9 Right atrium Value Reference RA area, ES, A4C (H) 30 cm^2 10 - 18 Right ventricle Value Reference TAPSE, 2D (H) 3.9 cm 1.7 - 3.1 RV s', lateral (H) 16.4 cm/sec 6.0 - 13.4 Legend: (L) and (H) dash values outside specified reference range. Electronically signed by Magdalena Gonzalez MD 09/17/2021 16:42 Prior Signatures: [employer] Work Phone: ECHO Complete 2D W Doppler W ColorOrdered By: Magdalena Gonzalez on 09-17-2021 [employer] Work Phone: Echo Complete w/wo Contrasto n 09-17-2021 Echo Complete w/wo Contrast Patient Name: ANNIA ALFONSO Ultrasound ACCESSION EXAM DATE/TIME PROCEDURE ORDERING PROVIDER [id number] 09/17/2021 14:49 EDT Echo Complete w/wo ANGELA TAN KRISTEN Contrast Reason For Exam (Echo Complete w/wo Contrast) Assess LV function, LA size Report TRANSTHORACIC ECHOCARDIOGRAM PATIENT: Annia Alfonso STUDY DATE: 09/17/2021 : 1955 AGE: 65 HT/WT: 177.8 cm (70 108.4 kg in) (238.5 lb) GENDER: M BP: 163 / 76 LOCATION: [facility] PATIENT [facility] STATUS: *ORDERING PHYSICIAN: * Esme Tan *READING PHYSICIAN: * *METAL SPRAYER: * Magdalena Barajas MD RDCS,AE, PE, RVT INDICATIONS: ASSESS LV FUNCTION, LA SIZE. CONCLUSIONS SUMMARY: 1. Left ventricle: Systolic function is by the biplane method of disks. The estimated ejection fraction is 61%. 2. Left atrium: The atrium is mildly dilated. 3. No significant valve disease. 4. Technically difficult study. STUDY DATA: Complete transthoracic echocardiogram. Procedure: Image quality was suboptimal. [employer] lot #: [id number]. M-mode, complete 2D, complete spectral Doppler, and color flow Doppler images were acquired and archived for permanent storage and are available for subsequent review. Study status: Routine. Patient status: Outpatient. ECG RHYTHM: NSR FINDINGS LEFT VENTRICLE: The cavity size is normal. There is moderate asymmetric hypertrophy of the septum. Systolic function is by the biplane method of disks. The estimated ejection fraction is 61%. There are no regional wall motion abnormalities. Unable to assess LV diastolic function due to suboptimal technical data RIGHT VENTRICLE: Not well visualized. Systolic function is normal. Ultrasound Report Right ventricular systolic pressure is within the normal range. VENTRICULAR SEPTUM: There is no evidence of a ventricular septal defect. LEFT ATRIUM: The atrium is mildly dilated. RIGHT ATRIUM: The atrium is moderately dilated. ATRIAL SEPTUM: Not well visualized. Color Doppler shows no shunt. MITRAL VALVE: Structurally normal valve. Doppler: There is no regurgitation. AORTIC VALVE: Not well visualized. Trileaflet; mildly thickened leaflets. Doppler: There is no regurgitation. TRICUSPID VALVE: Structurally normal valve. Doppler: There is trivial, less than 1+ regurgitation. PULMONIC VALVE: Structurally normal valve. Doppler: There is trivial, less than 1+ regurgitation. AORTA: The aorta is normal. PULMONARY ARTERY: Main pulmonary artery: Normal. PERICARDIUM: There is no pericardial effusion. SYSTEMIC VEINS: Not visualized. Measurements Value Reference Ascending aorta ID, A-P, S 3.5 cm Ascending aorta ID/bsa, A-P, S 1.6 cm/m^2 Left ventricle Value Reference LV ID, ED (L) 3.5 cm 4.2 - 5.8 LV ID, ES (L) 2.4 cm 2.5 - 4.0 LV ID/bsa, ED (L) 1.6 cm/m^2 2.2 - 3.0 LV ID/bsa, ES (L) 1.1 cm/m^2 1.3 - 2.1 LV PW thickness, ED (H) 1.4 cm 0.6 - 1.0 LV PW/LV ID ratio, ED 0.39 LV wall mass (H) 220 g 96 - 200 LV wall mass/bsa 98 g/m^2 50 - 102 Stroke volume/bsa, 1-p A2C 45.7 ml/m^2 LV end-diastolic volume, 1-p A4C 180 ml 69 - 185 LV end-systolic volume, 1-p A4C 72 ml 22 - 78 LV end-diastolic volume, 2-p (H) 174 ml 62 - 150 LV end-systolic volume, 2-p (H) 68 ml 21 - 61 LV ejection fraction, 2-p 61 % 52 - 72 LV E/e', lateral 7.7 LV E/e', medial 8.3 LV E/e', average 8 Ventricular septum Value Reference IVS thickness, ED (H) 1.9 cm 0.6 - 1.0 LVOT Value Reference LVOT ID, A-P 2.3 cm LVOT mean velocity, S 0.6 m/sec LVOT peak gradient, S 3 mm Hg Stroke volume (SV), LVOT DP 84 ml Stroke index (SV/bsa), LVOT DP 37 ml/m^2 Left atrium Value Reference LA volume/bsa, ES, 2-p 34 ml/m^2 16 - 34 Mitral valve Value Reference Mitral E-wave peak velocity 0.6 m/sec Mitral A-wave peak velocity 0.7 m/sec Mitral deceleration time 227 ms Ultrasound Report Mitral E/A ratio, peak 0.9 Right atrium Value Reference RA area, ES, A4C (H) 30 cm^2 10 - 18 Right ventricle Value Reference TAPSE, 2D (H) 3.9 cm 1.7 - 3.1 RV s', lateral (H) 16.4 cm/sec 6.0 - 13.4 Legend: (L) and (H) dash values outside specified reference range. Electronically signed by Magdalena Gonzalez MD 09/17/2021 16:42 Prior Signatures: Final Dictated: 05 (more content not included)... [facility] Office Visit ([id number]) ---- ANNIA ALFONSO ([id number]) 1955 M Date Time Provider Department 06/30/18 2:00 PM [facility] During your visit today, we recorded the following information about you: Respiration Weight Height 14/minute 90.7 kg 1.778 m Cecil BoldenOMAR 07/23/2018 2:26 PM Signed REVIEW OF SYSTEMS: GENERAL: Well developed, well nourished. No acute distress PAIN: Pain left ankle CARDIOVASCULAR: Negative for chest pain, leg swelling and palpations. MSK: joint pain left ankle SKIN: Negative for lesions, rash, itching, metal sensitivity NEURO: Negative for seizure, trauma, numbness/tingling of extremities. ENDOCRINE: Negative for Diabetes Type 1 and Type 2 HEMATOLOGY: Negative for excessive bleeding, clots, bleeding disorders. Jack Samano DPM 07/23/2018 2:26 PM Signed CC: Ankle sprain HPI: This 62 year old male with PMH indicated below presents complaining of left ankle pain x yesterday. Sustained the injury after falling off a ladder 8 to 9 feet. Denies any other injuries. Denies any LOC. Denies hearing a pop or snap. Was able to bear wt following the injury. Does admit to icing and elevating the ankle. Patient denies to taking any analgesics. Pain is over the lateral ankle, and rated as 10/10 and worst after prolonged WB. Admits to swelling and ecchymosis. Patient denies, admits to to icing of the ankle. Denies any catching or locking of the ankle. Denies any other pedal complaints. PAST MEDICAL HISTORY Diagnosis Date - Ankle pain, left Current Outpatient Prescriptions: oxyCODONE-acetamino phen (PERCOCET) 5-325 mg tablet Disp: Rfl: No current facility-administer ed medications for this visit. 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 MSK: + as noted in HPI. Physical Examination: On General Observation: Patient is a pleasant, cooperative, well developed 62 year old adult male. The patient is alert and oriented to time, place and person. Patient has normal affect and mood. Vascular: DP and PT pulses are palpable. CFT less than 3 seconds to all digits bilateral. Skin temperature is warm to warm from proximal to distal bilateral. Hair growth is noted. Mild edema to lateral ankle left . No varicosities noted. Neuro: Light touch intact bilateral. Protective sensation intact at all pedal sites via [place] 5.07 monofilament bilateral. Proprioception intact at the hallux bilateral. No clonus noted. Babinski reflex not elicited bilaterally. Derm: Skin texture and turgor within normal limits. Toenails normal in appearance. Webspaces 1-4 clean, dry, intact b/l. No rashes, subcutaneous nodules, or open lesions noted. Negative ecchymosis. Negative fracture blisters. No cellulitis, no lymphangitis, no SSI. No hyperkeratotic tissue. Musculoskeletal/Ort hopaedic: The ankle is stable to testing with negative anterior drawer left foot. Negative talar tilt. Ecchymosis is Absent. Edema is mild over the lateral malleolus. Palpation to the medial ankle is non-painful. No high fibular pain is noted. No pain to the syndesmosis or other areas of the ankle with external rotation of the foot at the ankle joint. Pain to palpation of the lateral ankle is noted at the ATFL and CFL. There is no bone pain noted to the distal fibula. The peroneals are intact and are nontender. No pain to the fifth metatarsal base. No pain to the medial aspect of the midfoot or navicular tuberosity. No pain to palpation anterior calcaneal process. There is pain to the lateral ankle with maximal plantarflexion and inversion of the foot relative to the ankle. Muscle strength testing is guarded. Radiographs: 3 views of the left ankle were obtained and evaluated. Radiographic Impression: Ankle mortise is intact. No acute fractures or dislocations noted. No bony cysts or tumors noted. Good tib fib overlap. No increased in medial clear space. Fibula out to length. Previously placed hardware in tact to fibula without evidence of lucency or backing out. Plantar and retrocalcaneal exostoses noted. Assessment: This is a 62 year old patient presenting with ankle sprain left foot Plan: A comprehensive history and physical examination were preformed. The patient was educated on clinical and radiographic findings, diagnosis and treatment plans. Patient state that he understands all that has been explained and all questions were answered to his apparent satisfaction. - Patient was educated on etiology of ankle sprain and anticipated course of treatment. -Use the Lace up ankle brace he has at home - Discussed the importance of performing AJ strengthening exercises. Exercises were demonstrated to patient and handout dispensed. Theraband dispensed to patient. - Continue WB on foot as tolerated - Continue ice and elevation as needed. - May take OTC NSAID as needed for pain and inflammation. - Continue good supportive shoe gear. Follow up PRN Scribe Attestation Statement: Scribe Statement: I, Monica Benjamin LPN , am scribing for, and in the presence of Jack Samano DPM, FACFAS Scribe: Monica Benjamin LPN Clinician Attestation Statement: The information in this document, created by the medical attendant for me, accurately reflects the services I personally performed and the decisions made by me. I have reviewed and approved this document for accuracy. Jack Samano DPM, FACFAS Referring Provider: SELF [[id number]] Allergies As of Date: 06/30/2018 (No Known Allergies) Date Reviewed: 06/30/2018 Reviewed by: Cecil (Omar) Little - Fully Assessed Reason for Visit: New Patient [172] Cmt: pt states he fell off the ladder yesterday Primary Visit Diagnosis:Sprain of anterior talofibular ligament of left ankle, initial encounter [S93.492A] Order(s):XR ANKLE GENERAL 3V AP/LAT/OBL LT [[id number]] Order #: [id number] Prescriptions as of 06/30/2018 Sig: OXYCODONE-ACETAMINO PHEN 5 MG-* Problem List As Of Date 06/30/2018 Noted Resolved Subluxation of peroneal tendon [S93.03XA] INVALID FOR* 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 Follow-up and Disposition History Recorded Encounter Status:Closed by JACK SAMANO DPM on 07/23/18 [facility] PROGRESSon 06-30-2018 Protein mass conc HNO ID: [id number] Author: Jack Francis Jazmyne Service: ? Author Type: Physician Type: Progress Notes Filed: 07/23/2018 2:26 PM Note Text: CC: Ankle sprain HPI: This 62 year old male with PMH indicated below presents complaining of left ankle pain x yesterday. Sustained the injury after falling off a ladder 8 to 9 feet. Denies any other injuries. Denies any LOC. Denies hearing a pop or snap. Was able to bear wt following the injury. Does admit to icing and elevating the ankle. Patient denies to taking any analgesics. Pain is over the lateral ankle, and rated as 10/10 and worst after prolonged WB. Admits to swelling and ecchymosis. Patient denies, admits to to icing of the ankle. Denies any catching or locking of the ankle. Denies any other pedal complaints. PAST MEDICAL HISTORY Diagnosis Date - Ankle pain, left Current Outpatient Prescriptions: oxyCODONE-acetamino phen (PERCOCET) 5-325 mg tablet Disp: Rfl: No current facility-administer ed medications for this visit. 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 MSK: + as noted in HPI. Physical Examination: On General Observation: Patient is a pleasant, cooperative, well developed 62 year old adult male. The patient is alert and oriented to time, place and person. Patient has normal affect and mood. Vascular: DP and PT pulses are palpable. CFT less than 3 seconds to all digits bilateral. Skin temperature is warm to warm from proximal to distal bilateral. Hair growth is noted. Mild edema to lateral ankle left . No varicosities noted. Neuro: Light touch intact bilateral. Protective sensation intact at all pedal sites via [place] 5.07 monofilament bilateral. Proprioception intact at the hallux bilateral. No clonus noted. Babinski reflex not elicited bilaterally. Derm: Skin texture and turgor within normal limits. Toenails normal in appearance. Webspaces 1-4 clean, dry, intact b/l. No rashes, subcutaneous nodules, or open lesions noted. Negative ecchymosis. Negative fracture blisters. No cellulitis, no lymphangitis, no SSI. No hyperkeratotic tissue. Musculoskeletal/Ort hopaedic: The ankle is stable to testing with negative anterior drawer left foot. Negative talar tilt. Ecchymosis is Absent. Edema is mild over the lateral malleolus. Palpation to the medial ankle is non-painful. No high fibular pain is noted. No pain to the syndesmosis or other areas of the ankle with external rotation of the foot at the ankle joint. Pain to palpation of the lateral ankle is noted at the ATFL and CFL. There is no bone pain noted to the distal fibula. The peroneals are intact and are nontender. No pain to the fifth metatarsal base. No pain to the medial aspect of the midfoot or navicular tuberosity. No pain to palpation anterior calcaneal process. There is pain to the lateral ankle with maximal plantarflexion and inversion of the foot relative to the ankle. Muscle strength testing is guarded. Radiographs: 3 views of the left ankle were obtained and evaluated. Radiographic Impression: Ankle mortise is intact. No acute fractures or dislocations noted. No bony cysts or tumors noted. Good tib fib overlap. No increased in medial clear space. Fibula out to length. Previously placed hardware in tact to fibula without evidence of lucency or backing out. Plantar and retrocalcaneal exostoses noted. Assessment: This is a 62 year old patient presenting with ankle sprain left foot Plan: A comprehensive history and physical examination were preformed. The patient was educated on clinical and radiographic findings, diagnosis and treatment plans. Patient state that he understands all that has been explained and all questions were answered to his apparent satisfaction. - Patient was educated on etiology of ankle sprain and anticipated course of treatment. -Use the Lace up ankle brace he has at home - Discussed the importance of performing AJ strengthening exercises. Exercises were demonstrated to patient and handout dispensed. Theraband dispensed to patient. - Continue WB on foot as tolerated - Continue ice and elevation as needed. - May take OTC NSAID as needed for pain and inflammation. - Continue good supportive shoe gear. Follow up PRN Scribe Attestation Statement: Scribe Statement: I, Monica Benjamin LPN , am scribing for, and in the presence of Jack Samano DPM, FACFAS Scribe: Monica Benjamin LPN Clinician Attestation Statement: The information in this document, created by the medical attendant for me, accurately reflects the services I personally performed and the decisions made by me. I have reviewed and approved this document for accuracy. Jack Samano DPM, FACFAS Normal [facility] Protein mass conc HNO ID: [id number] Author: Cecil Dawkins) Kimi Service: ? Author Type: LICENSED NURSE Type: Progress Notes Filed: 07/23/2018 2:26 PM Note Text: REVIEW OF SYSTEMS: GENERAL: Well developed, well nourished. No acute distress PAIN: Pain left ankle CARDIOVASCULAR: Negative for chest pain, leg swelling and palpations. MSK: joint pain left ankle SKIN: Negative for lesions, rash, itching, metal sensitivity NEURO: Negative for seizure, trauma, numbness/tingling of extremities. ENDOCRINE: Negative for Diabetes Type 1 and Type 2 HEMATOLOGY: Negative for excessive bleeding, clots, bleeding disorders. Normal [facility] XR HIP MINIMUM 2 VIEWS RIGHT on 06-29-2018 XR HIP MINIMUM 2 VIEWS RIGHT ORIGINAL XR HIP MINIMUM 2 VIEWS RIGHT, Clinical Statement: Fall, Rt Hip Pain/Ischial Tub Pain, , trauma, pain Comparison: None Findings: There is no visualized acute fracture or dislocation. No radio-opaque foreign body or soft tissue gas is seen. There is moderate hip degenerative arthritis and trochanteric enthesopathy. IMPRESSION: No acute fracture seen. Interpreted By: Oliver Fink MD Preliminary Report By: Oliver Fink MD Electronically Signed By: Oliver Fink MD Dictated Date: 06/29/2018 2:04:36 PM Prelim Date: 06/29/2018 2:04:36 PM Sign Date: 06/29/2018 2:05:04 PM Normal [facility] ([place]) XR WRIST MINIMUM 3 VIEWS RIG HTon 06-29-2018 XR WRIST MINIMUM 3 VIEWS RIGHT ORIGINAL XR WRIST MINIMUM 3 VIEWS RIGHT CLINICAL STATEMENT: Fall, Rt Wrist Pain COMPARISON: None FINDINGS: On the lateral view there is moderate dorsal soft tissue swelling and small well-corticated ossicles at the dorsal aspect of the wrist. Triquetrum fracture should be suspected. No other fracture or dislocation is seen. There are degenerative changes at the radiocarpal joint. IMPRESSION: Likely triquetrum fracture with dorsal soft tissue swelling. Interpreted By: Oliver Fink MD Preliminary Report By: Oliver Fink MD Electronically Signed By: Oliver Fink MD Dictated Date: 06/29/2018 2:08:59 PM Prelim Date: 06/29/2018 2:08:59 PM Sign Date: 06/29/2018 2:09:43 PM Normal [facility] ([place]) Vital Signs Date Time Vital Sign Value Performing Clinician Facility 03-13-2024 13:26-0500 Body height 175.3 cm Ludy Sarmiento MD Work Phone: [facility] 03-13-2024 13:26-0500 Body mass index (BMI) [Ratio] 34.41 kg/m2 Ludy Sarmiento MD Work Phone: [facility] 03-13-2024 13:26-0500 Body temperature 97 [degF] Ludy Sarmiento MD Work Phone: [facility] 03-13-2024 13:26-0500 Body weight 105.69 kg Ludy Sarmiento MD Work Phone: [facility] 03-13-2024 13:26-0500 Diastolic blood pressure 81 mm[Hg] Ludy Sarmiento MD Work Phone: [facility] 03-13-2024 13:26-0500 Heart rate 59 /min Ludy Sarmiento MD Work Phone: [facility] 03-13-2024 13:26-0500 Respiratory rate 16 /min Ludy Sarmiento MD Work Phone: [facility] 03-13-2024 13:26-0500 SaO2% (BldA) [Mass fraction] 96 % Ludy Sarmiento MD Work Phone: [facility] 03-13-2024 13:26-0500 Systolic blood pressure 170 mm[Hg] Ludy Sarmiento MD Work Phone: [facility] Encounters Encounter Date Encounter Type Care Provider Facility Start: 09-11-2024 ambulatory Ori Fernandes Facility:[facility] Start: 09-04-2024 End: 09-04-2024 ambulatory Ludy Sarmiento Facility:[facility] Start: 03-13-2024 End: 03-13-2024 [facility] Comment on above: Laceration of left m iddle finger without foreign body without damage to nail, initial encounter (Primary Dx) Start: 12-20-2022 End: 12-21-2022 ambulatory [facility] Start: 12-20-2022 End: 12-20-2022 Subsequent hospital visit by physician Ludy Sarmiento MD Work Phone: [facility] Vascular Lab Comment on above: Personal history of nicotine dependence Start: 12-13-2022 Transcribe Orders Ludy del valle MD Work Phone: [facility] Central Scheduling Comment on above: Personal history of nicotine dependence (Primary Dx) Start: 03-29-2022 End: 03-30-2022 [facility]ulatory [place] [facility] Comment on above: Pain in right hip (P rimary Dx); Pain in left hip Start: 09-17-2021 End: 09-17-2021 Subsequent hospital visit by physician Avinash Garibay MD Work Phone: [facility] Comment on above: Unspecified atrial f ibrillation (HCC); Paroxysmal atrial fibrillation (HCC) Start: 08-06-2021 End: 08-06-2021 Subsequent hospital visit by physician Avinash Garibay MD Work Phone: [facility] [address] [facility] Comment on above: Unspecified atrial f ibrillation (HCC) Start: 06-30-2018 End: 06-30-2018 Patient encounter procedure JACK SAMANO [facility] Start: 06-29-2018 End: 06-29-2018 Emergency department patient visit FELIX DELONG Facility:[facility] Procedures Date Procedure Procedure Detail Performing Clinician Start: 03-13-2024 LACERATION REPAIR Dorina Winkler APRN CUSTODIAN Work Phone: Start: 12-20-2022 Us abdominal aorta r eal time screen study aaa Ludy Sarmiento MD Work Phone: Start: 09-17-2021 Echo tthrc r-t 2d w/wom-mode compl spec&colr d Esme Tan STAFFING ACCOUNT MANAGER - WEIGHT RECORDER Work Phone: Plan of Treatment Date Care Activity Detail Author Start: 03-13-2034 Administration of diphtheria + tetanus + acellular pertussis vaccine DTAP/TDAP/TD VACCINE (2 - Td or Tdap) [facility] Start: 01-08-2024 COVID-19 VACCINE ( season) COVID-19 VACCINE ( season) [facility] Start: 01-08-2024 Influenza vaccination given INFLUENZA VACCINE (#1) [facility] Start: 01-07-2023 Influenza vaccination Influenza Vaccine (#1) [facility] Start: 01-07-2022 Influenza vaccination [facility] Start: 09-17-2021 End: 09-17-2021 Patient encounter procedure 09/17/2021 Appointment Echocardiography Avinash Garibay MD [address] [place] [address] Esme Tan APRN - CNP [address] [place] [id number] [facility] Start: 07-31-2021 Annual Wellness Visit (AWV) Annual Wellness Visit (AWV) [facility] Start: 2018 Fall risk assessment FALL RISK [facility] Start: 2018 Glaucoma screening GLAUCOMA/EYE EXAM AGE 65+ [facility] Start: 2018 Pneumococcal 23-valent polysaccharide vaccination given (situation) PNEUMOCOCCAL VACCINE: 65+ YEARS (1 of 1 - PCV) [facility] Start: 2018 Pneumococcal 65+ years Vaccine (1 - PCV) Pneumococcal 65+ years Vaccine (1 - PCV) [facility] Start: 2018 Pneumococcal 65+ years Vaccine (1 of 1 - PPSV23) Pneumococcal 65+ years Vaccine (1 of 1 - PPSV23) [facility] Start: 2018 Pneumococcal Vaccine: 65+ Years (1 - PCV) Pneumococcal Vaccine: 65+ Years (1 - PCV) [facility] Start: 2013 Hepatitis B Vaccines (1 of 3 - Risk 3-dose series) Hepatitis B Vaccines (1 of 3 - Risk 3-dose series) [facility] Start: 11-18-2003 Shingles Vaccine (1 of 2) Shingles Vaccine (1 of 2) [facility] Start: 11-18-2003 Zoster vaccine hzv live for subcutaneous use ZOSTER (SHINGLES) VACCINE (1 of 2) [facility] Start: 11-18-2003 Zoster Vaccines (1 of 2) Zoster Vaccines (1 of 2) [facility] Start: 1998 Screening for malignant neoplasm of colon [facility] Start: 1993 [facility]id panel [facility] Start: 1988 Diabetes screen Diabetes screen [facility] Start: 1988 Fasting lipid profile LIPID SCREENING [facility] Start: 1972 DTaP/Tdap/Td vaccine (1 - Tdap) DTaP/Tdap/Td vaccine (1 - Tdap) [facility] Start: 1972 DTaP/Tdap/Td Vaccines (1 - Tdap) DTaP/Tdap/Td Vaccines (1 - Tdap) [facility] Start: 11-18-1971 ANNUAL WELLNESS VISIT ANNUAL WELLNESS VISIT [facility] Start: 11-18-1971 Diabetes mellitus screening Diabetes Screening [facility] Start: 11-18-1971 Hepatitis C screening [facility] Start: 1965 Depression Screen Depression Screen [facility] Start: 1965 Depression Screening Depression Screening [facility] Start: 1965 Depression screening using PHQ-9 (Patient Health Questionnaire 9) score DEPRESSION SCREENING [facility] Start: 11-18-1963 Diabetic foot examination Diabetes: Foot Exam [facility] Start: 11-18-1963 Glaucoma screening Diabetes: Retinopathy Screening [facility] Start: 11-18-1963 Preventive dental service Diabetes: Dental Exam [facility] Start: 1958 COVID-19 Vaccine (1) COVID-19 Vaccine (1) [facility] Start: 05-20-1954 COVID-19 Vaccine (#1) COVID-19 Vaccine (#1) [facility] Start: 1953 Annual Wellness Visit (AWV) Annual Wellness Visit (AWV) [facility] Start: 1953 Creatinine measurement Creatinine monitoring [facility] Start: 1953 Hemoglobin A1c measurement Diabetes: Hemoglobin A1C [facility] Start: 1953 Hepatitis B Vaccines (1 of 3 - 3-dose series) Hepatitis B Vaccines (1 of 3 - 3-dose series) [facility] Start: 1953 Hepatitis C screening [facility] Start: 1953 Lipid panel Lipid Panel [facility] Start: 1953 Medicare Advantage Annual Wellness Visit (AWV) Medicare Advantage Annual Wellness Visit (AWV) [facility] Start: 1953 Potassium monitoring Potassium monitoring [facility] Start: 1953 Screening for malignant neoplasm of colon [facility] Immunizations Immunization Date Immunization Notes Care Provider Fa cility 03-13-2024 tetanus toxoid, redu charanjit diphtheria toxoid, and acellular pertussis vaccine, adsorbed Ludy Sarmiento MD Work Phone: [facility] Payers Date Payer Category Payer Medicare [id number] 2024 Self-pay 2023 Medicare Managed Car e (unspecified) [employer] MED[employer]ARE ADVANTAGE HMO [id number] 2021 Medicare [id number] 2021 Medicare [employer] MEDICARE ADVANTAGE JO BRITT [id number] 2021-Present [address] [place] [address] Medicare HMO [id number] 2018 Unknown [id number] 2018 Unknown [id number] 1955 Unknown [id number] 1955 Unknown [id number] 1955 Unknown [id number] Unknown [id number] Unknown [id number] Unknown [id number] Social History Date Type Detail Facility Start: 08-03-2021 Tobacco smoking status NHIS Never smoked tobacco [employer] Phone: Start: 08-03-2021 Tobacco use and exposure Smokeless tobacco non-user [employer] Phone: Start: 08-03-2021 Alcohol intake Lifetime non-d ines (finding) [employer] Phone: Start: 1955 Sex Assigned At Not on file [facility] [employer] Work Phone: Start: 08-03-[address] [facility] Start: 08-03-[address] [facility] Start: 03-19-2022 End: 12-20-2022 Exposure to SARS-CoV-2 (event) Not sure [facility] Tobacco smoking status ARIS Tobacco smoking consumption unknown [facility] Clinical Notes 03-13-2024 Gigi Johnson LPN - 03/13/2024 2:16 PM Gigi Zambrano LPN - 03/13/2024 2:16 PM Gianni Palmer RN - 03/13/2024 1:24 PM Dorina Jc APRN CUSTODIAN - 03/13/2024 1:22 PM EST Note Date & Type Note Facility 03-13-2024 Emergency department Note Discharge orders reviewed, pt states understanding. NAD noted. Pt [facility]ulates to [facility], leaves via car. [facility] 03-13-2024 Emergency department Note Discharge orders reviewed, pt states understanding. NAD noted. Pt ambulates to [employer], leaves via car. Pt ambulated to room in NAD, Pt states he was using a plainer and lacerated left middle finger, Pt unsure of last tetanus vaccine, Bleeding controled, Pt is a/o x4 skin wdp respirs easy Associated Order(s): Lac Repair Images from the original note were not included. ED Diagnosis and Summary 1. Laceration of left middle finger without foreign body without damage to nail, initial encounter ED Summary This 68 year old male with a history of afib, HTN, CVA presents to ED via private vehicle. He c/o left middle finger laceration while using a plainer. Pt is non ill, non toxic appearing. Left index finger pad with 1cm lac. Tetanus updated. See procedure note for details. Pt d/c home in stable condition. To follow up with PCP. Return to ED if s/s worsen. Diagnostic studies were reviewed with the patient in their entirety. Patient voiced an understanding of their meaning. At this time, I feel patient is stable for discharge home and patient is comfortable with this plan. Patient was informed to return to the ED for new or worsening symptoms as well as follow up with primary care physician. They had no further questions or complaints at the time of disposition and were comfortable with the plan of care. Patient remained stable throughout the remainder of ED course and required no further interventions. History Chief Complaint Patient presents with Laceration Patient's medications, allergies, past medical, surgical, social and family histories were reviewed and updated as appropriate. The history is provided by the patient. This 68 year old male with a history of afib, HTN, CVA presents to ED via private vehicle. He c/o left middle finger laceration while using a plainer. He denies pain to the area. He states he is on coumadin and applied cayenne pepper to area to stop the bleeding. He is unsure of last tetanus update. He denies exac or allev factors. Review of Systems Skin: Positive for wound (left middle finger). All other systems reviewed and are negative. Physical Exam ED Triage Vitals [03/13/24 1326] BP 170/81 Heart Rate 59 Resp 16 Temp 97 F (36.1 C) Temp src Tympanic SpO2 96 % Weight 233 lb (105.7 kg) Height 5' 9 (1.753 m) BMI (Calculated) 34.39 Physical Exam Vitals and nursing note reviewed. Constitutional: Appearance: Normal appearance. HENT: Head: Normocephalic and atraumatic. Right Ear: External ear normal. Left Ear: External ear normal. Cardiovascular: Rate and Rhythm: Normal rate and regular rhythm. Pulses: Normal pulses. Heart sounds: Normal heart sounds. Pulmonary: Effort: Pulmonary effort is normal. Breath sounds: Normal breath sounds. Abdominal: General: Bowel sounds are normal. Palpations: Abdomen is soft. Musculoskeletal: Hands: Skin: General: Skin is warm and dry. Capillary Refill: Capillary refill takes less than 2 seconds. Neurological: General: No focal deficit present. Mental Status: He is alert and oriented to person, place, and time. Mental status is at baseline. Psychiatric: Mood and Affect: Mood normal. ED Course Lac Repair Date/Time: 03/13/2024 2:04 PM Performed by: Dorina Winkler APRN CUSTODIAN Authorized by: Dorina Winlker APRN CUSTODIAN Consent: Consent obtained: Verbal Consent given by: Patient Risks, benefits, and alternatives were discussed: yes Risks discussed: Infection, need for additional repair, nerve damage, poor wound healing, poor cosmetic result, pain, tendon damage and vascular damage [place] protocol: Procedure explained and questions answered to patient or proxy's satisfaction: yes Patient identity confirmed: Arm band and verbally with patient Anesthesia: Anesthesia method: Local infiltration Local anesthetic: Lidocaine 1% w/o epi Laceration details: Location: Finger Finger location: L long finger Length (cm): 1 Treatment: Area cleansed with: Povidone-iodine, chlorhexidine and saline Amount of cleaning: Extensive Irrigation solution: Sterile water Irrigation method: Pressure wash Skin repair: Repair method: Sutures Suture size: 5-0 Wound skin closure material used: ethilon. Suture technique: Simple interrupted Number of sutures: 4 Approximation: Approximation: Close Repair type: Repair type: Simple Post-procedure details: Dressing: Non-adherent dressing Procedure completion: Tolerated well, no immediate complications Medical Decision Making Dorina Winkler APRN CUSTODIAN 03/13/24 1405 Dorina Winkler APRN CUSTODIAN 03/13/24 1417 documented in this encounter [facility] 03-13-2024 Emergency department Triage note Pt ambulated to room in NAD, Pt states he was using a plainer and lacerated left middle finger, Pt unsure of last tetanus vaccine, Bleeding controled, Pt is a/o x4 skin wdp respirs easy [facility] 03-13-2024 Physician Emergency department Note Associated Order(s): Lac Repair Images from the original note were not included. ED Diagnosis and Summary 1. Laceration of left middle finger without foreign body without damage to nail, initial encounter ED Summary This 68 year old male with a history of afib, HTN, CVA presents to ED via private vehicle. He c/o left middle finger laceration while using a plainer. Pt is non ill, non toxic appearing. Left index finger pad with 1cm lac. Tetanus updated. See procedure note for details. Pt d/c home in stable condition. To follow up with PCP. Return to ED if s/s worsen. Diagnostic studies were reviewed with the patient in their entirety. Patient voiced an understanding of their meaning. At this time, I feel patient is stable for discharge home and patient is comfortable with this plan. Patient was informed to return to the ED for new or worsening symptoms as well as follow up with primary care physician. They had no further questions or complaints at the time of disposition and were comfortable with the plan of care. Patient remained stable throughout the remainder of ED course and required no further interventions. History Chief Complaint Patient presents with Laceration Patient's medications, allergies, past medical, surgical, social and family histories were reviewed and updated as appropriate. The history is provided by the patient. This 68 year old male with a history of afib, HTN, CVA presents to ED via private vehicle. He c/o left middle finger laceration while using a plainer. He denies pain to the area. He states he is on coumadin and applied cayenne pepper to area to stop the bleeding. He is unsure of last tetanus update. He denies exac or allev factors. Review of Systems Skin: Positive for wound (left middle finger). All other systems reviewed and are negative. Physical Exam ED Triage Vitals [03/13/24 1326] BP 170/81 Heart Rate 59 Resp 16 Temp 97 F (36.1 C) Temp src Tympanic SpO2 96 % Weight 233 lb (105.7 kg) Height 5' 9 (1.753 m) BMI (Calculated) 34.39 Physical Exam Vitals and nursing note reviewed. Constitutional: Appearance: Normal appearance. HENT: Head: Normocephalic and atraumatic. Right Ear: External ear normal. Left Ear: External ear normal. Cardiovascular: Rate and Rhythm: Normal rate and regular rhythm. Pulses: Normal pulses. Heart sounds: Normal heart sounds. Pulmonary: Effort: Pulmonary effort is normal. Breath sounds: Normal breath sounds. Abdominal: General: Bowel sounds are normal. Palpations: Abdomen is soft. Musculoskeletal: Hands: Skin: General: Skin is warm and dry. Capillary Refill: Capillary refill takes less than 2 seconds. Neurological: General: No focal deficit present. Mental Status: He is alert and oriented to person, place, and time. Mental status is at baseline. Psychiatric: Mood and Affect: Mood normal. ED Course Lac Repair Date/Time: 03/13/2024 2:04 PM Performed by: Dorina Winkler APRN CUSTODIAN Authorized by: Dorina Winkler APRN CUSTODIAN Consent: Consent obtained: Verbal Consent given by: Patient Risks, benefits, and alternatives were discussed: yes Risks discussed: Infection, need for additional repair, nerve damage, poor wound healing, poor cosmetic result, pain, tendon damage and vascular damage [place] protocol: Procedure explained and questions answered to patient or proxy's satisfaction: yes Patient identity confirmed: Arm band and verbally with patient Anesthesia: Anesthesia method: Local infiltration Local anesthetic: Lidocaine 1% w/o epi Laceration details: Location: Finger Finger location: L long finger Length (cm): 1 Treatment: Area cleansed with: Povidone-iodine, chlorhexidine and saline Amount of cleaning: Extensive Irrigation solution: Sterile water Irrigation method: Pressure wash Skin repair: Repair method: Sutures Suture size: 5-0 Wound skin closure material used: ethilon. Suture technique: Simple interrupted Number of sutures: 4 Approximation: Approximation: Close Repair type: Repair type: Simple Post-procedure details: Dressing: Non-adherent dressing Procedure completion: Tolerated well, no immediate complications Medical Decision Making Dorina Winkler APRN CUSTODIAN 03/13/24 1405 Dorina Winkler APRN NP 03/13/24 1417 [facility] Evaluation note Diagnosis Unspecified atrial fibrillation (HCC) Unspecified atrial fibrillation (HCC) Paroxysmal atrial fibrillation (HCC) Atrial fibrillation documented in this encounter [facility] Work Phone: Evaluation note* Diagnosis Unspecified atrial fibrillation (HCC) Paroxysmal atrial fibrillation (HCC) Atrial fibrillation documented in this encounter [facility] Work Phone: Evaluation note* Diagnosis Personal history of nicotine dependence [facility] Diagnosis Personal history of nicotine dependence- Primary Personal history of nicotine dependence documented in this encounter [facility] note* Diagnosis Laceration of left middle finger without foreign body without damage to nail, initial encounter- Primary [facility] Diagnosis Pain in right hip- Primary Pain in left hip documented in this encounter [facility] Discharge instructions* Attachments The following attachments cannot be sent through Care Everywhere. * Hand Laceration: Stitches ([place] French) [facility] Family History No Family History Records FoundNo Family History Records FoundNo Family History Records FoundNo Family History Records FoundNo Family History Records FoundNo Family History Records FoundNo Family History Records FoundNo Family History Records Found Advance Directives No Advanced Directives Records FoundNo Advanced Directives Records FoundNo Advanced Directives Records FoundNo Advanced Directives Records FoundNo Advanced Directives Records FoundNo Advanced Directives Records FoundNo Advanced Directives Records FoundNo Advanced Directives Records Found Reason for Referral Specialty Diagnoses / Procedures Referred By Contac t Referred To Contact Cardiology Diagnoses Paroxysmal atrial fibrillation (HCC) Procedures ECHO Complete 2D W Doppler W Color Esme Tan, STAFFING ACCOUNT MANAGER - [address] [place] [address] Referral ID Status Reason Start Date Expiration Date V isits Requested Visits Authorized [id number] Pending Review 08/03/2021 08/03/2022 1 1 Specialty Diagnoses / Procedures Referred By Contac t Referred To Contact Cardiology Diagnoses Personal history of nicotine dependence Procedures Vascular US abdominal aorta anuerysm AAA screening Ludy Sarmiento MD [address] [place] [address] Referral ID Status Reason Start Date Expiration Date V isits Requested Visits Authorized [id number] Closed Perform Procedure 12/13/2022 06/11/2023 1 1 Additional Source Comments (unrecognized sect ion and content) No Status Records FoundNo Status Records FoundNo Status Records FoundNo Status Records FoundNo Status Records FoundNo Status Records FoundNo Status Records FoundNo Status Records Found INFORMATION SOURCE (unrecogn ized section and content) DATE CREATED AUTHOR 07/16/2018 [facility] DATE CREATED AUTHOR AUTHOR'S ORGANIZ ATION 07/23/2018 [facility] DATE CREATED AUTHOR AUTHOR'S ORGANIZ ATION 07/23/2018 [facility] DATE CREATED AUTHOR AUTHOR'S ORGANIZ ATION 11/13/2021 [facility] DATE CREATED AUTHOR AUTHOR'S ORGANIZ ATION 12/21/2022 [facility] DATE CREATED AUTHOR AUTHOR'S ORGANIZ ATION 03/18/2024 [facility] DATE CREATED AUTHOR AUTHOR'S ORGANIZ ATION 10/09/2024 [facility] DATE CREATED AUTHOR AUTHOR'S ORGANIZ ATION 10/13/2024 [facility] Care Teams (unrecognized sec tion and content) 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 Relationship Specialty Start Date End Date Ludy Sarmiento MD [address] [place] [address] [phone] PCP - General Family Medicine 08/03/21 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 Relationship Specialty Start Date End Date Ludy Sarmiento MD [address] [place], [place] [phone] PCP - General Family Medicine 08/03/21 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 Relationship Specialty Start Date End Date Ludy Sarmiento MD [address] [place] [address] [place] [id number] PCP - General 08/03/21 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 Relationship Specialty Start Date End Date Ludy Sarmiento MD [address] [place] [address] [address] [place], [place] [phone] PCP - General Family Medicine 03/13/24 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 Relationship Specialty Start Date End Date Ludy Sarmiento MD [address] [place] [address] [place] [phone] PCP - General 08/03/21 Reason for Visit (unrecogniz ed section and content) Specialty Diagnoses / Procedures Referred By Gio t Referred To Contact Cardiology Diagnoses Personal history of nicotine dependence Procedures Vascular US abdominal aorta anuerysm AAA screening Ludy Sarmiento MD [address] [place] [address] [place] [address] Referral ID Status Reason Start Date Expiration Date V isits Requested Visits Authorized [id number] Closed Perform Procedure 12/13/2022 06/11/2023 1 1 Reason Comments Laceration Scheduled Active and Recently Administ ered Medications (unrecognized section and content) Medication Order 03/11/2024 03/12/2024 03/13/2024 Lidocaine HCl (XYLOCAINE) 1 % injection 10 mL (COMPLETED) 10 mL, Intradermal, NOW, 1 dose, On Tue03/13/24 at 1415 1411 (Given - Provid er: Ggii Johnson LPN) FOR RECORDS PERTAINING TO PATIENTS WHO ARE OR HAVE BEEN ENROLLED IN A CHEMICAL DEPENDENCY/SUBSTANCEABUSE PROGRAM, SOME INFORMATION MAY BE OMITTED. This clinical summary was aggregated from multiple sources. Caution should be exercised in using it in the provision of clinical care. This summary normalizes information from multiple sources, and as a consequence, information in this document may materially change the coding, format and clinical context of patient data. In addition, data may be omitted in some cases. CLINICAL DECISIONS SHOULD BE BASED ON THE PRIMARY CLINICAL RECORDS. [employer] provides no warranty or guarantee of the accuracy or completeness of information in this document.
--- NOTE | 2024-10-31 07:31 | STRESSREP ---
Stress Test Report Exercise myocardial perfusion stress test. 68-year-old with a history of paroxysmal atrial fibrillation Stress protocol: Resting EKG demonstrates sinus rhythm with a rate of 60 bpm bpm resting blood pressure is 152/74 mmHg. The patient exercised according to the regular Khurram protocol for a total duration of 6-1/2 minutes attaining a maximum heart rate of 134 bpm which was 89 per of maximum predicted heart rate; the maximum workload was 8.5 metabolic equivalents. At rest there were no ST or T wave changes noted to suggest ischemia and at peak exercise upsloping ST changes only were noted which did not meet the criteria for ischemia. No clinical angina was noted the test was terminated due to the target heart rate being achieved/fatigue. The peak blood pressure was 200/70 mmHg. Rate-pressure product was 25,100. Myocardial perfusion protocol. 14.3 mCi of technetium 99m sestamibi was injected at rest. The patient exercised according to regular Khurram protocol for total duration of 6-1/2 and at peak exercise 44.1 mCi of technetium 99m sestamibi was injected stress images were obtained stress and rest images were reconstructed in comparing the short axis vertical long and horizontal long axis. Gated images were also obtained. Perfusion SPECT analysis: Review of the stress images demonstrate normal uptake of tracer noted in all areas of the myocardium. The resting images similarly demonstrate normal uptake of tracer noted in all areas of the myocardium. No areas of reversibility are noted to suggest ischemia no previous infarct was noted. Gated SPECT analysis: The gated ejection fraction is 64%. Conclusion: Normal exercise myocardial perfusion stress test at a moderate workload Preserved ejection fraction.
== END | disposition home or self-care (01) ==
LOC: CVS 06:47
PROVIDERS: PCP Family Medicine; Referring Provider Nurse Practitioner Gerontology; Visit Provider Nurse Practitioner Gerontology
DX: R07.9 Chest pain, unspecified (principal)
CPT/HCPCS: 78452; 93017; A9500; A4216

== ENCOUNTER → 2024-11-06 | Outpatient (CLI) | payer MEDICARE, SELFPAY ==
--- NOTE | 2024-11-06 13:58 | ECHOD_ITS ---
Reason For Study Reason For Study: PAF Procedure This was a 2D Doppler, Color Flow transthoracic echocardiogram. Myocardial strain analysis was performed in this exam to aid in the assessment of cardiac function. Exam performed in department. Left Ventricle Normal LV size. Moderate concentric left ventricular hypertrophy. Left ventricular systolic function is normal. The left ventricular ejection fraction is 65 %. No regional wall motion abnormalities noted. Right Ventricle Normal RV size. Normal systolic function. Atria The left atrium is mildly enlarged. Normal right atrium. Mitral Valve Normal mitral valve. Tricuspid Valve Normal tricuspid valve. Mild tricuspid valve insufficiency. Pulmonary artery systolic pressure is 30 mmHg. Aortic Valve Trisinus/trileaflet aortic valve. Mild focal aortic valve calcification. Pulmonic Valve Normal pulmonic valve. Great Vessels Normal aortic root. The pulmonary artery is normal size. Inferior vena cava collapse with respiration. Pericardium/Pleural No pericardial effusion. MMode/2D Measurements & Calculations LVIDd: 4.0 cm IVSd: 1.8 cm Ao root diam: 3.9 cm LVIDs: 2.6 cm LVPWd: 1.5 cm RVDd: 4.3 cm FS: 36.3 % LAV(MOD-bp): 79.3 ml LVAd ap4: 27.0 cm2 SV(MOD-sp4): 44.3 ml LAV(MOD-bp) Indexed: 50.8 ml/m2 LVLd ap4: 8.1 cm SI(MOD-sp4): 28.4 ml/m2 LAV(MOD-sp2): 79.1 ml EDV(MOD-sp4): 76.7 ml LAV(MOD-sp4): 72.6 ml EDV(sp4-el): 76.9 ml LVAs ap4: 15.8 cm2 LVLs ap4: 7.0 cm ESV(MOD-sp4): 32.4 ml ESV(sp4-el): 30.3 ml EF(MOD-sp4): 57.8 % EF(sp4-el): 60.6 % SV(sp4-el): 46.6 ml LA A4 area: 23.0 cm2 RA A4 area: 12.8 cm2 TAPSE: 3.5 cm Time Measurements MV dec time: 0.25 sec Doppler Measurements & Calculations MV E max chun: 79.5 cm/sec Lat Peak E' Chun: 7.6 cm/sec Med Peak E' Chun: 6.3 cm/sec MV A max chun: 71.3 cm/sec E/E' lat: 10.5 E/E' med: 12.6 MV E/A: 1.1 MV dec slope: 321.1 cm/sec2 Ao V2 max: 149.7 cm/sec LV V1 max: 118.0 cm/sec Ao max P.0 mmHg LV V1 max P.6 mmHg Ao V2 mean: 111.5 cm/sec LV V1 mean P.6 mmHg Ao mean P.3 mmHg LV V1 mean: 75.3 cm/sec Ao V2 VTI: 32.2 cm LV V1 VTI: 30.5 cm AV (velocity ratio): 0.95 PA V2 max: 72.3 cm/sec TR max chun: 262.3 cm/sec TR max P.5 mmHg ECHO/Echo Complete Interpretation Summary Normal LV size. Left ventricular systolic function is normal. The left ventricular ejection fraction is 65 %. Moderate concentric left ventricular hypertrophy. Mild tricuspid valve insufficiency. The global longitudinal strain is borderline abnormal. The global longitudinal strain = -16% (abnormal). Ordering Physician: Arlene Mata Referring Physician: Marlon Sarmiento Performed By: Lily Rossi RVT, RDCS and Student
--- OUTSIDE RECORDS SUMMARY | 2024-11-06 22:43 | XMS RPT_ITS | CCD ---
Author Organization [facility] Care Team Providers Care Travel Service Consultant Name Role Phone FELIX DELONGAric Attending Unavailable CURTIS PRO Primary Care Unavailable JACK SAMANO Attending Unavailable IMCA Referring Unavailable CURTIS PRO Primary Care Unavailable JACK SAMANO Attending Unavailabl e Ludy Sarmiento MD Primary Care Provider LUDY SARMIENTO Referring Unavailable GUILLERMINALUDY Attending Unavailable GUILLERMINA, LUDY Primary Care Unavailable EDILMA SARMIENTOLAS A Referring Unavailable LUDY SARMIENTO Referring Unavailable Ludy Sarmiento MD Primary Care Provider Ludy Sarmiento MD Primary Care Provider [phone] LUDY SARMIENTO Primary Care Unavailable DORINA WINKLER Admitting Unavailable Ludy Sarmiento MD Primary Care Provider Dr. Ludy Sarmiento MD Primary Care Provider Dr. Ludy Sarmiento MD Referring Provider Arlene Ríos Attending Provider Adolfo PEREZ-CArlene Referring Provider Dr. Ori Fernandes MD Attending Provider [phone] Adolfo PEREZ-Arlene Saucedo Other Provider Ori Fernandes Attending Unavailable Arlene Mata NP Referring Unavailable Guillermina, Ludy Primary Care Unavailable Arlene Mata NP Attending Unavailable Guillermina, Ludy Primary Care Unavailable Ori Fernandes Attending Unavailable Arlene Mata NP Referring Unavailable Guillermina, Ludy Primary Care Unavailable Arlene Mata NP Consulting Unavailable Arlene Mata NP Attending Unavailable Guillermina, Ludy Referring Unavailable Guillermina, Ludy Primary Care Unavailable Arlene Mata NP Attending Unavailable Arlene Mata NP Referring Unavailable Ludy Sarmiento Primary Care Unavailable Arlene Mata NP Attending Unavailable Arlene Mata NP Referring Unavailable Ludy Sarmiento Primary Care Unavailable Arlene Mata NP Attending Unavailable Arlene Mata NP Referring Unavailable Ludy Sarmiento Primary Care Unavailable Allergies Allergy Classification Reported Allergen(s) Allergy Type Date of Onset Reaction(s) Facility (2 sources) atorvastatin Drug Allergy 07-31-2021 Other (See Comments) [facility] Medications Current Medications Medication Drug Class(es) Dates Sig (Normalized) Sig (Original) ascorbic acid 1000 mg oral tablet (1 source) Vitamin C Start: 01-02-2021 take 1 g by mouth once daily Ascorbic Acid (Vitamin C) 1,000 mg tablet Active 1 g PO DAILY January 02, 2021 12:00am ASHWAGANDHA PO (2 sources) ASHWAGANDHA PO Take by mouth daily 0 Active Ashwagandha Root Extract 300 mg capsule (1 source) Start: 05-23-2020 take 1 capsule by mouth once daily Ashwagandha Root Extract 300 mg capsule Active 300 mg PO DAILY May 23, 2020 1:00am aspirin 81 mg chewable tablet (4 sources) Platelet Aggregation Inhibitor, Nonsteroidal Anti-inflammatory Drug Start: 07-22-2019 End: 04-22-2020 take 1 tablet by mouth once daily Aspirin 81 MG tablet,chewable Active 81 mg PO DAILY@1900 April 22, 2020 3:05pm heart health take 1 tablet by mouth once noel y aspirin 81 MG EC tablet Take 81 [...] 0 Active cholecalciferol 0.125 mg oral tablet (4 sources) Vitamin D Start: take 1 tablet by mouth once daily Cholecalciferol (Vitamin D3) 125 mcg (5,000 unit) tablet Active 125 ug PO DAILY April 06, 2021 1:00am Start: 04-22-2020 End: 04-06-2021 Cholecalciferol (Vitamin D3) (Vitamin D3) 25 MCG tablet Discontinued 5000 ug PO DAILY April 22, 2020 1:00am April 06, 2021 3:03pm supplement cider vinegar 300 mg oral tablet (2 sources) take 1 tablet by mouth once daily Apple Cider Vinegar 300 MG TABS Take by mouth daily 0 Active cinnamon bark 500 mg oral capsule (1 source) Start: 09-05-19 25 take 3 capsules by mouth once daily Cinnamon Bark (Cinnamon) 500 mg capsule Active 500 mg PO daily September 04, 2024 12:00am 3 capsules daily Cinnamon Preparation (2 sources) Non-Standardized Food Allergenic Extract take 2000 mg by mouth once daily CINNAMON PO Take 2,000 mg by mouth daily 0 Active docosahexaenoic acid 120 mg / eicosapentaenoic acid 180 mg oral capsule (2 sources) [place]-3 1000 MG CAPS Take by mouth in the morning and at bedtime 0 Active Shannon 565 MG CAPS (2 sources) take 1 capsule by mouth once daily Shannon 565 MG CAPS Take by mouth daily 0 Active lisinopril 20 mg oral tablet (12 sources) Angiotensin Converting Enzyme Inhibitor Start: 09-05-19 25 take 1 tablet by mouth once Lisinopril 20 mg tablet Active 20 mg PO ONCE September 04, 2024 9:28am Start: 05-29-2021 End: 09-04-2024 take 1 tablet by mouth twice daily Lisinopril 20 mg tablet Discontinued 20 mg PO TWICE A DAY May 29, 2021 2:35pm September 04, 2024 9:28am Start: 04-06-2021 End: 05-29-2021 take 10 mg by mouth once daily Lisinopril 20 mg tablet Discontinued 10 mg PO DAILY April 06, 2021 3:05pm May 29, 2021 2:37pm Start: 03-13-2020 End: 04-06-2021 take 1 tablet by mouth once daily Lisinopril 20 MG tablet Discontinued 20 mg PO DAILY 0 April 23, 2020 1:00am April 06, 2021 3:05pm Start: 08-09-2019 End: 03-13-2020 take 1 tablet by mouth twice daily Lisinopril 20 mg tablet Discontinued 20 mg PO TWICE A DAY 60 1 October 11, 2019 2:00pm March 13, 2020 9:02am Start: 07-30-2019 End: 08-09-2019 take 1 tablet by mouth once daily Lisinopril 20 MG tablet Discontinued 20 mg PO DAILY July 30, 2019 12:00am August 09, 2019 5:17pm Start: 07-22-2019 End: 07-30-2019 take 1 tablet by mouth once daily Lisinopril 5 MG tablet Discontinued 5 mg PO DAILY July 22, 2019 12:00am July 30, 2019 12:13pm LISINOPRIL PO Ta ke by mouth. Active melatonin 3 mg oral tablet (2 sources) take 5 mg by mouth once daily as needed melatonin 3 MG TABS tablet Take 5 mg by mouth nightly as needed 0 Active 24 hr metoprolol succinate 25 mg extended release oral tablet (10 sources) beta-Adrenergic Niru Start: 09-04-2024 take 1 tablet by mouth once daily Metoprolol Succinate 25 mg tablet extended release 24 hr Active 25 mg PO DAILY September 04, 2024 9:15am Start: 04-12-2022 End: 09-04-2024 take 4 tablets by mouth once daily Metoprolol Succinate 25 mg tablet extended release 24 hr Discontinued 6.25 mg PO DAILY April 12, 2022 4:03pm September 04, 2024 9:18am Start: 05-29-2021 End: 04-12-2022 take 2 tablets by mouth once daily Metoprolol Succinate 25 mg tablet extended release 24 hr Discontinued 12.5 mg PO DAILY May 29, 2021 2:36pm April 12, 2022 4:03pm 6.25mg Start: 04-06-2021 End: 05-29-2021 take 4 tablets by mouth once daily Metoprolol Succinate 25 mg tablet extended release 24 hr Discontinued 6.25 mg PO DAILY April 06, 2021 3:05pm May 29, 2021 2:37pm 6.25mg Start: 01-02-2021 End: 04-06-2021 take 2 tablets by mouth once daily Metoprolol Succinate 25 mg tablet extended release 24 hr Discontinued 12.5 mg PO DAILY January 02, 2021 12:00am April 06, 2021 3:05pm 6.25mg Start: 08-27-2020 End: 08-27-2020 take 6.25 mg by mouth twice daily Metoprolol Tartrate 25 mg tablet Discontinued 6.25 mg PO TWICE A DAY August 27, 2020 1:10pm August 27, 2020 1:42pm Start: 05-23-2020 End: 08-27-2020 Metoprolol Tartrate 25 mg ta blet Discontinued 12.5 mg PO TWICE A DAY 60 0 May 23, 2020 3:05pm August 27, 2020 1:12pm Start: 04-23-2020 End: 05-23-2020 take 1 tablet by mouth twice daily Metoprolol Tartrate 25 MG tablet Discontinued 25 mg PO TWICE A DAY 60 0 April 23, 2020 1:00am May 23, 2020 3:06pm take 1 tablet by karen th once daily metoprolol tartrate (LOPRESSOR) 25 MG tablet Take 25 mg by mouth daily 0 Active Multiple Vitamins-Minerals (THERAPEUTIC MULTIVITAMIN-MINERALS) tablet (2 sources) take 1 tablet by mouth once daily Multiple Vitamins-Minerals (THERAPEUTIC MULTIVITAMIN-MINERALS) tablet Take 1 tablet by mouth daily 0 Active Multivitamin 1 TABLET tablet (1 source) Start : 04-22 Multivitamin 1 TABLET tablet Active 1 {tbl} PO DAILY April 22, 2020 1:00am SUPPLIMENT pantoprazole 40 mg delayed release oral tablet (2 sources) Proton Pump Inhibitor take 1 tablet by mouth once daily pantoprazole (PROTONIX) 40 MG tablet Take 40 mg by mouth daily 0 Active perflutren lipid microspheres (DEFINITY) injection 1.65 mg (1 source) Start : 09-17 End: 09-20 perflutren lipid microspheres (DEFINITY) injection 1.65 mg potassium 99 mg extended release oral tablet (1 source) Start : 09-04 take 1 mg by mouth once daily Potassium 99 mg tablet Active mg PO DAILY September 04, 2024 12:00am warfarin sodium 5 mg oral tablet (5 sources) Vitamin K Antagonist Start : 12-17 Warfarin 2.5 mg Tablet Active 2.5 mg PO MOFR December 17, 2020 12:00am Start: 12-17-2020 Warfarin 5 mg Tablet Active 5 mg PO SUTUWETHSA December 17, 2020 12:00am Completed/Discontinued Medications Medication Drug Class(es) Dates Sig (Normalized) Sig (Original) apixaban 5 mg oral tablet (1 source) Factor Xa Inhibitor Start: 04-23-2020 End: 04-29-2020 take 1 tablet by mouth twice daily Apixaban 5 MG tablet Discontinued 5 mg PO TWICE A DAY 60 0 April 23, 2020 1:00am April 29, 2020 4:31pm atorvastatin 40 mg oral tablet (4 sources) HMG-CoA Reductase Inhibitor Start: 04-30-2020 End: 05-23-2020 take 1 tablet by mouth at bedtime Atorvastatin 40 MG tablet Discontinued 40 mg PO AT BEDTIME 0 April 30, 2020 1:00am May 23, 2020 2:29pm this is a home medication Start: 04-23-2020 End: 04-25-2020 take 1 tablet by mouth at bedtime Atorvastatin 40 MG tablet Discontinued 40 mg PO AT BEDTIME 30 0 April 23, 2020 1:00am April 25, 2020 5:57pm Start: 07-22-2019 End: 03-13-2020 take 1 tablet by mouth at bedtime Atorvastatin 80 MG tablet Discontinued 80 mg PO AT BEDTIME 30 1 July 30, 2019 2:00pm March 13, 2020 9:01am [place] 9-Zbv-Fcu-Fish Oil (1 source) Start: 04-22-2020 End: 04-12-2022 take 1 capsule by mouth once daily [place] 8-Fsg-Jhv-Fish Oil 1 EACH capsule Discontinued 1 NMA PO DAILY April 22, 2020 1:00am April 12, 2022 4:13pm supplement Garlic (1 source) Non-Standardiz ed Food Allergenic Extract Start: 04-22-2020 End: 04-23-2020 take 1 capsule by mouth once daily Garlic 500 MG capsule Discontinued 500 mg PO DAILY April 22, 2020 1:00am April 23, 2020 12:16pm supplement hydroCHLOROthiazide 12.5 mg oral tablet (8 sources) Thiazide Diuretic Start: 05-29-2021 End: 09-04-2024 take 1 tablet by mouth once daily Hydrochlorothiazide 12.5 mg tablet Discontinued 12.5 mg PO DAILY May 29, 2021 2:35pm September 04, 2024 9:17am Start: 04-06-2021 End: 05-29-2021 take 6.25 mg by mouth once daily Hydrochlorothiazide 12.5 mg tablet Discontinued 6.25 mg PO DAILY April 06, 2021 1:00am May 29, 2021 2:37pm Start: 05-23-2020 End: 04-06-2021 take 6.25 mg by mouth once daily Hydrochlorothiazide 12.5 mg capsule Discontinued 6.25 mg PO DAILY August 27, 2020 1:54pm April 06, 2021 3:04pm Start: 09-13-2019 End: 03-13-2020 Hydrochlorothiazide 25 mg ta blet Discontinued NMA PO September 13, 2019 12:00am March 13, 2020 9:02am HYDROCHLOROTHIAZ REYES PO Take by mouth. Active take 1 tablet by once daily hydroCHLOROthiazide (HYDRODIURIL) 25 MG tablet Take 25 mg by mouth daily 0 Active ibuprofen 600 mg oral tablet (1 source) Nonsteroidal Anti-inflammatory Drug Start: 04-30-2020 End: 05-23-2020 Ibuprofen 600 MG tablet Discontinued 600 mg PO Q12 1 0 April 30, 2020 1:00am May 23, 2020 2:29pm Use sparingly as you are on apixaban. Take if headache/pain is refractory to acetaminophen. 10 ml lidocaine hydrochloride 10 mg/ml injection (1 source) Antiarrhythmic, Amide Local Anesthetic Start: 03-13-2024 End: 03-13-2024 10 mL, Intradermal, NOW, 1 dose, On Tue03/13/24 at 1415 metFORMIN hydrochloride 500 mg oral tablet (1 source) Biguanide Start: 07-30-2019 End: 03-13-2020 take 1 tablet by mouth twice daily Metformin 500 MG tablet Discontinued 500 mg PO TWICE A DAY 60 1 July 30, 2019 12:00am March 13, 2020 9:01am [place] (1 source) Start: 04-22-2020 End: 04-23-2020 take 1 capsule by mouth at bedtime [place] 450 MG capsule Discontinued 450 mg PO AT BEDTIME April 22, 2020 1:00am April 23, 2020 12:16pm PROSTATE Turmeric-Turmeric Root Extract (3 sources) Start: 04-22-2020 End: 09-04-2024 take 1 capsule by mouth twice daily Turmeric-Turmeric Root Extract 1 EACH capsule Discontinued 1 NMA PO TWICE A DAY April 22, 2020 1:00am September 04, 2024 9:18am supplemetn take 1 capsule by mouth twice da william turmeric 500 MG CAPS Take by mouth 2 times daily 0 Active Problems Active Problems Problem Classification Problem Date Documented Date Episodic/Chronic Acute cerebrovascular disease (1 source) Cerebrovascular accident; Translations: [Cerebral infarction, unspecified] 04-29-2020 Chronic Cardiac dysrhythmias (15 sources) Atrial fibrillation; Translations: [Unspecified atrial fibrillation] Onset: 2 Chronic Diabetes mellitus without complication (1 source) Type 2 diabetes mellitus; Translations: [Type 2 diabetes mellitus without complications] 04-29-2020 Chronic Diabetes mellitus without complication (1 source) Hyperglycemia; Translations: [Hyperglycemia, unspecified] 07-29-2019 Episodic Disorders of lipid metabolism (3 sources) Hyperlipidemia; Translations: [Hyperlipidemia, unspecified] Onset: 5 05-23-2020 Chronic Essential hypertension (5 sources) Essential (primary) hypertension; Translations: [Essential hypertension] Onset: 4 04-06-2021 Chronic Comment on above: suspect chronic and untreated Headache; including migraine (1 source) Migraine; Translations: [Migraine, unspecified, not intractable, without status migrainosus] 04-29-2020 Chronic Headache; including migraine (1 source) Headache; Translations: [Headache] 04-29-2020 Episodic Immunizations and screening for infectious disease (1 source) Encounter for immunization; Translations: [Encounter for immunization] Onset: 4 Episodic Nonspecific chest pain (6 sources) Atypical chest pain; Translations: [Other chest pain] Onset: 5 12-26-2020 Episodic Open wounds of extremities (2 sources) Laceration of left middle finger; Translations: [Laceration without foreign body of left middle finger without damage to nail, initial encounter] Onset: 4 03-13-2024 Episodic Other aftercare (1 source) 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; Translations: [penitentiary (current) use of anticoagulants] Onset: 4 Episodic Other nervous system disorders (1 source) Aphasia; Translations: [Aphasia] 07-29-2019 Chronic Other screening for suspected conditions (not mental disorders or infectious disease) (1 source) Electrocardiogram abnormal; Translations: [Abnormal electrocardiogram [ECG] [EKG]] 12-26-2020 Episodic Residual codes; unclassified (1 source) Medication given; Translations: [Status post administration of tPA (rtPA) in a different facility within the last 24 hours prior to admission to current facility] 07-29-2019 Chronic Screening and history of mental health and substance abuse codes (5 sources) Personal history of nicotine dependence; Translations: [Personal history of tobacco use] Onset: 3 Episodic Sprains and strains (1 source) Sprain of other ligament of left ankle, initial encounter; Translations: [Sprain of other ligament of left ankle, initial encounter] Onset: 9 Episodic Unclassified (2 sources) Sprain of other ligament of left ankle, initial encounter Onset: 9 Past or Other Problems Problem Classification Problem [...] pain; Translations: [Pain in left hip] Episodic Unclassified (1 source) History of left ankle surgery 12-07-2021 Unclassified (1 source) history of lower hernia surgery 12-07-2021 Results Test Name Value Interpretation Reference Range Facility Cardiovascular stress test r eportOrdered By: Ori Fernandes on 10-31-2024 Study report [facility] [address] [place] [id number] MR#: [id number] Acct: [id number] Name: ANNIA ALFONSO Rep #: [id number] : 1955 68 From: Ori Fernandes MD Primary Care: Dr. Ludy Sarmiento MD Stat us: REG CLI Referring Dr: Arlene Mata NP MANAGER CRITICAL CARE UNIT-C Sex: M C Stress Test Report Exercise myocardial perfusion stress test. 68-year-old with a history of paroxysmal atrial fibrillation Stress protocol: Resting EKG demonstrates sinus rhythm with a rate of 60 bpm bpm resting blood pressure is 152/74 mmHg. The patient exercised according to the regular Khurram protocol for a total duration of 6-1/2 minutes attaining a maximum heart rate of134 bpm which was 89 per of maximum predicted heart rate; the maximum workload was 8.5 metabolic equivalents. At rest there were no ST or T wave changes notedto suggest ischemia and at peak exercise upsloping ST changes only were noted which did not meet the criteria for ischemia. No clinical angina was noted the test was terminated due to the target heart rate being achieved/fatigue. The peak blood pressure was 200/70 mmHg. Rate-pressure product was 25,100. Myocardial perfusion protocol. 14.3 mCi of technetium 99m sestamibi was injected at rest. The patient exercised according to regular Khurram protocol for total duration of 6-1/2 and atpeak exercise 44.1 mCi of technetium 99m sestamibi was injected stress images were obtained stress and rest images were reconstructed in comparing the short axis vertical long and horizontal long axis. Gated images were also obtained. Perfusion SPECT analysis: Review of the stress images demonstrate normal uptake of tracer noted in all areas of the myocardium. The resting images similarly demonstrate normal uptakeof tracer noted in all areas of the myocardium. No areas of reversibility are noted to suggest ischemia no previous infarct was noted. Gated SPECT analysis: The gated ejection fraction is 64%. Conclusion: Normal exercise myocardial perfusion stress test at a moderate workload Preserved ejection fraction. 10/31/24733 Date _ Ori Fernandes MD CC: MANAGER CRITICAL CARE UNIT-C Arlene Mata; Dr. Ludy Sarmiento MD ~ Date Dictated: 10/31/24730 Date Transcribed: 10/31/24730 Chaperon: [place] Signed [facility] Work Phone: Stress Reporton 10-31-2024 Stress Report [facility] [address] [place] [address] MR#: [id number] Acct: [id number] Name: ANNIA ALFONSO Rep #: [id number] : 1955 68 From: Ori Fernandes MD Primary Care: Dr. Ludy Sarmiento MD Status: REG CLI Referring Dr: Arlene Mata NP MANAGER CRITICAL CARE UNIT-C Sex: M C Stress Test Report Exercise myocardial perfusion stress test. 68-year-old with a history of paroxysmal atrial fibrillation Stress protocol: Resting EKG demonstrates sinus rhythm with a rate of 60 bpm bpm resting blood pressure is 152/74 mmHg. The patient exercised according to the regular Khurram protocol for a total duration of 6-1/2 minutes attaining a maximum heart rate of 134 bpm which was 89 per of maximum predicted heart rate; the maximum workload was 8.5 metabolic equivalents. At rest there were no ST or T wave changes noted to suggest ischemia and at peak exercise upsloping ST changes only were noted which did not meet the criteria for ischemia. No clinical angina was noted the test was terminated due to the target heart rate being achieved/fatigue. The peak blood pressure was 200/70 mmHg. Rate-pressure product was 25,100. Myocardial perfusion protocol. 14.3 mCi of technetium 99m sestamibi was injected at rest. The patient exercised according to regular Khurram protocol for total duration of 6-1/2 and at peak exercise 44.1 mCi of technetium 99m sestamibi was injected stress images were obtained stress and rest images were reconstructed in comparing the short axis vertical long and horizontal long axis. Gated images were also obtained. Perfusion SPECT analysis: Review of the stress images demonstrate normal uptake of tracer noted in all areas of the myocardium. The resting images similarly demonstrate normal uptake of tracer noted in all areas of the myocardium. No areas of reversibility are noted to suggest ischemia no previous infarct was noted. Gated SPECT analysis: The gated ejection fraction is 64%. Conclusion: Normal exercise myocardial perfusion stress test at a moderate workload Preserved ejection fraction. 10/31/24733 Date Ori Fernandes MD CC: LESTER Mata; Dr. Ludy Sarmiento MD Date Dictated: 10/31/24730 Date Transcribed: 10/31/24730 Chaperon: CO Signed Normal [facility] ALBUMIN, RANDOM URINE W/CREA KORINon 10-12-2024 ALBUMIN, URINE Normal [facility] Comment on above: Performed By: #### 1 939, 5322, 56525, 496, 6517 #### [facility] of [address], [address] [place] [address] Merchandising Execution Manager: Jung Flores MD ALBUMIN/CREATININE RATIO, RANDOM URINE Normal [facility] Comment on above: Performed By: #### 1 759, 7600, 62456, 496, 6517 #### [facility] of [address], [address] [place] [address] Merchandising Execution Manager: Jung Flores MD CREATININE, RANDOM URINE Normal [facility] Comment on above: Performed By: #### 1 759, 7600, 13112, 496, 6517 #### [facility] of [place] [address] Merchandising Execution Manager: Jung Flores MD CBC (H/H, RBC, INDICES, WBC, PLT)on 10-12-2024 Erythrocyte distribution width (RBC) [Ratio] 14.2 % Normal 11.0-15.0 [facility] Comment on above: Performed By: #### 1 759, 7600, 13488, 496, 6517 #### [facility] of [place] [address] Merchandising Execution Manager: Jung Flores MD Hematocrit (Bld) [Volume fraction] 45.4 % Normal 38.5-50.0 [facility] Comment on above: Performed By: #### 1 759, 7600, 54792, 496, 6517 #### [facility] of [place] [address] Merchandising Execution Manager: Jung Flores MD Hemoglobin (Bld) [Mass/Vol] 14.5 g/dL Normal 13.2-17.1 [facility] Comment on above: Performed By: #### 1 759, 7600, 14167, 496, 6517 #### [facility] of [place] [address] Merchandising Execution Manager: Jung Flores MD MCH (RBC) [Entitic mass] 28.6 pg Normal 27.0-33.0 [facility] Comment on above: Performed By: #### 1 759, 7600, 95581, 496, 6517 #### [facility] [place] [address] Merchandising Execution Manager: Jung Flores MD MCHC (RBC) [Mass/Vol] 31.9 g/dL Low 32.0-36.[address] [facility] Comment on above: Result Comment: For adults, a slight decrease in the calculated MCHC value (in the range of 30 to 32 g/dL) is most likely not clinically significant; however, it should be interpreted with caution in correlation with other red cell parameters and the patient's clinical condition. Performed By: #### 1 759, 7600, 34920, 496, 6517 #### [facility] of [place] [address] Merchandising Execution Manager: Jung Flores MD MCV (RBC) [Entitic vol] 89.5 fL Normal 80.0-100.0 [facility] Comment on above: Performed By: #### 1 759, 7600, 33380, 496, 6517 #### [facility] of [place] [address] Merchandising Execution Manager: Jung Flores MD Platelet mean volume (Bld) [Entitic vol] 10.8 fL Normal 7.5-12.5 [facility] Comment on above: Performed By: #### 1 759, 7600, 78499, 496, 6517 #### [facility] of [place] [address] Merchandising Execution Manager: Jung Flores MD Platelets (Bld) [#/Vol] 240 10*3/uL Normal 140-400 [facility] Comment on above: Performed By: #### 1 759, 7600, 80675, 496, 6517 #### [facility] of [place] [address] Merchandising Execution Manager: Jung Flores MD RBC (Bld) [#/Vol] 5.07 10*6/uL Normal 4.20-5.80 [facility] Comment on above: Performed By: #### 1 759, 7600, 58409, 496, 6517 #### [facility] of [place] [address] Merchandising Execution Manager: Jung Flores MD WBC (Bld) [#/Vol] 7.5 10*3/uL Normal 3.8-10.8 [facility] Comment on above: Performed By: #### 1 759, 7600, 78004, 496, 6517 #### [facility] of [place] [address] Merchandising Execution Manager: Jung Flores MD [facility] METABOLIC [facility] 10-12-2024 Albumin [Mass/Vol] 4.6 g/dL Normal 3.6-5.1 [facility] Comment on above: Performed By: #### 1 759, 7600, 76039, 496, 6517 #### [facility] of [place] [address] Merchandising Execution Manager: Jung Flores MD Albumin/Globulin [Mass ratio] 2.0 {ratio} Normal 1.0-2.5 [facility] Comment on above: Performed By: #### 1 759, 7600, 94224, 496, 6517 #### [facility] of [place] [address] Merchandising Execution Manager: Jung Flores MD ALP [Catalytic activity/Vol] 55 U/L Normal 35-144 [facility] Comment on above: Performed By: #### 1 759, 7600, 71318, 496, 6517 #### [facility] of [place] [address] Merchandising Execution Manager: Jung Flores MD ALT [Catalytic activity/Vol] 31 U/L Normal 9-46 [facility] Comment on above: Performed By: #### 1 759, 7600, 56922, 496, 6517 #### [facility] [place] [address] Merchandising Execution Manager: Jung Flores MD AST [Catalytic activity/Vol] 30 U/L Normal 10-35 [facility] Comment on above: Performed By: #### 1 759, 7600, 99612, 496, 6517 #### [facility] of [address], [address] [place] [address] Merchandising Execution Manager: Jung Flores MD Bilirubin [Mass/Vol] 0.9 mg/dL Normal 0.2-1.2 Ques t [facility] Comment on above: Performed By: #### 1 759, 7600, 11404, 496, 6517 #### [facility] of [address], [address] [place] [address] Merchandising Execution Manager: Jung Flores MD BUN/CREATININE RATIO SEE NOTE: Normal 6-22 [facility] Comment on above: Result Comment: Not Reported: BUN and Creatinine are within reference range. Performed By: #### 1 759, 7600, 26051, 496, 6517 #### [facility] of [address], [address] [place] [address] Merchandising Execution Manager: Jung Flores MD Calcium [Mass/Vol] 9.6 mg/dL Normal 8.6-10.3 [facility] Comment on above: Performed By: #### 1 759, 7600, 12353, 496, 6517 #### [facility] of [address], [address] [place] [address] Merchandising Execution Manager: Jung Flores MD Chloride [Moles/Vol] 101 mmol/L Normal 98-110 [facility] Comment on above: Performed By: #### 1 759, 7600, 34637, 496, 6517 #### [facility] of [address], [address] [place] [address] Merchandising Execution Manager: Jung Flores MD CO2 [Moles/Vol] 26 mmol/L Normal 20-32 [facility] Comment on above: Performed By: #### 1 759, 7600, 16749, 496, 6517 #### [facility] of [address], [address] [place] [address] Merchandising Execution Manager: Jung Flores MD Creatinine [Mass/Vol] 1.10 mg/dL Normal 0.70-1.[address] [facility] Comment on above: Performed By: #### 1 759, 7600, 01253, 496, 6517 #### [facility] [address], [address] [place] [address] Merchandising Execution Manager: Jung Flores MD GFR/1.73 sq M.predicted among non-blacks MDRD (S/P/Bld) [Vol rate/Area] 72 mL/min/{1.73_m2} Normal > OR = 60 [facility] Comment on above: Performed By: #### 1 759, 7600, 49349, 496, 6517 #### [facility] [address], [address] [place] [address] Merchandising Execution Manager: Jung Flores MD Globulin (S) [Mass/Vol] 2.3 g/dL Normal 1.9-3.7 [facility] Comment on above: Performed By: #### 1 759, 7600, 18373, 496, 6517 #### [facility] [address], [address] [place] [address] Merchandising Execution Manager: Jung Flores MD Glucose [Mass/Vol] 141 mg/dL High 65-99 [facility] Comment on above: Result Comment: Fasting reference interval For someone without known diabetes, a glucose value >125 mg/dL indicates that they may have diabetes and this should be confirmed with a follow-up test. Performed By: #### 1 759, 7600, 38905, 496, 6517 #### [facility] [address], [address] [place] [address] Merchandising Execution Manager: Jung Flores MD Potassium [Moles/Vol] 4.7 mmol/L Normal 3.5-5.[address] [facility] Comment on above: Performed By: #### 1 759, 7600, 76808, 496, 6517 #### [facility] [address], [address] [place] [address] Merchandising Execution Manager: Jung Flores MD Protein [Mass/Vol] 6.9 g/dL Normal 6.1-8.1 [facility] Comment on above: Performed By: #### 1 759, 7600, 02138, 496, 6517 #### [facility] [address], [address] [place] [address] Merchandising Execution Manager: Jung Flores MD Sodium [Moles/Vol] 137 mmol/L Normal 135-146 [facility] Comment on above: Performed By: #### 1 759, 7600, 58396, 496, 6517 #### [facility] [address], [address] [place] [address] Merchandising Execution Manager: Jung Flores MD Urea nitrogen [Mass/Vol] 18 mg/dL Normal 7-25 [facility] Comment on above: Performed By: #### 1 759, 7600, 17077, 496, 6517 #### [facility] [address], [address] [place] [address] Merchandising Execution Manager: Jung Flores MD HEMOGLOBIN A1con 10-12-2024 HbA1c [...] children. Performed By: #### 1 759, 7600, 92131, 496, 6517 #### [facility] [address], [address] [place] [address] Merchandising Execution Manager: Jung Flores MD LIPID PANEL, STANDARDon Cholesterol [Mass/Vol] 206 mg/dL High <200 Qu est [facility] Comment on above: Order Comment: 0; FA STING; 0; FASTING; 0 FASTING:YES FASTING: YES Performed By: #### 1 759, 7600, 93384, 496, 6517 #### [facility] [address], [address] [place] [address] Merchandising Execution Manager: Jung Flores MD Cholesterol in HDL [Mass/Vol] 49 mg/dL Normal > OR = 40 [facility] Comment on above: Order Comment: 0; FA STING; 0; FASTING; 0 FASTING:YES FASTING: YES Performed By: #### 1 759, 7600, 54773, 496, 6517 #### [facility] [address], [address] [place] [address] Merchandising Execution Manager: Jung Flores MD Cholesterol in LDL [Mass/Vol] 128 mg/dL High [facility] Comment on above: Order Comment: 0; FA STING; 0; FASTING; 0 FASTING:YES FASTING: YES Result Comment: Refe rence range: <100 Desirable range <100 mg/dL for primary prevention; <70 mg/dL for patients with CHD or diabetic patients with > or = 2 CHD risk factors. LDL-C is now calculated using the Ash-Amy calculation, which is a validated novel method providing better accuracy than the Friedewald equation in the estimation of LDL-C. Ash SS et al. LEESA. 2013;310(19): 1025-8252 (http://education.Shopping Buddy.Traffline/faq/AAK752) Performed By: #### 1 759, 7600, 38033, 496, 6517 #### [facility] [address], [address] [place] [address] Merchandising Execution Manager: Jung Flores MD Cholesterol.total/Claire sterol in HDL [Mass ratio] 4.2 {ratio} Normal <5.0 [facility] Comment on above: Order Comment: 0; FA STING; 0; FASTING; 0 FASTING:YES FASTING: YES Performed By: #### 1 759, 7600, 79830, 496, 6517 #### [facility] [address], [address] [place] [address] Merchandising Execution Manager: Jung Flores MD NON HDL CHOLESTEROL 157 mg/dL (calc) High <130 [facility] Comment on above: Order Comment: 0; FA STING; 0; FASTING; 0 FASTING:YES FASTING: YES Result Comment: For patients with diabetes plus 1 major ASCVD risk factor, treating to a non-HDL-C goal of <100 mg/dL (LDL-C of <70 mg/dL) is considered a therapeutic option. Performed By: #### 1 759, 7600, 84190, 496, 6517 #### [facility] [address], [address] [place] [address] Merchandising Execution Manager: Jung Flores MD Triglyceride [Mass/Vol] 172 mg/dL High <150 Q u[facility] Comment on above: Order Comment: 0; FA STING; 0; FASTING; 0 FASTING:YES FASTING: YES Performed By: #### 1 759, 7600, 28424, 496, 6517 #### [facility] [address], [address] [place], [place] [id number] Merchandising Execution Manager: Jung Flores MD 12 Lead EKG performed by [facility] on 09-04-2024 12 [place] [address] 12 Lead EKG performed by [facility] 09/04/24 0913 MR#: [id number] Acct: [id number] Name: ANNIA ALFONSO Rep #: [id number] : 1955 68 From: Arlene Mata NP MANAGER CRITICAL CARE UNIT-C Attending Dr: LISA KentC Status: DEP A RIGO Ordering Dr: Arlene Mata NP MANAGER CRITICAL CARE UNIT-C Date: 09/04/24 Location: [facility] Sex: M C Admitted: BMS/12 Lead EKG performed by [facility] ECG Report Interpretation -------Sinus Rhythm -Right bundle branch block. ABNORMAL Electronically signed on 09/04/2024 at 09:59 by Ori Fernandes Software Version [id number] 09/04/24 1002 Date Arlene BATISTA CC: Dr. Ludy Sarmiento MD Date Dictated: 09/04/24912 Date Transcribed: 09/04/24912 Chaperon: MARY Signed Normal [facility] Cardiology Visit Reporton Cardiology Visit Report [facility] [address] [place] [address] OFFICE VISIT Date of Service: 09/04/24 MR#: [id number] Acct: [id number] Name: ANNIA ALFONSO Rep #: [id number] : 1955 Provider: LESTER del real Age/Sex: 68/M Location: [facility] Status: Signed HPI HPI History of Present [...] states that he is currently doing the carnivore diet, trying to lose weight. Intake Vital Signs 04/12/22 15:01 09/03/24 07:24 Height 5 ft 10 in 5 ft 10 in Weight: 240 lb BMI 34.4 BP 152/70 H Blood Pressure Location Lt brachial Position Sitting Respiration 18 Pulse 61 Pulse Source Monitor Pulse Oximetry (%) 97 Intake Visit Reasons: OVER DUE FOR FU Hydrometer Tester Required: No Is patient in pain?: No [...] Heart disease Father Heart disease Social History (Reviewed 09/04/24 @ 09:15 by Arlene Mata MANAGER CRITICAL CARE UNIT, MANAGER CRITICAL CARE UNIT-C) household members: spouse housing: house Smoking Status: [...] Appearance: cooperative (more content not included)... Normal [facility] CBC (H/H, RBC, INDICES, WBC, PLT)on 04-20-2024 Erythrocyte distribution width (RBC) [Ratio] 13.5 % Normal 11.0-15.0 [facility] Comment on above: Performed By: #### 1 959, 91454, 25741 #### [facility] [place] [address] Merchandising Execution Manager: Jung Flores MD Hematocrit (Bld) [Volume fraction] 42.0 % Normal 38.5-50.0 [facility] Comment on above: Performed By: #### 1 489, 18134, 97322 #### [facility] [place] [address] Merchandising Execution Manager: Jung Flores MD Hemoglobin (Bld) [Mass/Vol] 13.8 g/dL Normal 13.2-17.1 [facility] Comment on above: Performed By: #### 1 891, 54808, 60758 #### [facility] [address] [place] [address] Merchandising Execution Manager: Jung Flores MD MCH (RBC) [Entitic mass] 28.2 pg Normal 27.0-33.0 [facility] Comment on above: Performed By: #### 1 759, 90393, 46759 #### [facility] [address], [address] [place] [address] Merchandising Execution Manager: Jung Flores MD MCHC (RBC) [Mass/Vol] 32.9 g/dL Normal 32.0-36.[address] [facility] Comment on above: Result Comment: For adults, a slight decrease in the calculated MCHC value (in the range of 30 to 32 g/dL) is most likely not clinically significant; however, it should be interpreted with caution in correlation with other red cell parameters and the patient's clinical condition. Performed By: #### 1 759, 99101, 16135 #### [facility] [place] [address] Merchandising Execution Manager: Jung Flores MD MCV (RBC) [Entitic vol] 85.9 fL Normal 80.0-100.0 Q u[facility] Comment on above: Performed By: #### 1 759, 31155, 87226 #### [facility] [place] [address] Merchandising Execution Manager: Jung Flores MD Platelet mean volume (Bld) [Entitic vol] 11.0 fL Normal 7.5-12.5 [facility] Comment on above: Performed By: #### 1 759, 05132, 70611 #### [facility] [place] [address] Merchandising Execution Manager: Jung Flores MD Platelets (Bld) [#/Vol] 247 10*3/uL Normal 140-400 [facility] Comment on above: Performed By: #### 1 75, 20611, 86229 #### [facility] [place] [address] Merchandising Execution Manager: Jung Flores MD RBC (Bld) [#/Vol] 4.89 10*6/uL Normal 4.20-5.80 [facility] Comment on above: Performed By: #### 1 759, 77523, 11087 #### [facility] [place] [address] Merchandising Execution Manager: Jung Flores MD WBC (Bld) [#/Vol] 5.9 10*3/uL Normal 3.8-10.8 [facility] Comment on above: Performed By: #### 1 759, 43382, 16040 #### [facility] [place] [address] Merchandising Execution Manager: Jung Flores MD [facility] METABOLIC [facility] 04-20-2024 Albumin [Mass/Vol] 4.4 g/dL Normal 3.6-5.1 [facility] Comment on above: Order Comment: 0; 0; 0 Performed By: #### 1 759, 59360, 51292 #### [facility] [place] [address] Merchandising Execution Manager: Jung Flores MD Albumin/Globulin [Mass ratio] 2.0 {ratio} Normal 1.0-2.5 [facility] Comment on above: Order Comment: 0; 0; 0 Performed By: #### 1 759, 73693, 10146 #### [facility] [place] [address] Merchandising Execution Manager: Jung Flores MD ALP [Catalytic activity/Vol] 60 U/L Normal 35-144 [facility] Comment on above: Order Comment: 0; 0; 0 Performed By: #### 1 759, 46467, 02951 #### [facility] [place] [address] Merchandising Execution Manager: Jung Flores MD ALT [Catalytic activity/Vol] 24 U/L Normal 9-46 [facility] Comment on above: Order Comment: 0; 0; 0 Performed By: #### 1 759, 90389, 17530 #### [facility] [place] [address] Merchandising Execution Manager: Jung Flores MD AST [Catalytic activity/Vol] 20 U/L Normal 10-35 [facility] Comment on above: Order Comment: 0; 0; 0 Performed By: #### 1 759, 94291, 52381 #### [facility] [place] [address] Merchandising Execution Manager: Jung Flores MD Bilirubin [Mass/Vol] 0.6 mg/dL Normal 0.2-1.2 Ques t [facility] Comment on above: Order Comment: 0; 0; 0 Performed By: #### 1 759, 17164, 58253 #### [facility] [place] [address] Merchandising Execution Manager: Jung Flores MD BUN/CREATININE RATIO SEE NOTE: Normal 6-22 [facility] t Diagnostics Comment on above: Order Comment: 0; 0; 0 Result Comment: Not Reported: BUN and Creatinine are within reference range. Performed By: #### 1 759, 51554, 26255 #### [facility] [place] [address] Merchandising Execution Manager: Jung Flores MD Calcium [Mass/Vol] 9.1 mg/dL Normal 8.6-10.3 [facility] Comment on above: Order Comment: 0; 0; 0 Performed By: #### 1 249, 24615, 52493 #### [facility] [place] [address] Merchandising Execution Manager: Jung Flores MD Chloride [Moles/Vol] 104 mmol/L Normal 98-110 Ques t [facility] Comment on above: Order Comment: 0; 0; 0 Performed By: #### 1 409, 56292, 30665 #### [facility] [place] [address] Merchandising Execution Manager: Jung Flores MD CO2 [Moles/Vol] 28 mmol/L Normal 20-32 [facility] Comment on above: Order Comment: 0; 0; 0 Performed By: #### 1 759, 50677, 04478 #### [facility] [place] [address] Merchandising Execution Manager: Jung Flores MD Creatinine [Mass/Vol] 0.96 mg/dL Normal 0.70-1.[address] [facility] Comment on above: Order Comment: 0; 0; 0 Performed By: #### 1 759, 35962, 02159 #### [facility] [address], [address] [place] [address] Merchandising Execution Manager: Jung Flores MD GFR/1.73 sq M.predicted among non-blacks MDRD (S/P/Bld) [Vol rate/Area] 85 mL/min/{1.73_m2} Normal > OR = 60 [facility] Comment on above: Order Comment: 0; 0; 0 Performed By: #### 1 459, 47448, 04929 #### [facility] [place] [address] Merchandising Execution Manager: Jung Flores MD Globulin (S) [Mass/Vol] 2.2 g/dL Normal 1.9-3.7 [facility] Comment on above: Order Comment: 0; 0; 0 Performed By: #### 1 759, 16379, 81673 #### [facility] [place] [address] Merchandising Execution Manager: Jung Flores MD Glucose [Mass/Vol] 141 mg/dL High 65-99 [facility] Comment on above: Order Comment: 0; 0; 0 Result Comment: Fasting reference interval For someone without known diabetes, a glucose value >125 mg/dL indicates that they may have diabetes and this should be confirmed with a follow-up test. Performed By: #### 1 939, 79467, 88789 #### [facility] [place] [address] Merchandising Execution Manager: Jung Flores MD Potassium [Moles/Vol] 4.5 mmol/L Normal 3.5-5.[address] [facility] Comment on above: Order Comment: 0; 0; 0 Performed By: #### 1 759, 84404, 60489 #### [facility] [place] [address] Merchandising Execution Manager: Jung Flores MD Protein [Mass/Vol] 6.6 g/dL Normal 6.1-8.1 [facility] Comment on above: Order Comment: 0; 0; 0 Performed By: #### 1 759, 80302, 33502 #### [facility] [place] [address] Merchandising Execution Manager: Jung Flores MD Sodium [Moles/Vol] 141 mmol/L Normal 135-146 [facility] Comment on above: Order Comment: 0; 0; 0 Performed By: #### 1 759, 21905, 90333 #### [facility] [place] [address] Merchandising Execution Manager: Jung Flores MD Urea nitrogen [Mass/Vol] 19 mg/dL Normal 7-25 [facility] Comment on above: Order Comment: 0; 0; 0 Performed By: #### 1 759, 24552, 42207 #### [facility] [place] [address] Merchandising Execution Manager: Jung Flores MD PSA, TOTAL, MONITORINGon PSA, [...] of disease. Performed By: #### 1 759, 28883, 75914 #### [facility] [place] [id number] Merchandising Execution Manager: Jung Flores MD [facility] 03-13-2024 Dorina Winkler APRN MANAGER CRITICAL CARE UNIT 03/13/2024 2:05 PM [facility] Date/Time: 03/13/2024 2:04 PM Performed by: Dorina Winkler APRN NP Authorized by: Dorina Winkler APRN MANAGER CRITICAL CARE UNIT Consent: Consent obtained: Verbal Consent given by: Patient Risks, benefits, and alternatives were discussed: yes Risks discussed: Infection, need for additional repair, nerve damage, poor wound healing, poor cosmetic result, pain, tendon damage and vascular damage [place] protocol: Procedure explained and questions answered to [...] Procedure completion: Tolerated well, no immediate complications [facility] No Panel InformationOrdered By: Marco A Subramanian on 12-20-2022 Ao dist AP 1.68 cm [facility] Work Phone: Ao dist PSV 92.0 cm/s [facility] Work Phone: Ao dist TR 1.66 cm [facility] Work Phone: Ao mid AP 1.98 cm [facility] Work Phone: Ao mid PSV 83.0 cm/s [facility] Work Phone: Ao mid TR 2.09 cm [facility] Work Phone: Ao prox AP 2.66 cm [facility] Work Phone: Ao prox PSV 93.9 cm/s [facility] Work Phone: Ao prox TR 2.66 cm [...] Phone: Right EIA mid PSV 106.7 cm/s [facility] Work Phone: No Panel Informationon 12-20 No [...] cm AP x 1.93 cm TR present. [employer] Operator Details A cunningham scale, color Doppler imaging [...] Radiology ACCESSION EXAM DATE/TIME PROCEDURE ORDERING PROVIDER [id number] 11/06/2021 12:18 EDT CR Spine Cervical Comp MD GUILLERMINA, LUDY A w/ Obliques CPT code 13265 Reason For Exam (CR Spine Cervical Comp [...] Transcribed Date and Time: 11/10/2021 11:10 Normal [facility] CR Spine Thoracic 3 Viewson 11-06-2021 CR Spine Thoracic 3 Views Patient Name: ANNIA ALFONSO Diagnostic Radiology ACCESSION EXAM DATE/TIME PROCEDURE ORDERING PROVIDER [id number] 11/06/2021 12:18 EDT CR Spine Thoracic 3 MD GUILLERMINA, LUDY A Views CPT code 85201 Reason For Exam (CR Spine Thoracic 3 [...] Time: 11/10/2021 10:50 am Signed by: MD LILLY NEIL Transcribed Date and Time: 11/10/2021 10:51 Normal [facility] ECHO Complete 2D W Doppler W Coloron 09-17-2021 TRANSTHORACIC ECHOCARDIOGRAM PATIENT: Annia Alfonso STUDY DATE: 09/17/2021 : 1955 AGE: 65 HT/WT: 177.8 cm (70 108.4 kg in) (238.5 lb) GENDER: M BP: 163 / 76 LOCATION: [facility] PATIENT Outpatient [facility] STATUS: *ORDERING PHYSICIAN: * Esme Reynoso *READING PHYSICIAN: * *OPTOMECHANICAL TECHNICIAN: * Magdalena Barajas MD RDCS,AE, PE, RVT INDICATIONS: ASSESS LV FUNCTION, LA SIZE. CONCLUSIONS SUMMARY: 1. Left ventricle: Systolic function is by the biplane method of disks. The estimated ejection fraction is 61%. 2. Left atrium: The atrium is mildly dilated. 3. No significant valve disease. 4. Technically difficult study. STUDY DATA: Complete transthoracic echocardiogram. Procedure: Image quality was suboptimal. [employer] lot #: [id number]. M-mode, complete 2D, complete [...] ES, 2-p 34 (more content not included)... [facility] Magdalena Gonzalez MD - 09/17/2021 TRANSTHORACIC ECHOCARDIOGRAM PATIENT: Annia Alfonso STUDY DATE: 09/17/2021 : 1955 AGE: 65 HT/WT: 177.8 cm (70 108.4 kg in) (238.5 lb) GENDER: M BP: 163 / 76 LOCATION: [facility] PATIENT Outpatient [facility] STATUS: *ORDERING PHYSICIAN: * Esme Reynoso *READING PHYSICIAN: * *OPTOMECHANICAL TECHNICIAN: * Magdalena Barajas MD RDCS,AE, PE, RVT INDICATIONS: ASSESS LV FUNCTION, LA SIZE. CONCLUSIONS SUMMARY: 1. Left ventricle: Systolic function is by the biplane method of disks. The estimated ejection fraction is 61%. 2. Left atrium: The atrium is mildly dilated. 3. No significant valve disease. 4. Technically difficult study. STUDY DATA: Complete transthoracic echocardiogram. Procedure: Image quality was suboptimal. [employer] lot #: [id number]. M-mode, complete 2D, complete [...] Magdalena Gonzalez MD 09/17/2021 16:42 Prior Signatures: [employer] Work Phone: ECHO Complete 2D W Doppler W ColorOrdered By: Magdalena Gonzalez on 09-17-2021 [employer] Work Phone: Echo Complete w/wo Contrasto n 09-17-2021 Echo Complete w/wo Contrast Patient Name: ANNIA ALFONSO Ultrasound ACCESSION EXAM DATE/TIME PROCEDURE ORDERING PROVIDER [id number] 09/17/2021 14:49 EDT Echo Complete w/wo ANGELA REYNOSO KRISTEN Contrast Reason For Exam (Echo Complete w/wo Contrast) Assess LV function, LA size Report TRANSTHORACIC ECHOCARDIOGRAM PATIENT: Annia Alfonso STUDY DATE: 09/17/2021 : 1955 AGE: 65 HT/WT: 177.8 cm (70 108.4 kg in) (238.5 lb) GENDER: M BP: 163 / 76 LOCATION: [facility] PATIENT Outpatient [facility] STATUS: *ORDERING PHYSICIAN: * Esme Reynoso *READING PHYSICIAN: * *OPTOMECHANICAL TECHNICIAN: * Magdalena Barajas MD RDCS,AE, PE, RVT INDICATIONS: ASSESS LV FUNCTION, LA SIZE. CONCLUSIONS SUMMARY: 1. Left ventricle: Systolic function is by the biplane method of disks. The estimated ejection fraction is 61%. 2. Left atrium: The atrium is mildly dilated. 3. No significant valve disease. 4. Technically difficult study. STUDY DATA: Complete transthoracic echocardiogram. Procedure: Image quality was suboptimal. [employer] lot #: [id number]. M-mode, complete 2D, complete [...] Final Dictated: 05 (more content not included)... [facility] 06-30-2018 CN Office Visit (AGPOB1) ---- RAYMUNDOANNIA ([id number]) 1955 M Date Time Provider Department 06/30/18 2:00 PM JACK SAMANO AGPOB1 During your visit today, we recorded the following information about you: Respiration Weight Height 14/minute 90.7 kg 1.778 m Cecil Bolden LPN 07/23/2018 2:26 PM Signed REVIEW OF SYSTEMS: [...] sensation intact at all pedal sites via Shelby Andreas 5.07 monofilament bilateral. Proprioception intact at [...] in this document, created by the medical assisting program director for me, accurately reflects the services I personally performed and the decisions made by me. I have reviewed and approved this document for accuracy. Jack Samano DPM, FACFAS Referring Provider: SELF [200] Allergies As of Date: 06/30/2018 (No Known Allergies) Date Reviewed: 06/30/2018 Reviewed by: Cecil (Timothy) Little - Fully Assessed Reason for Visit: New Patient [172] Cmt: pt states he fell off the ladder yesterday Primary Visit Diagnosis:Sprain of anterior talofibular ligament of left ankle, initial encounter [S93.492A] Order(s):XR ANKLE GENERAL 3V AP/LAT/OBL LT [[id number]] Order #: [id number] Prescriptions as of 06/30/2018 Sig: OXYCODONE-ACETAMINO PHEN 5 MG-* Problem List As Of Date 06/30/2018 Noted Resolved Subluxation of peroneal tendon [S93.03XA] INVALID FOR* 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 Follow-up and Disposition History Recorded Encounter Status:Closed by JACK SAMANO DPM on 07/23/18 [facility] PROGRESSon 06-30-2018 Protein mass conc HNO ID: [id number] Author: Jakc Samano Service: ? Author Type: Physician Type: Progress [...] sensation intact at all pedal sites via Shelby Andreas 5.07 monofilament bilateral. Proprioception intact at [...] in this document, created by the medical assisting program director for me, accurately reflects the services I personally performed and the decisions made by me. I have reviewed and approved this document for accuracy. Jack Samano DPM, FACFAS Normal [facility] Protein mass conc HNO ID: [id number] Author: Cecil Bolden Service: ? Author Type: LICENSED NURSE Type: [...] for excessive bleeding, clots, bleeding disorders. Normal [place] [facility] MINIMUM 2 VIEWS RIGHT [...] PM Sign Date: 06/29/2018 2:05:04 PM Normal [facility] ([place]) XR WRIST MINIMUM 3 VIEWS RIG HTon [...] with dorsal soft tissue swelling. Interpreted By: Oilver Fink MD Preliminary Report By: Oliver Fink MD Electronically Signed By: Oliver Fink MD Dictated Date: 06/29/2018 2:08:59 PM Prelim Date: 06/29/2018 2:08:59 PM Sign Date: 06/29/2018 2:09:43 PM Normal [facility] ([place]) Vital Signs Date Time Vital Sign Value Performing Clinician Facility 09-03-2024 07:24-0400 Body height 177.[address] Ludy Sarmiento MD Work Phone: [facility] 09-03-2024 07:24-0400 Body mass index (BMI) [Ratio] 34.4 kg/m2 Dr. Ludy Sarmiento MD Work Phone: [facility] 09-03-2024 07:24-0400 Body weight 108.[address] Ludy Sarmiento MD Work Phone: [facility] 09-03-2024 07:24-0400 Diastolic blood pressure 70 mm[Hg] Dr. Ludy Sarmiento MD Work Phone: [facility] 09-03-2024 07:24-0400 Heart rate 61 /min Dr. Ludy Sarmiento MD Work Phone: [facility] 09-03-2024 07:24-0400 Respiratory rate 18 /min Dr. Ludy Sarmiento MD Work Phone: [facility] 09-03-2024 07:24-0400 SaO2% (BldA) [Mass fraction] 97 % Dr. Ludy Sarmiento MD Work Phone: [facility] 09-03-2024 07:24-0400 Systolic blood pressure 152 mm[Hg] Dr. Ludy Sarmiento MD Work Phone: [facility] 03-13-2024 13:26-0500 Body height 175.3 cm Ludy Sarmiento MD Work Phone: [facility] 03-13-2024 13:26-0500 Body mass index (BMI) [Ratio] 34.41 kg/m2 Ludy Sarmiento MD Work Phone: [facility] 03-13-2024 13:26-0500 Body temperature 97 [degF] Ludy Sarmiento MD Work Phone: [facility] 03-13-2024 13:26-0500 Body weight 105.69 kg Ludy Sarmiento MD Work Phone: [facility] 03-13-2024 13:26-0500 Diastolic blood pressure 81 mm[Hg] Ludy Sarmiento MD Work Phone: [facility] 03-13-2024 13:26-0500 Heart rate 59 /min Ludy Sarmiento MD Work Phone: [facility] 03-13-2024 13:26-0500 Respiratory rate 16 /min Ludy Sarmiento MD Work Phone: [facility] 03-13-2024 13:26-0500 SaO2% (BldA) [Mass fraction] 96 % Ludy Sarmiento MD Work Phone: [facility] 03-13-2024 13:260500 Systolic blood pressure 170 mm[Hg] Ludy Sarmiento MD Work Phone: [facility] Encounters Encounter Date Encounter Type Care Provider Facility Start: 11-06-2024 ambulatory Arlene Mata NP Facili ty:[facility] Start: 11-01-2024 Non-patient / Non-visit Arlene shields MANAGER CRITICAL CARE UNIT-[facility] -[facility] Work Phone: Start: 11-01-2024 ambulatory Arlene Mata MANAGER CRITICAL CARE UNIT Facili ty:[facility] Start: 10-31-2024 ambulatory [place] Dom Facility:[facility] Start: 10-31-2024 Non-patient / Non-visit Dr. Rehman Of robin [facility] Start: 10-30-2024 End: 10-30-[address] Ludy Sarmiento MD Work Phone: [facility] Start: 10-30-2024 End: 10-30-2024 Patient encounter procedure Arlene Mata MANAGER CRITICAL CARE UNIT-[facility] Work Phone: Start: 10-30-2024 End: 10-30-2024 ambulatory Arlene Mata NP Facility:[facility] Start: 09-11-2024 Non-patient / Non-visit Dr. Heather [facility] Work Phone: Start: 09-11-2024 ambulatory [facility] Facility:[facility] Start: 09-11-2024 Registered Referred Arlene Mata MANAGER CRITICAL CARE UNIT -[facility] -[facility] Work Phone: Start: 09-04-2024 End: 09-04-2024 Patient encounter procedure Arlene Mata NP-[facility] Work Phone: Start: 09-04-2024 End: 09-04-2024 ambulatory Arlene Mata NP Facility:[facility] Start: 03-13-2024 End: 03-13-2024 Emergency department patient visit LUDY SARMIENTO [facility] Emergency Dept Comment on above: Laceration of left m iddle finger without foreign body without damage to nail, initial encounter (Primary Dx) Start: 12-20-2022 End: 12-21-2022 [facility] Start: 12-20-2022 End: 12-20-2022 Subsequent hospital visit by physician Ludy Sarmiento MD Work Phone: [facility] Vascular Lab Comment on above: Personal history of nicotine dependence Start: 12-13-2022 Transcribe Orders Ludy del valle MD Work Phone: [facility] Comment on above: Personal history of nicotine dependence (Primary Dx) Start: 03-29-2022 End: 03-30-2022 ambulatory LUDY Katie SARMIENTO [facility] Comment on above: Pain in right hip [...] 06-30-2018 End: 06-30-2018 Patient encounter procedure JACK WINKLERMAN Facility:[facility] Start: 06-29-2018 End: 06-29-2018 Emergency department patient visit FELIX JAric GILLIANDIONNE Facility:[facility] Procedures Date Procedure Procedure Detail Performing Clinician Start: 10-30-2024 Radionuclide imaging of perfusion of myocardium under exercise stress Dr. Ludy Sarmiento MD Work Phone: Start: 09-04-2024 Evaluation of diagno stic study results Dr. Ludy Sarmiento MD Work Phone: Start: 03-13-2024 LACERATION REPAIR Dorina Winkler APRN MANAGER CRITICAL CARE UNIT Work Phone: Start: 12-20-2022 Us abdominal aorta r eal time screen study aaa Ludy Sarmiento MD Work Phone: Start: 09-17-2021 Echo tthrc r-t 2d w/wom-mode compl spec&colr d Esme Reynoso IMPORTER OR EXPORTER - REORDERING CLERK Work Phone: Plan of Treatment Date Care Activity Detail Author Start: 03-13-2034 Administration of diphtheria + tetanus + acellular pertussis vaccine DTAP/TDAP/TD VACCINE (2 - Td or Tdap) [facility] Start: 01-08-2024 COVID-19 VACCINE ( season) COVID-19 VACCINE ( season) [facility] Start: 01-08-2024 Influenza vaccination given INFLUENZA VACCINE (#1) [facility] Start: 01-07-2023 Influenza vaccination Influenza Vaccine (#1) [facility] Start: 01-07-2022 Influenza vaccination [facility] Start: 09-17-2021 End: 09-17-2021 Patient encounter procedure 09/17/2021 Appointment Echocardiography Avinash Garibay MD [address] [place] [address] Esme Reynoso, KIMBER - ANGELA [address] [place] [address] [address] [place] [address] [facility] Start: 07-31-2021 Annual Wellness Visit (AWV) Annual Wellness Visit (AWV) [facility] Start: 2018 Fall risk assessment FALL RISK [facility] Start: 2018 Glaucoma screening GLAUCOMA/EYE EXAM AGE 65+ [facility] Start: 2018 Pneumococcal 23-valent polysaccharide vaccination given (situation) PNEUMOCOCCAL VACCINE: 65+ YEARS (1 of 1 - PCV) [facility] Start: 2018 Pneumococcal 65+ years Vaccine (1 - PCV) Pneumococcal 65+ years Vaccine (1 - PCV) [facility] Start: 2018 Pneumococcal 65+ years Vaccine (1 of 1 - PPSV23) Pneumococcal 65+ years Vaccine (1 of 1 - PPSV23) [facility] Start: 2018 Pneumococcal Vaccine: 65+ Years (1 - PCV) Pneumococcal Vaccine: 65+ Years (1 - PCV) [facility] Start: 2013 Hepatitis B Vaccines (1 of 3 - Risk 3-dose series) Hepatitis B Vaccines (1 of 3 - Risk 3-dose series) [facility] Start: 11-18-2003 Shingles Vaccine (1 of 2) Shingles Vaccine (1 of 2) [facility] Start: 11-18-2003 Zoster vaccine hzv live for subcutaneous use ZOSTER (SHINGLES) VACCINE (1 of 2) [facility] Start: 11-18-2003 Zoster Vaccines (1 of 2) Zoster Vaccines (1 of 2) [facility] Start: 1998 Screening for malignant neoplasm of colon [facility] Start: 1993 Lipid panel [facility] Start: 1988 Diabetes screen Diabetes screen [facility] Start: 1988 Fasting lipid profile LIPID SCREENING [facility] Start: 1972 DTaP/Tdap/Td vaccine (1 - Tdap) DTaP/Tdap/Td vaccine (1 - Tdap) [facility] Start: 1972 DTaP/Tdap/Td Vaccines (1 - Tdap) DTaP/Tdap/Td Vaccines (1 - Tdap) [facility] Start: 11-18-1971 ANNUAL WELLNESS VISIT ANNUAL WELLNESS VISIT [facility] Start: 11-18-1971 Diabetes mellitus screening Diabetes Screening [facility] Start: 11-18-1971 Hepatitis C screening [facility] Start: 1965 Depression Screen Depression Screen [facility] Start: 1965 Depression Screening Depression Screening [facility] Start: 1965 Depression screening using PHQ-9 (Patient Health Questionnaire 9) score DEPRESSION SCREENING [facility] Start: 11-18-1963 Diabetic foot examination Diabetes: Foot Exam [facility] Start: 11-18-1963 Glaucoma screening Diabetes: Retinopathy Screening [facility] Start: 11-18-1963 Preventive dental service Diabetes: Dental Exam [facility] Start: 1958 COVID-19 Vaccine (1) COVID-19 Vaccine (1) [facility] Start: 05-20-1954 COVID-19 Vaccine (#1) COVID-19 Vaccine (#1) [facility] Start: 1953 Annual Wellness Visit (AWV) Annual Wellness Visit (AWV) [facility] Start: 1953 Creatinine measurement Creatinine monitoring [facility] Start: 1953 Hemoglobin A1c measurement Diabetes: Hemoglobin A1C [facility] Start: 1953 Hepatitis B Vaccines (1 of 3 - 3-dose series) Hepatitis B Vaccines (1 of 3 - 3-dose series) [facility] Start: 1953 Hepatitis C screening [facility] Start: 1953 Lipid panel Lipid Panel [facility] Start: 1953 Medicare Advantage Annual Wellness Visit (AWV) Medicare Advantage Annual Wellness Visit (AWV) [facility] Start: 1953 Potassium monitoring Potassium monitoring [facility] Start: 1953 Screening for malignant neoplasm of colon [facility] Immunizations Immunization Date Immunization Notes Care Provider Fa cility 03-13-2024 tetanus toxoid, redu charanjit diphtheria toxoid, and acellular pertussis vaccine, adsorbed Ludy Sarmiento MD Work Phone: [facility] Payers Date Payer Category Payer Medicare [id number] 2024 Self-pay 2023 Medicare Managed Car e (unspecified) [employer] MEDICARE ADVANTAGE HMO [id number] 2021 Medicare [id number] 2021 Medicare ANTHEM MEDICARE ADVANTAGE ANTHEM MEDIERIKA [id number] 2021-Present [address] [place] [address] Medicare O [id number] 2018 Unknown [id number] 2018 Unknown [id number] 1953 Unknown [id number] 1953 Unknown [id number] 1953 Unknown [id number] Unknown [id number] Unknown [id number] Unknown [id number] Unknown [id number] Unknown [id number] Unknown [id number] Unknown [id number] Social History Date Type Detail Facility Start: 08-03-2021 End: 04-12-2022 Tobacco smoking status MAIS Never smoked tobacco [employer] Phone: Start: 08-03-2021 Tobacco use and exposure Smokeless tobacco non-user [employer] Work Phone: Start: 08-03-2021 Alcohol intake Lifetime non-d ines (finding) [employer] Work Phone: Start: 1955 Sex Assigned At Not on file [facility] [employer] Work Phone: Start: 08-03-[address] [facility] Start: 08-03-[address] [facility] Start: 03-19-2022 End: 12-20-2022 Exposure to SARS-CoV-2 (event) Not sure [facility] Tobacco smoking status MAIS Tobacco smoking consumption unknown [facility] Start: 04-22-2020 Alcohol Alcohol [facility] Start: 04-22-2020 Lives Lives [facility] Start: 04-22-2020 Tobacco Use Tobacco Use [facility] Start: 1955 Sex Assigned At Male [facility] Clinical Notes 03-13-2024 to 09-04-2024 Note Date & Type Note Facility 09-04-2024 Evaluation note Diagnosis Onset Date Resolution Essential hypertension acute Ap ril 2024 9:01am Paroxysmal atrial fibrillation acute September 04, 2024 9:01am HLD (hyperlipidemia) chronic Apri l 2024 9:01am Chest pain resolved September 04 9:01am [facility] Work Phone: [phone] 780-381811-05-2024 Emergency department Note* Gigi Johnson LPN - 03/13/2024 2:16 PM EST Discharge orders reviewed, pt states understanding. NAD noted. Pt ambulates to [facility] via car. [facility]11-05-2024 Emergency department Note* Gigi Johnson LPN - 03/13/2024 2:16 PM EST Discharge orders reviewed, pt states understanding. NAD noted. Pt ambulates to [employer] [employer] [employer] via car. * Gianni Cruz, RN - 03/13/2024 1:24 PM EST Pt ambulated to room in NAD, Pt states he was using a plainer and lacerated left middle finger, Pt unsure of last tetanus vaccine, Bleeding controled, Pt is a/o x4 skin wdp respirs easy * Dorina Winkler APRN MANAGER CRITICAL CARE UNIT - 03/13/2024 1:22 PM ESTAssociated Order(s): Lac Repair Images from the original [...] further questions or complaints at the time ofdisposition and were comfortable with the plan of care. Patient remained stable throughout the remainder of ED course and required no further interventions. History Chief Complaint Patient presents with Laceration Patient's medications, allergies, past medical, surgical, social and family histories were reviewedand updated as appropriate. The history is provided [...] 2:04 PM Performed by: Dorina Winkler APRN NP Authorized by: Dorina Winkler APRN NP Consent: Consent obtained: Verbal Consent given by: Patient Risks, benefits, and alternatives were discussed: yes Risks discussed: Infection, need for additional repair, nerve damage, poor wound healing, poor cosmetic result, pain, tendon damage and vascular damage [place] protocol: Procedure explained and questions answered to [...] complications Medical Decision Making Dorina Winkler APRN NP 03/13/24 1405 Dorina Winkler APRN NP 03/13/24 1417 documented in this [facility]11-05-2024 Emergency department Triage note* Gianni Cruz RN - 03/13/2024 1:24 PM EST Pt ambulated to room in NAD, Pt states he was using a plainer and lacerated left middle finger, Pt unsure of last tetanus vaccine, Bleeding controled, Pt is a/o x4 skin wdp respirs easy [facility]11-05-2024 Physician Emergency department Note* Dorina Winkler APRN MANAGER CRITICAL CARE UNIT - 03/13/2024 1:22 PM ESTAssociated Order(s): Lac Repair Images from the original [...] further questions or complaints at the time ofdisposition and were comfortable with the plan of care. Patient remained stable throughout the remainder of ED course and required no further interventions. History Chief Complaint Patient presents with Laceration Patient's medications, allergies, past medical, surgical, social and family histories were reviewedand updated as appropriate. The history is provided [...] 2:04 PM Performed by: Dorina Winkler APRN MANAGER CRITICAL CARE UNIT Authorized by: Dorina Winkler APRN NP Consent: Consent obtained: Verbal Consent given by: Patient Risks, benefits, and alternatives were discussed: yes Risks discussed: Infection, need for additional repair, nerve damage, poor wound healing, poor cosmetic result, pain, tendon damage and vascular damage [place] protocol: Procedure explained and questions answered to [...] complications Medical Decision Making Dorina Winkler APRN MANAGER CRITICAL CARE UNIT 03/13/24 1405 Dorina Winkler APRN MANAGER CRITICAL CARE UNIT 03/13/24 1417 [facility] Diagnosis Unspecified atrial fibrillation (HCC) Unspecified atrial fibrillation (HCC) Paroxysmal atrial fibrillation (HCC) Atrial fibrillation documented in this encounter [facility] Work Phone: Evaluation note* Diagnosis Unspecified atrial fibrillation (HCC) Paroxysmal atrial fibrillation (HCC) Atrial fibrillation documented in this encounter [facility] Work Phone: Evaluation note* Diagnosis Personal history of nicotine dependence documented in this encounter [facility] note* Diagnosis Personal history of nicotine dependence- Primary Personal history of nicotine dependence documented in this encounter [facility] note* Diagnosis Laceration of left middle finger without foreign body without damage to nail, initial encounter- Primary [facility] Diagnosis Pain in right hip- Primary Pain in left [facility]* Attachments The following attachments cannot be sent through Care Everywhere. * Hand Laceration: Stitches (Peruvian Czech) [facility] System[facility] for referral (narrative)No reason for referral information availableWChillicothe [facility] Work Phone: Summary Purpose Family History No Family History Records Found Relationship Condition Age at Onset Recorded Date/T jazmine mother Cerebrovascular accident (CVA) Unknown Cardiac disease Unknown father Cardiac disease Unknown Advance Directives No Advanced Directives Records FoundNo [...] Complete 2D W Doppler W Color Esme Reynoso APRN - REORDERING CLERK [address] [id number] Referral ID Status Reason Start Date Expiration Date V isits Requested Visits Authorized [id number] Pending Review 08/03/2021 08/03/2022 1 1 Specialty Diagnoses / Procedures Referred By Gio t Referred To Contact Cardiology Diagnoses Personal history of nicotine dependence Procedures Vascular US abdominal aorta anuerysm AAA screening Ludy Sarmiento MD [address] [place] [address] Referral ID Status Reason Start Date Expiration Date V isits Requested Visits Authorized [id number] Closed Perform Procedure 12/13/2022 06/11/2023 1 1 Chief Complaint and Reason for Visit Chief Complaint Admit Date OVER DUE FOR FU September 04, 2024 9:0 1am PAF September 11, 2024 6:39am 30 DAY MONITOR September 11, 2024 7:00am PAF October 30, 2024 6:47 am PAF October 31, 2024 7:31 am Amb Documentation November 01, 2024 2:20 pm Reason for Visit Admit Date Essential hypertension September 04, 2024 9:01am Paroxysmal atrial fibrillation August 9:01am HLD (hyperlipidemia) September 04, 2024 9: 01am Chest pain September 04, 2024 9:0 1am Additional Source Comments (unrecognized sect ion and content) No Status Records FoundNo Status Records FoundNo Status Records FoundNo Status Records FoundNo Status Records FoundNo Status Records FoundNo Status Records FoundNo Status Records Found INFORMATION SOURCE (unrecogn ized section and content) DATE CREATED AUTHOR 07/16/2018 [facility] ([place]) DATE CREATED AUTHOR AUTHOR'S ORGANIZ ATION 07/23/2018 [facility] DATE CREATED AUTHOR AUTHOR'S ORGANIZ ATION 07/23/2018 [facility] DATE CREATED AUTHOR AUTHOR'S ORGANIZ ATION 11/13/2021 [facility] DATE CREATED AUTHOR AUTHOR'S ORGANIZ ATION 12/21/2022 [facility] DATE CREATED AUTHOR AUTHOR'S ORGANIZ ATION 03/18/2024 [facility] DATE CREATED AUTHOR AUTHOR'S ORGANIZ ATION 10/13/2024 [facility] DATE CREATED AUTHOR AUTHOR'S ORGANIZ ATION 11/05/2024 [facility] Care Teams (unrecognized sec tion and content) Travel Service Consultant Relationship Specialty Start Date End Date Ludy Sarmiento MD [address] [place] [address] PCP - General Family Medicine 08/03/21 Travel Service Consultant Relationship Specialty Start Date End Date Ludy Sarmiento MD [address] [place] [address] PCP - General Family Medicine 08/03/21 Travel Service Consultant Relationship Specialty Start Date End Date Ludy Sarmiento MD [address] [place] [address] PCP - General 08/03/21 Travel Service Consultant Relationship Specialty Start Date End Date Ludy Sarmiento MD [address] [place] [address] PCP - General Family Medicine 03/13/24 Travel Service Consultant Relationship Specialty Start Date End Date Ludy Sarmiento MD [address] [place] [address] PCP - General 08/03/21 Team Status: Active Member Role/Relationship Status Dates Dr. Ludy Sarmiento MD Primary Care Provider Active Team Status: Inactive Member Role/Relationship Status Dates Dr. Ludy Sarmiento MD Primary Care Provider Active Start: September 04, 2024 End: September 04, 2024 Dr. Ludy Sarmiento MD Referring Provider Active Start: September 04, 2024 End: September 04, 2024 Arlene Mata MANAGER CRITICAL CARE UNIT, MANAGER CRITICAL CARE UNIT-C Attending Provider Active Start: September 04, 2024 End: September 04, 2024 Team Status: Active Member Role/Relationship Status Dates Dr. Ludy Sarmiento MD Primary Care Provider Active Start: September 11, 2024 Arlene Mata MANAGER CRITICAL CARE UNIT, MANAGER CRITICAL CARE UNIT-C Attending Provider Active Start: September 11, 2024 Arlene Mata MANAGER CRITICAL CARE UNIT, MANAGER CRITICAL CARE UNIT-C Referring Provider Active Start: September 11, 2024 Team Status: Active Member Role/Relationship Status Dates Dr. Ludy Sarmiento MD Primary Care Provider Active Start: September 11, 2024 Dr. Ori Fernandes MD Attending Provider Active S tart: September 11, 2024 Arlene Mata MANAGER CRITICAL CARE UNIT, MANAGER CRITICAL CARE UNIT-C Referring Provider Active Start: September 11, 2024 Team Status: Inactive Member Role/Relationship Status Dates Dr. Ludy Sarmiento MD Primary Care Provider Active Start: October 30, 2024 End: October 30, 2024 Arlene Mata MANAGER CRITICAL CARE UNIT, MANAGER CRITICAL CARE UNIT-C Attending Provider Active Start: October 30, 2024 End: October 30, 2024 Arlene Mata NP, MANAGER CRITICAL CARE UNIT-C Referring Provider Active Start: October 30, 2024 End: October 30, 2024 Team Status: Active Member Role/Relationship Status Dates Dr. Ludy Sarmiento MD Primary Care Provider Active Start: October 31, 2024 Arlene Mata MANAGER CRITICAL CARE UNIT, MANAGER CRITICAL CARE UNIT-C Referring Provider Active Start: October 31, 2024 Arlene Mata NP, MANAGER CRITICAL CARE UNIT-C Other Provider Active Sta rt: October 31, 2024 Dr. Ori Fernandes MD Attending Provider Active S tart: October 31, 2024 Team Status: Active Member Role/Relationship Status Dates Dr. Ludy Sarmiento MD Primary Care Provider Active Start: November 01, 2024 Arlene Mata NP, MANAGER CRITICAL CARE UNIT-C Attending Provider Active Start: November 01, 2024 Reason for Visit (unrecogniz ed section and content) Specialty Diagnoses / Procedures Referred By Contac t Referred To Contact Cardiology Diagnoses Personal history of nicotine dependence Procedures Vascular US abdominal aorta anuerysm AAA screening Ludy Sarmiento MD [address] [place] [address] Referral ID Status Reason Start Date Expiration Date V isits Requested Visits Authorized [id number] Closed Perform Procedure 12/13/2022 06/11/2023 1 1 Reason Comments Laceration Scheduled Active and Recently Administ ered Medications (unrecognized section and content) Medication Order 03/11/2024 03/12/2024 03/13/2024 Lidocaine HCl (XYLOCAINE) 1 % injection 10 mL (COMPLETED) 10 mL, Intradermal, NOW, 1 dose, On Tue03/13/24 at 1415 1411 (Given - Provid er: Gigi Johnson LPN) Goals (unrecognized section and content) Goals may be documented in a n alternate section FOR RECORDS PERTAINING TO PATIENTS WHO ARE [...] BE BASED ON THE PRIMARY CLINICAL RECORDS. [email or web address] provides no warranty or guarantee of the accuracy or completeness of information in this document.
== END | disposition home or self-care (01) ==
LOC: CVS 13:57
PROVIDERS: PCP Family Medicine; Referring Provider Nurse Practitioner Gerontology; Visit Provider Nurse Practitioner Gerontology
DX: I48.0 Paroxysmal atrial fibrillation (principal)
CPT/HCPCS: 93306

== ENCOUNTER 2025-04-19 11:27 | Inpatient (IN) | payer MEDICARE, SELFPAY ==
[2025-04-19] VITALS (24 sets, daily range): BP systolic 111–168; BP diastolic 73–141; PULSE 70–183; RESP 14–99; TEMP 35.9–36.9; O2SAT 14–100; BMI 35.0; BMI 34.4
--- NOTE | 2025-04-19 11:45 | RAD_ITS ---
PROCEDURE: CHEST 1 VIEW (PORTABLE) 04/19/2025 REASON FOR EXAM: CHEST PAIN TECHNIQUE: Frontal view of the chest. COMPARISON: 12/17/2020 FINDINGS: LUNGS AND PLEURA: No focal airspace consolidation. No pleural effusion or pneumothorax. HEART AND MEDIASTINUM: The cardiac silhouette is mildly enlarged. The mediastinal contour is normal. AORTA: Mildly calcified aortic arch. PULMONARY VESSELS: Mild prominence of the central pulmonary vasculature. BONES: No acute osseous abnormality. RAD/Chest 1 View (Portable) IMPRESSION: Cardiomegaly with mild vascular congestion. Reading Location: [id number]
--- NOTE | 2025-04-19 11:46 | ED.VIS.CHEST ---
HPI History of Present Illness Chief Complaint: Palpitations Informant: patient Narrative Narrative: Patient is a 69-year-old male with a history of A-fib and CVA presenting with palpitations, dyspnea, and chest pain. 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 - Dyspnea began today, with near-syncope. - Chest pain started overnight, described as mild and intermittent, waking him from sleep, left sided, mildly pleuritic, no radiation. Denies syncope. - Taking warfarin; no recent changes to medications, except couple mos ago changed metoprolol tartrate to succinate. - Resumed creatine supplementation last week, taking 5 mg on two different days, with the last dose on Tuesday, day before sx started; concerned it may have caused this. - No history of cardiac surgery. - CVA in 2019, followed by onset of A-fib discovered 3-4 months later. [facility] Medical History Essential hypertension Paroxysmal A-fib Visual disturbance History of stroke High cholesterol Frequent headaches Diabetes Cataracts, bilateral History of blood clots History of back problems Arthritis Hypertension Home Medications ?Medication ?Instructions ?Recorded ?Last Taken ?Type aspirin 81 mg chewable tablet 81 mg PO DAILY@1900 heart health 04/22/20 04/28/20 History multivitamin 1 tab PO DAILY SUPPLIMENT 04/22/20 04/29/20 History ashwagandha root extract 300 mg 300 mg PO DAILY 05/23/20 Unknown History capsule warfarin 2.5 mg tablet 2.5 mg PO MOWEFR 12/17/20 Unknown History warfarin 5 mg tablet 5 mg PO SUTUTHSA 12/17/20 Unknown History ascorbic acid (vitamin C) 1,000 mg 1 g PO DAILY 01/02/21 Unknown History tablet cholecalciferol (vitamin D3) 125 125 mcg PO DAILY 04/06/21 Unknown History mcg (5,000 unit) tablet cinnamon bark 500 mg capsule 500 mg PO QDAY 09/04/24 Unknown History (Cinnamon) lisinopril 20 mg tablet 20 mg PO DAILY 09/04/24 Unknown History metoprolol succinate 25 mg 25 mg PO DAILY #90 tabs 12/04/24 Unknown Rx tablet,extended release 24 hr docosahexaenoic acid (dha)-epa 1 cap PO DAILY 04/19/25 Unknown History capsule tumeric 04/19/25 Unknown History Allergy/AdvReac Type Severity Reaction Status Date / Time atorvastatin AdvReac Mild Other Verified 04/19/25 11:31 metformin AdvReac Mild Pain in Verified 04/19/25 11:31 joints Family History Mother CVA (cerebral vascular accident) Heart disease Father Heart disease Surgical History History of left ankle surgery history of lower hernia surgery Social History household members: spouse housing: house Smoking Status: Never smoker alcohol intake: never substance use type: does not use what type of physical activity do you participate in: other details: Eliptical frequency: 3-4 times per week ROS ROS ED Constitutional Constitutional ED: Denies chills or fever(s) Eyes Eyes: Denies change in vision or diplopia ENT ENT ED: Denies rhinorrhea or sore throat Cardiovascular Cardiovascular: Reports as per HPI, chest pain, lightheadedness and palpitations; Denies leg edema or syncope Respiratory/Chest Respiratory/Chest: Reports dyspnea; Denies cough Gastrointestinal Gastrointestinal: Denies abdominal pain, diarrhea, nausea or vomiting Genitourinary Genitourinary ED: Denies dysuria or hematuria Musculoskeletal Musculoskeletal: Denies back pain or neck pain Integumentary Denies abscess or rash Neurologic Neurologic: Denies headache(s), paresthesias or weakness Psychiatric Psychiatric: Denies anxiety or suicidal thoughts EXAM Physical Exam Const Vital Signs: 04/19/25 11:28 04/19/25 11:45 04/19/25 11:51 Temperature 96.6 F L Temperature Source Oral Pulse Rate 183 H Respiratory Rate 30 H Respiratory Effort Normal Blood Pressure 168/141 H Blood Pressure Mean 150 Pulse Ox 96 100 Oxygen Delivery Method Room Air Room Air 04/19/25 11:58 04/19/25 12:39 04/19/25 13:09 Temperature Temperature Source Pulse Rate 107 H 91 117 H Respiratory Rate 22 H 19 H 22 H Respiratory Effort Blood Pressure 134/91 H 130/78 H 132/81 H Blood Pressure Mean 105 95 98 Pulse Ox 100 100 99 Oxygen Delivery Method Room Air Room Air Room Air 04/19/25 14:05 04/19/25 14:05 04/19/25 14:13 Temperature Temperature Source Pulse Rate 143 H 154 H 161 H Respiratory Rate 99 H 18 Respiratory Effort Blood Pressure 127/90 H 127/90 H Blood Pressure Mean 102 102 Pulse Ox 14 98 Oxygen Delivery Method Room Air 04/19/25 14:39 04/19/25 15:00 04/19/25 15:08 Temperature Temperature Source Pulse Rate 132 H 109 H 116 H Respiratory Rate 18 20 H 18 Respiratory Effort Blood Pressure 146/90 H 146/90 H Blood Pressure Mean 108 108 Pulse Ox 95 97 100 Oxygen Delivery Method Room Air Positive well nourished and well developed General Appearance ED: well developed and NAD HEENT Reports moist mucous membranes normocephalic and atraumatic Eyes PERRL and EOMs intact bilaterally Neck full ROM and supple Resp normal respiratory effort and clear to auscultation bilaterally Cardio no murmurs Rate: tachycardic Rhythm: abnormal rhythm irregularly irregular Peripheral Pulses: pulses 2+ throughout GI non-tender and non-distended Auscultation: normoactive bowel sounds Palpation: soft Back/Spine no CVA tenderness General Back: other FROM Extremity normal to inspection General Extremety ED: Negative for edema, pulses abnormal or tenderness General Extremity: Negative for edema or pulses abnormal Neuro oriented x3, CN's II-XII intact bilaterally and no sensory deficits noted Sensorium / Orientation: awake and alert Motor Exam: strength 5/5 throughout Skin no rashes or lesions noted and no wounds MDM MDM MDM Narrative Medical decision making narrative: Assessment: The patient is a 69-year-old male with PMH of atrial fibrillation and prior stroke presenting for one week of palpitations, variable heart rates 48?138 bpm, and new dyspnea today. EKG shows atrial fibrillation with rapid ventricular response without acute ischemic changes; initial troponin is negative, and labs are otherwise unremarkable. Chest X-ray demonstrates pulmonary vascular congestion. Rate control with IV Cardizem bolus provided partial response, so a continuous Cardizem infusion was started with symptomatic improvement. The presentation is most consistent with persistent atrial fibrillation with rapid ventricular response. Plan: - Administered IV Cardizem 20 mg bolus for rate control - Initiated Cardizem continuous infusion - Admission for continued rhythm management and cardiology consultation given appearance of mild acute CHF and workup Diagnostics: - EKG: atrial fibrillation with rapid ventricular response, no acute injury pattern. Independently interpreted by meTerrence - Chest X-ray: pulmonary vascular congestion - Labs: initial troponin negative; remainder unremarkable/lower; INR 2.1, therapeutic on warfarin - ProBNP elevated, 1500 Reevaluations: - Patient re-evaluated after initiation of Cardizem drip; reports improved breathing and palpitations, rate now trending lower, but requiring an additional dose of IV metoprolol in addition due to going up to the 130s after being on Cardizem 15 mg/min. Will admit to the ICU. Patient clinically doing much better. Portions of this note were generated using voice recognition software ([employer]). I have reviewed the contents and every effort has been made to ensure accuracy; however, inadvertent errors in grammar, spelling, punctuation, or word choice may occur, that were not noted before signing the document and should not alter the intended clinical meaning. History & Record Review Discussion w/independent historian: Patient and Significant other Additional record(s) reviewed:: Prior outpatient record (Prior echocardiogram from November showing an EF of 65%, moderate concentric LVH, mild tricuspid insufficiency, and normal left ventricular systolic function.) Lab Data Attestation: I reviewed the patient's lab results. Labs: Laboratory Results - last 24 hr 04/19/25 04/19/25 11:45 13:45 WBC 10.1 RBC 5.79 Hgb 16.5 Hct 50.1 MCV 86.5 MCH 28.5 MCHC 32.9 RDW Std Deviation 44.4 H RDW Coeff of [place] 14.2 Plt Count 349 MPV 10.4 Immature Gran % (Auto) 0.400 Neut % (Auto) 67.3 Lymph % (Auto) 24.5 [place] % (Auto) 5.7 Eos % (Auto) 1.8 Baso % (Auto) 0.3 Absolute Neuts (auto) 6.8 Absolute Lymphs (auto) 2.48 Nucleated RBC % 0 PT 24.3 H INR 2.1 Sodium 137 Potassium 5.1 Chloride 101 Carbon Dioxide 21.1 Anion Gap 14 BUN 22 H Creatinine 1.14 Estim Creat Clear Calc 74.04 Est GFR (MDRD) Non-Af 69 BUN/Creatinine Ratio 19.3 Glucose 184 H Calcium 10.1 Troponin T High Sens 22 Troponin T Hi Sens 2 Hr 20 NT pro BNP II 1539 H Radiography Diagnostic Testing: Clinical Impression(s) from Imaging Studies Chest X-Ray 04/19/25 11:45 IMPRESSION: Cardiomegaly with mild vascular congestion. Reading Location: [facility] Rhythm Strip Rhythm Strip: A-fib Rate: 180 Ectopy: None EKG Initial EKG: Attestation: I personally reviewed and interpreted this EKG as follows: Interpretation: No Acute Injury Pattern, Atrial Fibrillation (w/ RVR) and Non-Specific ST Changes Management Discussion w/another healthcare provider: Hospitalist and Wreath Inspector (cardiology Dr. Carroll-will consult, does not recommend a cardioversion right now and agrees with rate control) Critical Care Time Critical Care Time: Yes Critical care time (excluding procedures): 30-74 minutes (36 min), Including time spent:, Discussing w/Patient &/or Family/Cancer Registrar, Discussing w/Consultants, Arranging Admission or Transfer and Performing Direct Patient Care at Bedside Discharge Plan Dx/Rx/DC Orders Clinical Impression: Atrial fibrillation with RVR, Acute CHF (congestive heart failure), Left-sided chest pain, Warfarin-induced coagulopathy Disposition Disposition: Acute Care Hospital [facility]
[2025-04-19 11:56] LABS: Hematocrit 50.1 % (40-54); Hemoglobin 16.5 g/dL (13.0-16.5); Immature Granulocytes Count 0.040 X10^3/uL (0.0-0.0); Mean Corp Hgb Conc 32.9 g/dL (32-36); Mean Corpuscular Volume 86.5 fL (80-94); Mean Platelet Vol. 10.4 fl (6.2-12.0); NRBC Flagged by Analyzer 0 % (0-5); Platelet Count 349 K/mm3 (150-450); RBC Distribution Width CV 14.2 % (11.6-14.6); RBC Distribution Width SD 44.4 fl (35.1-43.9); Red Blood Count 5.79 M/mm3 (4.6-6.2); White Blood Count 10.1 K/mm3 (4.4-11.0)
--- OUTSIDE RECORDS SUMMARY | 2025-04-19 12:25 | XMS RPT_ITS | CCD ---
Author Organization [facility] CliniSynd Care Team Providers Care Healthcare Social Worker Name Role Phone FELIX DELONGAric Attending Unavailable CURTIS PRO Primary Care Unavailable JACK SAMANO Attending Unavailable IMCA Referring Unavailable CURTIS PRO Primary Care Unavailable JACK SAMANO Attending Unavailabl e Guillermina HARTMAN, Ludy Wilson Primary Care Provider Ludy Sarmiento MD Primary Care Provider Ludy Sarmiento MD Primary Care Provider [phone] LUDY SARMIENTO Primary Care Unavailable DORINA WINKLER Admitting Unavailable Ludy Sarmiento MD Primary Care Provider Dr. Ludy Sarmiento MD Primary Care Provider Dr. Ludy Sarmiento MD Referring Provider Adolfo PEREZ-CArlene Attending Provider Adolfo DRAFTER DETAIL-CArlene Referring Provider Dr. Ori Fernandes MD Attending Provider [phone] Adolfo PEREZ-Arlene Saucedo Other Provider [phone] Adolfo DRAFTER DETAIL, Arlene Attending Unavailable Adolfo DRAFTER DETAIL, Arlene Referring Unavailable Guillermina, Ludy Primary Care Unavailable Guillermina, Ludy Primary Care Unavailable Adolfo DRAFTER DETAIL, Arlene Attending Unavailable Ori Fernandes Attending Unavailable Adolfo DRAFTER DETAIL, Arlene Referring Unavailable Guillermina, Ludy Primary Care Unavailable Adolfo DRAFTER DETAIL, Arlene Attending Unavailable Guillermina, Ludy Primary Care Unavailable Ori Fernandes Attending Unavailable Adolfo DRAFTER DETAIL, Arlene Referring Unavailable Adolfo DRAFTER DETAIL, Arlene Consulting Unavailable Guillermina, Ludy Primary Care Unavailable Guillermnia, Ludy Primary Care Unavailable Adolfo DRAFTER DETAIL, Arlene Attending Unavailable Guillermina, Ludy Referring Unavailable Guillermina, Ludy Referring Unavailable Adolfo PEREZ, Arlene Attending Unavailable Guillermina, Ludy Primary Care Unavailable Ludy Sarmiento Primary Care Unavailable Ori Fernandes Attending Unavailable Ludy Sarmiento Primary Care Unavailable Adolfo PEREZ, Arlene Referring Unavailable Adolfo PEREZ, Arlene Attending Unavailable Adolfo PEREZ, Arlene Attending Unavailable Adolfo PEREZ, Arlene Referring Unavailable Ludy Sarmiento Primary Care Unavailable Ludy Sarmiento MD Primary Care Provider LUDY SARMIENTO Referring Unavailable LUDY SARMIENTO Attending Unavailable ULDY SARMIENTO Primary Care Unavailable Allergies Allergy Classification Reported Allergen(s) Allergy Type Date of Onset Reaction(s) Facility (2 sources) atorvastatin Drug Allergy 2 Other (See Comments) [facility] (1 source) atorvastatin Drug Allergy 5 Other [facility] Comment on above: muscle pains (1 source) metFORMIN Drug Allergy 5 Pain in joints [facility] Comment on above: weakness and dizzine ss (1 source) atorvastatin Drug Allergy 5 [facility] Repository (1 source) metFORMIN Drug Allergy 5 [facility] Repository Medications Current Medications Medication Drug Class(es) Dates Sig (Normalized) Sig (Original) ascorbic acid 1000 mg oral tablet (3 sources) Vitamin C Start: 01-02-2021 take 1 g by mouth once daily Ascorbic Acid (Vitamin C) 1,000 mg tablet Active 1 g PO DAILY January 02, 2021 12:00am ASHWAGANDHA PO (2 sources) ASHWAGANDHA PO Take by mouth daily 0 Active Ashwagandha Root Extract 300 mg capsule (3 sources) Start: 05-23-2020 take 1 capsule by mouth once daily Ashwagandha Root Extract 300 mg capsule Active 300 mg PO DAILY May 23, 2020 1:00am aspirin 81 mg chewable tablet (8 sources) Platelet Aggregation Inhibitor, Nonsteroidal Anti-inflammatory Drug [...] 0 Active cholecalciferol 0.125 mg oral tablet (8 sources) Vitamin D Start: 021 take 1 tablet by mouth once daily [...] Active cinnamon bark 500 mg oral capsule (3 sources) Start: 09-05-19 25 take 3 capsules by [...] acid 180 mg oral capsule (2 sources) [place]-3 1000 MG CAPS Take by mouth in the morning and at bedtime 0 Active Bradford 565 MG CAPS (2 sources) take 1 capsule by mouth once daily Bradford 565 MG CAPS Take by mouth daily 0 Active lisinopril 20 mg oral tablet (20 sources) Angiotensin Converting Enzyme Inhibitor Start: 09-05-19 [...] April 06, 2021 3:05pm Start: 08-09-2019 End: 04-23-2020 take 1 tablet by mouth twice daily Lisinopril 20 mg tablet Discontinued 20 mg PO TWICE A DAY 60 1 October 11, 2019 2:00pm March 13, 2020 9:02am Start: 07-30-2019 End: 08-09-2019 take 1 tablet by mouth once daily Lisinopril 20 MG tablet Discontinued 20 mg PO DAILY 30 July 30, 2019 12:00am August 09, 2019 5:17pm Start: 07-22-2019 End: 07-30-2019 take 1 tablet by mouth once daily Lisinopril 5 MG tablet Discontinued 5 mg PO DAILY 30 July 22, 2019 12:00am July 30, 2019 12:13pm LISINOPRIL PO Ta ke by mouth. Active melatonin 3 mg oral tablet (2 sources) take 5 mg by mouth once daily as needed melatonin 3 MG TABS tablet Take 5 mg by mouth nightly as needed 0 Active 24 hr metoprolol succinate 25 mg extended release oral tablet (20 sources) beta-Adrenergic Niru Start: 09-04-2024 End: 12-04-2024 take 1 tablet by mouth once daily Metoprolol Succinate 25 mg tablet extended release 24 hr Active 25 mg PO DAILY 90 December 04, 2024 11:27am Start: 04-12-2022 End: 09-04-2024 take 4 tablets [...] daily 0 Active Multivitamin 1 TABLET tablet (3 sources) Start : 04-22 Multivitamin 1 TABLET tablet [...] perflutren lipid microspheres (DEFINITY) injection 1.65 mg warfarin sodium 5 mg oral tablet (9 sources) Vitamin K Antagonist Start : 12-17 Warfarin 2.5 mg Tablet Active 2.5 mg PO MOFR December 17, 2020 12:00am Start: 12-17-2020 Warfarin 5 mg Tablet Active 5 mg PO SUTUWETHSA December 17, 2020 12:00am Completed/Discontinued Medications Medication Drug Class(es) Dates Sig (Normalized) Sig (Original) apixaban 5 mg oral tablet (3 sources) Factor Xa Inhibitor Start: 04-23-2020 End: 04-29-2020 take 1 tablet by mouth twice daily Apixaban 5 MG tablet Discontinued 5 mg PO TWICE A DAY 60 0 April 23, 2020 1:00am April 29, 2020 4:31pm atorvastatin 40 mg oral tablet (12 sources) HMG-CoA Reductase Inhibitor Start: 04-30-2020 End: [...] 30, 2019 2:00pm March 13, 2020 9:01am [place] 6-Mmc-Pne-Fish Oil (3 sources) Start: 04-22-2020 End: 04-12-2022 take 1 capsule by mouth once daily [place] 4-Hmn-Ita-Fish Oil 1 EACH capsule Discontinued 1 NMA PO DAILY April 22, 2020 1:00am April 12, 2022 4:13pm supplement Garlic (3 sources) Non-Standardiz ed Food Allergenic Extract Start: 04-22-2020 End: 04-23-2020 take 1 capsule by mouth once daily Garlic 500 MG capsule Discontinued 500 mg PO DAILY April 22, 2020 1:00am April 23, 2020 12:16pm supplement hydroCHLOROthiazide 12.5 mg oral tablet (18 sources) Thiazide Diuretic Start: 05-29-2021 End: 09-04-2024 [...] 0 Active ibuprofen 600 mg oral tablet (3 sources) Nonsteroidal Anti-inflammatory Drug Start: 04-30-2020 End: 05-23-2020 [...] 1415 metFORMIN hydrochloride 500 mg oral tablet (3 sources) Biguanide Start: 07-30-2019 End: 03-13-2020 take 1 tablet by mouth twice daily Metformin 500 MG tablet Discontinued 500 mg PO TWICE A DAY 60 1 July 30, 2019 12:00am March 13, 2020 9:01am potassium 99 mg extended release oral tablet (3 sources) Start: 09-04-2024 End: 12-04-2024 take 1 mg by mouth once daily Potassium 99 mg tablet Discontinued mg PO DAILY September 04, 2024 12:00am December 04, 2024 10:57am [place] (3 sources) Start: 04-22-2020 End: 04-23-2020 take 1 capsule by mouth at bedtime [place] 450 MG capsule Discontinued 450 mg PO AT BEDTIME April 22, 2020 1:00am April 23, 2020 12:16pm PROSTATE Turmeric-Turmeric Root Extract (5 sources) Start: 04-22-2020 End: 09-04-2024 take 1 [...] Date Documented Date Episodic/Chronic Acute cerebrovascular disease (3 sources) Cerebrovascular accident; Translations: [Cerebral infarction, unspecified] 04-29-2020 Chronic Aortic; peripheral; and visceral artery aneurysms (6 sources) Aneurysm of iliac artery; 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] Onset: 5 01-09-2025 Chronic Cardiac dysrhythmias (20 sources) Atrial fibrillation; Translations: [Unspecified atrial fibrillation] Onset: 2 Chronic Diabetes mellitus without complication (3 sources) Type 2 diabetes mellitus; Translations: [Type 2 diabetes mellitus without complications] 04-29-2020 Chronic Diabetes mellitus without complication (3 sources) Hyperglycemia; Translations: [Hyperglycemia, unspecified] 07-29-2019 Episodic Disorders of lipid metabolism (8 sources) Hyperlipidemia; Translations: [Hyperlipidemia, unspecified] Onset: 5 05-23-2020 Chronic Essential hypertension (12 sources) Essential (primary) hypertension; Translations: [Essential hypertension] Onset: 4 04-06-2021 Chronic Comment on above: suspect chronic and untreated Headache; including migraine (3 sources) Migraine; Translations: [Migraine, unspecified, not intractable, without status migrainosus] 04-29-2020 Chronic Headache; including migraine (3 sources) Headache; Translations: [Headache] 04-29-2020 Episodic Immunizations and screening for infectious disease (1 source) Encounter for immunization; Translations: [Encounter for immunization] Onset: 4 Episodic Nonspecific chest pain (14 sources) Atypical chest pain; Translations: [Other chest pain] Onset: 5 12-26-2020 Episodic Open wounds of extremities (2 sources) Laceration of left middle finger; Translations: [Laceration without foreign body of left middle finger without damage to nail, initial encounter] Onset: 4 03-13-2024 Episodic Other aftercare (1 source) senior living (current) use of anticoagulants; Translations: [long term acute care registered nurse (current) use of anticoagulants] Onset: 4 Episodic Other nervous system disorders (3 sources) Aphasia; Translations: [Aphasia] 07-29-2019 Chronic Other screening for suspected conditions (not mental disorders or infectious disease) (3 sources) Electrocardiogram abnormal; Translations: [Abnormal electrocardiogram [ECG] [EKG]] 12-26-2020 Episodic Residual codes; unclassified (3 sources) Medication given; Translations: [Status post administration of tPA (rtPA) in a different facility within the last 24 hours prior to admission to current facility] 07-29-2019 Chronic Screening and history of mental health and substance abuse codes (3 sources) Personal history of nicotine dependence; Translations: [Personal history of tobacco use] 12-20-2022 Episodic Sprains and strains (1 source) Sprain of other ligament of left ankle, initial encounter; Translations: [Sprain of other ligament of left ankle, initial encounter] Onset: 9 Episodic Unclassified (2 sources) Sprain of other ligament of left ankle, initial encounter Onset: 9 Past or Other Problems Problem Classification Problem Date Documented Da te Episodic/Chronic Other non-traumatic joint disorders (1 source) Pain in right hip joint; Translations: [Pain in right hip] Episodic Other non-traumatic joint disorders (1 source) Hip pain; Translations: [Pain in left hip] Episodic Unclassified (3 sources) History of left ankle surgery 12-07-2021 Unclassified (3 sources) history of lower hernia surgery 12-07-2021 Results Test Name Value Interpretation Reference Range Facility US.doppler Aorta and Iliac a rtery - bilateralOrdered By: Dylan Aleman on 01-09-2025 Ao dist AP 2.[address] [facility] [employer] Work Phone: Ao dist PSV 111.9 cm/s [facility] Work Phone: Ao dist TR 2.01 cm [facility] Work Phone: Ao mid AP 1.95 cm [facility] Work Phone: Ao mid PSV 86.6 cm/s [facility] Work Phone: Ao mid TR 1.82 cm [facility] Work Phone: Ao prox AP 2.53 cm [facility] Work Phone: Ao prox PSV 75.8 cm/s [facility] Work Phone: Ao prox TR 2.53 cm [facility] Work Phone: Left ROSCOE AP 1.2 cm [facility] Work Phone: Left ROSCOE dist PSV 133 cm/s [facility] Work Phone: Left ROSCOE TR 1.14 cm [facility] Work Phone: Left EIA mid PSV 124.8 cm/s [facility] Work Phone: Right ROSCOE AP 1.16 cm [facility] Work Phone: Right ROSCOE dist PSV 229.6 cm/s [facility] Work Phone: Right ROSCOE TR 1.11 cm [facility] Work Phone: Right EIA mid PSV 146.5 cm[facility] Work Phone: US.doppler Aorta and Iliac a rtery - bilateralon 01-09-2025 No abdominal aortic aneurysm (AAA) is present. Bilateral iliac arteries are patent without evidence of aneurysm. Difficult exam due to patient body habitus, bowel gas, and tortuous iliac vessels. Study Details A cunningham scale, color Doppler imaging and spectral Doppler analysis ultrasound was performed. During the study longitudinal and transverse views were obtained. Pulsed wave doppler was performed. The exam was performed with the patient in the supine position. Overall the study quality was limited. Study was technically difficult due to: body habitus and bowel gas. Abdominal Aorta No abdominal aortic aneurysm (AAA) is present. Proximal Aorta: Patent. Middle Aorta: Patent. Distal Aorta: Patent. Right Common Iliac Artery: Patent. Left Common Iliac Artery: Patent. Right External Iliac Artery: Patent. Left External Iliac Artery: Patent. Right Internal Iliac Artery: Not visualized. Left Internal Iliac Artery: Not visualized. Bilateral iliac arteries are tortuous. Bilateral iliac arteries are patent without evidence of aneurysm. Comparison Study The exam was compared to the study performed on 12/20/2022. No abdominal aortic aneurysm (AAA) is present. 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 CV CPACS Cardiology Visit Reporton Cardiology Visit Report [facility] [address] [place] [address] OFFICE VISIT Date of Service: 12/04/24 MR#: [id number] Acct: [id number] Name: ANNIA ALFONSO Rep #: [id number] : 1955 Provider: LESTER del real Age/Sex: 69/M Location: [facility] Status: Signed HPI HPI History of Present Illness Details: This is a 69-year-old white male who presents today for outpatient cardiovascular follow-up visit. He has a history of paroxysmal atrial fibrillation superimposed on hyperlipidemia and hypertension. He underwent an echocardiogram on 11/06/2024, which demonstrated an ejection fraction of 65%, and mildly dilated left atrium. His stress test from 10/31/2024 was negative for ischemia. From a cardiac standpoint, the patient is doing well. He states that he did increase his metoprolol dose, and his palpitations have improved. He states his chest pain has also improved. He denies any palpitations, chest pain, pressure or heaviness. He denies SOB, Orthopnea, and PND. He does not have bleeding issues; no blood in urine, stool, or nosebleeds. He denies any decrease in energy level, myalgias, or claudication. He does acknowledge two episodes of BLE edema. He does not have sudden weight gain. He does acknowledge occasional lightheadedness. He denies dizziness, syncopal or near syncopal episodes, and headaches. 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 Required: No Accompanied by: Self Is patient in pain?: No Allergies atorvastatin Adverse Reaction (Mild, Verified 12/04/24 11:27) Other metformin Adverse Reaction (Mild, Verified 12/04/24 11:27) Pain in joints Medications ???Medication ???Instructions ???Recorded ???Confirmed ???Type aspirin 81 mg chewable tablet 81 mg PO DAILY@1900 [facility] 1 06/23/19 12/04/24 History multivitamin 1 tab PO DAILY SUPPLIMENT 04/22/20 12/04/24 History ashwagandha root extract 300 mg 300 mg PO DAILY 05/23/20 12/04/24 History capsule warfarin 2.5 mg tablet 2.5 mg PO MOFR 12/17/20 12/04/24 H istory warfarin 5 mg tablet 5 mg PO SUTUWETHSA 12/17/20 History ascorbic acid (vitamin C) 1,000 mg 1 g PO DAILY 01/02/21 12/04/24 H istory tablet cholecalciferol (vitamin D3) 125 125 mcg PO DAILY 04/06/21 12/04/24 History mcg (5,000 unit) tablet cinnamon bark 500 mg capsule 500 mg PO QDAY 09/04/24 12/04/24 H istory (Cinnamon) lisinopril 20 mg tablet 20 mg PO ONCE 09/04/24 12/04/24 Hi story metoprolol succinate 25 mg 25 mg PO DAILY #90 tabs 12/04/24 0 12/04/24 Rx tablet,extended release 24 hr Have you fallen in the past year?: [...] per week ROS Const Const: Negative for fatigue Eyes Eyes: Negative for change in vision ENT ENT: Negative for dizziness or balance problems Cardio Chest Pain: No Palpitations: No Edema: Bilateral (2 episodes) Resp Respiratory: Negative for SOB with activity, SOB at rest or SOB orthopnea SOB lying down GI GI: Negative nausea or heartburn Musc Musc: Negative for balance problems Neuro Neuro: Positive for lightheadedness; Negative for dizziness, near syncope or syncope Endo Endo: Negative for fatigue Cardiology Exam Const Appearance: cooperative, healthy appearing, comfortable, no acute distress, well developed and well groomed Nutritional Appearance: obese Orientation: alert, awake and oriented x3 Head Head: normal to inspection, normocephalic and atraumatic Ears: hearing grossly normal bilaterally Nose: external nose normal Face and Sinus: face symmetric Eyes Eyelids: eyelids normal Conjunctivae: conjun (more content not included)... Normal [facility] Echo Completeon 11-06-2024 Echo [facility] Cardiovascular Services [address] [place] [address] Echo Complete 11/06/24 1106 MR#: [id number] Acct: [id number] Name: ANNIA ALFONSO Rep #: [id number] : 1955 68 From: Ori Fernandes MD Attending Dr: Arlene Mata DRAFTER DETAIL-C Status: REG C Ordering Dr: Arlene Mata NP DRAFTER DETAIL-C Date: 11/06/24 Location: CVS Sex: M C Admitted: Reason For Study Reason For Study: PAF Procedure This was a 2D Doppler, Color Flow transthoracic echocardiogram. Myocardial strain analysis was performed in this exam to aid in the assessment of cardiac function. Exam performed in department. Left Ventricle Normal LV size. Moderate concentric left ventricular hypertrophy. Left ventricular systolic function is normal. The left ventricular ejection fraction is 65 %. No regional wall motion abnormalities noted. Right Ventricle Normal RV size. Normal systolic function. Atria The left atrium is mildly enlarged. Normal right atrium. Mitral Valve Normal mitral valve. Tricuspid Valve Normal tricuspid valve. Mild tricuspid valve insufficiency. Pulmonary artery systolic pressure is 30 mmHg. Aortic Valve Trisinus/trileaflet aortic valve. Mild focal aortic valve calcification. Pulmonic Valve Normal pulmonic valve. Great Vessels Normal aortic root. The pulmonary artery is normal size. Inferior vena cava collapse with respiration. Pericardium/Pleural No pericardial effusion. MMode/2D Measurements Calculations LVIDd: 4.0 cm IVSd: 1.8 cm Ao root diam: 3.9 cm LVIDs: 2.6 cm LVPWd: 1.5 cm RVDd: 4.3 cm FS: 36.3 % __ LAV(MOD-bp): 79.3 ml LVAd ap4: 27.0 cm2 SV(MOD-sp4): 44.3 ml LAV(MOD-bp) Indexed: 50.8 ml/m2 LVLd ap4: 8.1 cm SI(MOD-sp4): 28.4 ml/m2 LAV(MOD-sp2): 79.1 ml EDV(MOD-sp4): 76.7 ml LAV(MOD-sp4): 72.6 ml EDV(sp4-el): 76.9 ml LVAs ap4: 15.8 cm2 LVLs ap4: 7.0 cm ESV(MOD-sp4): 32.4 ml ESV(sp4-el): 30.3 ml EF(MOD-sp4): 57.8 % EF(sp4-el): 60.6 % __ SV(sp4-el): 46.6 ml LA A4 area: 23.0 cm2 RA A4 area: 12.8 cm2 __ TAPSE: 3.5 cm Time Measurements MV dec time: 0.25 sec Doppler Measurements Calculations MV E max chun: 79.5 cm/sec Lat Peak E' Chun: 7.6 cm/sec Med Peak E' Chun: 6.3 cm/sec MV A max chun: 71.3 cm/sec E/E' lat: 10.5 E/E' med: 12.6 MV E/A: 1.1 __ MV dec slope: 321.1 cm/sec2 Ao V2 max: 149.7 cm/sec LV V1 max: 118.0 cm/sec Ao max P.0 mmHg LV V1 max P.6 mmHg Ao V2 mean: 111.5 cm/sec LV V1 mean P.6 mmHg Ao mean P.3 mmHg LV V1 mean: 75.3 cm/sec Ao V2 VTI: 32.2 cm LV V1 VTI: 30.5 cm AV (velocity ratio): 0.95 __ PA V2 max: 72.3 cm/sec TR max chun: 262.3 cm/sec TR max P.5 mmHg ECHO/Echo Complete Interpretation Summary Normal LV size. Left ventricular systolic function is normal. The left ventricular ejection fraction is 65 %. Moderate concentric left ventricular hypertrophy. Mild tricuspid valve insufficiency. The global longitudinal strain is borderline abnormal. The global longitudinal strain = -16% (abnormal). __ Ordering Physician: Arlene Mata Referring Physician: Ludy Sarmiento Performed By: Enid SINGH RDCS, Lily and Student 11/06/24 1625 Date Ori Fernandes MD CC: LESTER Mata; Dr. Ludy Sarmiento MD Date Dictated: 11/06/24 1106 Date Transcribed: 11/06/241624 Financial Agent: Signed Normal [facility] Echocardiogram study reportO rdered By: Ori Fernandes on 11-06-2024 Study report [facility] Cardiovascular Services [address] [place] [address] Echo Complete 11/06/241105 MR#: [id number] Acct: [id number] Name: ANNIA ALFONSO SHARITA Rep #:[id number] : 1955 68 From: Ori Deshpande Attending Dr: LESTER Kent tatus: REG CLI Ordering Dr: Arlene Mata NP Sascha e: 11/06/24 [facility]: [facility] Sex: M C Admitted: Reason For Study Reason For Study: PAF Procedure This was a 2D Doppler, Color Flow transthoracic echocardiogram. Myocardial strain analysis was performed in this exam to aid in the assessment of cardiac function. Exam performed in department. Left Ventricle Normal LV size. Moderate concentric left ventricular hypertrophy. Left ventricular systolic function is normal. The left ventricular ejection fraction is 65 %. No regional wall motion abnormalities noted. Right Ventricle Normal RV size. Normal systolic function. Atria The left atrium is mildly enlarged. Normal right atrium. Mitral Valve Normal mitral valve. Tricuspid Valve Normal tricuspid valve. Mild tricuspid valve insufficiency. Pulmonary artery systolic pressure is 30 mmHg. Aortic Valve Trisinus/trileaflet aortic valve. Mild focal aortic valve calcification. Pulmonic Valve Normal pulmonic valve. Great Vessels Normal aortic root. The pulmonary artery is normal size. Inferior vena cava collapse with respiration. Pericardium/Pleural No pericardial effusion. MMode/2D Measurements & Calculations LVIDd: 4.0 cm IVSd: 1.8 cm Ao root diam: 3.9 cm LVIDs: 2.6 cm LVPWd: 1.5 cm RVDd: 4.3 cm FS: 36.3 % ____ LAV(MOD-bp): 79.3 ml LVAd ap4: 27.0 cm2 SV(MOD-sp4): 44.3 ml LAV(MOD-bp) Indexed: 50.8 ml/m2 LVLd ap4: 8.1 cm SI(MOD-sp4): 28.4 ml/m2 LAV(MOD-sp2): 79.1 ml EDV(MOD-sp4): 76.7 ml LAV(MOD-sp4): 72.6 ml EDV(sp4-el): 76.9 ml LVAs ap4: 15.8 cm2 LVLs ap4: 7.0 cm ESV(MOD-sp4): 32.4 ml ESV(sp4-el): 30.3 ml EF(MOD-sp4): 57.8 % EF(sp4-el): 60.6 % ____ SV(sp4-el): 46.6 ml LA A4 area: 23.0 cm2 RA A4 area: 12.8 cm2 __ TAPSE: 3.5 cm Time Measurements MV dec time: 0.25 sec Doppler Measurements & Calculations MV E max chun: 79.5 cm/sec Lat Peak E' Chun: 7.6 cm/sec Med Peak E' Chun: 6.3 cm/sec MV A max chun: 71.3 cm/sec E/E' lat: 10.5 E/E' med: 12.6 MV E/A: 1.1 __ MV dec slope: 321.1 cm/sec2 Ao V2 max: 149.7 cm/sec LV V1 max: 118.0 cm/sec Ao max P.0 mmHg LV V1 max P.6 mmHg Ao V2 mean: 111.5 cm/sec LV V1 mean P.6 mmHg Ao mean P.3 mmHg LV V1 mean: 75.3 cm/sec Ao V2 VTI: 32.2 cm LV V1 VTI: 30.5 cm AV (velocity ratio): 0.95 ____ PA V2 max: 72.3 cm/sec TR max chun: 262.3 cm/sec TR max P.5 mmHg ECHO/Echo Complete Interpretation Summary Normal LV size. Left ventricular systolic function is normal. The left ventricular ejection fraction is 65 %. Moderate concentric left ventricular hypertrophy. Mild tricuspid valve insufficiency. The global longitudinal strain is borderline abnormal. The global longitudinal strain = -16% (abnormal). __ Ordering Physician: Arlene Mata Referring Physician: Ludy Sarmiento Performed By: Lily Rossi RVT, RDCS and Student 11/06/24 1625 Date _ Ori Fernandes MD CC: LESTER Mata; Dr. Ludy Sarmiento MD ~ Date Dictated: 11/06/24 1106 Date Transcribed: 11/06/24 1625 Financial Agent: Signed [facility] Work Phone: Cardiovascular stress test r eportOrdered By: Ori Fernandes on 10-31-2024 Study report [facility] Cardiovascular Services [address] [place] [address] MR#: [id number] Acct: [id number] Name: ANNIA ALFONSO Rep #: [id number] : 1955 68 From: Ori Fernandes MD Primary Care: Dr. Ludy Sarmiento MD Stat us: REG CLI Referring Dr: Arlene Mata NP DRAFTER DETAIL-C Sex: M C Stress Test Report Exercise [...] 10/31/24733 Date _ Ori Fernandes MD CC: DRAFTER DETAIL-C Arlene Mata; Dr. Ludy Sarmiento MD ~ Date Dictated: 10/31/24730 Date Transcribed: 10/31/24730 Financial Agent: [place] Signed [facility] Work Phone: Stress Reporton 10-31-2024 Stress Report [facility] Cardi[facility] [address] [place] [address] MR#: [id number] Acct: [id number] Name: ANNIA ALFONSO Rep #: [id number] : 1955 68 From: Ori Fernandes MD Primary Care: Dr. Ludy Sarmiento MD Status: REG CLI Referring Dr: Arlene Mata NP DRAFTER DETAIL-C Sex: M C Stress Test Report Exercise [...] at a moderate workload Preserved ejection fraction. 10/31/2434 Date Ori Fernandes MD CC: LESTER Mata; Dr. Ludy Sarmiento MD Date Dictated: 10/31/24730 Date Transcribed: 10/31/24730 Financial Agent: [place] Signed Tiffany [facility] ALBUMIN, RANDOM URINE W/CREA KORINrobert 10-12-2024 ALBUMIN, URINE Normal [facility] Comment on above: Performed By: #### 1 759, 7600, 65422, 496, 6517 #### [facility] [place] [address] Retail Financial Analyst: Jung Flores MD ALBUMIN/CREATININE RATIO, RANDOM URINE Normal [facility] Comment on above: Performed By: #### 1 759, 7600, 79224, 496, 6517 #### [facility] [place] [address] Retail Financial Analyst: Jung Flores MD CREATININE, RANDOM URINE Normal [facility] Comment on above: Performed By: #### 1 759, 7600, 15947, 496, 6517 #### [facility] [place] [address] Retail Financial Analyst: Jung Flores MD CBC (H/H, RBC, INDICES, WBC, PLT)on 10-12-2024 Erythrocyte distribution width (RBC) [Ratio] 14.2 % Normal 11.0-15.0 [facility] Comment on above: Performed By: #### 1 759, 7600, 89067, 496, 6517 #### [facility] [address] Retail Financial Analyst: Jung Flores MD Hematocrit (Bld) [Volume fraction] 45.4 % Normal 38.5-50.0 [facility] Comment on above: Performed By: #### 1 759, 7600, 70619, 496, 6517 #### [facility] [place] [address] Retail Financial Analyst: Jung Flores MD Hemoglobin (Bld) [Mass/Vol] 14.5 g/dL Normal 13.2-17.1 [facility] Comment on above: Performed By: #### 1 759, 7600, 19957, 496, 6517 #### [facility] [place] [address] Retail Financial Analyst: Jung Flores MD MCH (RBC) [Entitic mass] 28.6 pg Normal 27.0-33.0 [facility] Comment on above: Performed By: #### 1 759, 7600, 21080, 496, 6517 #### [facility] [place] [address] Retail Financial Analyst: Jung Flores MD MCHC (RBC) [Mass/Vol] 31.9 [...] condition. Performed By: #### 1 759, 7600, 41196, 496, 6517 #### [facility] [place] [address] Retail Financial Analyst: Jung Flores MD MCV (RBC) [Entitic vol] 89.5 fL Normal 80.0-100.0 [facility] Comment on above: Performed By: #### 1 759, 7600, 20250, 496, 6517 #### [facility] [address], [address] [place] [address] Retail Financial Analyst: Jung Flores MD Platelet mean volume (Bld) [Entitic vol] 10.8 fL Normal 7.5-12.5 [facility] Comment on above: Performed By: #### 1 759, 7600, 64072, 496, 6517 #### [facility] [place] [address] Retail Financial Analyst: Jung Flores MD Platelets (Bld) [#/Vol] 240 10*3/uL Normal 140-400 [facility] Comment on above: Performed By: #### 1 759, 7600, 72058, 496, 6517 #### [facility] [place] [address] Retail Financial Analyst: Jung Flores MD RBC (Bld) [#/Vol] 5.07 10*6/uL Normal 4.20-5.80 [facility] Comment on above: Performed By: #### 1 759, 7600, 35614, 496, 6517 #### [facility] [place] [address] Retail Financial Analyst: Jung Flores MD WBC (Bld) [#/Vol] 7.5 10*3/uL Normal 3.8-10.8 [facility] Comment on above: Performed By: #### 1 759, 7600, 15476, 496, 6517 #### [facility] [place] [address] Retail Financial Analyst: Jung Flores MD [facility] 10-12-2024 Albumin [Mass/Vol] 4.6 g/dL Normal 3.6-5.1 [facility] Comment on above: Performed By: #### 1 759, 7600, 19450, 496, 6517 #### [facility] [place] [address] Retail Financial Analyst: Jung Flores MD Albumin/Globulin [Mass ratio] 2.0 {ratio} Normal 1.0-2.5 [facility] Comment on above: Performed By: #### 1 759, 7600, 59168, 496, 6517 #### [facility] [place] [address] Retail Financial Analyst: Jung Flores MD ALP [Catalytic activity/Vol] 55 U/L Normal 35-144 [facility] Comment on above: Performed By: #### 1 759, 7600, 41613, 496, 6517 #### [facility] [place] [address] Retail Financial Analyst: Jung Flores MD ALT [Catalytic activity/Vol] 31 U/L Normal 9-46 [facility] Comment on above: Performed By: #### 1 759, 7600, 11609, 496, 6517 #### [facility] [place] [address] Retail Financial Analyst: Jung Flores MD AST [Catalytic activity/Vol] 30 U/L Normal 10-35 [facility] Comment on above: Performed By: #### 1 759, 7600, 62377, 496, 6517 #### [facility] [place] [address] Retail Financial Analyst: Jung Flores MD Bilirubin [Mass/Vol] 0.9 mg/dL Normal 0.2-1.2 [facility] Comment on above: Performed By: #### 1 759, 7600, 81224, 496, 6517 #### [facility] [place] [address] Retail Financial Analyst: Jung Flores MD BUN/CREATININE RATIO SEE NOTE: Normal 6-22 [facility] Comment on above: Result Comment: Not Reported: BUN and Creatinine are within reference range. Performed By: #### 1 759, 7600, 15655, 496, 6517 #### [facility] [place] [address] Retail Financial Analyst: Jung Flores MD Calcium [Mass/Vol] 9.6 mg/dL Normal 8.6-10.3 [facility] Comment on above: Performed By: #### 1 759, 7600, 48405, 496, 6517 #### [facility] [place] [address] Retail Financial Analyst: Jung Flores MD Chloride [Moles/Vol] 101 mmol/L Normal 98-110 [facility] Comment on above: Performed By: #### 1 759, 7600, 64193, 496, 6517 #### [facility] [place] [address] Retail Financial Analyst: Jung Flores MD CO2 [Moles/Vol] 26 mmol/L Normal 20-32 [facility] Comment on above: Performed By: #### 1 759, 7600, 69756, 496, 6517 #### [facility] [place] [address] Retail Financial Analyst: Jung Flores MD Creatinine [Mass/Vol] 1.10 mg/dL Normal 0.70-1.[address] [facility] Comment on above: Performed By: #### 1 759, 7600, 97754, 496, 6517 #### [facility] [place] [address] Retail Financial Analyst: Jung Flores MD GFR/1.73 sq M.predicted among non-blacks MDRD (S/P/Bld) [Vol rate/Area] 72 mL/min/{1.73_m2} Normal > OR = 60 [facility] Comment on above: Performed By: #### 1 759, 7600, 18302, 496, 6517 #### [facility] [place] [address] Retail Financial Analyst: Jung Flores MD Globulin (S) [Mass/Vol] 2.3 g/dL Normal 1.9-3.7 [facility] Comment on above: Performed By: #### 1 759, 7600, 69843, 496, 6517 #### [facility] [place] [address] [place] [address] Retail Financial Analyst: Jung Flores MD Glucose [Mass/Vol] 141 mg/dL High 65-99 [facility] Comment on above: Result Comment: Fasting reference interval For someone without known diabetes, a glucose value >125 mg/dL indicates that they may have diabetes and this should be confirmed with a follow-up test. Performed By: #### 1 759, 7600, 03036, 496, 6517 #### [facility] [place] [address] Retail Financial Analyst: Jung Flores MD Potassium [Moles/Vol] 4.7 mmol/L Normal 3.5-5.3 [facility] Comment on above: Performed By: #### 1 759, 7600, 13345, 496, 6517 #### [facility] [place] [address] Retail Financial Analyst: Jung Flores MD Protein [Mass/Vol] 6.9 g/dL Normal 6.1-8.1 [facility] Comment on above: Performed By: #### 1 759, 7600, 88860, 496, 6517 #### [facility] [place] [address] Retail Financial Analyst: Jung Flores MD Sodium [Moles/Vol] 137 mmol/L Normal 135-146 [facility] Comment on above: Performed By: #### 1 759, 7600, 84272, 496, 6517 #### [facility] [place] [address] Retail Financial Analyst: Jung Flores MD Urea nitrogen [Mass/Vol] 18 mg/dL Normal 7-25 [facility] Comment on above: Performed By: #### 1 759, 7600, 65152, 496, 6517 #### [facility] [place] [address] Retail Financial Analyst: Jung Flores MD HEMOGLOBIN A1con 10-12-2024 HbA1c [...] children. Performed By: #### 1 759, 7600, 45358, 496, 6517 #### [facility] [address], [address] [place] [address] Retail Financial Analyst: Jung Flores MD LIPID PANEL, [facility] - Cholesterol [Mass/Vol] 206 mg/dL High <200 [facility] Comment on above: Order Comment: 0; FA STING; 0; FASTING; 0 FASTING:YES FASTING: YES Performed By: #### 1 759, 7600, 98761, 496, 6517 #### [facility] [address], [address] [place] [address] Retail Financial Analyst: Jung Flores MD Cholesterol in HDL [Mass/Vol] 49 mg/dL Normal > OR = 40 [facility] Comment on above: Order Comment: 0; FA STING; 0; FASTING; 0 FASTING:YES FASTING: YES Performed By: #### 1 759, 7600, 65209, 496, 6517 #### [facility] [address], [address] [place] [address] Retail Financial Analyst: Jung Flores MD Cholesterol in LDL [Mass/Vol] 128 mg/dL High [facility] Comment on above: Order Comment: 0; FA STING; 0; FASTING; 0 FASTING:YES FASTING: YES Result Comment: Refe rence range: <100 Desirable range <100 mg/dL for primary prevention; <70 mg/dL for patients with CHD or diabetic patients with > or = 2 CHD risk factors. LDL-C is now calculated using the Ash-Reyes calculation, which is a validated novel method providing better accuracy than the Friedewald equation in the estimation of LDL-C. Ash REZA et al. LEESA. 2013;310(19): 3643-7132 (http://education.SpaceIL.com/faq/WGT125) Performed By: #### 1 759, 7600, 83394, 496, 6517 #### [facility] [address], [address] [place] [address] Retail Financial Analyst: Jung Flores MD Cholesterol.total/Claire sterol in HDL [Mass ratio] 4.2 {ratio} Normal <5.0 [facility] Comment on above: Order Comment: 0; FA STING; 0; FASTING; 0 FASTING:YES FASTING: YES Performed By: #### 1 759, 7600, 99585, 496, 6517 #### [facility] [address], [address] [place] [address] Retail Financial Analyst: Jung Flores MD NON HDL CHOLESTEROL 157 mg/dL (calc) High <130 [facility] Comment on above: Order Comment: 0; FA STING; 0; FASTING; 0 FASTING:YES FASTING: YES Result Comment: For patients with diabetes plus 1 major ASCVD risk factor, treating to a non-HDL-C goal of <100 mg/dL (LDL-C of <70 mg/dL) is considered a therapeutic option. Performed By: #### 1 759, 7600, 71822, 496, 6517 #### [facility] [address], [address] [place] [address] Retail Financial Analyst: Jung Flores MD Triglyceride [Mass/Vol] 172 mg/dL High <150 [facility] Comment on above: Order Comment: 0; FA STING; 0; FASTING; 0 FASTING:YES FASTING: YES Performed By: #### 1 759, 7600, 84255, 496, 6517 #### [facility] [address], [address] [place] [address] Retail Financial Analyst: Jung Flores MD 12 Lead EKG performed by [facility] on 09-04-2024 12 Lead EKG performed by [place] [address] [place] [address] 12 Lead EKG performed by [facility] 09/04/24912 MR#: [id number] Acct: [id number] Name: ANNIA ALFONSO Rep #: [id number] : 1955 68 From: Arlene Mata NP DRAFTER DETAIL-C Attending Dr: Arleen Mata DRAFTER DETAIL-C Status: DEP A MB Ordering Dr: Arlene Mata NP DRAFTER DETAIL-C Date: 09/04/24 Location: [facility] Sex: M C Admitted: BMS/12 Lead EKG performed by [facility] ECG Report Interpretation -------Sinus Rhythm -Right bundle branch block. ABNORMAL Electronically signed on 09/04/2024 at 09:59 by Ori Fernandeswood Software Version [id number] 09/04/24 1002 Date Arlene Mata NP DRAFTER DETAIL-C CC: Dr. Ludy Sarmiento MD Date Dictated: 09/04/24912 Date Transcribed: 09/04/24912 Financial Agent: MARY Signed Normal [facility] Cardiology Visit Reporton Cardiology Visit Report [facility] [address] [place] [address] OFFICE VISIT Date of Service: 09/04/24 MR#: [id number] Acct: [id number] Name: ANNIA ALFONSO Rep #: [id number] : 1955 Provider: LESTER del real Age/Sex: 68/M [facility] Status: Signed HPI HPI History of Present [...] Intake Visit Reasons: OVER DUE FOR FU Package Dyer Required: No Is patient in pain?: No [...] Appearance: cooperative (more content not included)... Normal [facility] CBC (H/H, RBC, INDICES, WBC, PLT)on 04-20-2024 Erythrocyte distribution width (RBC) [Ratio] 13.5 % Normal 11.0-15.0 [facility] Comment on above: Performed By: #### 1 759, 23953, 57561 #### [facility] [place] [address] Retail Financial Analyst: Jung Flores MD Hematocrit (Bld) [Volume fraction] 42.0 % Normal 38.5-50.0 [facility] Comment on above: Performed By: #### 1 759, 86138, 01993 #### [facility] [place] [address] Retail Financial Analyst: Jung Flores MD Hemoglobin (Bld) [Mass/Vol] 13.8 g/dL Normal 13.2-17.1 [facility] Comment on above: Performed By: #### 1 759, 76262, 46666 #### [facility] [place] [address] Retail Financial Analyst: Jung Flores MD MCH (RBC) [Entitic mass] 28.2 pg Normal 27.0-33.0 [facility] Comment on above: Performed By: #### 1 759, 21278, 75905 #### [facility] [place] [address] Retail Financial Analyst: Jung Flores MD MCHC (RBC) [Mass/Vol] 32.9 [...] clinical condition. Performed By: #### 1 759, 32483, 08127 #### [facility] [place] [address] Retail Financial Analyst: Jung Flores MD MCV (RBC) [Entitic vol] 85.9 fL Normal 80.0-100.0 [facility] Comment on above: Performed By: #### 1 759, 47338, 89407 #### [facility] [place] [address] Retail Financial Analyst: Jung Flores MD Platelet mean volume (Bld) [Entitic vol] 11.0 fL Normal 7.5-12.5 [facility] Comment on above: Performed By: #### 1 759, 11115, 84713 #### [facility] [place] [address] Retail Financial Analyst: Jung Flores MD Platelets (Bld) [#/Vol] 247 10*3/uL Normal 140-400 [facility] Comment on above: Performed By: #### 1 759, 44218, 23260 #### [facility] [place] [address] Retail Financial Analyst: Jung Flores MD RBC (Bld) [#/Vol] 4.89 10*6/uL Normal 4.20-5.80 [facility] Comment on above: Performed By: #### 1 759, 59942, 41506 #### [facility] [place] [address] Retail Financial Analyst: Jung Flores MD WBC (Bld) [#/Vol] 5.9 10*3/uL Normal 3.8-10.8 [facility] Comment on above: Performed By: #### 1 759, 85948, 05748 #### [facility] [place] [address] Retail Financial Analyst: Jung Flores MD [facility] 04-20-2024 Albumin [Mass/Vol] 4.4 g/dL Normal 3.6-5.1 [facility] Comment on above: Order Comment: 0; 0; 0 Performed By: #### 1 759, 92441, 69630 #### [facility] [place] [address] Retail Financial Analyst: Jung Flores MD Albumin/Globulin [Mass ratio] 2.0 {ratio} Normal 1.0-2.5 [facility] Comment on above: Order Comment: 0; 0; 0 Performed By: #### 1 759, 35036, 33793 #### [facility] [place] [address] Retail Financial Analyst: Jung Flores MD ALP [Catalytic activity/Vol] 60 U/L Normal 35-144 [facility] Comment on above: Order Comment: 0; 0; 0 Performed By: #### 1 759, 79276, 57136 #### [facility] [place] [address] Retail Financial Analyst: Jung Flores MD ALT [Catalytic activity/Vol] 24 U/L Normal 9-46 [facility] Comment on above: Order Comment: 0; 0; 0 Performed By: #### 1 759, 52993, 43501 #### [facility] [place] [address] Retail Financial Analyst: Jung Flores MD AST [Catalytic activity/Vol] 20 U/L Normal 10-35 [facility] Comment on above: Order Comment: 0; 0; 0 Performed By: #### 1 279, 73887, 01174 #### [facility] [place] [address] Retail Financial Analyst: Jung Flores MD Bilirubin [Mass/Vol] 0.6 mg/dL Normal 0.2-1.2 [facility] Comment on above: Order Comment: 0; 0; 0 Performed By: #### 1 539, 70645, 98028 #### [facility] [place] [address] Retail Financial Analyst: Jung Flores MD BUN/CREATININE RATIO SEE NOTE: Normal 6-22 [facility] Comment on above: Order Comment: 0; 0; 0 Result Comment: Not Reported: BUN and Creatinine are within reference range. Performed By: #### 1 459, 31164, 76486 #### [facility] [place] [address] Retail Financial Analyst: Jung Flores MD Calcium [Mass/Vol] 9.1 mg/dL Normal 8.6-10.3 [facility] Comment on above: Order Comment: 0; 0; 0 Performed By: #### 1 759, 20744, 60494 #### [facility] [place] [address] Retail Financial Analyst: Jung Flores MD Chloride [Moles/Vol] 104 mmol/L Normal 98-110 [facility] Comment on above: Order Comment: 0; 0; 0 Performed By: #### 1 759, 80768, 50799 #### [facility] [place] [address] Retail Financial Analyst: Jung Flores MD CO2 [Moles/Vol] 28 mmol/L Normal 20-32 [facility] Comment on above: Order Comment: 0; 0; 0 Performed By: #### 1 699, 86522, 04002 #### [facility] [place] [address] Retail Financial Analyst: Jung Flores MD Creatinine [Mass/Vol] 0.96 mg/dL Normal 0.70-1.28 [facility] Comment on above: Order Comment: 0; 0; 0 Performed By: #### 1 759, 36980, 26013 #### [facility] [place] [address] Retail Financial Analyst: Jung Flores MD GFR/1.73 sq M.predicted among non-blacks MDRD (S/P/Bld) [Vol rate/Area] 85 mL/min/{1.73_m2} Normal > OR = 60 [facility] Comment on above: Order Comment: 0; 0; 0 Performed By: #### 1 229, 20489, 56299 #### [facility] [place] [address] Retail Financial Analyst: Jung Flores MD Globulin (S) [Mass/Vol] 2.2 g/dL Normal 1.9-3.7 [facility] Comment on above: Order Comment: 0; 0; 0 Performed By: #### 1 759, 00236, 85687 #### [facility] [place] [address] Retail Financial Analyst: Jung Flores MD Glucose [Mass/Vol] 141 mg/dL High 65-99 [facility] Comment on above: Order Comment: 0; 0; 0 Result Comment: Fasting reference interval For someone without known diabetes, a glucose value >125 mg/dL indicates that they may have diabetes and this should be confirmed with a follow-up test. Performed By: #### 1 9, 19754, 63611 #### [facility] [place] [address] Retail Financial Analyst: Jung Flores MD Potassium [Moles/Vol] 4.5 mmol/L Normal 3.5-5.3 [facility] Comment on above: Order Comment: 0; 0; 0 Performed By: #### 1 579, 88750, 10103 #### [facility] [place] [address] Retail Financial Analyst: Jung Flores MD Protein [Mass/Vol] 6.6 g/dL Normal 6.1-8.1 [facility] Comment on above: Order Comment: 0; 0; 0 Performed By: #### 1 269, 81717, 21320 #### [facility] [place] [address] Retail Financial Analyst: Jung Flores MD Sodium [Moles/Vol] 141 mmol/L Normal 135-146 [facility] Comment on above: Order Comment: 0; 0; 0 Performed By: #### 1 659, 83174, 90990 #### [facility] [place] [address] Retail Financial Analyst: Jung Flores MD Urea nitrogen [Mass/Vol] 19 mg/dL Normal 7-25 [facility] Comment on above: Order Comment: 0; 0; 0 Performed By: #### 1 759, 08748, 71387 #### [facility] [address], [address] [place] [address] Retail Financial Analyst: Jung Flores MD PSA, TOTAL, MONITORINGon PSA, [...] of disease. Performed By: #### 1 759, 08121, 98237 #### [facility] [address], [address] [place] [address] Retail Financial Analyst: Jung Flores MD [facility] 03-13-2024 Dorian Winkler APRN NP 03/13/2024 2:05 PM [facility] Date/Time: 03/13/2024 2:04 PM Performed by: Dorina Winkler APRN DRAFTER DETAIL Authorized by: Dorina Winkler APRN NP Consent: Consent obtained: Verbal Consent given by: Patient Risks, benefits, and alternatives were discussed: yes Risks discussed: Infection, need for additional repair, nerve damage, poor wound healing, poor cosmetic result, pain, tendon damage and vascular damage [place] protocol: Procedure explained and questions answered to [...] Procedure completion: Tolerated well, no immediate complications Play With Pictures / HangPic [facility] No Panel InformationOrdered By: Marco A Subramanian on 12-20-2022 Ao dist AP 1.68 cm [facility] Work Phone: Ao dist PSV 92.0 cm/s [facility] Work Phone: Ao dist TR 1.66 cm [facility] Work Phone: Ao mid AP 1.98 cm [facility] Work Phone: Ao mid PSV 83.0 cm/s [facility] Work Phone: Ao mid TR 2.09 [...] cm AP x 1.93 cm TR present. Stretching Machine Tender Frame Details A cunningham scale, color Doppler imaging [...] Radiology ACCESSION EXAM DATE/TIME PROCEDURE ORDERING PROVIDER [id number] 11/06/2021 12:18 EDT CR Spine Cervical Comp MD GUILLERMINA, LUDY A w/ Obliques CPT code 10373 Reason For Exam (CR Spine Cervical Comp [...] Transcribed Date and Time: 11/10/2021 11:10 Normal [facility] CR Spine Thoracic 3 Viewson 11-06-2021 CR Spine Thoracic 3 Views Patient Name: ANNIA ALFONSO Diagnostic Radiology ACCESSION EXAM DATE/TIME PROCEDURE ORDERING PROVIDER [id number] 11/06/2021 12:18 EDT CR Spine Thoracic 3 MD GUILLERMINA, LUDY A Views CPT code 24695 Reason For Exam (CR Spine Thoracic 3 [...] Transcribed Date and Time: 11/10/2021 10:51 Normal [facility] ECHO Complete 2D W Doppler W Coloron 09-17-2021 TRANSTHORACIC ECHOCARDIOGRAM PATIENT: Annia Alfonso STUDY DATE: 09/17/2021 : 1955 AGE: 65 HT/WT: 177.8 cm (70 108.4 kg in) (238.5 lb) GENDER: M BP: 163 / 76 LOCATION: [facility] PATIENT Outpatient [facility] STATUS: *ORDERING PHYSICIAN: * Esme Tan *READING PHYSICIAN: * *LECTURER IN MARKETING: * Magdalena Barajas MD RDCS,AE, PE, RVT INDICATIONS: ASSESS LV FUNCTION, LA SIZE. CONCLUSIONS SUMMARY: 1. Left ventricle: Systolic function is by the biplane method of disks. The estimated ejection fraction is 61%. 2. Left atrium: The atrium is mildly dilated. 3. No significant valve disease. 4. Technically difficult study. STUDY DATA: Complete transthoracic echocardiogram. Procedure: Image quality was suboptimal. Pogoappity lot #: [id number]. M-mode, complete 2D, complete [...] ES, 2-p 34 (more content not included)... [facility] CARDIOLOG[facility] Magdalena Gonzalez MD - 09/17/2021 TRANSTHORACIC ECHOCARDIOGRAM PATIENT: Annia Alfonso STUDY DATE: 09/17/2021 : 1955 AGE: 65 HT/WT: 177.8 cm (70 108.4 kg in) (238.5 lb) GENDER: M BP: 163 / 76 LOCATION: [facility] PATIENT Outpatient [facility] STATUS: *ORDERING PHYSICIAN: * Esme Tan *READING PHYSICIAN: * *LECTURER IN MARKETING: * Magdalena Barajas MD RDCS,AE, PE, RVT INDICATIONS: ASSESS LV FUNCTION, LA SIZE. CONCLUSIONS SUMMARY: 1. Left ventricle: Systolic function is by the biplane method of disks. The estimated ejection fraction is 61%. 2. Left atrium: The atrium is mildly dilated. 3. No significant valve disease. 4. Technically difficult study. STUDY DATA: Complete transthoracic echocardiogram. Procedure: Image quality was suboptimal. Pogoappity lot #: [id number]. M-mode, complete 2D, complete [...] specified reference range. Electronically signed by Magdalena Gnozalez MD 09/17/2021 16:42 Prior Signatures: [facility] Work Phone: ECHO Complete 2D W Doppler W ColorOrdered By: Magdalena Gonzalez on 09-17-2021 [facility] Work Phone: Echo Complete w/wo Contrasto n 09-17-2021 Echo Complete w/wo Contrast Patient Name: ANNIA ALFONSO Ultrasound ACCESSION EXAM DATE/TIME PROCEDURE ORDERING PROVIDER [id number] 09/17/2021 14:49 EDT Echo Complete w/wo ANGELA TAN KRISTEN Contrast Reason For Exam (Echo Complete w/wo Contrast) Assess LV function, LA size Report TRANSTHORACIC ECHOCARDIOGRAM PATIENT: Annia Alfonso STUDY DATE: 09/17/2021 : 1955 AGE: 65 HT/WT: 177.8 cm (70 108.4 kg in) (238.5 lb) GENDER: M BP: 163 / 76 LOCATION: [facility] PATIENT Outpatient [facility] STATUS: *ORDERING PHYSICIAN: * Esme Tan *READING PHYSICIAN: * *LECTURER IN MARKETING: * Magdalena Barajas MD RDCS,AE, PE, RVT INDICATIONS: ASSESS LV FUNCTION, LA SIZE. CONCLUSIONS SUMMARY: 1. Left ventricle: Systolic function is by the biplane method of disks. The estimated ejection fraction is 61%. 2. Left atrium: The atrium is mildly dilated. 3. No significant valve disease. 4. Technically difficult study. STUDY DATA: Complete transthoracic echocardiogram. Procedure: Image quality was suboptimal. ChipX lot #: [id number]. M-mode, complete 2D, complete [...] Final Dictated: 05 (more content not included)... [facility] ([facility] ---- ANNIA ALFONSO ([id number]) 1955 M Date Time Provider Department 06/30/18 [...] sensation intact at all pedal sites via [place] Andreas 5.07 monofilament bilateral. Proprioception intact at [...] in this document, created by the medical interpreter for me, accurately reflects the services I personally performed and the decisions made by me. I have reviewed and approved this document for accuracy. Jack Samano DPM, FACFAS Referring Provider: SELF [[id number]] Allergies As of Date: 06/30/2018 (No Known Allergies) Date Reviewed: 06/30/2018 Reviewed by: Cecil Dawkins) Kimi - Fully Assessed Reason for Visit: New Patient [172] Cmt: pt states he fell off the ladder yesterday Primary Visit Diagnosis:Sprain of anterior talofibular ligament of left ankle, initial encounter [S93.492A] Order(s):XR ANKLE GENERAL 3V AP/LAT/OBL LT [[id number]] Order #: [id number] Prescriptions as of 06/30/2018 Sig: OXYCODONE-ACETAMINO PHEN 5 MG-* Problem List As Of Date 06/30/2018 Noted Resolved Subluxation of peroneal tendon [S93.03XA] INVALID FOR* 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 Follow-up and Disposition History Recorded Encounter Status:Closed by JACK SAMANO DPM on 07/23/18 [facility] PROGRESSon 06-30-2018 Protein mass conc HNO ID: [id number] Author: Jack Samano Service: ? Author Type: Physician Type: [...] sensation intact at all pedal sites via [place] Andreas 5.07 monofilament bilateral. Proprioception intact at [...] up PRN Scribe Attestation Statement: Scribe Statement: Honey, Monica Benjamin LPN , am scribing for, and in the presence of Jack Samano DPM, MARLIN Scribe: Monica Benjamin LPN Clinician Attestation Statement: The information in this document, created by the medical interpreter for me, accurately reflects the services I personally performed and the decisions made by me. I have reviewed and approved this document for accuracy. Jack Samano, RUTH, FACFAS Normal [facility] Protein mass conc HNO ID: [id number] Author: Cecil Bolden Service: ? Author Type: [...] for excessive bleeding, clots, bleeding disorders. Normal [facility] XR HIP MINIMUM 2 VIEWS RIGHT on [...] PM Sign Date: 06/29/2018 2:05:04 PM Normal [facility] [place] XR WRIST MINIMUM 3 VIEWS RIG HTon [...] PM Sign Date: 06/29/2018 2:09:43 PM Normal [facility] [place] Vital Signs Date Time Vital Sign Value Performing Clinician Facility 12-04-2024 11:04-0400 Diastolic blood pressure 79 mm[Hg] Dr. Ludy Sarmiento MD Work Phone: [facility] 12-04-2024 11:04-0400 Heart rate 53 /min Dr. Ludy Sarmiento MD Work Phone: [facility] 12-04-2024 11:04-0400 Systolic blood pressure 138 mm[Hg] Dr. Ludy Sarmiento MD Work Phone: [facility] 12-04-2024 10:54-0400 Body height 177.[address] Ludy Sarmiento MD Work Phone: [facility] 12-04-2024 10:54-0400 Body mass index (BMI) [Ratio] 34.5 kg/m2 Dr. Ludy Sarmiento MD Work Phone: [facility] 12-04-2024 10:54-0400 Body weight 109.[address] Ludy Sarmiento MD Work Phone: [facility] 12-04-2024 10:54-0400 Respiratory rate 18 /min Dr. Ludy Sarmiento MD Work Phone: [facility] 09-03-2024 07:24-0400 Body height 177.[address] Ludy Sarmiento MD Work Phone: [facility] 09-03-2024 07:24-0400 Body mass index (BMI) [Ratio] 34.4 kg/m2 Dr. Ludy Sarmiento MD Work Phone: [facility] 09-03-2024 07:24-0400 Body weight 108.[address] Ludy Sarmiento MD Work Phone: [facility] 09-03-2024 07:24-0400 Diastolic blood pressure 70 mm[Hg] Dr. Ludy Sarmiento MD Work Phone: [facility] 09-03-2024 07:24-0400 Heart rate 61 /min Dr. Ludy Sarmiento MD Work Phone: [facility] 09-03-2024 07:24-0400 Respiratory rate 18 /min Dr. Ludy Sarmiento MD Work Phone: [facility] 09-03-2024 07:24-0400 SaO2% (BldA) [Mass fraction] 97 % Dr. Ludy Sarmiento MD Work Phone: [facility] 09-03-2024 07:24-0400 Systolic blood pressure 152 mm[Hg] Dr. Ludy Sarmiento MD Work Phone: [facility] 03-13-2024 13:26-0500 Body height 175.3 cm Ludy Sarmiento MD Work Phone: [facility] 03-13-2024 13:26-0500 Body mass index (BMI) [Ratio] 34.41 kg/m2 Ludy Sarmiento MD Work Phone: [facility] 03-13-2024 13:26-0500 Body temperature 97 [degF] Ludy Sarmiento MD Work Phone: [facility] 03-13-2024 13:26-0500 Body weight 105.69 kg Ludy Sarmiento MD Work Phone: [facility] 03-13-2024 13:26-0500 Diastolic blood pressure 81 mm[Hg] Ludy Sarmiento MD Work Phone: [facility] 03-13-2024 13:26-0500 Heart rate 59 /min Ludy Sarmiento MD Work Phone: [facility] 03-13-2024 13:26-0500 Respiratory rate 16 /min Ludy Sarmiento MD Work Phone: [facility] 03-13-2024 13:26-0500 SaO2% (BldA) [Mass fraction] 96 % Ludy Sarmiento MD Work Phone: [facility] 03-13-2024 13:26-0500 Systolic blood pressure 170 mm[Hg] Ludy Sarmiento MD Work Phone: [facility] Encounters Encounter Date Encounter Type Care Provider Facility Start: 01-09-2025 End: 01-09-2025 Subsequent hospital visit by physician Ludy Sarmiento MD Work Phone: [facility] Comment on above: Aneurysm of iliac ar benja ([facility]) Start: 01-09-2025 End: 01-09-[address] [facility] Start: 12-04-2024 End: 12-04-2024 Patient encounter procedure Arlene Mata NP-C -[facility] Work Phone: Start: 12-04-2024 End: 12-04-[address] Ludy Sarmiento MD Work Phone: -[facility] Start: 11-08-2024 Non-patient / Non-visit Arlene shields NP-C -[facility] Work Phone: Start: 11-08-2024 ambulatory [facility] Facility :[facility] Start: 11-06-2024 End: 11-06-[address] Ludy Sarmiento MD Work Phone: -[facility] Start: 11-06-2024 End: 11-06-2024 Patient encounter procedure Arlene Mata NP-C -[facility] Work Phone: Start: 11-06-2024 ambulatory [facility] Facility :[facility] Start: 11-06-2024 Non-patient / Non-visit Dr. Heather HARTMAN -[facility] Start: 11-06-2024 End: 11-06-2024 ambulatory [facility] Facility:[facility] Start: 11-01-2024 Non-patient / Non-visit Arlene BATISTA -[facility] Work Phone: Start: 11-01-2024 ambulatory Arlene Mata NP Facili ty:[facility] Start: 10-31-2024 ambulatory [facility] Start: 10-31-2024 Non-patient / Non-visit Dr. Heather HARTMAN -[facility] Start: 10-30-2024 End: 10-30-[address] Ludy Sarmiento MD Work Phone: -[facility] Start: 10-30-2024 End: 10-30-2024 Patient encounter procedure Arlene Mata DRAFTER DETAIL-C -[facility] Work Phone: Start: 10-30-2024 End: 10-30-2024 ambulatory Arlene Mata NP Facility:[facility] Start: 09-11-2024 Non-patient / Non-visit Dr. Heather HARTMAN -[facility] Work Phone: Start: 09-11-2024 ambulatory [facility] Start: 09-11-2024 Registered Referred Arlene Mata DRAFTER DETAIL -C -[facility] Services Work Phone: Start: 09-04-2024 End: 09-04-2024 Patient encounter procedure Arlene Mata DRAFTER DETAIL-C -[facility] Work Phone: Start: 09-04-2024 End: 09-04-2024 ambulatory Ludy Sarmiento Facility:[facility] Start: 03-13-2024 End: 03-13-2024 Emergency department patient visit LUDY SARMIENTO [facility] Emergency Dept Comment on above: Laceration of left m iddle finger without foreign body without damage to nail, initial encounter (Primary Dx) Start: 12-20-2022 End: 12-20-2022 Subsequent hospital visit by physician Ludy Sarmiento MD Work Phone: [facility] Comment on above: Personal history of nicotine dependence Start: 12-13-2022 Transcribe Orders Ludy del valle MD Work Phone: [facility] Central Scheduling Comment on above: Personal history of nicotine dependence (Primary Dx) Start: 03-29-2022 Transcribe Orders Ludy del valle MD Work Phone: [facility] Laboratory Comment on above: Pain in right hip [...] End: 06-30-2018 Patient encounter procedure JACK SAMANO Facility:[facility] Start: 06-29-2018 End: 06-29-2018 Emergency department patient visit FELIX DELONG Facility: Procedures Date Procedure Procedure Detail Performing Clinician Start: 01-09-2025 Dup-scan aorta ivc i liac vascl/bpgs complete Ludy Sarmiento MD Work Phone: Start: 10-30-2024 Radionuclide imaging of perfusion of myocardium under exercise stress Dr. Ludy Sarmiento MD Work Phone: Start: 09-04-2024 Evaluation of diagno stic study results Dr. Ludy Sarmiento MD Work Phone: Start: 03-13-2024 LACERATION REPAIR Dorina Winkler APRN [employer] Work Phone: Start: 12-20-2022 Us abdominal aorta r eal time screen study aaa Ludy Sarmiento MD Work Phone: Start: 09-17-2021 Echo tthrc r-t 2d w/wom-mode compl spec&colr d Esme Tan CONSULTING PSYCHIATRIST - PECAN GATHERER Work Phone: Plan of Treatment Date Care Activity Detail Author Start: 03-13-2034 Administration of diphtheria + tetanus + acellular pertussis vaccine DTAP/TDAP/TD VACCINE (2 - Td or Tdap) [facility] Start: 03-13-2034 DTaP/Tdap/Td Vaccines (2 - Td or Tdap) DTaP/Tdap/Td Vaccines (2 - Td or Tdap) [facility] Start: 01-07-2025 COVID-19 Vaccine ( season) COVID-19 Vaccine ( season) [facility] Start: 01-07-2025 Influenza vaccination Influenza Vaccine (#1) [facility] Start: 05-09-2024 Medicare Advantage Annual Wellness Visit Medicare Advantage Annual Wellness Visit [facility] Start: 01-08-2024 COVID-19 VACCINE ( season) COVID-19 VACCINE ( season) [facility] Start: 01-08-2024 Influenza vaccination given INFLUENZA VACCINE (#1) [facility] Start: 01-07-2023 Influenza vaccination Influenza Vaccine (#1) [facility] Start: 01-07-2022 Influenza vaccination [facility] Start: 09-17-2021 End: 09-17-2021 Patient encounter procedure 09/17/2021 Appointment Echocardiography Avinash Garibay MD [address] [place] [address] Esme Tan APRN - [address] [address] [facility] Start: 07-31-2021 Annual Wellness Visit (AWV) Annual Wellness Visit (AWV) [facility] Start: 2018 Fall risk assessment FALL RISK [facility] Start: 2018 Glaucoma screening GLAUCOMA/EYE EXAM AGE 65+ [facility] Start: 2018 Pneumococcal 23-valent polysaccharide vaccination given (situation) PNEUMOCOCCAL VACCINE: 65+ YEARS (1 of 1 - PCV) [facility] Start: 2018 Pneumococcal 65+ years Vaccine (1 - PCV) Pneumococcal 65+ years Vaccine (1 - PCV) [facility] Start: 2018 Pneumococcal 65+ years Vaccine (1 of 1 - PPSV23) Pneumococcal 65+ years Vaccine (1 of 1 - PPSV23) [facility] Start: 2018 Pneumococcal Vaccine: 65+ Years (1 - PCV) Pneumococcal Vaccine: 65+ Years (1 - PCV) [facility] Start: 2013 Hepatitis B Vaccines (1 of 3 - Risk 3-dose series) Hepatitis B Vaccines (1 of 3 - Risk 3-dose series) [facility] Start: 2013 RSV Immunization for Adults (1 - Risk 60-74 years 1-dose series) RSV Immunization for Adults (1 - Risk 60-74 years 1-dose series) [facility] Start: 11-18-2003 Pneumococcal Vaccine: 50+ Years (1 of 1 - PCV) Pneumococcal Vaccine: 50+ Years (1 of 1 - PCV) [facility] Start: 11-18-2003 Shingles Vaccine (1 of 2) Shingles Vaccine (1 of 2) [facility] Start: 11-18-2003 Zoster vaccine hzv live for subcutaneous use ZOSTER (SHINGLES) VACCINE (1 of 2) [facility] Start: 11-18-2003 Zoster Vaccines (1 of 2) Zoster Vaccines (1 of 2) [facility] Start: 1998 Screening for malignant neoplasm of colon [facility] Start: 1993 Lipid panel [facility] Start: 1988 Diabetes screen Diabetes screen [facility] Start: 1988 Fasting lipid profile LIPID SCREENING [facility] Start: 1972 DTaP/Tdap/Td vaccine (1 - Tdap) DTaP/Tdap/Td vaccine (1 - Tdap) [facility] Start: 1972 DTaP/Tdap/Td Vaccines (1 - Tdap) DTaP/Tdap/Td Vaccines (1 - Tdap) [facility] Start: 11-18-1971 ANNUAL WELLNESS VISIT ANNUAL WELLNESS VISIT [facility] Start: 11-18-1971 Diabetes mellitus screening Diabetes Screening [facility] Start: 11-18-1971 Diabetes: Estimated Glomerular Filtration Rate for Kidney Health Diabetes: Estimated Glomerular Filtration Rate for Kidney Health [facility] Start: 11-18-1971 Diabetes: Urine Albumin-Creatinine Ratio for Kidney Health Diabetes: Urine Albumin-Creatinine Ratio for Kidney Health [facility] Start: 11-18-1971 Hepatitis C screening [facility] Start: 1965 Depression Screen Depression Screen [facility] Start: 1965 Depression Screening Depression Screening [facility] Start: 1965 Depression screening using PHQ-9 (Patient Health Questionnaire 9) score DEPRESSION SCREENING [facility] Start: 11-18-1963 Diabetic foot examination Diabetes: Foot Exam [facility] Start: 11-18-1963 Glaucoma screening Diabetes: Retinopathy Screening [facility] Start: 11-18-1963 Preventive dental service Diabetes: Dental Exam [facility] Start: 1958 COVID-19 Vaccine (1) COVID-19 Vaccine (1) [facility] Start: 05-20-1954 COVID-19 Vaccine (#1) COVID-19 Vaccine (#1) [facility] Start: 1953 Annual Wellness Visit (AWV) Annual Wellness Visit (AWV) [facility] Start: 1953 Creatinine measurement Creatinine monitoring [facility] Start: 1953 Hemoglobin A1c measurement Diabetes: Hemoglobin A1C [facility] Start: 1953 Hepatitis B Vaccines (1 of 3 - 3-dose series) Hepatitis B Vaccines (1 of 3 - 3-dose series) [facility] Start: 1953 Hepatitis C screening [facility] Start: 1953 Lipid panel Lipid Panel [facility] Start: 1953 Medicare Advantage Annual Wellness Visit (AWV) Medicare Advantage Annual Wellness Visit (AWV) [facility] Start: 1953 Potassium monitoring Potassium monitoring [facility] Start: 1953 Screening for malignant neoplasm of colon [facility] Immunizations Immunization Date Immunization Notes Care Provider Randy jones 03-13-2024 tetanus toxoid, redu charanjit diphtheria toxoid, and acellular pertussis vaccine, adsorbed Ludy Sarmiento MD Work Phone: [facility] Payers Date Payer Category Payer Self-pay 2024 Medicare HMO [employer] [id number] 2024 Medicare [id number] 2023 Medicare Managed Car e (unspecified) [employer] MEDICARE ADVANTAGE HMO [id number] 2021 Medicare [id number] 2021 Medicare FORMERLY [facility] MEDICARE ADVANTAGE ANTH MEDIBLUE [id number] 2021-Present [address] [place] [address] Medicare O [id number] 2018 Unknown [id number] 2018 Unknown [id number] 1955 Unknown [id number] 627 1955 Unknown [id number]. 278 1955 Unknown [id number]. 297 Unknown [id number]. 462 Unknown [id number]. 462 Unknown [id number] [id number]. 462 Unknown [id number]. 462 Unknown [id number]. 462 Unknown [id number] [id number]. 462 Unknown [id number] [id number]. 462 Unknown [id number] [id number]. 462 Unknown [id number] [id number]. 462 Unknown [id number]. 462 Social History Date Type Detail Facility Start: 08-03-2021 End: 04-12-2022 Tobacco smoking status NHIS Never smoked tobacco [employer] Work Phone: Start: 08-03-2021 Tobacco use and exposure Smokeless tobacco non-user [employer] Phone: Start: 08-03-2021 Alcohol intake Lifetime non-d ines (finding) [employer] Phone: Start: 1955 Sex Assigned At Not on file [facility] [employer] Work Phone: Start: 08-03-2021 History of Social function [facility] Start: 08-03-2021 Tobacco use panel [facility] Start: 03-19-2022 End: 12-20-2022 Exposure to SARS-CoV-2 (event) Not sure [facility] Tobacco smoking status NDIS Tobacco smoking consumption unknown [facility] Start: 04-22-2020 Alcohol Alcohol [facility] Start: 04-22-2020 Lives Lives [facility] Start: 04-22-2020 Tobacco Use Tobacco Use [facility] Start: 1955 Sex Assigned At Male [facility] Start: 12-07-2021 Sex Male (finding) Deuce ayala Clinical Notes 03-13-2024 to 09-04-2024 Note Date & Type Note Facility 09-04-2024 Evaluation note Diagnosis Onset Date Resolution Essential hypertension acute Ap ril 2024 9:01am Paroxysmal atrial fibrillation acute September 04, 2024 9:01am HLD (hyperlipidemia) chronic Apri l 2024 9:01am Chest pain resolved September 04 9:01am [facility] Work Phone: 1(666) 521-867004-29-2025 Evaluation note* Diagnosis Onset Date Resolution Status Admit Date Essential hypertension acute Ap ril 2024 9:01am Paroxysmal atrial fibrillation acute September 04, 2024 9:01am HLD (hyperlipidemia) chronic Apri l 2024 9:01am Chest pain resolved September 04 9:01am Essential hypertension acute Ju ly 2024 10:44am Paroxysmal atrial fibrillation acute December 04, 2024 10:44am HLD (hyperlipidemia) chronic December 04, 2024 10:44am [facility] Work Phone: 1(269) 294-836111-05-2024 Emergency department Note* Gigi Johnson LPN - 03/13/2024 2:16 PM EST Discharge orders reviewed, pt states understanding. NAD noted. Pt ambulates to [facility] via car. [facility]24 Emergency department Note* Gigi Johnson LPN - 03/13/2024 2:16 PM EST Discharge orders reviewed, pt states understanding. NAD noted. Pt ambulates to [facility] via car. * Gianni Cruz, RN - 03/13/2024 1:24 PM EST Pt ambulated to room in NAD, Pt states he was using a plainer and lacerated left middle finger, Pt unsure of last tetanus vaccine, Bleeding controled, Pt is a/o x4 skin wdp respirs easy * Dorina Winkler APRN [employer]AIL - 03/13/2024 1:22 PM ESTAssociated Order(s): Lac [...] APRN NP Authorized by: Dorina Winkler APRN [employer]TER [employer]AIL Consent: Consent obtained: Verbal Consent given by: Patient Risks, benefits, and alternatives were discussed: yes Risks discussed: Infection, need for additional repair, nerve damage, poor wound healing, poor cosmetic result, pain, tendon damage and vascular damage [place] protocol: Procedure explained and questions answered to [...] APRN NP 03/13/24 1417 [facility] Triage note* Gianni Cruz RN - 03/13/2024 1:24 PM EST Pt ambulated to room in NAD, Pt states he was using a plainer and lacerated left middle finger, Pt unsure of last tetanus vaccine, Bleeding controled, Pt is a/o x4 skin wdp respirs easy [facility]11-05-2024 Physician Emergency department Note* Dorina Winkler APRN DRAFTER DETAIL - 03/13/2024 1:22 PM ESTAssociated Order(s): Lac [...] 2:04 PM Performed by: Dorina Winkler APRN [employer]RAFTER DETAIL Authorized by: Dorina Winkler APRN NP Consent: Consent obtained: Verbal Consent given by: Patient Risks, benefits, and alternatives were discussed: yes Risks discussed: Infection, need for additional repair, nerve damage, poor wound healing, poor cosmetic result, pain, tendon damage and vascular damage [place] protocol: Procedure explained and questions answered to [...] complications Medical Decision Making Dorina Winkler APRN [employer]TER [employer]AIL 03/13/24 1405 Dorina iWnkler APRN DRAFTER DETAIL 03/13/24 1417 [facility] note* Diagnosis Unspecified atrial fibrillation (HCC) Unspecified atrial fibrillation (HCC) Paroxysmal atrial fibrillation (HCC) Atrial fibrillation documented in this encounter [facility] Work Phone: Evaluation note* Diagnosis Unspecified atrial fibrillation (HCC) Paroxysmal atrial fibrillation (HCC) Atrial fibrillation documented in this encounter [facility] Work Phone: Evaluation note* Diagnosis Personal history of nicotine dependence documented in this encounter [facility] note* Diagnosis Personal history of nicotine dependence- Primary Personal history of nicotine dependence documented in this encounter [facility] note* Diagnosis Laceration of left middle finger without foreign body without damage to nail, initial encounter- Primary documented in this encounter [facility] note* Diagnosis Pain in right hip- Primary Pain in left hip documented in this encounter [facility] note* Diagnosis Aneurysm of iliac artery (HCC) Aneurysm of iliac artery documented in this encounter [facility] Discharge instructions* Attachments The following attachments cannot be sent through Care Everywhere. * Hand Laceration: Stitches ([place]) [facility] ([facility]ative)No reason for referral information [facility]WSt[facility] Work Phone: Reason for visit Narrative* Imaging (Routine) - Pending Review Specialty Diagnoses / Procedures Referred By Contmartin t Referred To Contact Cardiology Diagnoses Aneurysm of iliac artery (HCC) Procedures Vascular US aorta iliac duplex complete Ludy Sarmiento MD [address] [place], [place] [address] [place] [address] Phone: tel: fax: Referral ID Status Reason Start Date Expiration Date V isits Requested Visits Authorized [id number] Pending Review 12/28/2024 12/28/[address] [facility] Health Summary Purpose Family History No Family History [...] 2D W Doppler W Color Esme Tan, CONSULTING PSYCHIATRIST - PECAN GATHERER [phone] [address] [id number] Referral ID Status Reason Start Date Expiration Date V isits Requested Visits Authorized [id number] Pending Review 08/03/2021 08/03/2022 1 1 Specialty Diagnoses / Procedures Referred By Contac t Referred To Contact Cardiology Diagnoses Personal history of nicotine dependence Procedures Vascular US abdominal aorta anuerysm AAA screening Ludy Sarmiento MD [address] [place] [address] Referral ID Status Reason Start Date Expiration Date V isits Requested Visits Authorized [id number] Closed Perform Procedure 12/13/2022 06/11/2023 1 1 [...] Chest pain September 04, 2024 9:0 1am Chief Complaint Admit Date OVER DUE FOR FU September 04, 2024 9:0 1am PAF September 11, 2024 6:39am 30 DAY MONITOR September 11, 2024 7:00am PAF October 30, 2024 6:47 am PAF October 31, 2024 7:31 am Amb Documentation November 01, 2024 2:20 pm PAF November 06, 2024 1:53p m Amb Documentation November 08, 2024 12:48 pm Chief Complaint Admit Date OVER DUE FOR FU September 04, 2024 9:0 1am PAF September 11, 2024 6:39am 30 DAY MONITOR September 11, 2024 7:00am PAF October 30, 2024 6:47 am PAF October 31, 2024 7:31 am Amb Documentation November 01, 2024 2:20 pm PAF November 06, 2024 1:53p m Amb Documentation November 08, 2024 12:48 pm 3 M FU December 04, 2024 10:4 4am Reason for Visit Admit Date Essential hypertension September 04, 2024 9:01am Paroxysmal atrial fibrillation August 9:01am HLD (hyperlipidemia) September 04, 2024 9: 01am Chest pain September 04, 2024 9:0 1am Essential hypertension December 04, 2024 1 0:44am Paroxysmal atrial fibrillation November 10:44am HLD (hyperlipidemia) December 04, 2024 10: 44am Additional Source Comments (unrecognized sect ion and content) No Status Records FoundNo Status Records FoundNo Status Records FoundNo Status Records FoundNo Status Records FoundNo Status Records FoundNo Status Records FoundNo Status Records Found INFORMATION SOURCE (unrecogn ized section and content) DATE CREATED AUTHOR 07/16/2018 [facility] ([place]) DATE CREATED AUTHOR AUTHOR'S ORGANIZ ATION 07/23/2018 [facility] DATE CREATED AUTHOR AUTHOR'S ORGANIZ ATION 07/23/2018 [facility] DATE CREATED AUTHOR AUTHOR'S ORGANIZ ATION 11/13/[address] [facility] DATE CREATED AUTHOR AUTHOR'S ORGANIZ ATION 03/18/2024 [facility] DATE CREATED AUTHOR AUTHOR'S ORGANIZ ATION 10/13/2024 [facility] DATE CREATED AUTHOR AUTHOR'S ORGANIZ ATION 12/05/2024 [facility] DATE CREATED AUTHOR AUTHOR'S ORGANIZ ATION 01/10/2025 [facility] Care Teams (unrecognized sec tion and content) Healthcare Social Worker Relationship Specialty Start Date End Date Ludy Sarmiento MD [address] [place], [place] [id number] PCP - General Family Medicine 08/03/21 Healthcare Social Worker Relationship Specialty Start Date End Date Ludy Sarmiento MD [address] [place], [place] [id number] PCP - General Family Medicine 08/03/21 Healthcare Social Worker Relationship Specialty Start Date End Date Ludy Sarmiento MD [address] [facility] [place] [address] PCP - General 08/03/21 Healthcare Social Worker Relationship Specialty Start Date End Date Ludy Sarmiento MD [address] [facility] [address] [place], [place] [id number] PCP - General Family Medicine 03/13/24 Healthcare Social Worker Relationship Specialty Start Date End Date Ludy Sarmiento MD [address] [facility] [place] [address] PCP - General 08/03/21 Team Status: Active Member Role/Relationship Status Dates Dr. Ludy Sarmiento MD Primary Care Provider Active Team Status: Inactive Member Role/Relationship Status Dates Dr. Ludy Sarmiento MD Primary Care Provider Active Start: September 04, 2024 End: September 04, 2024 Dr. Ludy Sarmiento MD Referring Provider Active Start: September 04, 2024 End: September 04, 2024 Arlene Mata DRAFTER DETAIL, DRAFTER DETAIL-C Attending Provider Active Start: September 04, 2024 End: September 04, 2024 Team Status: Active Member Role/Relationship Status Dates Dr. Ludy Sarmiento MD Primary Care Provider Active Start: September 11, 2024 Arlene Mata DRAFTER DETAIL, DRAFTER DETAIL-C Attending Provider Active Start: September 11, 2024 Arlene Mata DRAFTER DETAIL, DRAFTER DETAIL-C Referring Provider Active Start: September 11, 2024 Team Status: Active Member Role/Relationship Status Dates Dr. Ludy Sarmiento MD Primary Care Provider Active Start: September 11, 2024 Dr. Ori Fernandes MD Attending Provider Active S tart: September 11, 2024 Arlene Mata DRAFTER DETAIL, DRAFTER DETAIL-C Referring Provider Active Start: September 11, 2024 Team Status: Inactive Member Role/Relationship Status Dates Dr. Ludy Sarmiento MD Primary Care Provider Active Start: October 30, 2024 End: October 30, 2024 Arlene Mata DRAFTER DETAIL, DRAFTER DETAIL-C Attending Provider Active Start: October 30, 2024 End: October 30, 2024 Arlene Mata DRAFTER DETAIL, DRAFTER DETAIL-C Referring Provider Active Start: October 30, 2024 End: October 30, 2024 Team Status: Active Member Role/Relationship Status Dates Dr. Ludy Sarmiento MD Primary Care Provider Active Start: October 31, 2024 Arlene Mata DRAFTER DETAIL, DRAFTER DETAIL-C Referring Provider Active Start: October 31, 2024 Arlene Mata DRAFTER DETAIL, DRAFTER DETAIL-C Other Provider Active Sta rt: October 31, 2024 Dr. Ori Fernandes MD Attending Provider Active S tart: October 31, 2024 Team Status: Active Member Role/Relationship Status Dates Dr. Ludy Sarmiento MD Primary Care Provider Active Start: November 01, 2024 Arlene Mata DRAFTER DETAIL, DRAFTER DETAIL-C Attending Provider Active Start: November 01, 2024 Team Status: Active Member Role/Relationship Status Dates Dr. Ludy Sarmiento MD Primary Care Provider Active Start: November 06, 2024 Dr. Ori Fernandes MD Attending Provider Active S tart: November 06, 2024 Team Status: Inactive Member Role/Relationship Status Dates Dr. Ludy Sarmiento MD Primary Care Provider Active Start: November 06, 2024 End: November 06, 2024 Arlene Mata DRAFTER DETAIL, DRAFTER DETAIL-C Attending Provider Active Start: November 06, 2024 End: November 06, 2024 Arlene Mata DRAFTER DETAIL, DRAFTER DETAIL-C Referring Provider Active Start: November 06, 2024 End: November 06, 2024 Team Status: Active Member Role/Relationship Status Dates Dr. Ludy Sarmiento MD Primary Care Provider Active Start: November 08, 2024 Arlene Mata DRAFTER DETAIL, DRAFTER DETAIL-C Attending Provider Active Start: November 08, 2024 Team Status: Inactive Member Role/Relationship Status Dates Dr. Ludy Sarmiento MD Primary Care Provider Active Start: December 04, 2024 End: December 04, 2024 Dr. Ludy Sarmiento MD Referring Provider Active Start: December 04, 2024 End: December 04, 2024 Arlene Mata DRAFTER DETAIL, DRAFTER DETAIL-C Attending Provider Active Start: December 04, 2024 End: December 04, 2024 Healthcare Social Worker Relationship Specialty Start Date End Date Ludy Sarmiento MD [address] [place] [address] PCP - General 08/03/21 Reason for Visit (unrecogniz ed section and content) Specialty Diagnoses / Procedures Referred By Contac t Referred To Contact Cardiology Diagnoses Personal history of nicotine dependence Procedures Vascular US abdominal aorta anuerysm AAA screening Ludy Sarmiento MD [address] [place] [address] Referral ID Status Reason Start Date Expiration Date V isits Requested Visits Authorized [id number] Closed Perform Procedure 12/13/2022 06/11/2023 1 1 [...] may be documented in a n alternate sectionGoals may be documented in an alternate sectionGoals may be documented in an alternate section FOR RECORDS PERTAINING TO PATIENTS [...] BE BASED ON THE PRIMARY CLINICAL RECORDS. [facility]. provides no warranty or guarantee of the accuracy or completeness of information in this document.
[2025-04-19 12:28] LABS: Prothrombin Time (Protime)PT. 24.3 SECONDS (11.7-14.9)
[2025-04-19 12:37] LABS: Troponin T High Sensitivity 22 ng/L (<=22)
[2025-04-19 12:38] LABS: Anion Gap 14 (5-15); BUN 22 mg/dL (4-19); BUN/Creat Ratio 19.3 RATIO (10-20); Calcium,Total 10.1 mg/dL (7.6-11.0); Carbon Dioxide 21.1 mmol/L (21.0-32.0); Chloride 101 mmol/L (98-108); Estimated Creatinine Clearance 74.04 ml/min (50-250); Glucose 184 mg/dL (70-99); Potassium 5.1 mmol/L (3.3-5.1)
[2025-04-19 14:09] LABS: Troponin T High Sens 2 HR 20 ng/L (<=22)
[2025-04-19] MEDS: Diltiazem 125 MG in Dextrose 5%-Water (100mL Bag) 100 ML IV (14:13)
[2025-04-19 14:23] LABS: Pro- Brain NATRIURETIC PEPTIDE 1539 pg/mL (<=900)
--- NOTE | 2025-04-19 15:03 | PCM.HP.STD ---
HPI - General General Date of Admission: 04/19/25 Date of Service: 04/19/25 Chief Complaint: palpitations HPI Narrative ANNIA FONSECA, is a 69 M with a PMH as outlined who was admitted via the ED on 04/19/2025 with a complaint of palpitations and shortness of breath and chest pain. His symptoms started about a week ago. His shortness of breath worsened today and he had near syncope. He said his HR had been up to 138 bpm at home. He is on coumadin and had been compliant with it. His symptoms worsened and so he came in to the ED. he denied any lightheadedness or dizziness, abdominal pain, nausea or vomiting or any other symptoms. Review of systems otherwise negative. Vitals in the ED were HR of 132, BP of 146/90 and RR of 20, and oxygen sats of 97% on room air. CBC showed Hb pf 16.5, wbc of 10.1, platelets 349. INR is 2.1. Chemistry showed sodium of 137, potassium of 5.1 and bicarb of 21.1. Cr was 1.14 and pro BNP of 1539. EKG showed afib with RVR. CXR showed c ardiomegaly with mild vascular congestion. He is being admitted to be managed for afib with RVR as well as acute exacerbation of heart failure. [facility] Medical History Essential hypertension Paroxysmal A-fib Visual disturbance History of stroke High cholesterol Frequent headaches Diabetes Cataracts, bilateral History of blood clots History of back problems Arthritis Hypertension Home Medications ?Medication ?Instructions ?Recorded ?Last Taken ?Type aspirin 81 mg chewable tablet 81 mg PO DAILY@1900 heart health 04/22/20 04/28/20 History multivitamin 1 tab PO DAILY SUPPLIMENT 04/22/20 04/29/20 History ashwagandha root extract 300 mg 300 mg PO DAILY 05/23/20 Unknown History capsule warfarin 2.5 mg tablet 2.5 mg PO MOWEFR 12/17/20 Unknown History warfarin 5 mg tablet 5 mg PO SUTUTHSA 12/17/20 Unknown History ascorbic acid (vitamin C) 1,000 mg 1 g PO DAILY 01/02/21 Unknown History tablet cholecalciferol (vitamin D3) 125 125 mcg PO DAILY 11/29/21 Unknown History mcg (5,000 unit) tablet cinnamon bark 500 mg capsule 500 mg PO QDAY 09/04/24 Unknown History (Cinnamon) lisinopril 20 mg tablet 20 mg PO DAILY 09/04/24 Unknown History metoprolol succinate 25 mg 25 mg PO DAILY #90 tabs 12/04/24 Unknown Rx tablet,extended release 24 hr docosahexaenoic acid (dha)-epa 1 cap PO DAILY 04/19/25 Unknown History capsule tumeric 04/19/25 Unknown History Allergy/AdvReac Type Severity Reaction Status Date / Time atorvastatin AdvReac Mild Other Verified 04/19/25 11:31 metformin AdvReac Mild Pain in Verified 04/19/25 11:31 joints Family History Mother CVA (cerebral vascular accident) Heart disease Father Heart disease Surgical History History of left ankle surgery history of lower hernia surgery Social History household members: spouse housing: house Smoking Status: Never smoker alcohol intake: never substance use type: does not use what type of physical activity do you participate in: other details: Eliptical frequency: 3-4 times per week ROS Constitutional Constitutional: Reports fatigue, malaise and weakness; Denies anorexia, chills or fever(s) Eyes Eyes: Denies change in vision ENT HEENT: Denies dysphagia or sore throat Cardiovascular Cardiovascular: Reports chest pain, dyspnea on exertion, lightheadedness, palpitations and rapid heart rate; Denies edema, orthopnea, paroxysmal nocturnal dyspnea or syncope Respiratory/Chest Respiratory/Chest: Reports dyspnea and shortness of breath with exertion; Denies cough or shortness of breath at rest Gastrointestinal Gastrointestinal: Denies abdominal pain, constipation, diarrhea, nausea or vomiting Musculoskeletal Musculoskeletal: Denies back pain Neurologic Neurologic: Denies confusion, dizziness, focal weakness, headache(s), numbness or seizures Psychiatric Psychiatric: Denies anxiety or depression Vital Signs Vital Signs Vital Signs: 04/19/25 11:28 04/19/25 11:45 04/19/25 11:51 Temperature 96.6 F L Temperature Source Oral Pulse Rate 183 H Respiratory Rate 30 H Respiratory Effort Normal Blood Pressure 168/141 H Blood Pressure Mean 150 Pulse Ox 96 100 Oxygen Delivery Method Room Air Room Air 04/19/25 11:58 04/19/25 12:39 04/19/25 13:09 Temperature Temperature Source Pulse Rate 107 H 91 117 H Respiratory Rate 22 H 19 H 22 H Respiratory Effort Blood Pressure 134/91 H 130/78 H 132/81 H Blood Pressure Mean 105 95 98 Pulse Ox 100 100 99 Oxygen Delivery Method Room Air Room Air Room Air 04/19/25 14:05 04/19/25 14:05 04/19/25 14:13 Temperature Temperature Source Pulse Rate 143 H 154 H 161 H Respiratory Rate 99 H 18 Respiratory Effort Blood Pressure 127/90 H 127/90 H Blood Pressure Mean 102 102 Pulse Ox 14 98 Oxygen Delivery Method Room Air 04/19/25 14:39 04/19/25 15:00 Temperature Temperature Source Pulse Rate 132 H 109 H Respiratory Rate 18 20 H Respiratory Effort Blood Pressure 146/90 H Blood Pressure Mean 108 Pulse Ox 95 97 Oxygen Delivery Method Room Air Weight Weight: 244 lb 0.827 oz Body Mass Index (BMI) 35.0 Physical Exam Const alert, oriented x3 and no apparent distress General Appearance: cooperative HEENT normocephalic, head/scalp atraumatic, hearing grossly normal bilaterally, moist oral mucous membranes and oropharynx normal Mouth: oral and palatal mucosa normal Eyes EOMs intact bilaterally and conjunctivae normal Neck supple and no JVD Resp Resp Narrative: mildly diminished breath sounds bibasally, no wheezes. Few crackles. On room air. Cardio S1 normal heart sound, S2 normal heart sound and no murmurs Cardio Narrative: afib with RVR GI normal to inspection, nondistended, normoactive bowel sounds, soft to palpation, non-tender and non-distended Extremity normal to inspection, full ROM and no clubbing, cyanosis or edema Neuro oriented x3, moves all extremities and no focal motor deficits Sensorium / Orientation: awake and alert Motor Exam: strength 5/5 throughout Psych affect normal Results Lab / Micro Data 04/19/25 11:45 04/19/25 11:45 Labs: Laboratory Results - last 24 hr 04/19/25 11:45: WBC 10.1, RBC 5.79, Hgb 16.5, Hct 50.1, MCV 86.5, MCH 28.5, MCHC 32.9, RDW Std Deviation 44.4 H, RDW Coeff of Blake 14.2, Plt Count 349, MPV 10.4, Immature Gran % (Auto) 0.400, Neut % (Auto) 67.3, Lymph % (Auto) 24.5, Thayer % (Auto) 5.7, Eos % (Auto) 1.8, Baso % (Auto) 0.3, Absolute Neuts (auto) 6.8, Absolute Lymphs (auto) 2.48, Nucleated RBC % 0, PT 24.3 H, INR 2.1, Sodium 137, Potassium 5.1, Chloride 101, Carbon Dioxide 21.1, Anion Gap 14, BUN 22 H, Creatinine 1.14, Estim Creat Clear Calc 74.04, Est GFR (MDRD) Non-Af 69, BUN/Creatinine Ratio 19.3, Glucose 184 H, Calcium 10.1, Troponin T High Sens 22 04/19/25 13:45: Troponin T Hi Sens 2 Hr 20, NT pro BNP II 1539 H Rhythm Strip Rhythm Strip: A-fib Rate: 180 Ectopy: None Imaging Radiology Impression Chest X-Ray 04/19/25 11:45 IMPRESSION: Cardiomegaly with mild vascular congestion. Reading Location: [facility] Assessment & Plan Assessment/Plan (1) Paroxysmal atrial fibrillation: (2) Atrial fibrillation with RVR: PLAN: Plan #Afib wtih RVR admitted with a complaint of chest pain and shortness of breath as well as palpitations. Found to be in afib with RVR admit to PCU under stepdown. Was started on cardizem drip in the ED already on coumadin. INR is therapeutic at 2.1 CXR showed cardiomegaly with mild vascular congestion continue on cardizem drip. K and Mg are WNL titrate cardizem to maintain HR <110 consult cardiology check TSH # Acute exacerbation of heart failure proBNP elevated at 1500. This could also be exacerbated by the A-fib with RVR. Diurese with IV Lasix 40 mg twice daily. Chest x-ray showed cardiomegaly with mild vascular congestion. Monitor intake and output. Fluid striction to 1500 cc daily. On lisinopril and metoprolol. I will continue. DVT prophylaxis: Not indicated as patient already on Coumadin #CODE STATUS: full code Patient and counseled extensively about different types of CODE STATUS including full code, DNR CCA and DNR CCA. Patient elects to be full code Total [id number] time 17 minutes. Charges/Coding Visit Charges Inpatient E&M: 97121 Init Hosp L3 Procedures Hospitalists Procedures: 43155 Advncd Care Plan 30 Min
--- NOTE | 2025-04-19 15:43 | CM.ED ---
Care Management Face to Face with patient for initial transition planning/care coordination assessment in the ED.? This insurance underwriter sales introduced self and role at [facility]. Patient alert and oriented. Patient willing to participate in assessment and is able to answer all questions appropriately.? Care providers, pharmacy, and demographics verified. Admitting Diagnosis: Palpitations Other diagnosis history: ?Hypertension, A-fib, diabetes, h/o blood clots PCP: ?[facility] Specialists: ?[facility] Preferred Pharmacy: [facility]? Insurance: ?[employer] Prescription Benefit: ?yes Living Will/HPOA: ?both completed and on file with [facility] [place]: ? Living Arrangements: ?patient lives with in a one story home with basement, patient states they use basement frequently.?? Reports being independent with ADLs and IADLs.? Transportation: ?patient drives DME: blood pressure cuff, pulse ox, cane, walker HHC: ?none SNF/Rehab: none Community Resources: ?none Behavioral Health History: none Patient goals: Patient wishes to discharge home, denies need for home health care at this time. Patient denies any further needs or concerns at this time. Disposition Plan: admission to acute; RN CM/SW to follow for discharge planning needs that may arise. Kaitlin Augustin, [employer], LICENSE CLERK
--- OUTSIDE RECORDS SUMMARY | 2025-04-19 16:19 | XMS RPT_ITS | CCD ---
Author Organization [facility] CliniSyfl Care Team Providers Care Oyster Bed Worker Name Role Phone FELIX DELONGAric Attending Unavailable CURTIS PRO Primary Care Unavailable JACK SAMNAO Attending Unavailable IMCA Referring Unavailable CURTIS PRO Primary Care Unavailable JACK SAMANO Attending Unavailabl e Guillermina HARTMAN, Ludy Wilson Primary Care Provider Ludy Sarmiento MD Primary Care Provider Ludy Sarmiento MD Primary Care Provider LUDY SARMIENTO Primary Care Unavailable DORINA WINKLER Admitting Unavailable Ludy Sarmiento MD Primary Care Provider Dr. Ludy Sarmiento MD Primary Care Provider Dr. Ludy Sarmiento MD Referring Provider Adolfo PEREZ-CArlene Attending Provider Adolfo INDUSTRIAL ORGANIZATION MANAGER-CArlene Referring Provider [phone] Dr. Ori Fernandes MD Attending Provider [phone] Adolfo PEREZ-Arlene Saucedo Other Provider [phone] Adolfo INDUSTRIAL ORGANIZATION MANAGER, Arlene Attending Unavailable Adolfo INDUSTRIAL ORGANIZATION MANAGER, Arlene Referring Unavailable Guillermina, Ludy Primary Care Unavailable Guillermina, Ludy Primary Care Unavailable Adolfo INDUSTRIAL ORGANIZATION MANAGER, Arlene Attending Unavailable Ori Fernandes Attending Unavailable Adolfo INDUSTRIAL ORGANIZATION MANAGER, Arlene Referring Unavailable Guillermina, Ludy Primary Care Unavailable Adolfo INDUSTRIAL ORGANIZATION MANAGER, Arlene Attending Unavailable Guillermina, Ludy Primary Care Unavailable Ori Fernandes Attending Unavailable Adolfo INDUSTRIAL ORGANIZATION MANAGER, Arlene Referring Unavailable Adolfo INDUSTRIAL ORGANIZATION MANAGER, Arlene Consulting Unavailable Guillermina, Ludy Primary Care Unavailable Guillermina, Ludy Primary Care Unavailable Adolfo INDUSTRIAL ORGANIZATION MANAGER, Arlene Attending Unavailable Guillermina, Ludy Referring Unavailable [...] Attending Unavailable LUDY SARMIENTO Primary Care Unavailable Allergies Allergy Classification Reported Allergen(s) Allergy Type Date of Onset Reaction(s) Facility (2 sources) atorvastatin Drug Allergy 2 Other (See Comments) [facility] (1 source) atorvastatin Drug Allergy 5 Other [facility] Comment on above: muscle pains (1 source) metFORMIN Drug Allergy 5 Pain in joints [facility] Comment on above: weakness and dizzine ss (1 source) atorvastatin Drug Allergy 5 [facility] Repository (1 source) metFORMIN Drug Allergy 5 [facility] Repository Medications Current Medications Medication Drug Class(es) [...] acid 180 mg oral capsule (2 sources) [place]-3 1000 MG CAPS Take by mouth in the morning and at bedtime 0 Active [place] 565 MG CAPS (2 sources) take 1 capsule by mouth once daily [place] 565 MG CAPS Take by mouth daily [...] 30, 2019 2:00pm March 13, 2020 9:01am [place] 7-Aov-Zbl-Fish Oil (3 sources) Start: 04-22-2020 End: 04-12-2022 take 1 capsule by mouth once daily [place] 5-Yxj-Ttb-Fish Oil 1 EACH capsule Discontinued 1 NMA [...] 2024 12:00am December 04, 2024 10:57am Saw [place] (3 sources) Start: 04-22-2020 End: 04-23-2020 take 1 capsule by mouth at bedtime [place] 450 MG capsule Discontinued 450 mg PO [...] 4 03-13-2024 Episodic Other aftercare (1 source) [facility] (current) use of anticoagulants; Translations: [long term (current) use of anticoagulants] Onset: 4 Episodic [...] on 01-09-2025 Ao dist AP 2.06 cm [facility] Work Phone: Ao dist PSV 111.9 cm/s [...] Phone: Right EIA mid PSV 146.5 cm/s [facility] Work Phone: US.doppler Aorta and [...] CPACS Cardiology Visit Reporton Cardiology Visit Report [facility] [address] [place] [address] OFFICE VISIT Date of Service: 12/04/24 MR#: [id number] Acct: [id number] Name: ANNIA ALFONSO Rep #: [id number] : 1955 Provider: LESTER del real Age/Sex: 69/M Location[facility] Status: Signed HPI HPI History of [...] Monitor Intake Visit Reasons: 3 M FU Risk Management Analyst Required: No Accompanied by: Self Is patient [...] Conjunctivae: conjun (more content not included)... Normal [facility] Echo Completeon 11-06-2024 Echo [facility] [address] [place] [address] Echo Complete 11/06/24 1106 MR#: [id number] Acct: [id number] Name: ANNIA ALFONSO Rep #: [id number] : 1955 68 From: Ori Fernandes MD Attending Dr: Arlene Mata INDUSTRIAL ORGANIZATION MANAGER-C Status: REG C Ordering Dr: Arlene Mata NP INDUSTRIAL ORGANIZATION MANAGER-C Date: 11/06/24 Location: [facility] Sex: M C [...] Date Dictated: 11/06/24 1106 Date Transcribed: 11/06/241624 Credit Report Checker: Signed Normal [facility] Echocardiogram study reportO rdered By: Ori Fernandes on 11-06-2024 Study report [facility] [address] [place] [address] Echo Complete 11/06/241105 MR#: [id number] Acct: [id number] Name: ANNIA ALFONSO SHARITA Rep #:[id number] : 1955 68 From: Ori Deshpande Attending Dr: LESTER Kent tatus: REG CLI Ordering Dr: Arlene Mata NP Sascha e: 11/06/24 Location: [facility] Sex: M C Admitted: Reason For [...] Dictated: 11/06/24 1106 Date Transcribed: 11/06/24 1625 Credit Report Checker: Signed [facility] Work Phone: Cardiovascular stress test r eportOrdered By: Ori Fernandes on 10-31-2024 Study report [facility] [address] [place] [address] MR#: [id number] Acct: [id number] Name: ANNIA ALFONSO Rep #: [id number] : 1955 68 From: rOi Fernandes MD Primary Care: Dr. Ludy Sarmiento MD Stat us: REG CLI Referring Dr: Arlene Mata NP INDUSTRIAL ORGANIZATION MANAGER-C Sex: M C Stress Test Report Exercise [...] 10/31/24733 Date _ Ori Fernandes MD CC: INDUSTRIAL ORGANIZATION MANAGER-C Arlene Mata; Dr. Ludy Sarmiento MD ~ Date Dictated: 10/31/24730 Date Transcribed: 10/31/24730 Credit Report Checker: CO Signed [facility] Work Phone: Stress Reporton 10-31-2024 Stress Report [facility] [address] [place] [address] MR#: [id number] Acct: [id number] Name: ANNIA ALFONSO Rep #: [id number] : 1955 68 From: Ori Fernandes MD Primary Care: Dr. Ludy Sarmiento MD Status: REG CLI Referring Dr: Arlene Mata NP INDUSTRIAL ORGANIZATION MANAGER-C Sex: M C Stress Test Report Exercise [...] MD Date Dictated: 10/31/24730 Date Transcribed: 10/31/24730 Credit Report Checker: CO Signed Tiffany [facility] ALBUMIN, RANDOM URINE W/CREA KORINrobert 10-12-2024 ALBUMIN, URINE Normal [facility] Comment on above: Performed By: #### 1 759, 7600, 06293, 496, 6517 #### [facility] [place] [address] [address] Machine Runner: Jung Flores MD ALBUMIN/CREATININE RATIO, RANDOM URINE Normal [facility] Comment on above: Performed By: #### 1 759, 7600, 52777, 496, 6517 #### [facility] [place] [address] [address] Machine Runner: Jung Flores MD CREATININE, RANDOM URINE Normal [facility] Comment on above: Performed By: #### 1 759, 7600, 29155, 496, 6517 #### [facility] [place] [address] [address] Machine Runner: Jung Flores MD CBC (H/H, RBC, INDICES, WBC, PLT)on 10-12-2024 Erythrocyte distribution width (RBC) [Ratio] 14.2 % Normal 11.0-15.0 [facility] Comment on above: Performed By: #### 1 759, 7600, 29568, 496, 6517 #### [facility] [address] Machine Runner: Jung Flores MD Hematocrit (Bld) [Volume fraction] 45.4 % Normal 38.5-50.0 [facility] Comment on above: Performed By: #### 1 759, 7600, 15394, 496, 6517 #### [facility] [place] [address] [address] Machine Runner: Jung Flores MD Hemoglobin (Bld) [Mass/Vol] 14.5 g/dL Normal 13.2-17.1 [facility] Comment on above: Performed By: #### 1 759, 7600, 53232, 496, 6517 #### [facility] [place] [address] [address] Machine Runner: Jung Flores MD MCH (RBC) [Entitic mass] 28.6 pg Normal 27.0-33.0 [facility] Comment on above: Performed By: #### 1 759, 7600, 27040, 496, 6517 #### [facility] [place] [address] [address] Machine Runner: Jung Flores MD MCHC (RBC) [Mass/Vol] 31.9 [...] condition. Performed By: #### 1 759, 7600, 89161, 496, 6517 #### [facility] [place] [address] [address] Machine Runner: Jung Flores MD MCV (RBC) [Entitic vol] 89.5 fL Normal 80.0-100.0 [facility] Comment on above: Performed By: #### 1 759, 7600, 89935, 496, 6517 #### [facility] [address], [address] [place] [address] Road Machine Runner: Jung Flores MD Platelet mean volume (Bld) [Entitic vol] 10.8 fL Normal 7.5-12.5 [facility] Comment on above: Performed By: #### 1 759, 7600, 41232, 496, 6517 #### [facility] of [place] [address] [address] Machine Runner: Jung Flores MD Platelets (Bld) [#/Vol] 240 10*3/uL Normal 140-400 [facility] Comment on above: Performed By: #### 1 759, 7600, 82475, 496, 6517 #### [facility] of [place] [address] [address] Machine Runner: Jung Flores MD RBC (Bld) [#/Vol] 5.07 10*6/uL Normal 4.20-5.80 [facility] Comment on above: Performed By: #### 1 759, 7600, 08215, 496, 6517 #### [facility] of [place] [address] [address] Machine Runner: Jung Flores MD WBC (Bld) [#/Vol] 7.5 10*3/uL Normal 3.8-10.8 [facility] Comment on above: Performed By: #### 1 759, 7600, 62631, 496, 6517 #### [facility] of [place] [address] [address] Machine Runner: Jung Flores MD [facility] 10-12-2024 Albumin [Mass/Vol] 4.6 g/dL Normal 3.6-5.1 [facility] Comment on above: Performed By: #### 1 759, 7600, 12043, 496, 6517 #### [facility] of [place] [address] [address] Machine Runner: Jung Flores MD Albumin/Globulin [Mass ratio] 2.0 {ratio} Normal 1.0-2.5 [facility] Comment on above: Performed By: #### 1 759, 7600, 05191, 496, 6517 #### [facility] of [place] [address] [address] Machine Runner: Jung Flores MD ALP [Catalytic activity/Vol] 55 U/L Normal 35-144 [facility] Comment on above: Performed By: #### 1 759, 7600, 69909, 496, 6517 #### [facility] of [place] [address] [address] Machine Runner: Jung Flores MD ALT [Catalytic activity/Vol] 31 U/L Normal 9-46 [facility] Comment on above: Performed By: #### 1 759, 7600, 82983, 496, 6517 #### [facility] [place] [address] [address] Machine Runner: Jung Flores MD AST [Catalytic activity/Vol] 30 U/L Normal 10-35 [facility] Comment on above: Performed By: #### 1 759, 7600, 84014, 496, 6517 #### [facility] [place] [address] [address] Machine Runner: Jung Flores MD Bilirubin [Mass/Vol] 0.9 mg/dL Normal 0.2-1.2 [facility] Comment on above: Performed By: #### 1 759, 7600, 39596, 496, 6517 #### [facility] [place] [address] [address] Machine Runner: Jung Flores MD BUN/CREATININE RATIO SEE NOTE: Normal 6-22 [facility] Comment on above: Result Comment: Not Reported: BUN and Creatinine are within reference range. Performed By: #### 1 759, 7600, 47716, 496, 6517 #### [facility] [place] [address] [address] Machine Runner: Jung Flores MD Calcium [Mass/Vol] 9.6 mg/dL Normal 8.6-10.3 [facility] Comment on above: Performed By: #### 1 759, 7600, 39809, 496, 6517 #### [facility] of [place] [address] [address] Machine Runner: Jung Flores MD Chloride [Moles/Vol] 101 mmol/L Normal 98-110 [facility] Comment on above: Performed By: #### 1 759, 7600, 60700, 496, 6517 #### [facility] [place] [address] [address] Machine Runner: Jung Flores MD CO2 [Moles/Vol] 26 mmol/L Normal 20-32 [facility] Comment on above: Performed By: #### 1 759, 7600, 94741, 496, 6517 #### [facility] of [place] [address] [address] Machine Runner: Jung Flores MD Creatinine [Mass/Vol] 1.10 mg/dL Normal 0.70-1.[address] [facility] Comment on above: Performed By: #### 1 759, 7600, 56783, 496, 6517 #### [facility] [place] [address] [address] Machine Runner: Jung Flores MD GFR/1.73 sq M.predicted among non-blacks MDRD (S/P/Bld) [Vol rate/Area] 72 mL/min/{1.73_m2} Normal > OR = 60 [facility] Comment on above: Performed By: #### 1 759, 7600, 95621, 496, 6517 #### [facility] of [place] [address] [address] Machine Runner: Jung Flores MD Globulin (S) [Mass/Vol] 2.3 g/dL Normal 1.9-3.7 [facility] Comment on above: Performed By: #### 1 759, 7600, 31978, 496, 6517 #### [facility] [place] [address] [place] [address] Road Machine Runner: Jung Flores MD Glucose [Mass/Vol] 141 mg/dL High 65-99 [facility] Comment on above: Result Comment: Fasting reference interval For someone without known diabetes, a glucose value >125 mg/dL indicates that they may have diabetes and this should be confirmed with a follow-up test. Performed By: #### 1 759, 7600, 63437, 496, 6517 #### [facility] [place] [address] [address] Machine Runner: Jung Flores MD Potassium [Moles/Vol] 4.7 mmol/L Normal 3.5-5.[address] [facility] [address] [facility] Comment on above: Performed By: #### 1 759, 7600, 42109, 496, 6517 #### [facility] [place] [address] [address] Machine Runner: Jung Flores MD Protein [Mass/Vol] 6.9 g/dL Normal 6.1-8.1 [facility] Comment on above: Performed By: #### 1 759, 7600, 83553, 496, 6517 #### [facility] [place] [address] [address] Machine Runner: Jung Flores MD Sodium [Moles/Vol] 137 mmol/L Normal 135-146 [facility] Comment on above: Performed By: #### 1 759, 7600, 94161, 496, 6517 #### [facility] [place] [address] [address] Machine Runner: Jung Flores MD Urea nitrogen [Mass/Vol] 18 mg/dL Normal 7-25 [facility] Comment on above: Performed By: #### 1 759, 7600, 35816, 496, 6517 #### [facility] [place] [address] [address] Machine Runner: Jung Flores MD HEMOGLOBIN A1con 10-12-2024 HbA1c [...] children. Performed By: #### 1 759, 7600, 64365, 496, 6517 #### [facility] [address], [address] [place] [address] Road Machine Runner: Jung Flores MD LIPID PANEL, [facility] - Cholesterol [Mass/Vol] 206 mg/dL High <200 [facility] Comment on above: Order Comment: 0; FA STING; 0; FASTING; 0 FASTING:YES FASTING: YES Performed By: #### 1 759, 7600, 29647, 496, 6517 #### [facility] [address], [address] [place] [address] Road Machine Runner: Jung Flores MD Cholesterol in HDL [Mass/Vol] 49 mg/dL Normal > OR = 40 [facility] Comment on above: Order Comment: 0; FA STING; 0; FASTING; 0 FASTING:YES FASTING: YES Performed By: #### 1 759, 7600, 03270, 496, 6517 #### [facility] [address], [address] [place] [address] Road Machine Runner: Jung Flores MD Cholesterol in LDL [Mass/Vol] [...] LDL-C. Ash REZA et al. LEESA. 2013;310(19): 0498-4399 (http://education.KeyEffx.com/faq/JTT826) Performed By: #### 1 759, 7600, 75432, 496, 6517 #### [facility] [address], [address] [place] [address] Road Machine Runner: Jung Flores MD Cholesterol.total/Claire sterol in HDL [Mass ratio] 4.2 {ratio} Normal <5.0 [facility] Comment on above: Order Comment: 0; FA STING; 0; FASTING; 0 FASTING:YES FASTING: YES Performed By: #### 1 759, 7600, 47403, 496, 6517 #### [facility] [address], [address] [place] [address] Road Machine Runner: Jung Flores MD NON HDL CHOLESTEROL 157 mg/dL (calc) High <130 [facility] Comment on above: Order Comment: 0; FA STING; 0; FASTING; 0 FASTING:YES FASTING: YES Result Comment: For patients with diabetes plus 1 major ASCVD risk factor, treating to a non-HDL-C goal of <100 mg/dL (LDL-C of <70 mg/dL) is considered a therapeutic option. Performed By: #### 1 759, 7600, 70954, 496, 6517 #### [facility] [address], [address] [place] [address] Road Machine Runner: Jung Flores MD Triglyceride [Mass/Vol] 172 mg/dL High <150 [facility] Comment on above: Order Comment: 0; FA STING; 0; FASTING; 0 FASTING:YES FASTING: YES Performed By: #### 1 759, 7600, 24578, 496, 6517 #### [facility] [address], [address] [place] [address] Road Machine Runner: Jung Flores MD 12 Lead EKG performed by [facility] [place] 09-04-2024 12 Lead EKG performed by [place] [address] [place] [address] 12 Lead EKG performed by [facility] 09/04/24912 MR#: [id number] Acct: [id number] Name: ANNIA ALFONSO Rep #: [id number] : 1955 68 From: Arlene Mata NP INDUSTRIAL ORGANIZATION MANAGER-C Attending Dr: Arlene Mata INDUSTRIAL ORGANIZATION MANAGER-C Status: DEP A MB Ordering Dr: Arlene Mata NP INDUSTRIAL ORGANIZATION MANAGER-C Date: 09/04/24 Location: [facility] Sex: M C Admitted: BMS/12 Lead EKG performed by [facility] ECG Report Interpretation -------Sinus Rhythm -Right bundle branch block. ABNORMAL Electronically signed on 09/04/2024 at 09:59 by Ori Fernandeswood Software Version [id number] 09/04/24 1002 Date Arlene Mata NP INDUSTRIAL ORGANIZATION MANAGER-C CC: Dr. Ludy Sarmiento MD Date Dictated: 09/04/24912 Date Transcribed: 09/04/24912 Credit Report Checker: MARY Signed Normal [facility] Cardiology Visit Reporton Cardiology Visit Report [facility] [address] [place] [address] OFFICE VISIT Date of Service: 09/04/24 MR#: [id number] Acct: [id number] Name: ANNIA ALFONSO Rep #: [id number] : 1955 Provider: LESTER del real Age/Sex: 68/M Location: [facility] Status: Signed HPI HPI History of Present [...] Intake Visit Reasons: OVER DUE FOR FU Risk Management Analyst Required: No Is patient in pain?: No [...] the past year?: No PFSH Medical History (Reviewed 09/04/24 @ 09:15 by Arlene Mata INDUSTRIAL ORGANIZATION MANAGER, INDUSTRIAL ORGANIZATION MANAGER-C) Essential hypertension Paroxysmal A-fib Visual disturbance History [...] Appearance: cooperative (more content not included)... Normal [facility] CBC (H/H, RBC, INDICES, WBC, PLT)on 04-20-2024 Erythrocyte distribution width (RBC) [Ratio] 13.5 % Normal 11.0-15.0 [facility] Comment on above: Performed By: #### 1 759, 06194, 36227 #### [facility] [place] [address] [address] Machine Runner: Jung Flores MD Hematocrit (Bld) [Volume fraction] 42.0 % Normal 38.5-50.0 [facility] Comment on above: Performed By: #### 1 759, 14277, 80810 #### [facility] [place] [address] [address] Machine Runner: Jung Flores MD Hemoglobin (Bld) [Mass/Vol] 13.8 g/dL Normal 13.2-17.1 [facility] Comment on above: Performed By: #### 1 759, 82829, 09013 #### [facility] [place] [address] [address] Machine Runner: Jung Flores MD MCH (RBC) [Entitic mass] 28.2 pg Normal 27.0-33.0 [facility] Comment on above: Performed By: #### 1 759, 02653, 98655 #### [facility] [place] [address] [address] Machine Runner: Jung Flores MD MCHC (RBC) [Mass/Vol] 32.9 [...] clinical condition. Performed By: #### 1 759, 54228, 50501 #### [facility] [place] [address] [address] Machine Runner: Jung Flores MD MCV (RBC) [Entitic vol] 85.9 fL Normal 80.0-100.0 [facility] Comment on above: Performed By: #### 1 759, 03988, 94697 #### [facility] of [place] [address] [address] Machine Runner: Jung Flores MD Platelet mean volume (Bld) [Entitic vol] 11.0 fL Normal 7.5-12.5 [facility] Comment on above: Performed By: #### 1 759, 31136, 50857 #### [facility] [place] [address] [address] Machine Runner: Jung Flores MD Platelets (Bld) [#/Vol] 247 10*3/uL Normal 140-400 [facility] Comment on above: Performed By: #### 1 759, 93845, 92151 #### [facility] [place] [address] [address] Machine Runner: Jung Flores MD RBC (Bld) [#/Vol] 4.89 10*6/uL Normal 4.20-5.80 [facility] Comment on above: Performed By: #### 1 759, 47295, 33523 #### [facility] [place] [address] [address] Machine Runner: Jung Flores MD WBC (Bld) [#/Vol] 5.9 10*3/uL Normal 3.8-10.8 [facility] Comment on above: Performed By: #### 1 759, 03994, 44474 #### [facility] [place] [address] [address] Machine Runner: Jung Flores MD [facility] 04-20-2024 Albumin [Mass/Vol] 4.4 g/dL Normal 3.6-5.1 [facility] Comment on above: Order Comment: 0; 0; 0 Performed By: #### 1 759, 95020, 05084 #### [facility] [place] [address] [address] Machine Runner: Jung Flores MD Albumin/Globulin [Mass ratio] 2.0 {ratio} Normal 1.0-2.5 [facility] Comment on above: Order Comment: 0; 0; 0 Performed By: #### 1 759, 43267, 53342 #### [facility] [place] [address] [address] Machine Runner: Jung Flores MD ALP [Catalytic activity/Vol] 60 U/L Normal 35-144 [facility] Comment on above: Order Comment: 0; 0; 0 Performed By: #### 1 759, 67315, 85638 #### [facility] [place] [address] [address] Machine Runner: Jung Flores MD ALT [Catalytic activity/Vol] 24 U/L Normal 9-46 [facility] Comment on above: Order Comment: 0; 0; 0 Performed By: #### 1 759, 30321, 36139 #### [facility] [place] [address] [address] Machine Runner: Jung Flores MD AST [Catalytic activity/Vol] 20 U/L Normal 10-35 [facility] Comment on above: Order Comment: 0; 0; 0 Performed By: #### 1 679, 93885, 11221 #### [facility] [place] [address] [address] Machine Runner: Jung Flores MD Bilirubin [Mass/Vol] 0.6 mg/dL Normal 0.2-1.2 [facility] Comment on above: Order Comment: 0; 0; 0 Performed By: #### 1 909, 55701, 55267 #### [facility] [place] [address] [address] Machine Runner: Jung Flores MD BUN/CREATININE RATIO SEE NOTE: Normal 6-22 [facility] Comment on above: Order Comment: 0; 0; 0 Result Comment: Not Reported: BUN and Creatinine are within reference range. Performed By: #### 1 549, 34478, 20355 #### [facility] [place] [address] [address] Machine Runner: Jung Flores MD Calcium [Mass/Vol] 9.1 mg/dL Normal 8.6-10.3 [facility] Comment on above: Order Comment: 0; 0; 0 Performed By: #### 1 759, 53812, 50945 #### [facility] [place] [address] [address] Machine Runner: Jung Flores MD Chloride [Moles/Vol] 104 mmol/L Normal 98-110 [facility] Comment on above: Order Comment: 0; 0; 0 Performed By: #### 1 759, 37023, 11244 #### [facility] [place] [address] [address] Machine Runner: Jung Flores MD CO2 [Moles/Vol] 28 mmol/L Normal 20-32 [facility] Comment on above: Order Comment: 0; 0; 0 Performed By: #### 1 619, 98860, 52352 #### [facility] [place] [address] [address] Machine Runner: Jung Flores MD Creatinine [Mass/Vol] 0.96 mg/dL Normal 0.70-1.[address] [facility] [address] [facility] Comment on above: Order Comment: 0; 0; 0 Performed By: #### 1 759, 95749, 47680 #### [facility] [place] [address] [address] Machine Runner: Jung Flores MD GFR/1.73 sq M.predicted among non-blacks MDRD (S/P/Bld) [Vol rate/Area] 85 mL/min/{1.73_m2} Normal > OR = 60 [facility] Comment on above: Order Comment: 0; 0; 0 Performed By: #### 1 199, 12365, 21994 #### [facility] [place] [address] [address] Machine Runner: Jung Flores MD Globulin (S) [Mass/Vol] 2.2 g/dL Normal 1.9-3.7 [facility] Comment on above: Order Comment: 0; 0; 0 Performed By: #### 1 759, 59621, 17500 #### [facility] [place] [address] [address] Machine Runner: Jung Flores MD Glucose [Mass/Vol] 141 mg/dL High 65-99 [facility] Comment on above: Order Comment: 0; 0; 0 Result Comment: Fasting reference interval For someone without known diabetes, a glucose value >125 mg/dL indicates that they may have diabetes and this should be confirmed with a follow-up test. Performed By: #### 1 169, 06203, 37846 #### [facility] [place] [address] [address] Machine Runner: Jung Flores MD Potassium [Moles/Vol] 4.5 mmol/L Normal 3.5-5.[address] [facility] [address] [facility] Comment on above: Order Comment: 0; 0; 0 Performed By: #### 1 729, 92532, 79257 #### [facility] [place] [address] [address] Machine Runner: Jung Flores MD Protein [Mass/Vol] 6.6 g/dL Normal 6.1-8.1 [facility] Comment on above: Order Comment: 0; 0; 0 Performed By: #### 1 619, 36771, 42905 #### [facility] [place] [address] [address] Machine Runner: Jung Flores MD Sodium [Moles/Vol] 141 mmol/L Normal 135-146 [facility] Comment on above: Order Comment: 0; 0; 0 Performed By: #### 1 399, 88239, 01655 #### [facility] [place] [address] [address] Machine Runner: Jung Flores MD Urea nitrogen [Mass/Vol] 19 mg/dL Normal 7-25 [facility] Comment on above: Order Comment: 0; 0; 0 Performed By: #### 1 759, 26112, 43081 #### [facility] [address], [address] [place] [address] Road Machine Runner: Jung Flores MD PSA, TOTAL, MONITORINGon PSA, [...] of disease. Performed By: #### 1 759, 50684, 92611 #### [facility] [address], [address] [place] [address] Road Machine Runner: Jung Flores MD [facility] 03-13-2024 Dorina Winkler APRN NP 03/13/2024 2:05 PM [facility] Date/Time: 03/13/2024 2:04 PM Performed by: Dorina Winkler APRN INDUSTRIAL ORGANIZATION MANAGER Authorized by: Dorina Winkler APRN NP Consent: Consent obtained: Verbal Consent given by: Patient Risks, benefits, and alternatives were discussed: yes Risks discussed: Infection, need for additional repair, nerve damage, poor wound healing, poor cosmetic result, pain, tendon damage and vascular damage [place] protocol: Procedure explained and questions answered to [...] Procedure completion: Tolerated well, no immediate complications Admittedly [facility] No Panel InformationOrdered By: Marco A [...] cm AP x 1.93 cm TR present. Color Blender Details A cunningham scale, color Doppler imaging [...] Radiology ACCESSION EXAM DATE/TIME PROCEDURE ORDERING PROVIDER [id number] 11/06/2021 12:18 EDT CR Spine Cervical Comp MD GUILLERMINA, LUDY A w/ Obliques CPT code 84774 Reason For Exam (CR Spine Cervical Comp [...] Transcribed Date and Time: 11/10/2021 11:10 Normal [facility] CR Spine Thoracic 3 Viewson 11-06-2021 CR Spine Thoracic 3 Views Patient Name: ANNIA ALFONSO Diagnostic Radiology ACCESSION EXAM DATE/TIME PROCEDURE ORDERING PROVIDER [id number] 11/06/2021 12:18 EDT CR Spine Thoracic 3 MD GUILLERMINA, LUDY A Views CPT code 06784 Reason For Exam (CR Spine Thoracic 3 [...] Transcribed Date and Time: 11/10/2021 10:51 Normal [facility] ECHO Complete 2D W Doppler W Coloron 09-17-2021 TRANSTHORACIC ECHOCARDIOGRAM PATIENT: Annia Alfonso STUDY DATE: 09/17/2021 : 1955 AGE: 65 HT/WT: 177.8 cm (70 108.4 kg in) (238.5 lb) GENDER: M BP: 163 / 76 LOCATION: [facility] PATIENT [facility] STATUS: *ORDERING PHYSICIAN: * Esme Tan *READING PHYSICIAN: * *TECHNICAL ADJUSTER: * Magdalena Braajas MD RDCS,AE, PE, RVT INDICATIONS: ASSESS LV FUNCTION, LA SIZE. CONCLUSIONS SUMMARY: 1. Left ventricle: Systolic function is by the biplane method of disks. The estimated ejection fraction is 61%. 2. Left atrium: The atrium is mildly dilated. 3. No significant valve disease. 4. Technically difficult study. STUDY DATA: Complete transthoracic echocardiogram. Procedure: Image quality was suboptimal. Aqua Accessity lot #: [id number]. M-mode, complete 2D, complete [...] ES, 2-p 34 (more content not included)... [facility] CARDIOLOGY Magdalena Gonzalez MD - 09/17/2021 TRANSTHORACIC ECHOCARDIOGRAM PATIENT: Annia Alfonso STUDY DATE: 09/17/2021 : 1955 AGE: 65 HT/WT: 177.8 cm (70 108.4 kg in) (238.5 lb) GENDER: M BP: 163 / 76 LOCATION: [facility] PATIENT [facility] STATUS: *ORDERING PHYSICIAN: * Esme Tan *READING PHYSICIAN: * *TECHNICAL ADJUSTER: * Magdalena Barajas MD RDCS,AE, PE, RVT INDICATIONS: ASSESS LV FUNCTION, LA SIZE. CONCLUSIONS SUMMARY: 1. Left ventricle: Systolic function is by the biplane method of disks. The estimated ejection fraction is 61%. 2. Left atrium: The atrium is mildly dilated. 3. No significant valve disease. 4. Technically difficult study. STUDY DATA: Complete transthoracic echocardiogram. Procedure: Image quality was suboptimal. Aqua Accessity lot #: [id number]. M-mode, complete 2D, complete [...] Magdalena Gonzalez MD 09/17/2021 16:42 Prior Signatures: [facility] Work Phone: ECHO Complete 2D W Doppler W ColorOrdered By: Magdalena Gonzalez on 09-17-2021 [facility] Work Phone: Echo Complete w/wo Contrasto n 09-17-2021 Echo Complete w/wo Contrast Patient Name: ANNIA ALFONSO Ultrasound ACCESSION EXAM DATE/TIME PROCEDURE ORDERING PROVIDER [id number] 09/17/2021 14:49 EDT Echo Complete w/wo ANGELA TAN KRISTEN Contrast Reason For Exam (Echo Complete w/wo Contrast) Assess LV function, LA size Report TRANSTHORACIC ECHOCARDIOGRAM PATIENT: Annia Alfonso STUDY DATE: 09/17/2021 : 1955 AGE: 65 HT/WT: 177.8 cm (70 108.4 kg in) (238.5 lb) GENDER: M BP: 163 / 76 LOCATION: [facility] PATIENT [facility] STATUS: *ORDERING PHYSICIAN: * Esme Tan *READING PHYSICIAN: * *TECHNICAL ADJUSTER: * Magdalena Barajas MD RDCS,AE, PE, RVT INDICATIONS: ASSESS LV FUNCTION, LA SIZE. CONCLUSIONS SUMMARY: 1. Left ventricle: Systolic function is by the biplane method of disks. The estimated ejection fraction is 61%. 2. Left atrium: The atrium is mildly dilated. 3. No significant valve disease. 4. Technically difficult study. STUDY DATA: Complete transthoracic echocardiogram. Procedure: Image quality was suboptimal. Zuldi lot #: [id number]. M-mode, complete 2D, complete [...] Dictated: 05 (more content not included)... [facility] ---- ANNIA ALFONSO ([id number]) 1955 M Date Time Provider Department 06/30/18 [...] sensation intact at all pedal sites via [place] Andreas 5.07 monofilament bilateral. 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 Follow-up and Disposition History Recorded Encounter Status:Closed by JACK SAMANO DPM on 07/23/18 [facility] PROGRESSon 06-30-2018 Protein mass conc HNO ID: [id number] Author: Jack Samano Service: ? Author Type: [...] sensation intact at all pedal sites via [place] Andreas 5.07 monofilament bilateral. Proprioception intact at [...] in this document, created by the medical records receptionist for me, accurately reflects the services I personally performed and the decisions made by me. I have reviewed and approved this document for accuracy. Jack Samano, RUTH, FACFAS Normal [facility] Protein mass conc HNO ID: [id number] Author: Cecil Bolden Service: ? Author Type: [...] for excessive bleeding, clots, bleeding disorders. Normal [facility] XR HIP MINIMUM 2 VIEWS [...] PM Sign Date: 06/29/2018 2:05:04 PM Normal [facility] ([place]) XR WRIST MINIMUM 3 VIEWS RIG HTon [...] PM Sign Date: 06/29/2018 2:09:43 PM Normal [facility] ([place]) Vital Signs Date Time Vital Sign Value Performing Clinician Facility 12-04-2024 11:04-0400 Diastolic blood pressure 79 mm[Hg] Dr. Ludy Sarmiento MD Work Phone: [facility] 12-04-2024 11:04-0400 Heart rate 53 /min Dr. Ludy Sarmiento MD Work Phone: [facility] 12-04-2024 11:04-0400 Systolic blood pressure 138 mm[Hg] Dr. Ludy Sarmiento MD Work Phone: [facility] 12-04-2024 10:54-0400 Body height 177.[address] Ludy Sarmiento MD Work Phone: [facility] 12-04-2024 10:54-0400 Body mass index (BMI) [Ratio] 34.5 kg/m2 Dr. Ludy Sarmiento MD Work Phone: [facility] 12-04-2024 10:54-0400 Body weight 109.[address] Ludy Sarmiento MD Work Phone: [facility] 12-04-2024 10:54-0400 Respiratory rate 18 /min Dr. Ludy Sarmiento MD Work Phone: [facility] 09-03-2024 07:24-0400 Body height 177.[address] Ludy Sarmiento MD Work Phone: [facility] 09-03-2024 07:24-0400 Body mass index (BMI) [Ratio] 34.4 kg/m2 Dr. Ludy Sarmiento MD Work Phone: [facility] 09-03-2024 07:24-0400 Body weight 108.[address] Ludy Sarmiento MD Work Phone: [facility] 09-03-2024 07:24-0400 Diastolic blood pressure 70 mm[Hg] Dr. Ludy Sarmiento MD Work Phone: [facility] 09-03-2024 07:24-0400 Heart rate 61 /min Dr. Ludy Sarmiento MD Work Phone: [facility] 09-03-2024 07:24-0400 Respiratory rate 18 /min Dr. Ludy Sarmiento MD Work Phone: [facility] 09-03-2024 07:24-0400 SaO2% (BldA) [Mass fraction] 97 % Dr. Ludy Sarmiento MD Work Phone: [facility] 09-03-2024 07:24-0400 Systolic blood pressure 152 mm[Hg] Dr. Ludy Sarmiento MD Work Phone: [facility] 03-13-2024 13:26-0500 Body height 175.3 cm Ludy Sarmiento MD [facility] 03-13-2024 13:26-0500 Body mass index (BMI) [Ratio] 34.41 kg/m2 Ludy Sarmiento MD Work Phone: [facility] 03-13-2024 13:26-0500 Body temperature 97 [degF] Ludy Sarmiento MD Work Phone: [facility] 03-13-2024 13:26-0500 Body weight 105.69 kg Ludy Sarmiento MD Work Phone: [facility] 03-13-2024 13:26-0500 Diastolic blood pressure 81 mm[Hg] Ludy Sarmiento MD Work Phone: [facility] 03-13-2024 13:26-0500 Heart rate 59 /min Ludy Sarmiento MD Work Phone: [facility] 03-13-2024 13:26-0500 Respiratory rate 16 /min Ludy Sarmiento MD Work Phone: [facility] 03-13-2024 13:26-0500 SaO2% (BldA) [Mass fraction] 96 % Ludy Sarmiento MD Work Phone: [facility] 03-13-2024 13:26-0500 Systolic blood pressure 170 mm[Hg] Ludy Sarmiento MD Work Phone[facility] Encounters Encounter Date Encounter Type Care Provider Facility Start: 01-09-2025 End: 01-09-2025 Subsequent hospital visit by physician Ludy Sarmiento MD Work Phone: [facility] Comment on above: Aneurysm of iliac ar benja ([facility]) Start: 01-09-2025 End: 01-09-2025 ambulatory [facility] Start: 12-04-2024 End: 12-04-2024 Patient encounter procedure Arlene Mata NP-C -[facility] Work Phone: Start: 12-04-2024 End: 12-04-[address] Ludy Sarmiento MD Work Phone: -[facility] Start: 11-08-2024 Non-patient / Non-visit Arlene shields NP-C -[facility] Work Phone: Start: 11-08-2024 ambulatory [facility] Facility :[facility] Start: 11-06-2024 End: 11-06-[address] Ludy Sarmiento MD Work Phone: -[facility] Start: 11-06-2024 End: 11-06-2024 Patient encounter procedure Arlene Mata NP-C -[facility] Work Phone: Start: 11-06-2024 ambulatory [facility] Facility [facility] Start: 11-06-2024 Non-patient / Non-visit Dr. Heather HARTMAN -[facility] Start: 11-06-2024 End: 11-06-2024 ambulatory [facility] Facility:[facility] Start: 11-01-2024 Non-patient / Non-visit Arlene BATISTA -[facility] Work Phone: Start: 11-01-2024 ambulatory Arlene Mata NP Facili ty:[facility] Start: 10-31-2024 ambulatory [facility] Facility:[facility] Start: 10-31-2024 Non-patient / Non-visit Dr. Heather HARTMAN -[facility] Start: 10-30-2024 End: 10-30-[address] Ludy Sarmiento MD Work Phone: -[facility] Start: 10-30-2024 End: 10-30-2024 Patient encounter procedure Arlene Mata INDUSTRIAL ORGANIZATION MANAGER-C -[facility] Work Phone: Start: 10-30-2024 End: 10-30-2024 ambulatory Arlene Mata NP Facility:[facility] Start: 09-11-2024 Non-patient / Non-visit Dr. Heather HARTMAN -[facility] Work Phone: Start: 09-11-2024 ambulatory [facility] Start: 09-11-2024 Registered Referred Arlene Mata INDUSTRIAL ORGANIZATION MANAGER -C -Cardi[facility] Services Work Phone: Start: 09-04-2024 End: 09-04-2024 Patient encounter procedure Arlene Mata INDUSTRIAL ORGANIZATION MANAGER-C -[facility] Work Phone: Start: 09-04-2024 End: 09-04-2024 ambulatory Ludy Sarmiento Facility:[facility] Start: 03-13-2024 End: 03-13-2024 Emergency department patient visit LUDY SARMIENTO [facility] Comment on above: Laceration of left m iddle finger without foreign body without damage to nail, initial encounter (Primary Dx) Start: 12-20-2022 End: 12-20-2022 Subsequent hospital visit by physician Ludy Sarmiento MD Work Phone: [facility] Comment on above: Personal history of nicotine dependence Start: 12-13-2022 Transcribe Orders Ludy del valle MD Work Phone: [facility] Central Scheduling Comment on above: Personal history of nicotine dependence (Primary Dx) Start: 03-29-2022 Transcribe Orders Ludy del valle MD Work Phone: [facility] Comment on above: Pain in right [...] End: 06-30-2018 Patient encounter procedure JACK SAMANO Facility:[facility] Start: 06-29-2018 End: 06-29-2018 Emergency department [...] Start: 03-13-2024 LACERATION REPAIR Dorina Winkler APRN INDUSTRIAL ORGANIZATION MANAGER Work Phone: Start: 12-20-2022 Us abdominal aorta r eal time screen study aaa Ludy Sarmiento MD Work Phone: Start: 09-17-2021 Echo tthrc r-t 2d w/wom-mode compl spec&colr d Esme Tan INSTRUCTIONAL INTERVENTIONIST - [employer] Work Phone: Plan of Treatment Date Care Activity Detail Author Start: 03-13-2034 Administration of diphtheria + tetanus + acellular pertussis vaccine DTAP/TDAP/TD VACCINE (2 - Td or Tdap) [facility] Start: 03-13-2034 DTaP/Tdap/Td Vaccines (2 - Td or Tdap) DTaP/Tdap/Td Vaccines (2 - Td or Tdap) [facility] Start: 01-07-2025 COVID-19 Vaccine ( season) COVID-19 Vaccine ( season) [facility] Start: 01-07-2025 Influenza vaccination Influenza Vaccine (#1) [facility] Start: 05-09-2024 Medicare Advantage Annual Wellness Visit Medicare Advantage Annual Wellness Visit [facility] Start: 01-08-2024 COVID-19 VACCINE ( season) COVID-19 VACCINE ( season) [facility] Start: 01-08-2024 Influenza vaccination given INFLUENZA VACCINE (#1) [facility] Start: 01-07-2023 Influenza vaccination Influenza Vaccine (#1) [facility] Start: 01-07-2022 Influenza vaccination [facility] Start: 09-17-2021 End: 09-17-2021 Patient encounter procedure 09/17/2021 Appointment Echocardiography Avinash Garibay MD [address] [place] [address] Esme Tan APRN - [address] [address] [facility] Start: 07-31-2021 Annual Wellness Visit (AWV) Annual Wellness Visit (AWV) [facility] Start: 2018 Fall risk assessment FALL RISK [facility] Start: 2018 Glaucoma screening GLAUCOMA/EYE EXAM AGE 65+ [facility] Start: 2018 Pneumococcal 23-valent polysaccharide vaccination given (situation) PNEUMOCOCCAL VACCINE: 65+ YEARS (1 of 1 - PCV) [facility] Start: 2018 Pneumococcal 65+ years Vaccine (1 - PCV) Pneumococcal 65+ years Vaccine (1 - PCV) [facility] Start: 2018 Pneumococcal 65+ years Vaccine (1 of 1 - PPSV23) Pneumococcal 65+ years Vaccine (1 of 1 - PPSV23) [facility] Start: 2018 Pneumococcal Vaccine: 65+ Years (1 - PCV) Pneumococcal Vaccine: 65+ Years (1 - PCV) [facility] Start: 2013 Hepatitis B Vaccines (1 of 3 - Risk 3-dose series) Hepatitis B Vaccines (1 of 3 - Risk 3-dose series) [facility] Start: 2013 RSV Immunization for Adults (1 - Risk 60-74 years 1-dose series) RSV Immunization for Adults (1 - Risk 60-74 years 1-dose series) [facility] Start: 11-18-2003 Pneumococcal Vaccine: 50+ Years (1 of 1 - PCV) Pneumococcal Vaccine: 50+ Years (1 of 1 - PCV) [facility] Start: 11-18-2003 Shingles Vaccine (1 of 2) Shingles Vaccine (1 of 2) [facility] Start: 11-18-2003 Zoster vaccine hzv live for subcutaneous use ZOSTER (SHINGLES) VACCINE (1 of 2) [facility] Start: 11-18-2003 Zoster Vaccines (1 of 2) Zoster Vaccines (1 of 2) [facility] Start: 1998 Screening for malignant neoplasm of colon [facility] Start: 1993 Lipid panel [facility] Start: 1988 Diabetes screen Diabetes screen [facility] Start: 1988 Fasting lipid profile LIPID SCREENING [facility] Start: 1972 DTaP/Tdap/Td vaccine (1 - Tdap) DTaP/Tdap/Td vaccine (1 - Tdap) [facility] Start: 1972 DTaP/Tdap/Td Vaccines (1 - Tdap) DTaP/Tdap/Td Vaccines (1 - Tdap) [facility] Start: 11-18-1971 ANNUAL WELLNESS VISIT ANNUAL WELLNESS VISIT [facility] Start: 11-18-1971 Diabetes mellitus screening Diabetes Screening [facility] Start: 11-18-1971 Diabetes: Estimated Glomerular Filtration Rate for Kidney Health Diabetes: Estimated Glomerular Filtration Rate for Kidney Health [facility] Start: 11-18-1971 Diabetes: Urine Albumin-Creatinine Ratio for Kidney Health Diabetes: Urine Albumin-Creatinine Ratio for Kidney Health [facility] Start: 11-18-1971 Hepatitis C screening [facility] Start: 1965 Depression Screen Depression Screen [facility] Start: 1965 Depression Screening Depression Screening [facility] Start: 1965 Depression screening using PHQ-9 (Patient Health Questionnaire 9) score DEPRESSION SCREENING [facility] Start: 11-18-1963 Diabetic foot examination Diabetes: Foot Exam [facility] Start: 11-18-1963 Glaucoma screening Diabetes: Retinopathy Screening [facility] Start: 11-18-1963 Preventive dental service Diabetes: Dental Exam [facility] Start: 1958 COVID-19 Vaccine (1) COVID-19 Vaccine (1) [facility] Start: 05-20-1954 COVID-19 Vaccine (#1) COVID-19 Vaccine (#1) [facility] Start: 1953 Annual Wellness Visit (AWV) Annual Wellness Visit (AWV) [facility] Start: 1953 Creatinine measurement Creatinine monitoring [facility] Start: 1953 Hemoglobin A1c measurement Diabetes: Hemoglobin A1C [facility] Start: 1953 Hepatitis B Vaccines (1 of 3 - 3-dose series) Hepatitis B Vaccines (1 of 3 - 3-dose series) [facility] Start: 1953 Hepatitis C screening [facility] Start: 1953 Lipid panel Lipid Panel [facility] Start: 1953 Medicare Advantage Annual Wellness Visit (AWV) Medicare Advantage Annual Wellness Visit (AWV) [facility] Start: 1953 Potassium monitoring Potassium monitoring [facility] Start: 1953 Screening for malignant neoplasm of colon [facility] Immunizations Immunization Date Immunization Notes Care Provider Randy jones 03-13-2024 tetanus toxoid, redu charanjit diphtheria toxoid, and acellular pertussis vaccine, adsorbed Ludy Sarmiento MD Work Phone: [facility] Payers Date Payer Category Payer Self-pay 2024 Medicare HMO [employer] MED[employer]ARE [id number] 2024 Medicare [id number] 2023 Medicare Managed Car e (unspecified) [employer] MEDICARE ADVANTAGE HMO [id number] 2021 Medicare [id number] 2021 Medicare PENDING SALE TO [facility] MEDICARE ADVANTAGE ANTH MEDIBLUE [id number] 2021-Present [address] [place] [address] Medicare O [id number] 2018 Unknown [id number] 2018 Unknown [id number] 1955 Unknown [id number]. 627 1955 Unknown [id number] [id number]. 278 1955 Unknown [id number] [id number]. 297 Unknown [id number]. 462 Unknown [id number] 2.16.840.1.128407.3.579.2. 462 Unknown [id number] 2.16.840.1.153327.3.579.2. 462 Unknown [id number] 2.16.840.1.003334.3.579.2. 462 Unknown [id number] 2.16.840.1.385599.3.579.2. 462 Unknown [id number] [id number]. 462 Unknown [id number]. 462 Unknown [id number] [id number]. 462 Unknown [id number] [id number]. 462 Unknown [id number]. 462 Social History Date Type Detail Facility Start: 08-03-2021 End: 04-12-2022 Tobacco smoking status NHIS Never smoked tobacco [employer] Work Phone: Start: 08-03-2021 Tobacco use and exposure Smokeless tobacco non-user [employer] [facility] Phone: Start: 08-03-2021 Alcohol intake Lifetime non-d ines (finding) [employer] [facility] Phone: Start: 1955 Sex Assigned At Not on file [facility] [employer] Work Phone: Start: 08-03-2021 History of Social function [facility] Start: 08-03-2021 Tobacco use panel [facility] Start: 03-19-2022 End: 12-20-2022 Exposure to SARS-CoV-2 (event) Not sure [facility] Tobacco smoking status DEIS Tobacco smoking consumption unknown [facility] Start: 04-22-2020 Alcohol Alcohol [facility] Start: 04-22-2020 Lives Lives [facility] Start: 04-22-2020 Tobacco Use Tobacco Use [facility] Start: 1955 Sex Assigned At Male W [facility] Start: 12-07-2021 Sex Male (finding) Deuce ayala Clinical Notes 03-13-2024 to 09-04-2024 Note Date & Type Note Facility 09-04-2024 Evaluation note Diagnosis Onset Date Resolution Essential hypertension acute Ap ril 2024 9:01am Paroxysmal atrial fibrillation acute September 04, 2024 9:01am HLD (hyperlipidemia) chronic Apri l 2024 9:01am Chest pain resolved September 04 9:01am [facility] Work Phone: 1(729) 674-325704-29-2025 Evaluation note* Diagnosis Onset Date Resolution Status Admit Date Essential hypertension acute Ap ril 2024 9:01am Paroxysmal atrial fibrillation acute September 04, 2024 9:01am HLD (hyperlipidemia) chronic Apri l 2024 9:01am Chest pain resolved September 04 9:01am Essential hypertension acute Ju ly 2024 10:44am Paroxysmal atrial fibrillation acute December 04, 2024 10:44am HLD (hyperlipidemia) chronic December 04, 2024 10:44am [facility] Work Phone: 1(906) 123-156011-05-2024 Emergency department Note* Gigi Johnson LPN - 03/13/2024 2:16 PM EST Discharge orders reviewed, pt states understanding. NAD noted. Pt ambulates to [facility] via car. [facility] Emergency department Note* Gigi Johnson LPN - 03/13/2024 2:16 PM EST Discharge orders reviewed, pt states understanding. NAD noted. Pt ambulates to [employer] via car. * Gianni Cruz, RN - 03/13/2024 1:24 PM EST Pt ambulated to room in NAD, Pt states he was using a plainer and lacerated left middle finger, Pt unsure of last tetanus vaccine, Bleeding controled, Pt is a/o x4 skin wdp respirs easy * Dorina Winkler APRN INDUSTRIAL ORGANIZATION MANAGER - 03/13/2024 1:22 PM ESTAssociated Order(s): Lac [...] APRN NP Authorized by: Dorina Winkler APRN INDUSTRIAL ORGANIZATION MANAGER Consent: Consent obtained: Verbal Consent given by: Patient Risks, benefits, and alternatives were discussed: yes Risks discussed: Infection, need for additional repair, nerve damage, poor wound healing, poor cosmetic result, pain, tendon damage and vascular damage [place] protocol: Procedure explained and questions answered to [...] APRN NP 03/13/24 1417 [facility] Emergency department Triage note* Gianni Cruz RN - 03/13/2024 1:24 PM EST Pt ambulated to room in NAD, Pt states he was using a plainer and lacerated left middle finger, Pt unsure of last tetanus vaccine, Bleeding controled, Pt is a/o x4 skin wdp respirs [facility] Physician Emergency department Note* Dorina Winkler APRN INDUSTRIAL ORGANIZATION MANAGER - 03/13/2024 1:22 PM ESTAssociated Order(s): Lac [...] 2:04 PM Performed by: Dorina Winkler APRN INDUSTRIAL ORGANIZATION MANAGER Authorized by: Dorina Winkler APRN NP Consent: Consent obtained: Verbal Consent given by: Patient Risks, benefits, and alternatives were discussed: yes Risks discussed: Infection, need for additional repair, nerve damage, poor wound healing, poor cosmetic result, pain, tendon damage and vascular damage [place] protocol: Procedure explained and questions answered to [...] complications Medical Decision Making Dorina Winkler APRN INDUSTRIAL ORGANIZATION MANAGER 03/13/24 1405 Dorina Winkler APRN INDUSTRIAL ORGANIZATION MANAGER 03/13/24 1417 [facility] note* Diagnosis Unspecified atrial fibrillation (HCC) Unspecified atrial fibrillation (HCC) Paroxysmal atrial fibrillation (HCC) Atrial fibrillation documented in this encounter [facility] Work Phone: Evaluation note* Diagnosis Unspecified atrial fibrillation (HCC) Paroxysmal atrial fibrillation (HCC) Atrial fibrillation documented in this encounter [facility] Work Phone: Evaluation note* Diagnosis Personal history of nicotine dependence documented in this encounter [facility] note* Diagnosis Personal history of nicotine dependence- Primary Personal history of nicotine dependence documented in this encounter [facility] note* Diagnosis Laceration of left middle finger without foreign body without damage to nail, initial encounter- Primary documented in this encounter [facility] note* Diagnosis Pain in right hip- Primary Pain in left hip documented in this encounter [facility] note* Diagnosis Aneurysm of iliac artery (HCC) Aneurysm of iliac artery documented in this encounter [facility] Discharge instructions* Attachments The following attachments cannot be sent through Care Everywhere. * Hand Laceration: Stitches (Monegasque Belarusian) [facility] (narrative)No reason for referral information availableWOhio[facility] Work Phone: Reason for visit Narrative* Imaging (Routine) - Pending Review Specialty Diagnoses / Procedures Referred By Contmartin t Referred To Contact Cardiology Diagnoses Aneurysm of iliac artery (HCC) Procedures Vascular US aorta iliac duplex complete Ludy Sarmiento MD [address] [place], [place] [address] [place] [address] Phone: tel: fax: Referral ID Status Reason Start Date Expiration Date V isits Requested Visits Authorized [id number] Pending Review 12/28/2024 12/28/2026 1 1 [facility] Health Summary Purpose Family History No [...] 2D W Doppler W Color Esme Tan, INSTRUCTIONAL INTERVENTIONIST - ADOBE LAYER [address] [address] Referral ID Status Reason Start Date Expiration Date V isits Requested Visits Authorized [id number] Pending Review 08/03/2021 08/03/2022 1 1 Specialty Diagnoses / Procedures Referred By Contac t Referred To Contact Cardiology Diagnoses Personal history of nicotine dependence Procedures Vascular US abdominal aorta anuerysm AAA screening Ludy Sarmiento MD [address] [place] [address] Referral ID Status Reason Start Date Expiration Date V isits Requested Visits Authorized [id number] Closed Perform Procedure 12/13/2022 06/11/2023 1 1 [...] section and content) DATE CREATED AUTHOR 07/16/2018 [facility] ([place]) DATE CREATED AUTHOR AUTHOR'S ORGANIZ ATION 07/23/2018 [facility] DATE CREATED AUTHOR AUTHOR'S ORGANIZ ATION 07/23/2018 [facility] DATE CREATED AUTHOR AUTHOR'S ORGANIZ ATION 11/13/2021 [facility] DATE CREATED AUTHOR AUTHOR'S ORGANIZ ATION 03/18/2024 [facility] DATE CREATED AUTHOR AUTHOR'S ORGANIZ ATION 10/13/2024 [facility] DATE CREATED AUTHOR AUTHOR'S ORGANIZ ATION 12/05/2024 [facility] DATE CREATED AUTHOR AUTHOR'S ORGANIZ ATION 01/10/2025 [facility] Care Teams (unrecognized sec tion and content) 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 Specialty Start Date End Date Ludy Sarmiento MD [address] [place], [place] [id number] PCP - General Family Medicine 08/03/21 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 Specialty Start Date End Date Ludy Sarmiento MD [address] [place], [place] [id number] PCP - General Family Medicine 08/03/21 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 Specialty Start Date End Date uLdy Sarmiento MD [address] [facility] [place] [address] PCP - General 08/03/21 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 Ludy Sarmiento MD Primary Care Provider Active Team Status: Inactive Member Role/Relationship Status Dates Dr. Ludy Sarmiento MD Primary Care Provider Active Start: September 04, 2024 End: September 04, 2024 Dr. Ludy Sarmiento MD Referring Provider Active Start: September 04, 2024 End: September 04, 2024 Arlene Mata INDUSTRIAL ORGANIZATION MANAGER, INDUSTRIAL ORGANIZATION MANAGER-C Attending Provider Active Start: September 04, 2024 End: September 04, 2024 Team Status: Active Member Role/Relationship Status Dates Dr. Ludy Sarmiento MD Primary Care Provider Active Start: September 11, 2024 Arlene Mata INDUSTRIAL ORGANIZATION MANAGER, INDUSTRIAL ORGANIZATION MANAGER-C Attending Provider Active Start: September 11, 2024 Arlene Mata INDUSTRIAL ORGANIZATION MANAGER, INDUSTRIAL ORGANIZATION MANAGER-C Referring Provider Active Start: September 11, 2024 Team Status: Active Member Role/Relationship Status Dates Dr. Ludy Sarmiento MD Primary Care Provider Active Start: September 11, 2024 Dr. Ori Fernandes MD Attending Provider Active S tart: September 11, 2024 Arlene Mata INDUSTRIAL ORGANIZATION MANAGER, INDUSTRIAL ORGANIZATION MANAGER-C Referring Provider Active Start: September 11, 2024 Team Status: Inactive Member Role/Relationship Status Dates Dr. Ludy Sarmiento MD Primary Care Provider Active Start: October 30, 2024 End: October 30, 2024 Arlene Mata INDUSTRIAL ORGANIZATION MANAGER, INDUSTRIAL ORGANIZATION MANAGER-C Attending Provider Active Start: October 30, 2024 End: October 30, 2024 Arlene Mata INDUSTRIAL ORGANIZATION MANAGER, INDUSTRIAL ORGANIZATION MANAGER-C Referring Provider Active Start: October 30, 2024 End: October 30, 2024 Team Status: Active Member Role/Relationship Status Dates Dr. Ludy Sarmiento MD Primary Care Provider Active Start: October 31, 2024 Arlene Mata INDUSTRIAL ORGANIZATION MANAGER, INDUSTRIAL ORGANIZATION MANAGER-C Referring Provider Active Start: October 31, 2024 Arlene Mata INDUSTRIAL ORGANIZATION MANAGER, INDUSTRIAL ORGANIZATION MANAGER-C Other Provider Active Sta rt: October 31, 2024 Dr. Ori Fernandes MD Attending Provider Active S tart: October 31, 2024 Team Status: Active Member Role/Relationship Status Dates Dr. Ludy Sarmiento MD Primary Care Provider Active Start: November 01, 2024 Arlene Mtaa INDUSTRIAL ORGANIZATION MANAGER, INDUSTRIAL ORGANIZATION MANAGER-C Attending Provider Active Start: November 01, 2024 Team Status: Active Member Role/Relationship Status Dates Dr. Ludy Sarmiento MD Primary Care Provider Active Start: November 06, 2024 Dr. Ori Fernandes MD Attending Provider Active S tart: November 06, 2024 Team Status: Inactive Member Role/Relationship Status Dates Dr. Ludy Sarmiento MD Primary Care Provider Active Start: November 06, 2024 End: November 06, 2024 Arlene Mata INDUSTRIAL ORGANIZATION MANAGER, INDUSTRIAL ORGANIZATION MANAGER-C Attending Provider Active Start: November 06, 2024 End: November 06, 2024 Arlene Mata INDUSTRIAL ORGANIZATION MANAGER, INDUSTRIAL ORGANIZATION MANAGER-C Referring Provider Active Start: November 06, 2024 End: November 06, 2024 Team Status: Active Member Role/Relationship Status Dates Dr. Ludy Sarmiento MD Primary Care Provider Active Start: November 08, 2024 Arlene Mata INDUSTRIAL ORGANIZATION MANAGER, INDUSTRIAL ORGANIZATION MANAGER-C Attending Provider Active Start: November 08, 2024 Team Status: Inactive Member Role/Relationship Status Dates Dr. Ludy Sarmiento MD Primary Care Provider Active Start: December 04, 2024 End: December 04, 2024 Dr. 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 Start Date End Date Ludy Sarmiento MD [address] [place] [address] PCP - General 08/03/21 Reason for Visit (unrecogniz ed section and content) Specialty Diagnoses / Procedures Referred By Contac t Referred To Contact Cardiology Diagnoses Personal history of nicotine dependence Procedures Vascular US abdominal aorta anuerysm AAA screening Ludy Sarmiento MD [address] [place] [address] Referral ID Status Reason Start Date Expiration Date V isits Requested Visits Authorized [id number] Closed Perform Procedure 12/13/2022 06/11/2023 1 1 [...] BE BASED ON THE PRIMARY CLINICAL RECORDS. [employer] [facility]. provides no warranty or guarantee of the accuracy or completeness of information in this document.
[2025-04-19 16:21] LABS: Troponin T High Sens 4 HR 21 ng/L (<=22)
[2025-04-19] MEDS: MELATONIN 10 MG TABLET PO (21:37)
[2025-04-19] MEDS: Diltiazem 125 MG in Dextrose 5%-Water (100mL Bag) 100 ML 10 MG IV (23:21)
[2025-04-20] VITALS (17 sets, daily range): BP systolic 95–147; BP diastolic 55–113; PULSE 71–128; RESP 16–21; TEMP 36.3–37; O2SAT 95–100; BMI 34.7
[2025-04-20] MEDS: 0.9% Saline Lock 10 ML Syringe IV ×3 (03:39→21:51)
[2025-04-20 03:46] LABS: Hematocrit 45.3 % (40-54); Hemoglobin 15.0 g/dL (13.0-16.5); Immature Granulocytes Count 0.020 X10^3/uL (0.0-0.0); Mean Corp Hgb Conc 33.1 g/dL (32-36); Mean Corpuscular Volume 85.8 fL (80-94); Mean Platelet Vol. 10.1 fl (6.2-12.0); NRBC Flagged by Analyzer 0 % (0-5); Platelet Count 267 K/mm3 (150-450); RBC Distribution Width CV 14.3 % (11.6-14.6); RBC Distribution Width SD 44.2 fl (35.1-43.9); Red Blood Count 5.28 M/mm3 (4.6-6.2); White Blood Count 7.8 K/mm3 (4.4-11.0)
[2025-04-20 04:28] LABS: Anion Gap 15 (5-15); BUN 28 mg/dL (4-19); BUN/Creat Ratio 21.6 RATIO (10-20); Calcium,Total 9.1 mg/dL (7.6-11.0); Carbon Dioxide 20.3 mmol/L (21.0-32.0); Chloride 103 mmol/L (98-108); Estimated Creatinine Clearance 65.29 ml/min (50-250); Glucose 181 mg/dL (70-99); Magnesium 2.0 mg/dL (1.5-2.2); Potassium 4.5 mmol/L (3.3-5.1)
[2025-04-20 05:29] LABS: Prothrombin Time (Protime)PT. 23.6 SECONDS (11.7-14.9)
--- NOTE | 2025-04-20 05:55 | ECHOL_ITS ---
Reason For Study Reason For Study: Afib, Aflutter Procedure This was a limited 2D transthoracic echocardiogram. Exam performed portable in ICU/CCU. Left Ventricle Normal LV size. The estimated ejection fraction is 65 %. No evidence for diastolic dysfunction. No regional wall motion abnormalities noted. Right Ventricle Normal RV size. Normal systolic function. Atria The left and right atria are normal. No doppler evidence for ASD. Mitral Valve There is no mitral valve stenosis. No mitral valve insufficiency. Tricuspid Valve There is no tricuspid stenosis. Trivial tricuspid valve insufficiency. Pulmonary artery systolic pressure is 30 mmHg. Aortic Valve Trisinus/trileaflet aortic valve. There is no aortic stenosis. No aortic valve insufficiency. Pulmonic Valve There is no pulmonic valvular stenosis. No pulmonic valve insufficiency. Great Vessels Normal sized aortic root. Pericardium/Pleural No pericardial effusion. MMode/2D Measurements & Calculations LVIDd: 3.7 cm IVSd: 1.6 cm Ao root diam: 3.8 cm LVIDs: 2.1 cm LVPWd: 1.8 cm FS: 43.8 % LVAd ap4: 24.4 cm2 SV(MOD-sp4): 44.1 ml SV(sp4-el): 46.8 ml LVLd ap4: 7.4 cm SI(MOD-sp4): 19.4 ml/m2 EDV(MOD-sp4): 66.2 ml EDV(sp4-el): 68.2 ml LVAs ap4: 12.9 cm2 LVLs ap4: 6.6 cm ESV(MOD-sp4): 22.1 ml ESV(sp4-el): 21.4 ml EF(MOD-sp4): 66.6 % EF(sp4-el): 68.6 % Doppler Measurements & Calculations TR max uriel: 246.9 cm/sec TR max P.4 mmHg ECHO/Echo, Limited Study Interpretation Summary The estimated ejection fraction is 65 %. No evidence for diastolic dysfunction. Ordering Physician: Judi Ruggiero Referring Physician: Marlon Sarmiento Performed By: Lily Rossi, RDCS, RVT
--- NOTE | 2025-04-20 09:34 | PN.HOSP_ITS ---
Reason for Visit Chief Complaint: palpitations Objective Data Objective Data Vital Signs: Vital Signs Temp Pulse Resp BP Pulse Ox O2 Del Method 97.8 F 71 19 H 116/69 96 Room Air 04/20/25 07:00 04/20/25 08:00 04/20/25 08:00 04/20/25 08:00 04/20/25 08:00 04/20/25 08:00 Oxygen Delivery Method Room Air Weight: 242 lb 15.19 oz Body Mass Index (BMI) 34.7 Intake & Output: Intake and Output for Last 24 Hours 04/18/25 04/19/25 04/20/25 23:59 23:59 23:59 Intake Total 98.50 / 105.00 86.5 / 86.5 Output Total 525 / 525 350 / 350 Balance -426.50 / -420.00 -263.5 / -263.5 Lab / Micro Data 04/20/25 03:37 04/20/25 03:37 Labs: Laboratory Results - last 24 hr 04/19/25 11:45: WBC 10.1, RBC 5.79, Hgb 16.5, Hct 50.1, MCV 86.5, MCH 28.5, MCHC 32.9, RDW Std Deviation 44.4 H, RDW Coeff of Blake 14.2, Plt Count 349, MPV 10.4, Immature Gran % (Auto) 0.400, Neut % (Auto) 67.3, Lymph % (Auto) 24.5, Giles % (Auto) 5.7, Eos % (Auto) 1.8, Baso % (Auto) 0.3, Absolute Neuts (auto) 6.8, Absolute Lymphs (auto) 2.48, Nucleated RBC % 0, PT 24.3 H, INR 2.1, Sodium 137, Potassium 5.1, Chloride 101, Carbon Dioxide 21.1, Anion Gap 14, BUN 22 H, Creatinine 1.14, Estim Creat Clear Calc 74.04, Est GFR (MDRD) Non-Af 69, BUN/Creatinine Ratio 19.3, Glucose 184 H, Calcium 10.1, Troponin T High Sens 22 04/19/25 13:45: Troponin T Hi Sens 2 Hr 20, NT pro BNP II 1539 H 04/19/25 15:50: Troponin T Hi Sens 4Hr 21 04/20/25 03:37: WBC 7.8, RBC 5.28, Hgb 15.0, Hct 45.3, MCV 85.8, MCH 28.4, MCHC 33.1, RDW Std Deviation 44.2 H, RDW Coeff of Blake 14.3, Plt Count 267, MPV 10.1, Immature Gran % (Auto) 0.300, Neut % (Auto) 85.1 H, Lymph % (Auto) 8.6 L, Giles % (Auto) 5.3, Eos % (Auto) 0.4, Baso % (Auto) 0.3, Absolute Neuts (auto) 6.6, A bsolute Lymphs (auto) 0.67 L, Nucleated RBC % 0, PT Cancelled, INR Cancelled, Sodium 139, Potassium 4.5, Chloride 103, Carbon Dioxide 20.3 L, Anion Gap 15, B UN 28 H, Creatinine 1.29 H, Estim Creat Clear Calc 65.29, Est GFR (MDRD) Non-Af 59 L, BUN/Creatinine Ratio 21.6 H, Glucose 181 H, Calcium 9.1, Magnesium 2.0, TSH 1.210 04/20/25 04:32: PT 23.6 H, INR 2.1 Radiography Diagnostic Testing: Radiology Impression Chest X-Ray 04/19/25 11:45 IMPRESSION: Cardiomegaly with mild vascular congestion. Reading Location: [facility] Rhythm Strip Rhythm Strip: A-fib Rate: 180 Ectopy: None Physical Exam Narrative Seen and examined Patient retransmitted with 1 week of palpitation, heart rate ranging from 40-138 per night. He was hoping that his heart will reset tolerated self but yesterday he felt more short of breath and mild dull-like chest pain mainly with shortness of breath about 2/10 intensity and palpitation. He also had feeling of near pass out several times. In ICU on Cardizem drip. Heart rate controlled in the 90s. Physical exam General: Alert, Oriented x3, Cooperative. BMI 34.9 kg/m? HEENT: Atraumatic, PERRLA, EOMI, Normocephalic. Oral: No Gingival or Mucosal Lesions/ Ulcerations Neck: Supple, No JVD, Negative Carotid Bruits Chest wall/Lungs: Air entry diminished in bilateral lung bases. No crepitation/rhonchi Cardiovascular: Irregular rate and rhythm systolic murmur Abdomen: Bowel Sounds Present, Soft, Non Tender, Non-Distended : No dysuria. No renal angle tenderness. No suprapubic tenderness. Extremities: No edema, Capillary Refill Less than 3 Seconds Skin: No rashes, No breakdown Musculoskeletal: No Tenderness to Palpation of Joints or Extremities Neurological: Cranial nerves II-XII grossly intact, DTR 2+/4. No acute focal neurological deficit. Psych/Mental Status: Normal Affect, Appropriate. Assessment & Plan Assessment/Plan (1) Paroxysmal atrial fibrillation: (2) Atrial fibrillation with RVR: PLAN: Plan 69-year-old gentleman being admitted for A-fib RVR with symptoms of palpitation, shortness of breath and subtle pleuritic type chest pain #Afib wtih RVR: Patient is being admitted in ICU. Continue Cardizem drip and taper. INR is therapeutic on warfarin.Serial troponins are negative. Electrolytes in normal range. TSH 1.21. Junior Java Developer consulted. Started on Cardizem 60 g Q6 hourly in order to titrate down Cardizem drip. # Acute exacerbation of heart failure, chronic HFpEF possible due to A-fib RVR, mild TR: Chest x-ray initially reviewed and shows cardiomegaly with mild vascular congestion. proBNP elevated 1539. * Diurese with IV Lasix 40 mg twice daily. Chest x-ray showed cardiomegaly with mild vascular congestion. * Monitor intake and output. Fluid striction to 1500 cc daily. * Creatinine went up from 1.14-1.29. Will decrease the furosemide to 40 mg once daily. No pedal edema. * On lisinopril and metoprolol. DVT prophylaxis: Not indicated as patient already on Coumadin #CODE STATUS: full code * Patient and counseled extensively about different types of CODE STATUS including full code, DNR CCA and DNR CCA. * Patient elects to be full code * Echo November 2024 Interpretation Summary Normal LV size. Left ventricular systolic function is normal. The left ventricular ejection fraction is 65 %. Moderate concentric left ventricular hypertrophy. Mild tricuspid valve insufficiency. The global longitudinal strain is borderline abnormal. The global longitudinal strain = -16% (abnormal) Charges/Coding Addendum Addendum: Total time of the visit including total time spent in counseling or coordination of care, (more than 50% of the total time, spent in obtaining medical information from nurses and other ancillary care providers ,explaining to the patient about labs, imaging, diagnosis and management of active complex medical conditions), cardiology consult, review of labs and imaging is 35 minutes. Visit Charges Inpatient E&M: 22677 [facility] L3
[2025-04-20] MEDS: Cholecalciferol (Vit D3) 125 MCG CAPSULE (5,000 UNITS) PO (09:51)
--- NOTE | 2025-04-20 14:51 | PCM.CONS.C ---
Assessment & Plan Assessment/Plan (1) Atrial fibrillation with RVR: PLAN: Continue warfarin. Agree with starting him on p.o. Cardizem. Continue his other home medications. If patient's heart rate is under reasonable control overnight he could be discharged home tomorrow. Patient was asking about EP referral. Advised him to call our office on Tuesday to get an appointment with Dr. Estrada. HPI Consult Data Date of Consult: 04/20/25 HPI Narrative Reason for Consultation: A-fib HPI Narrative: ANNIA FONSECA, is a 69 M who presents [with palpitations, shortness of breath, chest pain. Patient was found to be in A-fib with RVR. He was started on IV Cardizem with good control of his heart rate. He has now been switched to p.o. Cardizem. His heart rate is under control. He currently does not have any significant symptoms. He is inquiring about A-fib ablation. He had an echo this admission that showed preserved EF. Patient has history of paroxysmal A-fib.] REPLACED BY [facility] Medical History Essential hypertension Paroxysmal A-fib Visual disturbance History of stroke High cholesterol Frequent headaches Diabetes Cataracts, bilateral History of blood clots History of back problems Arthritis Hypertension Home Medications ?Medication ?Instructions ?Recorded ?Last Taken ?Type aspirin 81 mg chewable tablet 81 mg PO DAILY@1900 heart [facility] 04/22/20 04/28/20 History multivitamin 1 tab PO DAILY SUPPLIMENT 04/22/20 04/29/20 History ashwagandha root extract 300 mg 300 mg PO DAILY 05/23/20 Unknown History capsule warfarin 2.5 mg tablet 2.5 mg PO MOWEFR 12/17/20 Unknown History warfarin 5 mg tablet 5 mg PO SUTUTHSA 12/17/20 Unknown History ascorbic acid (vitamin C) 1,000 mg 1 g PO DAILY 01/02/21 Unknown History tablet cholecalciferol (vitamin D3) 125 125 mcg PO DAILY 04/06/21 Unknown History mcg (5,000 unit) tablet cinnamon bark 500 mg capsule 500 mg PO QDAY 09/04/24 Unknown History (Cinnamon) lisinopril 20 mg tablet 20 mg PO DAILY 09/04/24 Unknown History metoprolol succinate 25 mg 25 mg PO DAILY #90 tabs 12/04/24 Unknown Rx tablet,extended release 24 hr docosahexaenoic acid (dha)-epa 1 cap PO DAILY 04/19/25 Unknown History capsule melatonin 5 mg capsule 7 mg PO QHS sleep 04/19/25 Unknown History tumeric 04/19/25 Unknown History Allergy/AdvReac Type Severity Reaction Status Date / Time atorvastatin AdvReac Mild Other Verified 04/19/25 11:31 metformin AdvReac Mild Pain in Verified 04/19/25 11:31 joints Family History (Reviewed 12/04/24 @ 13:15 by Arlene Mata ANIMAL LABORATORY HELPER, ANIMAL LABORATORY HELPER-C) Mother CVA (cerebral vascular accident) Heart disease Father Heart disease Surgical History History of left ankle surgery history of lower hernia surgery Social History household members: spouse housing: house Smoking Status: Never smoker alcohol intake: never substance use type: does not use what type of physical activity do you participate in: other details: Eliptical frequency: 3-4 times per week Physical Exam Const alert and oriented x3 HEENT normocephalic Eyes no scleral icterus Resp normal respiratory effort Cardio Cardio Narrative: Irregular rhythm Charges/Coding Visit Charges Inpatient E&M: 77396 Init Hosp L2 Objective Data Vital Signs: Vital Signs Temp Pulse Resp BP Pulse Ox O2 Del Method 97.3 F L 74 17 118/72 99 Room Air 04/20/25 14:29 04/20/25 14:29 04/20/25 14:29 04/20/25 14:29 04/20/25 14:29 04/20/25 14:31 Oxygen Delivery Method Room Air Weight: 242 lb 15.19 oz Body Mass Index (BMI) 34.7 Intake & Output: Intake and Output for Last 24 Hours 04/18/25 04/19/25 04/20/25 23:59 23:59 23:59 Intake Total 98.50 / 105.00 125.0 / 125.0 Output Total 525 / 525 750 / 750 Balance -426.50 / -420.00 -625.0 / -625.0 Lab / Micro Data 04/20/25 03:37 04/20/25 03:37 Labs: Laboratory Results - last 24 hr 04/19/25 15:50: Troponin T Hi Sens 4Hr 21 04/20/25 03:37: WBC 7.8, RBC 5.28, Hgb 15.0, Hct 45.3, MCV 85.8, MCH 28.4, MCHC 33.1, RDW Std Deviation 44.2 H, RDW Coeff of Blake 14.3, Plt Count 267, MPV 10.1, Immature Gran % (Auto) 0.300, Neut % (Auto) 85.1 H, Lymph % (Auto) 8.6 L, [place] % (Auto) 5.3, Eos % (Auto) 0.4, Baso % (Auto) 0.3, Absolute Neuts (auto) 6.6, Absolute Lymphs (auto) 0.67 L, Nucleated RBC % 0, PT Cancelled, INR Cancelled, Sodium 139, Potassium 4.5, Chloride 103, Carbon Dioxide 20.3 L, Anion Gap 15, BUN 28 H, Creatinine 1.29 H, Estim Creat Clear Calc 65.29, Est GFR (MDRD) Non-Af 59 L, BUN/Creatinine Ratio 21.6 H, Glucose 181 H, Calcium 9.1, Magnesium 2.0, TSH 1.210 04/20/25 04:32: PT 23.6 H, INR 2.1 Rhythm Strip Rhythm Strip: A-fib Rate: 180 Ectopy: None Cardiology Labs/Tests 04/20/25 03:37: WBC 7.8, RBC 5.28, Hgb 15.0, Hct 45.3, MCV 85.8, MCH 28.4, MCHC 33.1, Plt Count 267, MPV 10.1, Immature Gran % (Auto) 0.300, Neut % (Auto) 85.1 H, Lymph % (Auto) 8.6 L, [place] % (Auto) 5.3, Eos % (Auto) 0.4, Baso % (Auto) 0.3, Absolute Neuts (auto) 6.6, Nucleated RBC % 0, PT Cancelled, INR Cancelled, Sodium 139, Potassium 4.5, Chloride 103, Carbon Dioxide 20.3 L, Anion Gap 15, BUN 28 H, Creatinine 1.29 H, Est GFR (MDRD) Non-Af 59 L, BUN/Creatinine Ratio 21.6 H, Glucose 181 H, Calcium 9.1, Magnesium 2.0 04/20/25 04:32: PT 23.6 H, INR 2.1 Rhythm: EKG: ECHO: Stress Test: Cardiac Cath: PCI: CT Surgery: Holter monitor: EPS: PPM: CXR: Chest CT Scan: Radiography Diagnostic Testing: Radiology Impression Echocardiogram 04/20/25 05:55 Interpretation Summary The estimated ejection fraction is 65 %. No evidence for diastolic dysfunction. Ordering Physician: Judi Ruggiero Referring Physician: Marlon Sarmiento Performed By: Lily Rossi, RDRYAN, RVT Risk Score for UA/STEMI Assesmment (YES = 1) Risk Stratification Applicable: No
[2025-04-20] MEDS: Warfarin (PBKC) 5 MG Tablet PO (17:13)
--- NOTE | 2025-04-20 19:49 | EKG12_ITS ---
Test Reason : DIAPHORESIS Blood Pressure : */* mmHG Vent. Rate : 112 BPM Atrial Rate : 294 BPM P-R Int : * ms QRS Dur : 146 ms QT Int : 364 ms P-R-T Axes : * 69 -42 degrees QTcB Int : 496 ms Atrial flutter with variable A-V block Right bundle branch block Abnormal ECG Confirmed by NERI HARTMAN, CLYDE ([id number]), television news video editor GUMARO KHOURY ([id number]) on 04/23/2025 1:59:34 PM Referred By: Confirmed By: CLYDE HE MD
--- NOTE | 2025-04-20 19:50 | EKG12_ITS ---
Test Reason : CP Blood Pressure : */* mmHG Vent. Rate : 167 BPM Atrial Rate : * BPM P-R Int : * ms QRS Dur : 122 ms QT Int : 270 ms P-R-T Axes : * 88 -32 degrees QTcB Int : 450 ms Critical Test Result: High HR Atrial fibrillation with rapid ventricular response Right bundle branch block T wave abnormality, consider inferior ischemia Abnormal ECG Confirmed by VITA HARTMAN, PATTI ([id number]), editor managing newspaper LUCIAN SAVAGE ([id number]) on 04/22/2025 6:46:39 AM Referred By: PATRIZIA/LILLI Confirmed By: PATTI GORMAN MD
--- NOTE | 2025-04-20 20:39 | PCM.HOSP.N ---
Hospitalist Note Pt seen and examined at bedside. Pt had a brief episode of tachycardia. Now stable. EKG reviewed, Afib, rate 112. Pt due for dose of PO cardizem - ok to give. Pt also noted with some lightheadedness on standing. Requested orthostatic vitals at this time. No CP or SOB, and no LE edema. Pt also has some nausea - nurse actively giving zofran at the time of exam will wait to see how he responds. Pt also having some diarrhea which he noted was also going on prior to hospital admission. Will check stool for C diff and enteric panel. Electrolytes reviewed and normal at this time.
[2025-04-20] MEDS: MELATONIN 10 MG TABLET PO (21:19)
[2025-04-20] MEDS: 0.9% Normal Saline (500mL Bag) 500 ML 999 ML IV (21:51)
[2025-04-21 03:10] VITALS: BP 128/93; PULSE 109; RESP 18; TEMP 36.6; O2SAT 98
[2025-04-21] MEDS: 0.9% Normal Saline (1000mL) 1,000 ML 100 ML IV (03:41)
[2025-04-21 03:46] VITALS: BMI 34.7
[2025-04-21 04:43] LABS: Hematocrit 47.1 % (40-54); Hemoglobin 15.3 g/dL (13.0-16.5); Immature Granulocytes Count 0.040 X10^3/uL (0.0-0.0); Mean Corp Hgb Conc 32.5 g/dL (32-36); Mean Corpuscular Volume 87.7 fL (80-94); Mean Platelet Vol. 10.4 fl (6.2-12.0); NRBC Flagged by Analyzer 0 % (0-5); Platelet Count 243 K/mm3 (150-450); RBC Distribution Width CV 14.2 % (11.6-14.6); RBC Distribution Width SD 45.8 fl (35.1-43.9); Red Blood Count 5.37 M/mm3 (4.6-6.2); White Blood Count 7.2 K/mm3 (4.4-11.0)
[2025-04-21 05:14] LABS: Prothrombin Time (Protime)PT. 24.4 SECONDS (11.7-14.9)
[2025-04-21 05:21] LABS: Anion Gap 11 (5-15); BUN 28 mg/dL (4-19); BUN/Creat Ratio 20.7 RATIO (10-20); Calcium,Total 8.4 mg/dL (7.6-11.0); Carbon Dioxide 21.6 mmol/L (21.0-32.0); Chloride 103 mmol/L (98-108); Estimated Creatinine Clearance 62.38 ml/min (50-250); Glucose 170 mg/dL (70-99); Potassium 4.5 mmol/L (3.3-5.1)
[2025-04-21 06:00] VITALS: BP 143/80; PULSE 75
--- NOTE | 2025-04-21 08:36 | PN.HOSP_ITS ---
Reason for Visit Chief Complaint: palpitations Objective Data Objective Data Vital Signs: Vital Signs Temp Pulse Resp BP Pulse Ox O2 Del Method 97.8 F 75 18 143/80 H 98 Room Air 04/21/25 03:10 04/21/25 06:00 04/21/25 03:10 04/21/25 06:00 04/21/25 03:10 04/21/25 03:10 Oxygen Delivery Method Room Air Weight: 242 lb 15.19 oz Body Mass Index (BMI) 34.7 Intake & Output: Intake and Output for Last 24 Hours 04/19/25 04/20/25 04/21/25 23:59 23:59 23:59 Intake Total 98.50 / 105.00 624.5 / 624.5 Output Total 525 / 525 750 / 750 Balance -426.50 / -420.00 -125.5 / -125.5 Lab / Micro Data 04/21/25 03:59 04/21/25 03:59 Labs: Laboratory Results - last 24 hr 04/20/25 19:48: POC Glucose 191 H 04/21/25 03:59: WBC 7.2, RBC 5.37, Hgb 15.3, Hct 47.1, MCV 87.7, MCH 28.5, MCHC 32.5, RDW Std Deviation 45.8 H, RDW Coeff of Blake 14.2, Plt Count 243, MPV 10.4, Immature Gran % (Auto) 0.600, Neut % (Auto) 62.4, Lymph % (Auto) 24.5, [place] % (Auto) 10.5 H, Eos % (Auto) 1.4, Baso % (Auto) 0.6, Absolute Neuts (auto) 4.5, Absolute Lymphs (auto) 1.75, Nucleated RBC % 0, PT 24.4 H, INR 2.1, Sodium 136, Potassium 4.5, Chloride 103, Carbon Dioxide 21.6, Anion Gap 11, BUN 28 H, C reatinine 1.35 H, Estim Creat Clear Calc 62.38, Est GFR (MDRD) Non-Af 56 L, B UN/Creatinine Ratio 20.7 H, Glucose 170 H, Calcium 8.4 Micro: Microbiology 04/20/25 21:45 Stool Clostridioides difficile (PCR) - Final Radiography Diagnostic Testing: Radiology Impression Echocardiogram 04/20/25 05:55 Interpretation Summary The estimated ejection fraction is 65 %. No evidence for diastolic dysfunction. Ordering Physician: Judi Ruggiero Referring Physician: Marlon Sarmiento Performed By: Lily Rossi, RDCS, RVT Rhythm Strip Rhythm Strip: A-fib Rate: 180 Ectopy: None Physical Exam Narrative Seen and examined Overnight events noticed. Yesterday patient stated that he has intermittent diarrhea/loose bowel movement about 2 to 3/day for 1 week because of intermittent fasting and magnesium. Patient had liquid bowel movement, hypovolemia probably from overdiuresis and orthostatic hypotension. Furosemide IV discontinued patient given IV fluid. cafeteria monitor shows irregular rhythm. Blood pressure has recovered to 121/65. Not having dizziness. Physical exam General: Alert, Oriented x3, Cooperative. BMI 34.9 kg/m? HEENT: Atraumatic, PERRLA, EOMI, Normocephalic. Oral: No Gingival or Mucosal Lesions/ Ulcerations Neck: Supple, No JVD, Negative Carotid Bruits Chest wall/Lungs: Air entry diminished in bilateral lung bases. No crepitation/rhonchi Cardiovascular: Irregular rate and rhythm. Systolic murmur Abdomen: Bowel Sounds Present, Soft, Non Tender, Non-Distended : No dysuria. No renal angle tenderness. No suprapubic tenderness. Extremities: No edema, Capillary Refill Less than 3 Seconds Skin: No rashes, No breakdown Musculoskeletal: No Tenderness to Palpation of Joints or Extremities Neurological: Cranial nerves II-XII grossly intact, DTR 2+/4. No acute focal neurological deficit. Psych/Mental Status: Normal Affect, Appropriate. Assessment & Plan Assessment/Plan (1) Paroxysmal atrial fibrillation: (2) Atrial fibrillation with RVR: PLAN: Plan 69-year-old gentleman being admitted for A-fib RVR with symptoms of palpitation, shortness of breath and subtle pleuritic type chest pain #Afib wtih RVR: Patient is being admitted in ICU. Continue Cardizem drip and taper. INR is therapeutic on warfarin.Serial troponins are negative. Electrolytes in normal range. TSH 1.21. Edi Coordinator consulted. Started on Cardizem 60 g Q6 hourly in order to titrate down Cardizem drip. 04/21: Heart rate 83, BP 121/65, Cardizem short-acting changed to Cardizem CD to 40 mg daily. Hypovolemia from overdiuresis and orthostatic hypotension: Patient heart rate increased to 112?128 and blood pressure dropped from 131/79 supine to 105/73 and heart rate changed from 96-83. He also had a brief episode of tachycardia, A- fib 112/min associated with lightheadedness on standing. Stool for C. difficile came negative. Enteric pathogen ordered. IV fluid ordered. Currently symptoms are resolved. # Acute exacerbation of heart failure, chronic HFpEF possible due to A-fib RVR, mild TR: Chest x-ray initially reviewed and shows cardiomegaly with mild vascular congestion. proBNP elevated 1539. * Diurese with IV Lasix 40 mg twice daily. Chest x-ray showed cardiomegaly with mild vascular congestion. * Monitor intake and output. Fluid striction to 1500 cc daily. * Creatinine went up from 1.14-1.29. Will decrease the furosemide to 40 mg once daily. No pedal edema. * On lisinopril and metoprolol. 04/21: Patient overdiuresed. Furosemide discontinued. Continue holding lisinopril. Metoprolol succinate ordered. DVT prophylaxis: Not indicated as patient already on Coumadin #CODE STATUS: full code * Patient and counseled extensively about different types of CODE STATUS including full code, DNR CCA and DNR CCA. * Patient elects to be full code * Echo November 2024 Interpretation Summary Normal LV size. Left ventricular systolic function is normal. The left ventricular ejection fraction is 65 %. Moderate concentric left ventricular hypertrophy. Mild tricuspid valve insufficiency. The global longitudinal strain is borderline abnormal. The global longitudinal strain = -16% (abnormal) Charges/Coding Visit Charges Inpatient E&M: 94023 Subs Hosp L2
[2025-04-21 09:08] VITALS: BP 121/65; PULSE 75; RESP 17; TEMP 36.4; O2SAT 99
[2025-04-21] MEDS: Cholecalciferol (Vit D3) 125 MCG CAPSULE (5,000 UNITS) PO (09:18)
--- NOTE | 2025-04-21 13:26 | DCINST_ITS ---
Discharge Instructions DC O2, CPAP, BIPAP needs Home O2 Discharge instructions: No Follow Up Care Test Results: Test results from this visit will be discussed in further detail at your follow- up appointment, if applicable. Discharge Plan Admission Admit Date/Time: 04/19/25 15:17 Primary Reason for Your Visit: A-fib RVR, CHF exacerbation, Attending Provider: Pacheco Liz Primary Care Provider: Marlon Sarmiento Consulting Providers: Judi Ruggiero; Karen Carroll Discharge Orders/Prescriptions Prescriptions: New diltiazem HCl [Cardizem CD] 120 mg capsule,extended release 24hr 120 mg PO DAILY 30 Days Qty: 30 1RF Rx Instructions: Hold for heart less than 50 or systolic blood pressure less than 100 mmHg. metoprolol succinate 50 mg tablet extended release 24 hr 50 mg PO DAILY 30 Days Qty: 30 2RF Rx Instructions: Hold for heart less than 50 or systolic blood pressure less than 100 mmHg. Continued ashwagandha root extract 300 mg capsule 300 mg PO DAILY cholecalciferol (vitamin D3) 125 mcg (5,000 unit) tablet 125 mcg PO DAILY ascorbic acid (vitamin C) 1,000 mg tablet 1 g PO DAILY cinnamon bark [Cinnamon] 500 mg capsule 500 mg PO QDAY Rx Instructions: 3 capsules daily aspirin 81 MG tablet,chewable 81 mg PO DAILY@1900 multivitamin 1 TABLET tablet 1 tab PO DAILY warfarin 5 mg Tablet 5 mg PO SUTUTHSA warfarin 2.5 mg Tablet 2.5 mg PO MOWEFR docosahexaenoic acid-epa Capsule 1 cap PO DAILY tumeric melatonin 5 mg capsule 7 mg PO QHS Held lisinopril 20 mg tablet 20 mg PO DAILY Hold Instructions: Hold the lisinopril Discontinued metoprolol succinate 25 mg tablet extended release 24 hr 25 mg PO DAILY Qty: 90 3RF Referrals / Follow Up: Marlon Sarmiento MD [Primary Care Provider, Family Practice] Ashkan Estrada MD [Med Staff - Active Staff, Cardiology] - Within 1 Month Referral Note: Opinion regarding A-fib rhythm control/ablation Arlene Mata NP, ASSISTANT DIRECTOR OF [employer] [Non-Staff -Ordering Privileges, Cardiology] - Within 2 Weeks Disposition Disposition (needs filled in before D/C Order can be placed): Home, Self Care
--- NOTE | 2025-04-21 13:39 | DS.PCM_ITS ---
Providers Date of Admission: 04/19/25 Date of Discharge: 04/21/25 Primary Care Physician: Dr. Marlon Sarmiento MD Consultations 04/19/25 17:53 Consult: Cardiology Routine Consulting Provider: Karen Carroll Reason for Consult: afib with RVR EMERGENT Consult: No MD Notified: Yes Date Notified: 04/19/25 Time Notified: 16:02 Method of Notification: Text Reason For Visit: AFIB WITH RVR Diagnosis Discharge Diagnosis (1) Paroxysmal atrial fibrillation: Status: Acute Code(s): I48.0 - Paroxysmal atrial fibrillation (2) Atrial fibrillation with RVR: Status: Resolved Code(s): I48.91 - Unspecified atrial fibrillation Plan 69-year-old gentleman being admitted for A-fib RVR with symptoms of palpitation, shortness of breath and subtle pleuritic type chest pain #Afib wtih RVR: Patient is being admitted in ICU. Continue Cardizem drip and taper. INR is therapeutic on warfarin.Serial troponins are negative. Electrolytes in normal range. TSH 1.21. Rotary Screen Printing Machine Operator consulted. Started on Cardizem 60 g Q6 hourly in order to titrate down Cardizem drip. 04/21: Heart rate 83, BP 121/65, Cardizem short-acting changed to Cardizem CD 240 mg daily. Patient on metoprolol succinate 25 mg daily, dose increased to 50 mg daily. Cardizem CD decreased to 120 mg daily. Prescriptions for metoprolol succinate and Cardizem CD were given. Patient advised to follow-up with EP Dr. Estrada for rhythm control/ablation options of the A-fib. Hypovolemia from overdiuresis and orthostatic hypotension: Patient heart rate increased to 112?128 and blood pressure dropped from 131/79 supine to 105/73 and heart rate changed from 96-83. He also had a brief episode of tachycardia, A- fib 112/min associated with lightheadedness on standing. Stool for C. difficile came negative. Enteric pathogen's pending. IV fluid completed. Patient wants to go home. Will monitor restrictively Erna panel. # Acute exacerbation of heart failure, chronic HFpEF possible due to A-fib RVR, mild TR: Chest x-ray initially reviewed and shows cardiomegaly with mild vascular congestion. proBNP elevated 1539. * Diurese with IV Lasix 40 mg twice daily. Chest x-ray showed cardiomegaly with mild vascular congestion. * Monitor intake and output. Fluid restriction to 1500 cc daily. * Creatinine went up from 1.14-1.29. Will decrease the furosemide to 40 mg once daily. No pedal edema. * On lisinopril and metoprolol. 04/21: Patient overdiuresed. Furosemide discontinued. Continue holding lisinopril. Metoprolol succinate ordered. Fluid restriction discontinued. Patient advised to continue hold lisinopril. 2D echo on 04/20/2025 shows EF 65%, no regional wall motion abnormality right and left atria normal. No MR. Trivial TR. DVT prophylaxis: Not indicated as patient already on Coumadin #CODE STATUS: full code * Patient and counseled extensively about different types of CODE STATUS including full code, DNR CCA and DNR CCA. * Patient elects to be full code Discharge medication reconciliation done. Discharge follow-up instructions completed. Discharge process discussed with the patient and all questions were answered to patient's satisfaction. Follow with PCP in 1 to 2 weeks Total time spent, exact 35 minutes on discharge meds reconciliation, examination, coordination of care with nurses and ancillary staff, review of imaging and blood test and discussion with the patient on follow-up instructions. Medications at Discharge Home Medications aspirin 81 mg chewable tablet 81 mg PO DAILY@1900 [facility] 04/22/20 multivitamin 1 tab PO DAILY SUPPLIMENT 04/22/20 ashwagandha root extract 300 mg capsule 300 mg PO DAILY 05/23/20 warfarin 2.5 mg tablet 2.5 mg PO MOWEFR 12/17/20 warfarin 5 mg tablet 5 mg PO SUTUTHSA 12/17/20 ascorbic acid (vitamin C) 1,000 mg tablet 1 g PO DAILY 01/02/21 cholecalciferol (vitamin D3) 125 mcg (5,000 unit) tablet 125 mcg PO DAILY 04/06/21 cinnamon bark 500 mg capsule (Cinnamon) 500 mg PO QDAY 09/04/24 lisinopril 20 mg tablet 20 mg PO DAILY 09/04/24 Held on 04/21/25. Instructions: Hold the lisinopril docosahexaenoic acid (dha)-epa capsule 1 cap PO DAILY 04/19/25 melatonin 5 mg capsule 7 mg PO QHS sleep 04/19/25 tumeric 04/19/25 diltiazem HCl 120 mg capsule,extended release 24 hr (Cardizem CD) 120 mg PO DAILY 30 days #30 caps 04/21/25 metoprolol succinate 50 mg tablet,extended release 24 hr 50 mg PO DAILY 1 month #30 tabs 04/21/25 Physical Exam Narrative Patient heart rate and blood pressure is controlled. Please see physical examination on the progress note same date. Diarrhea is resolved. Stool for C. difficile negative. Stool for enteric pathogen is pending. Weight / BMI Weight Weight: 242 lb 15.19 oz Body Mass Index (BMI) 34.7 ABG / Lab / Microbiology Data 04/21/25 03:59 04/21/25 03:59 Laboratory: Laboratory Results - last 24 hr 04/20/25 19:48: POC Glucose 191 H 04/21/25 03:59: WBC 7.2, RBC 5.37, Hgb 15.3, Hct 47.1, MCV 87.7, MCH 28.5, MCHC 32.5, RDW Std Deviation 45.8 H, RDW Coeff of Blake 14.2, Plt Count 243, MPV 10.4, Immature Gran % (Auto) 0.600, Neut % (Auto) 62.4, Lymph % (Auto) 24.5, [place] % (Auto) 10.5 H, Eos % (Auto) 1.4, Baso % (Auto) 0.6, Absolute Neuts (auto) 4.5, Absolute Lymphs (auto) 1.75, Nucleated RBC % 0, PT 24.4 H, INR 2.1, Sodium 136, Potassium 4.5, Chloride 103, Carbon Dioxide 21.6, Anion Gap 11, BUN 28 H, C reatinine 1.35 H, Estim Creat Clear Calc 62.38, Est GFR (MDRD) Non-Af 56 L, B UN/Creatinine Ratio 20.7 H, Glucose 170 H, Calcium 8.4 Microbiology: Microbiology 04/20/25 21:45 Stool Clostridioides difficile (PCR) - Final Radiography Diagnostic Testing: Radiology Impression Echocardiogram 04/20/25 05:55 Interpretation Summary The estimated ejection fraction is 65 %. No evidence for diastolic dysfunction. Ordering Physician: Judi Ruggiero Referring Physician: Marlon Sarmiento Performed By: Lily Rossi, DA, RVT D/C Instructions DC O2, CPAP, BIPAP Needs Home O2 Discharge instructions: No Meaningful Use Info Meaningful Use Meaningful Use Diagnoses (Choose all that apply): CHF CHF DARYN/ARB ordered at discharge?: No Reason DARYN/ARB not ordered?: Hypotension, Not indicated and Worsening renal dysfunctn Documented LVEF (%): 65 Discharge Plan Admission Admit Date/Time: 04/19/25 15:17 Primary Reason for Your Visit: A-fib RVR, CHF exacerbation, Attending Provider: Pacheco Liz Primary Care Provider: Marlon Sarmiento Consulting Providers: Judi Ruggiero; Karen Carroll Discharge Orders/Prescriptions Prescriptions: New diltiazem HCl [Cardizem CD] 120 mg capsule,extended release 24hr 120 mg PO DAILY 30 Days Qty: 30 1RF Rx Instructions: Hold for heart less than 50 or systolic blood pressure less than 100 mmHg. metoprolol succinate 50 mg tablet extended release 24 hr 50 mg PO DAILY 30 Days Qty: 30 2RF Rx Instructions: Hold for heart less than 50 or systolic blood pressure less than 100 mmHg. Continued rukhsanadha root extract 300 mg capsule 300 mg PO DAILY cholecalciferol (vitamin D3) 125 mcg (5,000 unit) tablet 125 mcg PO DAILY ascorbic acid (vitamin C) 1,000 mg tablet 1 g PO DAILY cinnamon bark [Cinnamon] 500 mg capsule 500 mg PO QDAY Rx Instructions: 3 capsules daily aspirin 81 MG tablet,chewable 81 mg PO DAILY@1900 multivitamin 1 TABLET tablet 1 tab PO DAILY warfarin 5 mg Tablet 5 mg PO SUTUTHSA warfarin 2.5 mg Tablet 2.5 mg PO MOWEFR docosahexaenoic acid-epa Capsule 1 cap PO DAILY tumeric melatonin 5 mg capsule 7 mg PO QHS Held lisinopril 20 mg tablet 20 mg PO DAILY Hold Instructions: Hold the lisinopril Discontinued metoprolol succinate 25 mg tablet extended release 24 hr 25 mg PO DAILY Qty: 90 3RF Referrals / Follow Up: Marlon Sarmiento MD [Primary Care Provider, Family Practice] Ashkan Estrada MD [Med Staff - Active Staff, Cardiology] - Within 1 Month Referral Note: Opinion regarding A-fib rhythm control/ablation Arlene Mata EGG BUYER, [employer]GG BU[employer] [Non-Staff -Ordering Privileges, Cardiology] - Within 2 Weeks Disposition Disposition (needs filled in before D/C Order can be placed): Home, Self Care Charges/Coding Visit Charges Inpatient E&M: 41991 Disch Hosp >30min
[2025-04-21 14:19] VITALS: BP 140/65; PULSE 94
[2025-04-21] MEDS: 0.9% Saline Lock 10 ML Syringe IV (14:19)
[2025-04-21] MEDS: Metoprolol(XL)Succ 25 MG Tablet PO (14:19)
== END 2025-04-21 16:10 | disposition home or self-care (01) | DRG 308 ==
LOC: ED 15:39 → ICU 16:00 → PCU 04-20 14:21
PROVIDERS: Admitting Provider Student in an Organized Health Care Education/Training Program; Emergency Provider Emergency Medicine; PCP Family Medicine; Visit Provider Internal Medicine
DX: I48.0 Paroxysmal atrial fibrillation (principal); I50.33 Acute on chronic diastolic (congestive) heart failure; A08.11 Acute gastroenteropathy due to Norwalk agent; I11.0 Hypertensive heart disease with heart failure; E11.9 Type 2 diabetes mellitus without complications; I36.1 Nonrheumatic tricuspid (valve) insufficiency; R11.0 Nausea; I95.1 Orthostatic hypotension; E86.1 Hypovolemia; T50.1X5A Adverse effect of loop [high-ceiling] diuretics, initial encounter; Z79.01 Long term (current) use of anticoagulants; Z86.73 Personal history of transient ischemic attack (TIA), and cerebral infarction without residual deficits; Z86.718 Personal history of other venous thrombosis and embolism; Z79.82 Long term (current) use of aspirin; Z79.899 Other long term (current) drug therapy
CPT/HCPCS: 36415; 71045; 80048; 82962; 83735; 83880; 84443; 84484; 85025; 85610; 87493; 87506; 93005; 93308; 97161; 97165; 99285; A4216; J1938; J2405